=== PATIENT | male | born 1950 | race Caucasian/White ===

== ENCOUNTER 2024-03-26 15:33 | Inpatient (IN) | payer MEDICARE, SELFPAY ==
[2024-03-26 15:33] VITALS: BP 149/59; PULSE 97; RESP 16; O2SAT 100
[2024-03-26 15:34] VITALS: BP 149/59; PULSE 95; RESP 14; TEMP 36.4; O2SAT 100
[2024-03-26 15:35] VITALS: BMI 27.6
--- NOTE | 2024-03-26 15:41 | EKG12_ITS ---
Test Reason : CP Blood Pressure : / mmHG Vent. Rate : 087 BPM Atrial Rate : 087 BPM P-R Int : 156 ms QRS Dur : 082 ms QT Int : 336 ms P-R-T Axes : 048 013 042 degrees QTc Int : 404 ms Normal sinus rhythm Normal ECG Confirmed by Jose Franklin ([id number]), editor farm journal JARRED DOTSON ([id number]) on 03/28/2024 9:24:00 AM Referred By: EILEEN Confirmed By:Jose Fraknlin
--- NOTE | 2024-03-26 15:54 | EX.ED.DYSGE1 ---
HPI History of Present Illness Chief Complaint: Syncope Detail of Chief Complaint: Exertional chest pain and dyspnea with near syncope today. Informant: patient and spouse/S.O. Onset/Context/Timing Onset: Today Context: Sudden Onset Timing: Intermittent Current Severity: Gone Maximum Severity: Moderate Narrative Narrative: 73-year-old male history diabetes and hypertension. No cardiac history. No recent stress test or heart cath. The last 2 weeks or more he has had exertional dyspnea and exertional chest pain. States chest pain when he gets it is midsternal sometimes radiates to his neck or shoulders. Today he was walking and got short of breath and almost passed out. He states recently when he walks or does any exertional he is really short of breath and feels like someone standing on his chest. Is been going on for 2 to 3 weeks. He had no history of DVT or PE. No cardiac history. Prior similar symptoms: Yes Recent Illness/Hospitalization: No PFSH PFSH Home Medications ?Medication ?Instructions ?Recorded ?Last Taken ?Type lisinopril 20 mg tablet 20 mg PO DAILY BLOOD PRESSURE 10/16/17 10/16/17 08:00 History 20 mg acetaminophen 500 mg tablet 500 mg PO Q4H PRN PRN pain/fever 10/18/17 Unknown Rx dextromethorphan-guaifenesin 10 10 ml PO Q6H PRN PRN COUGH 10/18/17 Unknown Rx mg-100 mg/5 mL oral syrup ibuprofen 400 mg tablet 800 mg (2 x 400 mg) PO Q8H PRN PRN 10/18/17 Unknown Rx Mild Pain (1-3/10) levofloxacin 750 mg tablet 750 mg PO DAILY #3 tabs 10/18/17 Unknown Rx metformin 500 mg tablet 500 mg PO BIDCM #60 tabs 10/18/17 Unknown Rx Allergy/AdvReac Type Severity Reaction Status Date / Time No Known Allergies Allergy Verified 03/26/24 15:36 Social History Smoking Status: Never smoker ROS ROS ED ROS Narrative Exertional dyspnea. Exertional chest pain. Denies vomiting, diarrhea, fever or melena.No hemoptysis. No leg pain or swelling. Review of Systems ROS Unobtainable: Denies due to encephalopathy Constitutional Constitutional ED: Denies chills or fever(s) Eyes Eyes: Denies blurry vision ENT ENT ED: Denies ear pain Cardiovascular Cardiovascular: Reports chest pain; Denies palpitations or racing heartbeat Respiratory/Chest Respiratory/Chest: Reports dyspnea on exertion; Denies cough Gastrointestinal Gastrointestinal: Denies abdominal pain Genitourinary Genitourinary ED: Denies dysuria or hematuria Musculoskeletal Musculoskeletal: Denies arthralgias Integumentary Denies abscess Neurologic Neurologic: Denies headache(s) Psychiatric Psychiatric: Denies anxiety or depression Endocrine Endocrinology: Denies cold intolerance Hematologic/Lymphatic Hematologic/Lymphatic: Reports none; Denies easy bruising or lymphadenopathy Allergic/Immunologic Allergic/Immunologic ED: Denies mouth swelling, tongue swelling or urticaria EXAM Physical Exam Narrative Exam Narrative: Well-appearing 73-year-old male. Vital signs stable afebrile. H EENT exam unremarkable. Neck nontender JVD. Lungs clear to auscultation bilaterally. Heart regular rate and rhythm no murmur rate about 90. Chest wall nontender. Ribs nontender. Abdomen soft nontender. Moving all 4 extremities. 5 out of 5 hide inspector and sorter strength. Dorsi plantarflexion intact. Calves nontender without edema or cords. Equal symmetrical radial pulses. Back nontender. Neurologically is awake alert no focal motor deficits. Const Vital Signs: 03/26/24 15:33 03/26/24 15:34 03/26/24 15:46 Temperature 97.6 F L Temperature Source Temporal Pulse Rate 97 95 Respiratory Rate 16 14 Blood Pressure 149/59 H 149/59 H Blood Pressure Mean 89 89 Pulse Ox 100 100 Oxygen Delivery Method Room Air Room Air Room Air Positive well nourished and well developed; Negative for cachectic, contractures or unkempt General Appearance ED: well developed and NAD; Negative for unkempt, cachectic, contractures, cyanotic, diaphoretic or pallor Nutritional Appearance: Negative for cachectic HEENT Reports moist mucous membranes; Denies dry mucous membranes Negative for trauma or tenderness Mouth ED: No dry mucous membranes Mouth: No dry mucous membranes Eyes PERRL and EOMs intact bilaterally General Eye ED: Negative for pale conjunctiva, scleral icterus or other Neck no lymphadenopathy, supple and no JVD General: Negative for tenderness or other Lymph Lymphatic: Negative for other Chest Wall inspection of chest normal and palpation of chest normal Chest: Negative for other Resp normal respiratory effort and clear to auscultation bilaterally Effort and Inspection: Negative for retractions Auscultation: Negative for rales, rhonchi, wheezes or diminished lung sounds Cardio regular rate, regular rhythm, S1 normal heart sound, S2 normal heart sound and no murmurs Palpation: Negative for palpable S3 or palpable S4 Rate: Negative for bradycardia or tachycardic Rhythm: Negative for abnormal rhythm GI normal to inspection, nondistended, normoactive bowel sounds, non-tender, non-distended and no masses Inspection: Negative for abdominal distention Auscultation: normoactive bowel sounds Palpation: soft; Negative for tender, guarding, mass or rebound tenderness present Back/Spine no CVA tenderness General Back: Negative for CVA tenderness Cervical Spine: Negative for cervical spine tenderness Thoracic Spine / Upper Back: Negative for thoracic spinal tenderness or paraspinal muscle tenderness Lumbar Spine / Lower Back: Negative for lumbar spinal tenderness Extremity normal to inspection General Extremety ED: Negative for edema or tenderness General Extremity: Negative for edema Neuro oriented x3 and CN's II-XII intact bilaterally Sensorium / Orientation: alert; Negative for orientation impaired, lethargic or stuporous Motor Exam: strength 5/5 throughout Psych mental status grossly normal Appearance: Negative for unkempt Attitude: No agitated Mood & Affect: Negative for depressed or tearful Skin no rashes or lesions noted and no wounds General Skin Exam: Negative for jaundice or pallor Lesions: No lesion noted Rashes: No rashes noted Trauma: Negative for abrasion Wounds: Negative for wounds noted MDM MDM MDM Narrative Medical decision making narrative: 73-year-old male with near syncope today. Very concerning history of exertional chest pain exertional dyspnea for the last several weeks. This is cardiac etiology until proven otherwise. Undergo cardiac workup. I have already spoken with he and his before any tests have returned and he needs to be admitted to have further cardiac evaluation. Patient doing well at 4:50 PM. We went over his test results. He and his significant other understand he needs to be admitted worked up both for his anemia, thrombocytopenia and most importantly his exertional chest pain and exertional dyspnea. They are comfortable with the plan. I spoke to the hospitalist will be down to evaluate the patient and plans to admit him to the PCU. History & Record Review Discussion w/independent historian: Patient and Family Additional record(s) reviewed:: Prior inpatient record, Prior outpatient record, Prior ED visit and Prior labs Lab Data Attestation: I reviewed the patient's lab results. Lab results narrative: CBC shows a white count of 4. H&H 9.2 and 26 he is anemic. Platelets are also low at 14,000. Electrolytes show a normal gap 13. BUN of 24 and creatinine 1.5. Some renal insufficiency. Glucose 347 is known diabetic. Troponin is normal at 10. Labs: Laboratory Results - last 24 hr 03/26/24 15:45 WBC 4.4 RBC 2.98 L Hgb 9.2 L Hct 26.0 L MCV 87.2 MCH 30.9 MCHC 35.4 RDW Std Deviation 37.2 RDW Coeff of Consuelo 11.6 Plt Count 14 L* MPV 11.6 Immature Gran % (Auto) 0.200 Neut % (Auto) 54.0 Lymph % (Auto) 32.6 [place] % (Auto) 10.5 H Eos % (Auto) 2.5 Baso % (Auto) 0.2 Absolute Neuts (auto) 2.4 Absolute Lymphs (auto) 1.43 Nucleated RBC % 0 Diff Path Review May foll Atypical Lymphocytes 2+ Platelet Estimate MKD DEC RBC Morphology N CHROM Hypochromasia RARE Anisocytosis RARE Ovalocytes RARE Sodium 137 Potassium 3.9 Chloride 99 Carbon Dioxide 25.0 Anion Gap 13 BUN 24 H Creatinine 1.53 H Est GFR (MDRD) Af Amer 58 L Est GFR (MDRD) Non-Af 48 L BUN/Creatinine Ratio 15.7 Glucose 347 H Calcium 9.9 Troponin I High Sens 10 Radiography Chest X-Ray - ED: 1 View, Read by ED Physician, Heart, Lungs, Mediastinum, Bony Structures, No Acute Disease and Chronic Changes Diagnostic Testing: Clinical Impression(s) from Imaging Studies Chest X-Ray 03/26/24 15:55 IMPRESSION: No radiographic evidence of acute cardiopulmonary disease. Electronically Signed: Sd Varghese DO at 16:35 EDT , Chest x-ray, portable, single view, interpreted by myself shows no acute abnormality. Normal cardiac silhouette. Normal mediastinum. Normal lung alcazar. Rhythm Strip Rhythm Strip: Sinus Rhythm Rate: 87 Ectopy: None EKG Initial EKG: Attestation: I personally reviewed and interpreted this EKG as follows: Interpretation: Sinus Rhythm and No Acute Injury Pattern Comments: Normal sinus rhythm rate 87 no acute signs of PR or ischemia. No dysrhythmia. Discharge Plan Dx/Rx/DC Orders Clinical Impression: Near syncope, Exertional chest pain, Exertional dyspnea, History of diabetes mellitus, History of chronic hypertension, Anemia, Thrombocytopenia Disposition Disposition: Acute Care Hospital [facility]
--- NOTE | 2024-03-26 15:55 | RAD_ITS ---
INDICATION: chest pain EXAMINATION/TECHNIQUE: X-RAY - XR Chest 1 View COMPARISON: FINDINGS: LINES/DEVICES: None. LUNGS: No consolidation, edema or effusion. No pneumothorax. MEDIASTINUM AND CARDIOVASCULAR STRUCTURES: Cardiac silhouette not enlarged. Central airways and mediastinal contour are unremarkable. BONES AND SOFT TISSUES: Degenerative vertebral changes. RAD/Chest 1 View (Portable) IMPRESSION: No radiographic evidence of acute cardiopulmonary disease. Electronically Signed: Sd Varghese DO at 16:35 EDT ,
[2024-03-26 15:58] LABS: Absolute Lymphocyte Count 1.43 X10^3/uL (0.83-4.51); Absolute Neutrophil Count 2.4 X10^3/uL (2.0-7.7); Basophil# 0.01 X10^3/uL; Basophil% 0.2 % (0-1); Eosinophil# 0.11 X10^3/uL; Eosinophils% 2.5 % (0-5); Hemoglobin 9.2 g/dL (13.0-16.5); Lymphocyte # 1.43 X10^3/ul (0.83-4.51); Lymphocyte % 32.6 % (19-41); Mean Corp Hgb Conc 35.4 g/dL (32-36); Mean Corpuscular Hgb 30.9 pg (27.0-32.0); Mean Corpuscular Volume 87.2 fL (80-94); Mean Platelet Vol. 11.6 fl (6.2-12.0); Monocyte# 0.46 X10^3/uL; Monocyte% 10.5 % (0-10); NRBC Flagged by Analyzer 0 % (0-5); Neutrophil # 2.36 X10^3/uL (2.7-7.7); POSITIVE COUNT YES; POSITIVE MORPHOLOGY YES; RBC Distribution Width CV 11.6 % (11.6-14.6); RBC Distribution Width SD 37.2 fl (35.1-43.9); Red Blood Count 2.98 M/mm3 (4.6-6.2); White Blood Count 4.4 K/mm3 (4.4-11.0)
[2024-03-26] MEDS: Aspirin 81 MG TAB.CHEW 325 MG PO (15:58)
[2024-03-26 16:15] LABS: Anion Gap 13 (5-15); BUN 24 mg/dL (7-18); BUN/Creat Ratio 15.7 RATIO (10-20); Calcium,Total 9.9 mg/dL (8.5-10.1); Chloride 99 mmol/L (98-107); Creatinine, Serum 1.53 mg/dL (0.70-1.30); EST Glomerular Filtration Rate 48 mL/min (>60); Est Glom Filt Rate - Afr Amer 58 mL/min (>60); Glucose 347 mg/dL (74-106); Potassium 3.9 mmol/L (3.5-5.1); Sodium Level 137 mmol/L (136-145); Troponin-I HS 10 pg/mL (3.0-78.0); Troponin-I HS (w/2H Reflex) 10 pg/mL (3.0-78.0)
[2024-03-26 16:24] LABS: Differential Indicated SCAN CRITERIA MET; Platelet Count 14 K/mm3 (150-450)
[2024-03-26 16:26] LABS: Atypical Lymphocyte 2+ %
[2024-03-26 16:27] LABS: Anisocytosis RARE; Hypochromasia RARE; Ovalocyte RARE; Platelet Estimate MKD DEC (ADEQ); Red Cell Morphology N CHROM NORMAL (NORM C&C)
--- NOTE | 2024-03-26 16:45 | NURSING ---
DR SHIRLEY EGAN
--- NOTE | 2024-03-26 16:52 | NURSING ---
PCU SHIRLEY NEAR SYNCOPE, EX CP, EX DYSPNEA, ANEMIA, THROMBOCYTOPENIA
[2024-03-26 17:00] VITALS: BP 153/73; PULSE 87; RESP 15; TEMP 37; O2SAT 98
--- NOTE | 2024-03-26 17:00 | CT_ITS ---
STUDY: CT ABDOMEN AND PELVIS WITHOUT CONTRAST REASON FOR EXAM: Male, 73 years old. liver disease? RADIATION DOSAGE (If Supplied By Facility): CTDIvol = ( 8.99 ) mGy, DLP = ( 492.13 ) mGycm TECHNIQUE: Transaxial images were obtained from the dome of the diaphragm to the symphysis pubis without oral contrast, and without intravenous contrast. Sagittal and coronal images were reconstructed. Individualized dose optimization techniques were used for this CT. COMPARISON: None. FINDINGS: The visualized lung bases are unremarkable. The visualized portions of the heart are within normal limits. Normal liver. Normal gallbladder and extrahepatic biliary system. Normal spleen. 1.8 cm nodule with a calcified rim at the head of the pancreas. Normal bilateral adrenal glands. Normal right kidney. Normal left kidney. Normal visualized stomach. Normal small intestine. Normal colon. The appendix is visualized and appears normal. Calcified abdominal aorta. Normal inferior vena cava. Normal retroperitoneum. Normal urinary bladder. Fatty density in the inguinal canals, left more than right. Small fatty umbilical hernia. Degenerative vertebral changes. Status post laminectomy of L3-L5. CT/Abdomen/Pelvis without Cont IMPRESSION: Pancreatic head nodule is noted. Fatty density in the inguinal canals. Small fatty umbilical hernia. Electronically Signed: Sd Varghese DO at 19:02 EDT ,
--- NOTE | 2024-03-26 17:01 | HP.PCM.HOS_ITS ---
HPI - General General Date of Admission: 03/26/24 Date of Service: 03/26/24 Chief Complaint: Exertional chest pain and dyspnea/near syncope HPI Narrative JOSE KEYS, is a 73 M who presented to the emergency department at [facility] on 03/26/2024 with a chief complaint of exertional chest pain/dyspnea and near syncope. Patient reports about for the last 4 weeks he has been having exertional chest pain that starts in his central chest and progresses to burning chest pain that radiates up into his neck. It subsides with rest but does not completely latisha. He states he always feels like he has some tightness. He he has some associated shortness of breath that resolves with rest. He also complains of some associated diaphoresis and nausea. He has had a couple of near syncopal episodes with extensive exertion. He states that he goes up 1 flight of steps and he will feel little bit of symptoms but if he is does it a second time his symptoms get worse. He has no history of coronary disease. He has a history of diabetes and hypertension. No known family history of coronary disease. He is a lifelong non-smoker. He denies any melanotic stools or hematemesis. He states his appetite has been suppressed over the last 4 weeks because he has not been as hungry related the symptoms he been having. He also complains of significant fatigue. His indicates she has been begging him to be evaluated but has been putting it off. Vital signs on presentation showed temperature of 97.6, blood pressure of 149/59, respiratory 14 oxygen saturation is 100% room air. CBC shows normal white count but anemia with a hemoglobin of 9.2 (baseline unknown), MCV is normal. Platelet count is 14,000. He was here in 2018 and his platelet count at that time was 124,000. He did not know that he was thrombocytopenic ever. His chemistry panel showed normal electrolytes but an elevated BUN at 24 and a serum creatinine of 1.53 (baseline unknown). Serum glucose was 347. The patient did indicate that he has had trouble controlling his blood sugars as of late. His initial troponin was 10. Chest x-ray was unremarkable. EKG is normal sinus rhythm with normal intervals and no ST-T wave changes concerning for acute ischemia. [facility] Medical History (Updated 03/26/24 @ 18:[address] Yen Mcdonald DO) Diverticulosis History of chronic hypertension History of diabetes mellitus Home Medications ?Medication ?Instructions ?Recorded ?Last Taken ?Type lisinopril 20 mg tablet 20 mg PO DAILY BLOOD PRESSURE 10/16/17 10/16/17 08:00 History 20 mg metformin 500 mg tablet,extended 500 mg PO BID 03/26/24 Unknown History release 24 hr pioglitazone 30 mg tablet 30 mg PO DAILY 03/26/24 Unknown History Allergy/AdvReac Type Severity Reaction Status Date / Time No Known Allergies Allergy Verified 03/26/24 15:36 Family History (Updated 03/26/24 @ 18:[address] Yen Mcdonald DO) Other Brain malignancy Diabetes Hypertension Surgical History (Updated 03/26/24 @ 18:[address] Yen Mcdonald DO) H/O colonoscopy Social History (Updated 03/26/24 @ 18:[address] Yen Mcdonald DO) household members: spouse housing: house current occupational status: retired Smoking Status: Never smoker alcohol intake: former substance use type: does not use ROS Constitutional Constitutional: Reports anorexia, fatigue and malaise; Denies change in weight, chills, fever(s), night sweats, weakness or other Eyes Eyes: Denies blurry vision, change in eye color, change in vision, discharge from eye(s), double vision, erythema, eye pain, loss of vision or other ENT HEENT: Denies abnormal hearing, dysphagia, ear pain, epistaxis, headache(s), hearing loss, nasal congestion, nasal discharge, post nasal drip, sinus pressure, sore throat or other Cardiovascular Cardiovascular: Reports chest pain and dyspnea on exertion; Denies claudication, edema, lightheadedness, orthopnea, palpitations, paroxysmal nocturnal dyspnea, rapid heart rate, syncope or other Respiratory/Chest Respiratory/Chest: Reports dyspnea and shortness of breath with exertion; Denies cough, excessive phlegm production, hemoptysis, productive cough, shortness of breath at rest, wheezing or other Gastrointestinal Gastrointestinal: Reports nausea; Denies abdominal pain, coffee ground emesis, constipation, diarrhea, dyspepsia, hematemesis, hematochezia, loose stools, melena, vomiting or other Genitourinary Genitourinary: Denies burning urination, difficulty urinating, dysuria, hematuria, nocturia, urinary frequency, urinary hesitancy, urinary incontinence, urinary urgency or other Musculoskeletal Musculoskeletal: Denies arthralgias, back pain, joint pain, joint stiffness, joint swelling, myalgias, neck pain or other Neurologic Neurologic: Reports other Details: Presyncope ; Denies abnormal gait, abnormal speech, confusion, disequilibrium, dizziness, focal weakness, headache(s), numbness, paresthesias, seizure-like activity, seizures, syncope, tingling or tremor(s) Psychiatric Psychiatric: Denies anxiety, depression, homicidal ideation, suicidal ideation or other Endocrine Endocrinology: Denies change in body appearance, cold intolerance, excessive sweating, heat intolerance, polydipsia, polyuria or other Hematologic/Lymphatic Hematologic/Lymphatic: Denies anemia, easy bleeding, easy bruising, lymphadenopathy or other Allergic/Immunologic Allergic/Immunologic: Denies rhinitis, hives, eczemia, asthma or other Vital Signs Vital Signs Vital Signs: 03/26/24 15:33 03/26/24 15:34 03/26/24 15:46 Temperature 97.6 F L Temperature Source Temporal Pulse Rate 97 95 Respiratory Rate 16 14 Blood Pressure 149/59 H 149/59 H Blood Pressure Mean 89 89 Pulse Ox 100 100 Oxygen Delivery Method Room Air Room Air Room Air Physical Exam Const alert, oriented x3, no apparent distress, average body habitus and well nourished Constitutional Narrative: Older, white male, sitting up in bed, appears comfortable, nontoxic, at bedside General Appearance: cooperative HEENT normocephalic, head/scalp atraumatic, hearing grossly normal bilaterally and moist oral mucous membranes HEENT Narrative: Mallampati is 2, no thrush, dentition is fair for age Eyes PERRL and EOMs intact bilaterally; Negative for conjunctivae normal Eyes Narrative: Mildly pale conjunctiva bilaterally, no scleral icterus Neck no lymphadenopathy, supple, no JVD and no carotid bruits Neck Narrative: Trachea midline, no thyroid enlargement Resp normal respiratory effort, no retractions, no use of accessory muscles and clear to auscultation bilaterally Auscultation: Negative for rales, rhonchi or wheezes Cardio regular rate, regular rhythm, S1 normal heart sound, S2 normal heart sound, no murmurs, no rub, no gallops and no clicks GI normal to inspection, nondistended, normoactive bowel sounds, soft to palpation and non-tender Extremity no clubbing, cyanosis or edema Extremity Narrative: Pedal pulses are 2+, radial pulses are 2+ Skin No no rashes or lesions noted, no wounds, skin turgor normal, no jaundice, no petechiae and no mottling Skin Narrative: Few scattered areas of petechiae bilateral lower extremities most notable on the left foot Neuro oriented x3, CN's II-XII intact bilaterally, moves all extremities and no focal motor deficits Speech: speech normal Psych Psych Narrative: Affect is flat and patient seems anxious, answers questions appropriately and interacts well Results Lab / Micro Data 03/26/24 15:45 03/26/24 15:45 Labs: Laboratory Results - last 24 hr 03/26/24 15:45: WBC 4.4, RBC 2.98 L, Hgb 9.2 L, Hct 26.0 L, MCV 87.2, MCH 30.9, MCHC 35.4, RDW Std Deviation 37.2, RDW Coeff of Consuelo 11.6, Plt Count 14 L*, MPV 11.6, Immature Gran % (Auto) 0.200, Neut % (Auto) 54.0, Lymph % (Auto) 32.6, M rivka % (Auto) 10.5 H, Eos % (Auto) 2.5, Baso % (Auto) 0.2, Absolute Neuts (auto) 2.4, Absolute Lymphs (auto) 1.43, Nucleated RBC % 0, Diff Path Review May foll, Atypical Lymphocytes 2+, Platelet Estimate MKD DEC, RBC Morphology N CHROM, Hypochromasia RARE, Anisocytosis RARE, Ovalocytes RARE, Sodium 137, Potassium 3.9, Chloride 99, Carbon Dioxide 25.0, Anion Gap 13, BUN 24 H, Creatinine 1.53 H , Est GFR (MDRD) Af Amer 58 L, Est GFR (MDRD) Non-Af 48 L, BUN/Creatinine Ratio 15.7, Glucose 347 H, Calcium 9.9, Troponin I High Sens 10 Rhythm Strip Rhythm Strip: Sinus Rhythm Rate: 87 Ectopy: None Imaging Radiology Impression Chest X-Ray 03/26/24 15:55 IMPRESSION: No radiographic evidence of acute cardiopulmonary disease. Electronically Signed: Sd Varghese DO at 16:35 EDT Reading Location ID and State: [facility] / [place] Tel [phone], Service support , Assessment & Plan Assessment/Plan (1) Thrombocytopenia: (2) Anemia: (3) Exertional dyspnea: (4) Exertional chest pain: (5) Near syncope: (6) Elevated serum creatinine: (7) Hyperglycemia: PLAN: Plan Unstable angina/exertional dyspnea/near syncope -History is highly suspicious for cardiac etiology -Given high suspicion will consult cardiology however thrombocytopenia will be limiting factor at this time for cardiac catheterization -Will see how cardiology wants to proceed at this time -Hold aspirin due to thrombocytopenia that is severe -Start metoprolol 25 mg p.o. twice daily -Continue lisinopril at 10 mg daily -Will start atorvastatin 80 mg daily -Patient has previous statin intolerance with myalgias--> will retrial -Check hemoglobin A1c -Check lipids -Cycle cardiac enzymes -Check echocardiogram -Monitor on telemetry -Consult cardiology Elevated serum creatinine -baseline is unknown -Will gently hydrate with 1 L IV fluids -repeat in a.m. -Avoid nephrotoxins as able Hypomagnesemia -2 g bolus -Recheck in a.m. Hypophosphatemia -Sodium Phos bolus -Recheck in a.m. Severe thrombocytopenia -Recent baseline is unknown -Was here in 2018 and platelet count was 124,000 at that time -Check coags -Check peripheral smear -If coags are elevated will need to rule out low level DIC -CT abdomen pelvis pending to assess liver and spleen -Will transfuse platelets for level less than 10,000 or obvious signs of bleeding Normocytic anemia -Baseline is unknown -Check iron studies -Check ferritin -check trans ferritin -If bilirubin is elevated we will check haptoglobin -Check peripheral smear DM-2 with hyperglycemia -Blood glucose on presentation was 347 -Patient states he has had more difficult lately controlling his blood glucose levels -Check hemoglobin A1c -has been on metformin and Actos recently added -Hold Actos and metformin -Levemir 15 units subcu tonight -SSI -Cardiac/carb controlled diet [id number] as ordered History of essential hypertension -Continue lisinopril but decrease dose from 20-10 with addition of metoprolol -Add metoprolol 25 mg p.o. twice daily -Monitor History of hyperlipidemia -Patient has not been able to tolerate statins previously -Check lipid panel -Start atorvastatin given above concerns and monitor clinically DVT prophylaxis -Contraindicated due to severe thrombocytopenia -SCDs CODE STATUS -Full code as verified at the time of admission Charges/Coding Visit Charges Inpatient E&M: 58311 Init Hosp L3
[2024-03-26 17:27] LABS: AST(SGOT) 16 U/L (15-37); Alanine Aminotransfer ALT/SGPT 28 U/L (16-61); Albumin, Serum 3.8 g/dL (3.2-5.0); Alkaline Phosphatase 91 U/L (45-117); Bilirubin, Direct 0.12 mg/dL (0.00-0.30); Globulin 3.6 g/dL (2.2-4.2); Iron 243 ug/dL (65-175); Iron Binding Capacity,Total 261 ug/dL (250-450); Magnesium 1.5 mg/dL (1.6-2.6); PERCENT IRON SATURATION 93.1 % (15.0-55.0); Protein, Total 7.4 g/dL (6.4-8.2)
[2024-03-26 17:53] LABS: Reflex Troponin-HS? (from REC) Y
[2024-03-26 18:03] LABS: International Normalized Ratio 1.2; Prothrombin Time (Protime)PT. 15.1 SECONDS (11.7-14.9)
[2024-03-26 18:04] LABS: Partial Thromboplast Time 26.9 Seconds (24.1-36.2)
[2024-03-26 18:33] VITALS: BP 125/56; PULSE 80; RESP 16; TEMP 36.6; O2SAT 99
[2024-03-26 18:47] VITALS: BMI 28.2
[2024-03-26 18:58] LABS: Ferritin 508 ng/mL (26-388); Troponin-I HS 36 pg/mL (3.0-78.0)
--- NOTE | 2024-03-26 19:27 | EKG12_ITS ---
Test Reason : CP ADMIT Blood Pressure : / mmHG Vent. Rate : 078 BPM Atrial Rate : 078 BPM P-R Int : 166 ms QRS Dur : 080 ms QT Int : 372 ms P-R-T Axes : 050 009 041 degrees QTc Int : 424 ms Normal sinus rhythm Normal ECG When compared with ECG of 26-MAR-2024 15:42, MANUAL COMPARISON REQUIRED, DATA IS UNCONFIRMED Confirmed by Jose Franklin ([id number]), staff editor JARRED DOTSON ([id number]) on 03/29/2024 8:21:14 AM Referred By: Confirmed By:Jose Franklin
[2024-03-26 20:16] LABS: Bedside Glucose 199 mg/dL (74-106)
[2024-03-26] MEDS: Lactated Ringers 1,000 ML 75 ML IV (22:14)
[2024-03-26] MEDS: Magnesium Sulfate 2 GM in Dextrose 5%-Water (100mL Bag) 100 ML IV (22:15)
[2024-03-26 22:17] VITALS: PULSE 77
[2024-03-26] MEDS: Metoprolol Tartrate 25 MG Tablet PO (22:17)
[2024-03-26] MEDS: Insulin Glargine-YFGN 100 UNIT/ML Pen 15 UNIT SC (22:17)
[2024-03-26 22:40] LABS: Troponin-I HS 26 pg/mL (3.0-78.0)
[2024-03-27] VITALS (7 sets, daily range): BP systolic 110–133; BP diastolic 53–62; PULSE 77–84; RESP 16; TEMP 36.4–37; O2SAT 97–100; BMI 28.5
[2024-03-27] MEDS: Acetaminophen 325 MG Tablet 650 MG PO (01:43)
[2024-03-27] MEDS: Sodium Phosphate/Na Biphos 21 MMOL in 0.9% Normal Saline (250mL Bag) 250 ML 84 MMOL IV (01:48)
[2024-03-27] MEDS: 0.9% Normal Saline (1000mL) 1,000 ML 75 ML IV ×2 (01:50→14:51)
[2024-03-27 05:27] LABS: Hematocrit 23.3 % (40-54); Hemoglobin 8.1 g/dL (13.0-16.5); Mean Corp Hgb Conc 34.8 g/dL (32-36); Mean Corpuscular Hgb 30.8 pg (27.0-32.0); Mean Corpuscular Volume 88.6 fL (80-94); Mean Platelet Vol. 10.1 fl (6.2-12.0); POSITIVE COUNT YES; RBC Distribution Width CV 11.7 % (11.6-14.6); RBC Distribution Width SD 37.4 fl (35.1-43.9); Red Blood Count 2.63 M/mm3 (4.6-6.2)
[2024-03-27 05:30] LABS: Platelet Count 11 K/mm3 (150-450); Scan Indicated on CBC? Y/N YES- FLAGS NOTED
[2024-03-27 06:00] LABS: Anion Gap 7 (5-15); BUN 20 mg/dL (7-18); BUN/Creat Ratio 18.5 RATIO (10-20); Calcium,Total 8.8 mg/dL (8.5-10.1); Chloride 103 mmol/L (98-107); Cholesterol 120 mg/dL (200); Creatinine, Serum 1.08 mg/dL (0.70-1.30); EST Glomerular Filtration Rate 71 mL/min (>60); Est Glom Filt Rate - Afr Amer 86 mL/min (>60); Estimated Creatinine Clearance 65.62 ml/min; Glucose 198 mg/dL (74-106); High Density Lipoprotein 30 mg/dL; Magnesium 2.1 mg/dL (1.6-2.6); Phosphorus 4.9 mg/dL (2.5-4.9); Sodium Level 139 mmol/L (136-145); Thyroid Stim Hormone (TSH) 1.62 uIU/mL (0.358-3.74); Triglycerides 183 mg/dL; Very Low Density Lipoprotein 37 mg/dL (5-40)
[2024-03-27] MEDS: Insulin Lispro 100 UNIT/ML INSULN.PEN SC ×3 (07:00→17:30)
[2024-03-27 07:12] LABS: Bedside Glucose 159 mg/dL (74-106)
[2024-03-27 08:32] LABS: Hemoglobin A1c 11.2 % (3.8-5.6)
[2024-03-27] MEDS: Lisinopril 10 MG Tablet PO (10:02)
[2024-03-27] MEDS: Metoprolol Tartrate 25 MG Tablet PO ×2 (10:02→21:10)
--- NOTE | 2024-03-27 11:57 | NURSING ---
0900-Educated pt on IS/PEP. Pt stated ya I'm not going to do that, I cant breathe. Education reenforced about importance of IS/PEP and how it improved lung function. Pt once again declined use.
[2024-03-27 12:25] LABS: Bedside Glucose 216 mg/dL (74-106)
--- NOTE | 2024-03-27 13:22 | PCM.PN.HOSP ---
Reason for Visit Reason for Visit: Exertional chest pain and dyspnea/near syncope Subjective Subjective Patient still with some intermittent chest pressure overnight but no pain radiating to his neck. We did discuss that his platelets are 11,000 and he will be getting platelet transfusion today. Workup is in progress and we did discuss that his platelets will need to be addressed before he can have cardiac workup if catheterization is required. Still awaiting cardiology input Objective Data Objective Data Vital Signs: Vital Signs Temp Pulse Resp BP Pulse Ox O2 Del Method 98.4 F 80 16 114/53 L 97 Room Air 03/27/24 10:00 03/27/24 10:02 03/27/24 10:00 03/27/24 10:00 03/27/24 10:00 03/27/24 10:00 Oxygen Delivery Method Room Air Weight: 85 kg Body Mass Index (BMI) 28.5 Intake & Output: Intake and Output for Last 24 Hours 03/25/24 03/26/24 03/27/24 23:59 23:59 23:59 Intake Total 1928.5 / 1928.5 Balance 1928.5 / 1928.5 Lab / Micro Data 03/27/24 04:52 03/27/24 04:52 Labs: Laboratory Results - last 24 hr 03/26/24 15:45: WBC 4.4, RBC 2.98 L, Hgb 9.2 L, Hct 26.0 L, MCV 87.2, MCH 30.9, MCHC 35.4, RDW Std Deviation 37.2, RDW Coeff of Consuelo 11.6, Plt Count 14 L*, MPV 11.6, Immature Gran % (Auto) 0.200, Neut % (Auto) 54.0, Lymph % (Auto) 32.6, [place] % (Auto) 10.5 H, Eos % (Auto) 2.5, Baso % (Auto) 0.2, Absolute Neuts (auto) 2.4, Absolute Lymphs (auto) 1.43, Nucleated RBC % 0, Diff Path Review May foll, Atypical Lymphocytes 2+, Platelet Estimate MKD DEC, RBC Morphology N CHROM, Hypochromasia RARE, Anisocytosis RARE, Ovalocytes RARE, Sodium 137, Potassium 3.9, Chloride 99, Carbon Dioxide 25.0, Anion Gap 13, BUN 24 H, Creatinine 1.53 H, Est GFR (MDRD) Af Amer 58 L, Est GFR (MDRD) Non-Af 48 L, BUN/Creatinine Ratio 15.7, Glucose 347 H, Calcium 9.9, Phosphorus 2.0 L, Magnesium 1.5 L, Iron 243 H, TIBC 261 03/26/24 15:45: TIBC Cancelled, Iron Saturation 93.1 H, Total Bilirubin 0.50, Direct Bilirubin 0.12, AST 16, ALT 28, Alkaline Phosphatase 91, Troponin I High Sens 10, Total Protein 7.4, Albumin 3.8, Globulin 3.6 03/26/24 17:40: PT 15.1 H, INR 1.2, APTT 26.9 03/26/24 18:29: Ferritin 508 H, Troponin I High Sens 36 03/26/24 19:57: POC Glucose 199 H 03/26/24 21:44: Troponin I High Sens 26 03/27/24 04:52: WBC 5.0, RBC 2.63 L, Hgb 8.1 L, Hct 23.3 L, MCV 88.6, MCH 30.8, MCHC 34.8, RDW Std Deviation 37.4, RDW Coeff of Consuelo 11.7, Plt Count 11 L*, MPV 10.1, Diff Path Review February, Sodium 139, Potassium 4.0, Chloride 103, Carbon Dioxide 29.0, Anion Gap 7, BUN 20 H, Creatinine 1.08, Estim Creat Clear Calc 65.62, Est GFR (MDRD) Af Amer 86, Est GFR (MDRD) Non-Af 71, BUN/Creatinine Ratio 18.5, Glucose 198 H, Hemoglobin A1c 11.2 H, Calcium 8.8, Phosphorus 4.9, Magnesium 2.1, Triglycerides 183, Cholesterol 120, LDL Cholesterol 53, VLDL Cholesterol 37, HDL Cholesterol 30 L, TSH 1.62 03/27/24 06:18: Blood Type O POSITIVE, Antibody Screen NEGATIVE 03/27/24 06:47: POC Glucose 159 H 03/27/24 12:07: POC Glucose 216 H Radiography Diagnostic Testing: Radiology Impression Chest X-Ray 03/26/24 15:55 IMPRESSION: No radiographic evidence of acute cardiopulmonary disease. Electronically Signed: Sd Varghese DO at 16:35 EDT Reading Location ID and State: [facility] / [place] Tel [phone], Service support , Abdomen/Pelvis CT 03/26/24 17:00 IMPRESSION: Pancreatic head nodule is noted. Fatty density in the inguinal canals. Small fatty umbilical hernia. Electronically Signed: Sd DO Abimael at 19:02 EDT Reading Location ID and State: [address] [place] [address] Tel [phone], Service support , Rhythm Strip Rhythm Strip: Sinus Rhythm Rate: 87 Ectopy: None Physical Exam Const alert, oriented x3, no apparent distress, average body habitus and well nourished; Negative for healthy appearing Constitutional Narrative: Older, white male, sitting up in a chair at the bedside, appears comfortable, nontoxic, at bedside General Appearance: cooperative HEENT normocephalic, head/scalp atraumatic, hearing grossly normal bilaterally and moist oral mucous membranes HEENT Narrative: Mallampati 2-3, no thrush Eyes PERRL and EOMs intact bilaterally; Negative for conjunctivae normal Eyes Narrative: Mildly pale conjunctiva bilaterally, no scleral icterus Neck no lymphadenopathy, supple, no JVD and no carotid bruits Neck Narrative: Trachea midline, no thyroid enlargement Resp normal respiratory effort, no retractions, no use of accessory muscles and clear to auscultation bilaterally Auscultation: Negative for rales, rhonchi or wheezes Cardio regular rate, regular rhythm, S1 normal heart sound, S2 normal heart sound, no murmurs, no rub, no gallops and no clicks GI normal to inspection, nondistended, normoactive bowel sounds, soft to palpation and non-tender Extremity no clubbing, cyanosis or edema Extremity Narrative: Pedal pulses are 2+, radial pulses are 2+ Skin No no rashes or lesions noted, no wounds, skin turgor normal, no jaundice and no mottling Skin Narrative: Multiple ecchymosis on upper extremities bilaterally, few areas of small petechiae noted on bilateral feet left greater than right Neuro oriented x3, moves all extremities and no focal motor deficits Speech: speech normal Psych Psych Narrative: Affect is flat and patient seems anxious, answers questions appropriately and interacts well Assessment & Plan Assessment/Plan (1) Thrombocytopenia: (2) Anemia: (3) Exertional dyspnea: (4) Exertional chest pain: (5) Near syncope: (6) Elevated serum creatinine: (7) Hyperglycemia: PLAN: Plan Unstable angina/exertional dyspnea/near syncope -History is highly suspicious for cardiac etiology -Given high suspicion will consult cardiology however thrombocytopenia will be limiting factor at this time for cardiac catheterization -Will see how cardiology wants to proceed at this time -Hold aspirin due to thrombocytopenia that is severe -Start metoprolol 25 mg p.o. twice daily -Continue lisinopril at 10 mg daily -Will start atorvastatin 80 mg daily -Patient has previous statin intolerance with myalgias--> will retrial -A1c was 11.2 -Total cholesterol 120/LDL 53/HDL 30/triglycerides 183 -Cardiac enzymes -Echocardiogram is pending -Monitor on telemetry -Cardiology consult is pending however I do feel the patient is very likely need cardiac catheterization but will need to optimize platelet count prior SHAHIDA -With hydration renal function has improved from 1.53-1.08 consistent with acute kidney injury -Renal function normalized with 1 L of IV fluids -Continue to monitor renal function and repeat BMP in a.m. -Avoid nephrotoxins as able Hypomagnesemia - resolved Hypophosphatemia -Resolved Severe thrombocytopenia -Recent baseline is unknown -Was here in 2018 and platelet count was 124,000 at that time -Coags are unremarkable -Peripheral smear is pending -CT of the abdomen pelvis do not show hepatosplenomegaly -Platelet count down to 11,000 today 1 unit platelets ordered -Hematology consult pending -Suspect patient may need bone marrow biopsy Normocytic anemia -Baseline is unknown but hemoglobin is down to 8.1 today from 9.2 yesterday after 1 L IV fluids -Iron studies are not consistent with iron deficiency showing elevated iron and iron saturation with a low normal TIBC -Ferritin is elevated but this could be acute phase reactant -Transferrin level is pending -Bilirubin is within normal limits -Check peripheral smear DM-2 with hyperglycemia -Blood glucose on presentation was 347 -Patient states he has had more difficult lately controlling his blood glucose levels -Poor glycemic control with an A1c of 11.2 -has been on metformin and Actos recently added -Hold Actos and metformin -Continue Levemir but increase dose to 25 units at at bedtime with a fasting blood sugar of 198 today -Patient will likely need to go home with insulin -SSI -Cardiac/carb controlled diet [id number] as ordered History of essential hypertension -Continue lisinopril 10 mg daily -Continue metoprolol 25 mg p.o. twice daily -Monitor History of hyperlipidemia -Patient has not been able to tolerate statins previously -Lipid panel as noted above -Continue atorvastatin DVT prophylaxis -Contraindicated due to severe thrombocytopenia -SCDs CODE STATUS -Full code as verified at the time of admission Charges/Coding Visit Charges Inpatient E&M: 85568 Subs Hosp L3
--- NOTE | 2024-03-27 14:20 | CON.PCM.ON_ITS ---
Assessment & Plan Assessment/Plan (1) Thrombocytopenia: Status: Acute Code(s): D69.6 - Thrombocytopenia, unspecified Plan: Since this is acute, it may be a sign of bone marrow failure. Suggest bone marrow aspiration and biopsy. Hold platelet transfusion since patient is not bleeding. Check vitamin B12 and folate, Hepatitis profile. (2) Anemia: Status: Acute Code(s): D64.9 - Anemia, unspecified Qualifiers: Anemia type: unspecified type Qualified Code(s): D64.9 - Anemia, unspecified Plan: Most likely due to bone marrow failure. To check vitamin B12 and folic acid level, reticulocyte count. Suggest bone marrow aspiration and biopsy. Will follow with further suggestions based on the above testing. (3) Hyperglycemia: Status: Acute Code(s): R73.9 - Hyperglycemia, unspecified HPI Consult Data Date of Service:: 03/27/24 PCP / Referring Provider: Dr. Mihir Johnston MD Attending: Dr. Yen Mcdonald DO Chief Complaint Chief Complaint: Asked to see Pt for thrombocytopenia. History of Present Illness History of Present Illness: 73-year-old man was admitted to the hospital with chest pain/dyspnea and general weakness. He was found to have anemia and thrombocytopenia. He denies previous episode or family history. Advanced Directives Power of Home Improvement Advisor: Yes Living Will: Yes [facility] Medical History (Updated 03/27/24 @ 14:[address] Jose Lazaro MD) Diverticulosis History of chronic hypertension History of diabetes mellitus Home Medications ?Medication ?Instructions ?Recorded ?Last Taken ?Type lisinopril 20 mg tablet 20 mg PO DAILY BLOOD PRESSURE 10/16/17 03/26/24 History metformin 500 mg tablet,extended 500 mg PO BID blood sugar 03/26/24 03/26/24 History release 24 hr pioglitazone 30 mg tablet 30 mg PO DAILY blood sugar 03/26/24 03/26/24 History sildenafil (pulm.hypertension) 20 40 mg PO .1 hour before interc 03/26/24 03/05/24 History mg tablet Erectile Dysfunction Allergy/AdvReac Type Severity Reaction Status Date / Time No Known Allergies Allergy Verified 03/26/24 15:36 Family History Other Brain malignancy Diabetes Hypertension Surgical History (Updated 03/26/24 @ 18:46 by Aura Laureano) Previous back surgery H/O colonoscopy Social History household members: spouse housing: house current occupational status: retired Smoking Status: Never smoker alcohol intake: former substance use type: does not use ROS Constitutional Constitutional: Reports fatigue; Denies chills, fever(s), night sweats or poor appetite ENT HEENT: Denies dysphagia, hoarseness or neck mass Cardiovascular Cardiovascular: Denies edema Respiratory/Chest Respiratory/Chest: Denies chest tightness, cough or dyspnea Gastrointestinal Gastrointestinal: Denies abdominal pain Genitourinary Genitourinary: Denies change in urinary stream Musculoskeletal Musculoskeletal: Denies abnormal gait, extremity pain, joint pain or muscle weakness Integumentary Integumentary: Denies alopecia, jaundice, pruritus or rash Neurologic Neurologic: Denies abnormal speech or behavior changes Psychiatric Psychiatric: Denies anxiety or depression Endocrine Endocrinology: Denies cold intolerance, flushing or heat intolerance Hematologic/Lymphatic Hematologic/Lymphatic: Denies easy bleeding, easy bruising or lymphadenopathy Vital Signs Temperature 98.4 F 03/27/24 10:00 Temperature Source Oral 03/27/24 10:00 Pulse Rate 80 03/27/24 10:02 Respiratory Rate 16 03/27/24 10:00 Respiratory Effort Normal, Non-Labored 03/27/24 09:00 Respiratory Depth Normal 03/27/24 09:00 Respiratory Pattern Normal 03/27/24 09:00 Blood Pressure 114/53 L 03/27/24 10:00 Blood Pressure Mean 73 03/27/24 10:00 Blood Pressure Source Monitor 03/27/24 10:00 Blood Pressure Position Sitting 03/27/24 10:00 Blood Pressure Location Right Arm 03/27/24 10:00 Pulse Ox 97 03/27/24 10:00 Oxygen Delivery Method Room Air 03/27/24 11:55 Laboratory Results - last 24 hr 03/26/24 15:45: WBC 4.4, RBC 2.98 L, Hgb 9.2 L, Hct 26.0 L, MCV 87.2, MCH 30.9, MCHC 35.4, RDW Std Deviation 37.2, RDW Coeff of Consuelo 11.6, Plt Count 14 L*, MPV 11.6, Immature Gran % (Auto) 0.200, Neut % (Auto) 54.0, Lymph % (Auto) 32.6, [place]ila % (Auto) 10.5 H, Eos % (Auto) 2.5, Baso % (Auto) 0.2, Absolute Neuts (auto) 2.4, Absolute Lymphs (auto) 1.43, Nucleated RBC % 0, Diff Path Review February foll, Atypical Lymphocytes 2+, Platelet Estimate MKD DEC, RBC Morphology N CHROM, Hypochromasia RARE, Anisocytosis RARE, Ovalocytes RARE, Sodium 137, Potassium 3.9, Chloride 99, Carbon Dioxide 25.0, Anion Gap 13, BUN 24 H, Creatinine 1.53 H , Est GFR (MDRD) Af Amer 58 L, Est GFR (MDRD) Non-Af 48 L, BUN/Creatinine Ratio 15.7, Glucose 347 H, Calcium 9.9, Phosphorus 2.0 L, Magnesium 1.5 L, Iron 243 H, TIBC 261 03/26/24 15:45: TIBC Cancelled, Iron Saturation 93.1 H, Total Bilirubin 0.50, Direct Bilirubin 0.12, AST 16, ALT 28, Alkaline Phosphatase 91, Troponin I High Sens 10, Total Protein 7.4, Albumin 3.8, Globulin 3.6 03/26/24 17:40: PT 15.1 H, INR 1.2, APTT 26.9 03/26/24 18:29: Ferritin 508 H, Troponin I High Sens 36 03/26/24 19:57: POC Glucose 199 H 03/26/24 21:44: Troponin I High Sens 26 03/27/24 04:52: WBC 5.0, RBC 2.63 L, Hgb 8.1 L, Hct 23.3 L, MCV 88.6, MCH 30.8, MCHC 34.8, RDW Std Deviation 37.4, RDW Coeff of Consuelo 11.7, Plt Count 11 L*, MPV 10.1, Diff Path Review February foll, Sodium 139, Potassium 4.0, Chloride 103, Carbon Dioxide 29.0, Anion Gap 7, BUN 20 H, Creatinine 1.08, Estim Creat Clear Calc 65.62, Est GFR (MDRD) Af Amer 86, Est GFR (MDRD) Non-Af 71, BUN/Creatinine Ratio 18.5, Glucose 198 H, Hemoglobin A1c 11.2 H, Calcium 8.8, Phosphorus 4.9, Magnesium 2.1, Triglycerides 183, Cholesterol 120, LDL Cholesterol 53, VLDL Cholesterol 37, HDL Cholesterol 30 L, TSH 1.62 03/27/24 06:18: Blood Type O POSITIVE, Antibody Screen NEGATIVE 03/27/24 06:47: POC Glucose 159 H 03/27/24 12:07: POC Glucose 216 H Diagnostic Data Chest X-Ray 03/26/24 15:55 IMPRESSION: No radiographic evidence of acute cardiopulmonary disease. Electronically Signed: Sd Varghese DO at 16:35 EDT , Abdomen/Pelvis CT 03/26/24 17:00 IMPRESSION: Pancreatic head nodule is noted. Fatty density in the inguinal canals. Small fatty umbilical hernia. Electronically Signed: Sd Varghese DO at 19:02 EDT , Charges/Coding Visit Charges Office Visits / Consults: [id number] IP Consult L3
[2024-03-27 15:12] LABS: Platelet Count 13 K/mm3 (150-450); RET-HE 35.9 pg (30-35); Reticulocyte Count 0.19 % (0.5-1.5)
--- NOTE | 2024-03-27 16:51 | ECHOD_ITS ---
Reason For Study: DYSPNEA Procedure This was a 2D Doppler, Color Flow transthoracic echocardiogram. Myocardial strain analysis was performed in this exam to aid in the assessment of cardiac function. Exam performed portable in patient room. Left Ventricle Normal size and thickness. The left ventricular ejection fraction is 60 %. Normal diastology for age. Global longitudinal strain -14.4 which is mildly abnormal. Right Ventricle Normal right ventricle. Atria The left and right atria are normal. Mitral Valve Trivial mitral valve insufficiency. Tricuspid Valve Normal tricuspid valve. Aortic Valve Mildly calcified aortic valve. Mild aortic valve stenosis. Trivial aortic valve regurgitation. Pulmonic Valve The pulmonic valve is not well visualized. Great Vessels Normal sized aortic root. Pericardium/Pleural No pericardial effusion. MMode/2D Measurements & Calculations LVIDd: 4.4 cm IVSd: 1.1 cm LVOT diam: 2.1 cm LVIDs: 2.6 cm LVPWd: 0.94 cm LVOT area: 3.5 cm2 RVDd: 4.4 cm FS: 40.7 % Ao root diam: 3.0 cm LAV(MOD-bp): 50.1 ml LVAd ap4: 25.7 cm2 LAV(MOD-bp) Indexed: 25.2 ml/m2 LVLd ap4: 8.0 cm LAV(MOD-sp2): 57.1 ml EDV(MOD-sp4): 68.0 ml LAV(MOD-sp4): 42.3 ml EDV(sp4-el): 69.9 ml LVAs ap4: 13.9 cm2 LVLs ap4: 6.9 cm ESV(MOD-sp4): 25.3 ml ESV(sp4-el): 23.8 ml EF(MOD-sp4): 62.8 % EF(sp4-el): 66.0 % LVAd ap2: 31.3 cm2 SV(MOD-sp4): 42.7 ml SV(MOD-sp2): 53.5 ml LVLd ap2: 8.9 cm EDV(MOD-sp2): 92.6 ml EDV(sp2-el): 93.7 ml LVAs ap2: 18.4 cm2 LVLs ap2: 7.7 cm ESV(MOD-sp2): 39.1 ml ESV(sp2-el): 37.5 ml EF(MOD-sp2): 57.7 % SV(sp4-el): 46.2 ml LA dimension(2D): 4.1 cm LA A4 area: 17.5 cm2 RA A4 area: 10.2 cm2 TAPSE: 2.3 cm Time Measurements MV dec time: 0.21 sec Doppler Measurements & Calculations MV E max haja: 107.9 cm/sec Lat Peak E' Haja: 10.2 cm/sec Med Peak E' Haja: 9.4 cm/sec MV A max haja: 94.3 cm/sec E/E' lat: 10.6 E/E' med: 11.4 MV E/A: 1.1 Ao V2 max: 279.6 cm/sec PA V2 max: 127.2 cm/sec MV dec slope: 512.1 cm/sec2 Ao max P.4 mmHg PA max PG (full): 4.4 mmHg Ao V2 mean: 208.6 cm/sec Ao mean P.8 mmHg Ao V2 VTI: 60.4 cm ECHO/Echo Complete Interpretation Summary The left ventricular ejection fraction is 60 %. Global longitudinal strain -14. 4 which is mildly abnormal. Mildly calcified aortic valve. Mild aortic valve stenosis. Trivial aortic valve regurgitation. Ordering Physician: Sangita Stahl Referring Physician: Mihir Johnston MD Performed By: Marilyn Mayo RDCS
[2024-03-27 17:16] LABS: Bedside Glucose 222 mg/dL (74-106)
--- NOTE | 2024-03-27 17:40 | PCM.CONS.C ---
Assessment & Plan Assessment/Plan (1) Thrombocytopenia: (2) Anemia: QUALIFIERS: Anemia type: unspecified type Qualified Code(s): D64.9 - Anemia, unspecified (3) Exertional chest pain: PLAN: Cardiac care plan recommendation 73-year-old patient seen and evaluated at bedside in PCU Along with the nursing staff at bedside at time of evaluation. Cardiac consult requested as patient reported symptoms of intermittent chest pressure which have been mainly on exertion and this has been ongoing for nearly more than 4 weeks he noted when he worked in his yard and work at home he developed symptoms of chest pain Which relieved with rest typical of angina. On this admission noted patient to have severe thrombocytopenia With a platelet count 11,000. Review of EKG showed normal sinus rhythm Cardiac telemetry showed normal sinus with no significant arrhythmia noted Patient has history of hypertension Diabetes mellitus and has been on metformin and lisinopril. As well he had a history of pulm hypertension and had been treated with sildenafil 40 Seen and evaluated by the oncologist With the plan of bone marrow aspiration/biopsy From cardiac standpoint I reviewed all his current evaluation Which included the EKG the nurse monitoring and a series of cardiac markers. He has no prior cardiac evaluation. He has elevated serum creatinine and not a candidate for cardiac catheterization due to the risk of worsening renal function in addition had severe thrombocytopenia. From cardiac standpoint we will plan for evaluation by echocardiogram and Lexiscan sestamibi once he completed The evaluation for thrombocytopenia. I discussed in detail the cardiac care plan with the patient family and nursing staff and his scheduled for echocardiogram tomorrow. Sangita Stahl MD,[facility] HPI Consult Data Date of Consult: 03/27/24 HPI Narrative Reason for Consultation: Severe thrombocytopenia/unstable angina HPI Narrative: JOSE KEYS, is a 73 M who presents [facility] Medical History (Updated 03/27/24 @ 14:[address] Jose Lazaro MD) Diverticulosis History of chronic hypertension History of diabetes mellitus Home Medications ?Medication ?Instructions ?Recorded ?Last Taken ?Type lisinopril 20 mg tablet 20 mg PO DAILY BLOOD PRESSURE 10/16/17 03/26/24 History metformin 500 mg tablet,extended 500 mg PO BID blood sugar 03/26/24 03/26/24 History release 24 hr pioglitazone 30 mg tablet 30 mg PO DAILY blood sugar 03/26/24 03/26/24 History sildenafil (pulm.hypertension) 20 40 mg PO .1 hour before interc 03/26/24 03/05/24 History mg tablet Erectile Dysfunction Allergy/AdvReac Type Severity Reaction Status Date / Time No Known Allergies Allergy Verified 03/26/24 15:36 Family History Other Brain malignancy Diabetes Hypertension Surgical History (Updated 03/26/24 @ 18:46 by Aura Laureano) Previous back surgery H/O colonoscopy Social History household members: spouse housing: house current occupational status: retired Smoking Status: Never smoker alcohol intake: former substance use type: does not use Risk Stratification Risk Stratification Applicable: No Objective Data Vital Signs: Vital Signs Temp Pulse Resp BP Pulse Ox O2 Del Method 98.4 F 80 16 114/53 L 97 Room Air 03/27/24 10:00 03/27/24 10:02 03/27/24 10:00 03/27/24 10:00 03/27/24 10:00 03/27/24 11:55 Oxygen Delivery Method Room Air Weight: 187 lb 6.287 oz Body Mass Index (BMI) 28.5 Intake & Output: Intake and Output for Last 24 Hours 03/25/24 03/26/24 03/27/24 23:59 23:59 23:59 Intake Total 2904.75 / 2904.75 Balance 2904.75 / 2904.75 Lab / Micro Data 03/27/24 04:52 03/27/24 04:52 Labs: Laboratory Results - last 24 hr 03/26/24 15:45: TIBC Cancelled 03/26/24 17:40: PT 15.1 H, INR 1.2, APTT 26.9 03/26/24 18:29: Ferritin 508 H, Troponin I High Sens 36 03/26/24 19:57: POC Glucose 199 H 03/26/24 21:44: Troponin I High Sens 03/27/24 04:52: WBC 5.0, RBC 2.63 L, Hgb 8.1 L, Hct 23.3 L, MCV 88.6, MCH 30.8, MCHC 34.8, RDW Std Deviation 37.4, RDW Coeff of Consuelo 11.7, Plt Count 11 L*, MPV 10.1, Diff Path Review February, Immature Plt Fraction 9.0 H, Retic Count 0.19 L, Immature Retic Fraction 0.00 L, Retic Hgb Equivalent 35.9 H, Sodium 139, Potassium 4.0, Chloride 103, Carbon Dioxide 29.0, Anion Gap 7, BUN 20 H, Creatinine 1.08, Estim Creat Clear Calc 65.62, Est GFR (MDRD) Af Amer 86, Est GFR (MDRD) Non-Af 71, BUN/Creatinine Ratio 18.5, Glucose 198 H, Hemoglobin A1c 11.2 H, Calcium 8.8, Phosphorus 4.9, Magnesium 2.1, Triglycerides 183, Cholesterol 120, LDL Cholesterol 53, VLDL Cholesterol 37, HDL Cholesterol 30 L, Folate 8.70, TSH 1.62 03/27/24 06:18: Blood Type O POSITIVE, Antibody Screen NEGATIVE 03/27/24 06:47: POC Glucose 159 H 03/27/24 12:07: POC Glucose 216 H 03/27/24 16:51: POC Glucose 222 H Rhythm Strip Rhythm Strip: Sinus Rhythm Rate: 87 Ectopy: None Cardiology Labs/Tests 03/26/24 15:45: TIBC Cancelled 03/26/24 17:40: PT 15.1 H, INR 1.2, APTT 26.9 03/26/24 18:29: Ferritin 508 H 03/27/24 04:52: WBC 5.0, RBC 2.63 L, Hgb 8.1 L, Hct 23.3 L, MCV 88.6, MCH 30.8, MCHC 34.8, Plt Count 11 L*, MPV 10.1, Sodium 139, Potassium 4.0, Chloride 103, Carbon Dioxide 29.0, Anion Gap 7, BUN 20 H, Creatinine 1.08, Est GFR (MDRD) Af Amer 86, Est GFR (MDRD) Non-Af 71, BUN/Creatinine Ratio 18.5, Glucose 198 H, Hemoglobin A1c 11.2 H, Calcium 8.8, Phosphorus 4.9, Magnesium 2.1, Triglycerides 183, Cholesterol 120, LDL Cholesterol 53, VLDL Cholesterol 37, HDL Cholesterol 30 L Rhythm: EKG: ECHO: Stress Test: Cardiac Cath: PCI: CT Surgery: Holter monitor: EPS: PPM: CXR: Chest CT Scan: Radiography Diagnostic Testing: Radiology Impression Abdomen/Pelvis CT 03/26/24 17:00 IMPRESSION: Pancreatic head nodule is noted. Fatty density in the inguinal canals. Small fatty umbilical hernia. Electronically Signed: Sd Varghese DO at 19:02 EDT Reading Location ID and State: [facility] / [place] Tel [phone], Service support ,
[2024-03-27] MEDS: Insulin Glargine-YFGN 100 UNIT/ML Pen 25 UNIT SC (21:08)
[2024-03-27] MEDS: Atorvastatin Calcium 80 MG Tablet PO (21:11)
[2024-03-27 22:04] LABS: Bedside Glucose 208 mg/dL (74-106)
[2024-03-28] VITALS (20 sets, daily range): BP systolic 94–133; BP diastolic 51–79; PULSE 62–82; RESP 12–18; TEMP 36.4–36.8; O2SAT 90–100; BMI 27.3
--- NOTE | 2024-03-28 | BMB_PTH ---
PATIENT: JOSE KEYS Jr. LOC: [facility] U#:[id number] AGE/SX: 74/M ROOM: [facility] RE03/26/[address]: Dr. Sae Pat, : 1950 BED: 1 DIS: 04/03/2024 SPEC #: [id number] RECD: 03/28/24 13:45 STATUS: JEOVANNY REQ #: [id number] TRISTAN: 03/28/24 00:[address]: Yen Mcdonald DEPT: BONE MARROW RECD BY: Dexter Chang ENTERED: 03/28/24 14:21 SP TYPE: BMB OTHR DR: MD Dr. Sangita Orosco MD Dr. Joseph Prah, MD Dr. Mansour Isckarus, MD Dr. Robert Field, MD Dr. Ryan Jin, MD Dr. Roger Macklis, MD Dr. Scott Brown, MD Dr. Steve Walston, Francie Landeros, [employer]-C Tissues: A - Bone marrow, NOS B - Bone marrow, NOS C - Bone marrow, NOS Procedures: Decalcification bone/plaque Bone Marrow Aspiration Bone Marrow Core Biopsy Iron Stain Bone Marrow HEADER OPERATION: Right hip bone marrow biopsy PRE-OP DIAGNOSIS: 11 gauge x1 bone marrow biopsy TISSUE SUBMITTED: A - Core, B - Clot, C - Smears, and send outs (flow, cytogenetics) BONE MARROW DIAGNOSIS Bone marrow core, clot and aspirate smears: Non-diagnostic bone marrow core, clot and aspirate smears specimens. Peripheral smear- Normocytic anemia and marked thrombocytopenia. 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 See comment. ERNESTO/ 04/05/2024 COMMENT Flow cytometric study from [facility] shows no monoclonal B cell population. There is no loss or aberrant expression of hebert T cell antigen. 5% myeloblast with aberrant expression of CD7 and CD56 are detected. There is no immunophenotypic evidence of abnormal myeloid maturation. By immunophenotyping plasma cell comprise <1% of the total cells analyzed and show no aberrant antigen expression. 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 The complete report is viewable in the patient's EMR. Correlation with clinical findings and appropriate follow up are necessary. Cytogenetic, AML and MDS studies are pending. This case was discussed with Dr. Lazaro and Dr. Pat on 04/01/2024. Case has been reviewed in consultation with Dr. Burgos who concurs with the above diagnosis. IDC:AM BONE MARROW STUDY Slides are reviewed. CBC DATE: 03/28/2024 WBC 5.0; RBC 2.48; HGB 7.7; HCT 22.1; MCV 89.1; RDW 11.6; PLTS 10,000 SEGS 50.9%; LYMPHS 33.9%; MONOS 11.6%; EOS 3.0%; BASOS 0.4%; IG% 0.2 PERIPHERAL SMEAR: Submitted. RBC: Normocytic and normochromic anemia WBC: Unremarkable. The WBC count is compatible to as reported above. PLTS: Markedly decreased BONE MARROW ASPIRATE DIFFERENTIAL: Not performed. ASPIRATE FINDINGS: Site: Not specified Aspicular, Acellular Comment: The specimen entirely consists of peripheral blood. Hematopoietic cells are not seen. All submitted smears are examined. CORE BIOPSY FINDINGS: Site: Not specified Adequacy: nondiagnostic. Comment: This specimen entirely consists of blood clots. Hematopoietic cells are not seen. ASPIRATE CLOT FINDINGS: Site: Not specified Marrow particles: Absent Comment: This specimen almost entirely consists of blood clots; a minute fragment of cortical bone is noted. Hemopoietic cells are not seen. SPECIAL STAINS WITH MATCHED CONTROLS: Not applicable due to non-diagnostic core biopsy, clot biopsy and aspirate smears. BONE MARROW GROSS A - Received is a container labeled with the patient's name and not further designated. The specimen consists of small amount of blood clots. The specimen is totally submitted in one cassette for cellblock preparation after decalcification. B - Received labeled with the patient's name and not further designated is a specimen that consists of approximately 2.0 ml of bloody fluid that on filtration yields multiple minute fragments of blood clots measuring in aggregate 2.5 x 1.0 x 0.1 cm. The specimen is totally submitted in one cassette. C - Also received are 10 unstained and 1peripheral stained slides. The unstained slides are submitted for appropriate staining. Also received are 2 green top tubes which are sent to our reference lab for Flow, Cytogenetics, AML, MDS. ERNESTO/ 03/29/2024 / TC:5 CPT: 89068, 00951, 20336 x2, 50230 x3, 28890 ADDENDUM ADDENDUM ADDENDUM ADDENDUM ADDENDUM ADDENDUM ADDENDUM ADDENDUM ADDENDUM ADDENDUM ADDENDUM ADDENDUM ADDENDUM ADDENDUM ADDENDUM ADDENDUM ADDENDUM ADDENDUM ADDENDUM ADDENDUM ADDENDUM ADDENDUM 04/13/2024 09:09 ADDENDUM 04/13/2024 09:09 ADDENDUM 04/13/2024 09:09 ADDENDUM 04/13/2024 09:09 ADDENDUM 04/13/2024 09:09 AML FISH PANEL FISH RESULT: 45% Nuclei positive for 5Q deletion 42.5% Nuclei positive for loss of MANUELITO (17Q21) signal 11% Nuclei positive for gain of Runix (21Q22) INTERPRETATION: AML/MDS related clone detected SPECIFIC PROBE REULTS: CBFB: Normal KMT2A (MLL): Normal PML/MANUELITO: Abnormal (no fusion) [id number]: Abnormal (no fusion) 5q: Abnormal 7q: Normal Please see complete report in e-chart or EMR
[2024-03-28] MEDS: 0.9% Normal Saline (1000mL) 1,000 ML 75 ML IV ×2 (04:15→18:26)
[2024-03-28 06:06] LABS: Hematocrit 22.1 % (40-54); Hemoglobin 7.7 g/dL (13.0-16.5); Mean Corp Hgb Conc 34.8 g/dL (32-36); Mean Corpuscular Volume 89.1 fL (80-94); Mean Platelet Vol. 12.1 fl (6.2-12.0); POSITIVE COUNT YES; RBC Distribution Width CV 11.6 % (11.6-14.6); RBC Distribution Width SD 37.4 fl (35.1-43.9); Red Blood Count 2.48 M/mm3 (4.6-6.2)
[2024-03-28 06:23] LABS: Platelet Count 10 K/mm3 (150-450)
[2024-03-28] MEDS: Insulin Lispro 100 UNIT/ML INSULN.PEN SC (06:24)
[2024-03-28 06:51] LABS: Anion Gap 6 (5-15); BUN 18 mg/dL (7-18); BUN/Creat Ratio 17.8 RATIO (10-20); Calcium,Total 8.5 mg/dL (8.5-10.1); Chloride 106 mmol/L (98-107); Creatinine, Serum 1.01 mg/dL (0.70-1.30); EST Glomerular Filtration Rate 77 mL/min (>60); Est Glom Filt Rate - Afr Amer 93 mL/min (>60); Estimated Creatinine Clearance 69.14 ml/min; Glucose 169 mg/dL (74-106); Potassium 3.9 mmol/L (3.5-5.1); Sodium Level 139 mmol/L (136-145)
[2024-03-28 06:57] LABS: Bedside Glucose 162 mg/dL (74-106)
[2024-03-28 07:49] LABS: Pathologist Review May foll
[2024-03-28 08:50] LABS: Vitamin B12 214 pg/mL (211-911)
--- NOTE | 2024-03-28 08:54 | PN.CARD_ITS ---
Subjective Subjective The patient denies any chest discomfort at this point in time. His chest symptoms do sound angina and equivalents and they have been progressive over the last month. The patient presents with pancytopenia including a hemoglobin of 7.7. The patient is due to have a bone marrow and lab work done by Dr. Lazaro. He had troponins that were negative x 2 sets and has an echo pending this morning. The patient has been told that he has a heart murmur. His hemoglobin A1c is also noted to be 11.2. Objective Data Vital Signs: Vital Signs Temp Pulse Resp BP Pulse Ox O2 Del Method 98.1 F 70 16 100/58 L 94 Room Air 03/28/24 05:20 03/28/24 05:20 03/28/24 05:20 03/28/24 05:20 03/28/24 05:20 03/28/24 05:20 Oxygen Delivery Method Room Air Weight: 187 lb 6.287 oz Body Mass Index (BMI) 28.5 Intake & Output: Intake and Output for Last 24 Hours 03/26/24 03/27/24 03/28/24 23:59 23:59 23:59 Intake Total 3524.75 / 3644.75 1360 / 1360 Balance 3524.75 / 3644.75 1360 / 1360 Lab / Micro Data Attestation: I reviewed the patient's lab results. 03/28/24 04:33 03/28/24 04:33 Labs: Laboratory Results - last 24 hr 03/27/24 04:52: Diff Path Review February hao, Immature Plt Fraction 9.0 H, Retic Count 0.19 L, Immature Retic Fraction 0.00 L, Retic Hgb Equivalent 35.9 H, Vitamin B12 214, Folate 8.70 03/27/24 12:07: POC Glucose 216 H 03/27/24 16:51: POC Glucose 222 H 03/27/24 21:06: POC Glucose 208 H 03/28/24 04:33: WBC 5.0, RBC 2.48 L, Hgb 7.7 L, Hct 22.1 L, MCV 89.1, MCH 31.0, MCHC 34.8, RDW Std Deviation 37.4, RDW Coeff of Consuelo 11.6, Plt Count 10 L*, MPV 12.1 H, Diff Path Review February hao, Sodium 139, Potassium 3.9, Chloride 106, Carbon Dioxide 27.0, Anion Gap 6, BUN 18, Creatinine 1.01, Estim Creat Clear Calc 69.14, Est GFR (MDRD) Af Amer 93, Est GFR (MDRD) Non-Af 77, BUN/Creatinine Ratio 17.8, Glucose 169 H, Calcium 8.5 03/28/24 06:23: POC Glucose 162 H Rhythm Strip Rhythm Strip: Sinus Rhythm Rate: 68 Ectopy: None Cardiology Labs/Tests 03/28/24 04:33: WBC 5.0, RBC 2.48 L, Hgb 7.7 L, Hct 22.1 L, MCV 89.1, MCH 31.0, MCHC 34.8, Plt Count 10 L*, MPV 12.1 H, Sodium 139, Potassium 3.9, Chloride 106, Carbon Dioxide 27.0, Anion Gap 6, BUN 18, Creatinine 1.01, Est GFR (MDRD) Af Amer 93, Est GFR (MDRD) Non-Af 77, BUN/Creatinine Ratio 17.8, Glucose 169 H, Calcium 8.5 Rhythm: EKG: ECHO: Stress Test: Cardiac Cath: PCI: CT Surgery: Holter monitor: EPS: PPM: CXR: Chest CT Scan: Physical Exam Const alert and oriented x3 Constitutional Narrative: Sitting in the chair at the bedside. HEENT normocephalic Eyes EOMs intact bilaterally Neck no JVD Chest inspection of chest normal Resp normal respiratory effort and clear to auscultation bilaterally Cardio regular rate, regular rhythm, S1 normal heart sound, S2 normal heart sound, no rub and no gallops Heart Sounds: murmur systolic II/ soft left sternal border and apex GI soft to palpation Extremity General Extremity: edema bilateral lower extremity Details: trace (Distal to his compression devices.) Skin no rashes or lesions noted Neuro Neuro Narrative: Alert and oriented x 3 Psych mental status grossly normal Assessment & Plan Assessment/Plan (1) Thrombocytopenia: PLAN: Patient's platelet count is 10,000 this morning he is due to have a bone marrow today. We will await further evaluation results from Dr. Lazaro. (2) Anemia: QUALIFIERS: Anemia type: unspecified type Qualified Code(s): D 64.9 - Anemia, unspecified PLAN: Patient's hemoglobin is 7.7 which is probably exacerbating his exertional anginal symptoms. He is diabetic and his symptoms are progressive and seem to be very consistent with an ischemic etiology of his chest discomfort. (3) Exertional chest pain: PLAN: The patient's exertional chest pain associated with dyspnea has been progressive over the last month we will obtain an echocardiogram today to evaluate his LV function and the systolic heart murmur. His hemoglobin is 7.7 today. He does have multiple electrolyte abnormalities, which have been appropriately replaced and is diabetic with a hemoglobin A1c of 11.2. He is not hyperlipidemic. Troponins are negative x 3 sets (4) Hyperglycemia: PLAN: The patient's hemoglobin A1c is 11.2 this is being evaluated and will be treated by the primary service he is on metformin in his home environment. Insulin has been instituted since admission. PLAN: Plan 1. Obtain 2D echocardiogram to evaluate LV function. 2. Await further hematology workup and recommendations prior to proceeding with a cardiovascular ischemic of the evaluation. Charges/Coding Visit Charges Inpatient E&M: 91667 [facility] [[email or web address]] Hosp L3
--- NOTE | 2024-03-28 10:10 | CASEMGMT ---
RN CM Face to Face with patient for initial transition planning/care coordination assessment. RN CM introduced self and role at [facility]. Patient sitting in chair, alert and oriented, at bedside. Patient willing to participate in assessment and is able to answer all questions appropriately. Care providers, pharmacy, and demographics verified. PCP: [place] Specialists: none [facility]erred Pharm[facility] Pres[facility] Benefit: yes Living Will/HPOA: yes, son Curly Esparza LNOK: , son Living Arrangements: Patient lives with in a 2 story home with bed and bath on first floor, 3 steps and railing to enter the home. Patient states he is independent at home. Transportation: self, DME/HHC: Patient has cane, walker, and glucometer at home. No previous HHC or SNF Patient wishes to discharge home, denies need for home health at this time. Patient states he has no further needs or concerns at this time. CM to follow for discharge planning needs that may arise. Disposition Plan: Patient to discharge home with family support and follow-up plans in place. Rissa RUSS, RN, CM
[2024-03-28] MEDS: Metoprolol Tartrate 25 MG Tablet PO ×2 (11:02→22:01)
[2024-03-28] MEDS: Lisinopril 10 MG Tablet PO (11:03)
[2024-03-28] MEDS: Acetaminophen 325 MG Tablet 650 MG PO (11:16)
[2024-03-28 12:28] LABS: Absolute Neutrophil Count 2.6 X10^3/uL (2.0-7.7); Basophil# 0.02 X10^3/uL; Basophil% 0.4 % (0-1); Eosinophil# 0.15 X10^3/uL; Lymphocyte % 33.9 % (19-41); Monocyte# 0.58 X10^3/uL; Monocyte% 11.6 % (0-10); NRBC Flagged by Analyzer 0 % (0-5); Neutrophil # 2.55 X10^3/uL (2.7-7.7); Neutrophil % 50.9 % (47-70); POSITIVE MORPHOLOGY YES
[2024-03-28] MEDS: Midazolam 2 MG/2 ML Syringe IV ×2 (13:25→13:34)
--- NOTE | 2024-03-28 13:25 | CT_ITS ---
PROCEDURE: CT GUIDED bone marrow biopsy of the posterior right iliac bone. DATE: March 28, 2024. INDICATION: Male, 74 years old. Thrombocytopenia. PHYSICIAN: Te Bright M.D. RADIATION DOSAGE (If Supplied By Facility): CTDIvol = ( 18 ) mGy, DLP = ( 391.24 ) mGycm. Individualized dose optimization techniques were utilized. PROCEDURE: The risks, benefits, and alternatives to the procedure were explained to the patient. The specific risk of hemorrhage requiring further treatment or intervention was detailed and accepted. Follow-up instructions were discussed with the patient as well. Written informed consent was obtained. The patient was brought into the CT suite and placed in the prone position. . An appropriate entry site was identified. The overlying skin was prepped and draped in the usual sterile fashion. 1% lidocaine was administered subcutaneously for local anesthesia. Conscious sedation was performed. The patient received 2 mg of Versed and 50 mcg of fentanyl intravenously. Conscious sedation was started at 1:25 PM and terminated at 1:42 PM. The patient was independently monitored by the department nurse. Under CT guidance, a bone marrow biopsy and bone marrow aspirates of the posterior right iliac bone were performed utilizing an 11-gauge core biopsy needle system. The specimens were then placed in the appropriate fluid and transported to the laboratory for analysis. Hemostasis was obtained. The patient tolerated the procedure well without immediate complications. CT/Biopsy/Inj or Needle Placement IMPRESSION: Successful CT guided bone marrow biopsy and aspiration of the posterior right iliac bone, as described above. The conscious sedation protocol was followed. Electronically Signed: Te Bright MD at 14:14 EDT ,
[2024-03-28] MEDS: fentaNYL 100 MCG/2 ML Ampul IV (13:26)
[2024-03-28] MEDS: Lidocaine 2% (20 ml mdv) 20 ML Vial INFILT (13:36)
[2024-03-28 13:44] LABS: Pathologist Review Reviewed
[2024-03-28 13:52] LABS: Pathologist Review Reviewed
--- NOTE | 2024-03-28 14:40 | PCM.PN.HOSP ---
Reason for Visit Reason for Visit: Chest pain Subjective Subjective No chest pain at this time. He is a little confused on the plan so we rediscussed what needs to happen including bone marrow biopsy and an echocardiogram. I did discuss with Dr. Franklin the plan with regards for cardiac evaluation and he wants to hold off on a stress test for now and pursue this later on. Bone marrow biopsy to happen today and hopefully will have some more information soon and then can figure out what to do ongoing from here for his cardiac workup. Objective Data Objective Data Vital Signs: Vital Signs Temp Pulse Resp BP Pulse Ox O2 Del Method 98.2 F 67 12 96/59 L 98 Room Air 03/28/24 12:55 03/28/24 14:00 03/28/24 14:00 03/28/24 14:00 03/28/24 14:00 03/28/24 14:00 Oxygen Delivery Method Room Air Weight: 81.647 kg Body Mass Index (BMI) 27.3 Intake & Output: Intake and Output for Last 24 Hours 03/26/24 03/27/24 03/28/24 23:59 23:59 23:59 Intake Total 3524.75 / 3644.75 1360 / 1360 Balance 3524.75 / 3644.75 1360 / 1360 Lab / Micro Data 03/28/24 04:33 03/28/24 04:33 Labs: Laboratory Results - last 24 hr 03/26/24 15:45: Diff Path Review Reviewed 03/27/24 04:52: Diff Path Review Reviewed, Immature Plt Fraction 9.0 H, Retic Count 0.19 L, Immature Retic Fraction 0.00 L, Retic Hgb Equivalent 35.9 H, Vitamin B12 214, Folate 8.70 03/27/24 16:51: POC Glucose 222 H 03/27/24 21:06: POC Glucose 208 H 03/28/24 04:33: WBC 5.0, RBC 2.48 L, Hgb 7.7 L, Hct 22.1 L, MCV 89.1, MCH 31.0, MCHC 34.8, RDW Std Deviation 37.4, RDW Coeff of Consuelo 11.6, Plt Count 10 L*, MPV 12.1 H, Immature Gran % (Auto) 0.200, Neut % (Auto) 50.9, Lymph % (Auto) 33.9, [place] % (Auto) 11.6 H, Eos % (Auto) 3.0, Baso % (Auto) 0.4, Absolute Neuts (auto) 2.6, Absolute Lymphs (auto) 1.70, Nucleated RBC % 0, Diff Path Review May foll, Sodium 139, Potassium 3.9, Chloride 106, Carbon Dioxide 27.0, Anion Gap 6, BUN 18, Creatinine 1.01, Estim Creat Clear Calc 69.14, Est GFR (MDRD) Af Amer 93, Est GFR (MDRD) Non-Af 77, BUN/Creatinine Ratio 17.8, Glucose 169 H, Calcium 8.5 03/28/24 06:23: POC Glucose 162 H Radiography Diagnostic Testing: Radiology Impression Echocardiogram 03/27/24 16:51 Interpretation Summary The left ventricular ejection fraction is 60 %. Global longitudinal strain -14.4 which is mildly abnormal. Mildly calcified aortic valve. Mild aortic valve stenosis. Trivial aortic valve regurgitation. Ordering Physician: Sangita Stahl Referring Physician: Mihir Johnston MD Performed By: Marilyn Mayo, [facility] Biopsy CT 03/28/24 13:25 IMPRESSION: Successful CT guided bone marrow biopsy and aspiration of the posterior right iliac bone, as described above. The conscious sedation protocol was followed. Electronically Signed: Te Bright MD at 14:14 EDT , Rhythm Strip Rhythm Strip: Sinus Rhythm Rate: 68 Ectopy: None Physical Exam Const alert, oriented x3, no apparent distress, average body habitus and well nourished; Negative for healthy appearing Constitutional Narrative: Older, white male, sitting up in a chair at the bedside, appears comfortable, nontoxic, at bedside General Appearance: cooperative HEENT normocephalic, head/scalp atraumatic, hearing grossly normal bilaterally and moist oral mucous membranes Resp normal respiratory effort, no retractions, no use of accessory muscles and clear to auscultation bilaterally Auscultation: Negative for rales, rhonchi or wheezes Cardio regular rate, regular rhythm, S1 normal heart sound, S2 normal heart sound, no rub, no gallops and no clicks Cardio Narrative: 3/6 systolic murmur loudest at right upper sternal border GI normal to inspection, nondistended, normoactive bowel sounds, soft to palpation and non-tender Extremity no clubbing, cyanosis or edema Extremity Narrative: Pedal pulses are 2+, radial pulses are 2+ Skin No no rashes or lesions noted, no wounds, skin turgor normal, no jaundice, no petechiae and no mottling Skin Narrative: Multiple ecchymosis on upper extremities bilaterally, few areas of small petechiae noted on bilateral feet left greater than right Neuro oriented x3, moves all extremities and no focal motor deficits Speech: speech normal Psych Psych Narrative: Affect remains flat and patient appears anxious still, interacts appropriately Mood & Affect: anxious Assessment & Plan Assessment/Plan (1) Thrombocytopenia: (2) Anemia: QUALIFIERS: Anemia type: unspecified type Qualified Code(s): D64.9 - Anemia, unspecified (3) Exertional dyspnea: (4) Exertional chest pain: (5) Near syncope: (6) Elevated serum creatinine: (7) Hyperglycemia: PLAN: Plan Unstable angina/exertional dyspnea/near syncope -History is highly suspicious for cardiac etiology -Cardiology is following and echocardiogram shows normal EF with no wall motion abnormality -Holding on noninvasive and invasive testing for cardiac workup at this time due to severe thrombocytopenia and anemia -Check CTA of the chest -Hold aspirin due to thrombocytopenia that is severe -Continue metoprolol 25 mg p.o. twice daily -Continue lisinopril at 10 mg daily -Will start atorvastatin 80 mg daily -Patient has previous statin intolerance with myalgias--> will retrial and thus far patient is tolerating -A1c was 11.2--> will need improved glycemic control -Total cholesterol 120/LDL 53/HDL 30/triglycerides 183 -Cardiac enzymes -Echocardiogram is pending -Monitor on telemetry -Cardiology is following SHAHIDA -Resolved Severe thrombocytopenia -Recent baseline is unknown -Was here in 2018 and platelet count was 124,000 at that time -Coags are unremarkable -Peripheral smear remains pending -No noted hepatosplenomegaly on imaging -Platelet count stable at 10,000 today with no signs of bleeding -Hold on transfusion -Bone marrow biopsy performed with pending results at this time -Hematology following--> await further advice based on testing Normocytic anemia -Baseline is unknown but hemoglobin is down to 7.7 today from 9.2 at the time of admission -Iron studies are not consistent with iron deficiency showing elevated iron and iron saturation with a low normal TIBC -Ferritin is elevated but this could be acute phase reactant -Transferrin level remains pending -Hepatitis B and C antibodies/antigen pending -Folic acid within normal limits -B12 is low normal -Will order methylmalonic acid and homocystine levels -IM B12 shot x 1 -Bilirubin is within normal limits -Peripheral smear is pending -Bone marrow biopsy today -Hematology is following -Await further advice Cardiac murmur -Aortic stenosis that is mild noted on echocardiogram -continued outpatient follow-up -I do not feel this is etiology for his chest pain DM-2 with hyperglycemia -Blood glucose on presentation was 347 -Patient states he has had more difficult lately controlling his blood glucose levels -Poor glycemic control with an A1c of 11.2 -has been on metformin and Actos recently added -Hold Actos and metformin -Fasting blood sugar today 169 -Continue glargine 25 units at at bedtime and continue to monitor -SSI -Cardiac/carb controlled diet [id number] as ordered History of essential hypertension -Continue lisinopril 10 mg daily -Continue metoprolol 25 mg p.o. twice daily -Blood pressure is currently well-controlled -Monitor History of hyperlipidemia -Patient has not been able to tolerate statins previously -Lipid panel as noted above -Continue atorvastatin DVT prophylaxis -Contraindicated due to severe thrombocytopenia -SCDs CODE STATUS -Full code Charges/Coding Visit Charges Inpatient E&M: 16477 Subs Hosp L2
[2024-03-28 15:09] LABS: Bedside Glucose 156 mg/dL (74-106)
--- NOTE | 2024-03-28 17:06 | CT_ITS ---
STUDY: CTA CHEST REASON FOR EXAM: Male, 74 years old. chest pain RADIATION DOSAGE (If Supplied By Facility): CTDIvol = ( 12.92 ) mGy, DLP = ( 448.38 ) mGycm TECHNIQUE: The examination was performed with the intravenous administration of IV 100mL Isovue-370. Post-processing of the angiographic images was performed, with multiplanar reformation and 3D reconstruction. Individualized dose optimization techniques were used for this CT. The protocol utilizes one or more of the following dose reduction techniques: automated exposure control, adjustment of mA and/or kV according to patient size,and/or use of iterative reconstruction technique. COMPARISON: Chest x-ray March 26, 2024. CT chest October 16, 2017 FINDINGS: Normal enhancement of the main pulmonary artery and right and left pulmonary arteries. Normal enhancement of the bilateral peripheral pulmonary arteries. There is no demonstrated pulmonary embolism. Normal thoracic aorta and visualized great vessels. There is no demonstrated aortic dissection. Calcific coronary artery disease and aortic valve disease. Normal mediastinum. Normal hilar regions. Normal visualized trachea and bronchi. Subsegmental atelectasis right lung base. Normal pulmonary parenchyma. Normal pleura. Normal chest wall structures. Moderate kyphosis and ossification of the anterior longitudinal ligament and interspinous ligament. Calcific lesion again noted within the pancreas incompletely imaged at the edge of the [id number]. CT/CTA Chest W/WO Contrast IMPRESSION: Coronary artery disease and aortic valve disease. Calcific lesion within the pancreas. See CT abdomen and pelvis. Electronically Signed: Chava Duque MD at 18:23 EDT ,
[2024-03-28 17:36] LABS: Hepatitis B Surface Antibody Non-Reactive; Hepatitis C Antibody Non-Reactive (Nonreactive)
[2024-03-28 17:44] LABS: Bedside Glucose 103 mg/dL (74-106)
[2024-03-28] MEDS: Cyanocobalamin (B12) 1,000 MCG/ML Vial 1000 MCG IM (18:25)
[2024-03-28] MEDS: Insulin Glargine-YFGN 100 UNIT/ML Pen 25 UNIT SC (22:00)
[2024-03-28] MEDS: Atorvastatin Calcium 80 MG Tablet PO (22:01)
[2024-03-28] MEDS: Pantoprazole Sodium 40 MG in 0.9% Normal Saline (100mL MB+) 100 ML 330 MG IV (22:13)
[2024-03-28 22:49] LABS: Bedside Glucose 188 mg/dL (74-106)
[2024-03-29] MEDS: 0.9% Normal Saline (1000mL) 1,000 ML 75 ML IV ×2 (06:45→18:40)
[2024-03-29 07:29] LABS: Bedside Glucose 104 mg/dL (74-106)
[2024-03-29 07:51] LABS: Anion Gap 6 (5-15); BUN 16 mg/dL (7-18); BUN/Creat Ratio 16.1 RATIO (10-20); Calcium,Total 8.4 mg/dL (8.5-10.1); Chloride 109 mmol/L (98-107); EST Glomerular Filtration Rate 78 mL/min (>60); Est Glom Filt Rate - Afr Amer 95 mL/min (>60); Estimated Creatinine Clearance 63.65 ml/min; Glucose 118 mg/dL (74-106); Potassium 3.8 mmol/L (3.5-5.1); Sodium Level 140 mmol/L (136-145)
[2024-03-29 08:11] LABS: Transferrin 209 mg/dL (177-329)
[2024-03-29] MEDS: Acetaminophen 325 MG Tablet 650 MG PO (08:29)
[2024-03-29 09:50] LABS: Hematocrit 21.7 % (40-54); Hemoglobin 7.4 g/dL (13.0-16.5); Mean Corp Hgb Conc 34.1 g/dL (32-36); Mean Corpuscular Volume 90.8 fL (80-94); Mean Platelet Vol. 12.2 fl (6.2-12.0); POSITIVE COUNT YES; RBC Distribution Width CV 11.5 % (11.6-14.6); RBC Distribution Width SD 38.2 fl (35.1-43.9); Red Blood Count 2.39 M/mm3 (4.6-6.2); White Blood Count 4.6 K/mm3 (4.4-11.0)
--- NOTE | 2024-03-29 09:52 | PN.CARD_ITS ---
Subjective Subjective Patient sitting in the chair without complaints this morning. Denies any nuisance bleeding. Denies any recurrence of chest symptoms or shortness of breath but he is essentially been at rest. Bone marrow results are pending. Objective Data Vital Signs: Vital Signs Temp Pulse Resp BP Pulse Ox O2 Del Method 97.7 F L 82 14 108/67 100 Room Air 03/28/24 19:57 03/28/24 22:01 03/28/24 19:57 03/28/24 19:57 03/28/24 19:57 03/29/24 08:25 Oxygen Delivery Method Room Air Weight: 180 lb Body Mass Index (BMI) 27.3 Intake & Output: Intake and Output for Last 24 Hours 03/27/24 03/28/24 03/29/24 23:59 23:59 23:59 Intake Total 3524.75 / 3644.75 3120 / 3220 1023.75 / 1023.75 Balance 3524.75 / 3644.75 3120 / 3220 1023.75 / 1023.75 Lab / Micro Data Attestation: I reviewed the patient's lab results. 03/28/24 04:33 03/29/24 05:47 Labs: Laboratory Results - last 24 hr 03/26/24 15:45: Diff Path Review Reviewed 03/26/24 21:44: Transferrin 209 03/27/24 04:52: Diff Path Review Reviewed 03/27/24 06:18: Crossmatch See Detail 03/28/24 04:33: WBC 5.0, RBC 2.48 L, Hgb 7.7 L, Hct 22.1 L, MCV 89.1, MCH 31.0, MCHC 34.8, RDW Std Deviation 37.4, RDW Coeff of Consuelo 11.6, Plt Count 10 L*, MPV 12.1 H, Immature Gran % (Auto) 0.200, Neut % (Auto) 50.9, Lymph % (Auto) 33.9, M rivka % (Auto) 11.6 H, Eos % (Auto) 3.0, Baso % (Auto) 0.4, Absolute Neuts (auto) 2.6, Absolute Lymphs (auto) 1.70, Nucleated RBC % 0, Diff Path Review February03/28/24 12:34: POC Glucose 156 H 03/28/24 15:47: Hep Bs Antibody Non-Reactive, Hepatitis C Antibody Non-Reactive 03/28/24 17:26: POC Glucose 103 03/28/24 21:57: POC Glucose 188 H 03/29/24 05:47: Sodium 140, Potassium 3.8, Chloride 109 H, Carbon Dioxide 25.0, Anion Gap 6, BUN 16, Creatinine 1.00, Estim Creat Clear Calc 63.65, Est GFR (MDRD) Af Amer 95, Est GFR (MDRD) Non-Af 78, BUN/Creatinine Ratio 16.1, Glucose 118 H, Calcium 8.4 L 03/29/24 06:43: POC Glucose 104 Micro: Microbiology 03/28/24 19:10 Stool Stool Occult Blood (ROHIT) - Final Occult Blood Positive Rhythm Strip Rhythm Strip: Sinus Rhythm Rate: 70 Ectopy: None Cardiology Labs/Tests 03/26/24 21:44: Transferrin 209 03/28/24 04:33: WBC 5.0, RBC 2.48 L, Hgb 7.7 L, Hct 22.1 L, MCV 89.1, MCH 31.0, MCHC 34.8, Plt Count 10 L*, MPV 12.1 H, Immature Gran % (Auto) 0.200, Neut % (Auto) 50.9, Lymph % (Auto) 33.9, Prentiss % (Auto) 11.6 H, Eos % (Auto) 3.0, Baso % (Auto) 0.4, Absolute Neuts (auto) 2.6, Nucleated RBC % 0 03/29/24 05:47: Sodium 140, Potassium 3.8, Chloride 109 H, Carbon Dioxide 25.0, Anion Gap 6, BUN 16, Creatinine 1.00, Est GFR (MDRD) Af Amer 95, Est GFR (MDRD) Non-Af 78, BUN/Creatinine Ratio 16.1, Glucose 118 H, Calcium 8.4 L Rhythm: EKG: ECHO: Stress Test: Cardiac Cath: PCI: CT Surgery: Holter monitor: EPS: PPM: CXR: Chest CT Scan: Radiography Diagnostic Testing: Radiology Impression Echocardiogram 03/27/24 16:51 Interpretation Summary The left ventricular ejection fraction is 60 %. Global longitudinal strain -14.4 which is mildly abnormal. Mildly calcified aortic valve. Mild aortic valve stenosis. Trivial aortic valve regurgitation. Ordering Physician: Sangita Stahl Referring Physician: Mihir Johnston MD Performed By: Marilyn Mayo RDCS Biopsy CT 03/28/24 13:25 IMPRESSION: Successful CT guided bone marrow biopsy and aspiration of the posterior right iliac bone, as described above. The conscious sedation protocol was followed. Electronically Signed: Te Bright MD at 14:14 EDT , Chest CTA 03/28/24 17:06 IMPRESSION: Coronary artery disease and aortic valve disease. Calcific lesion within the pancreas. See CT abdomen and pelvis. Electronically Signed: Chava Duque MD at 18:23 EDT , Physical Exam Const alert and oriented x3 HEENT normocephalic Neck no JVD Chest inspection of chest normal Resp normal respiratory effort Cardio regular rate and regular rhythm Extremity no pedal edema Neuro Neuro Narrative: Alert and oriented x 3 Psych mental status grossly normal Assessment & Plan Assessment/Plan (1) Thrombocytopenia: PLAN: The patient's bone marrow results for the thrombocytopenia and anemia are pending. The patient does have heme positive stool from a stool occult blood test 03/28/24. (2) Exertional chest pain: PLAN: Patient's had no recurrence of his chest symptoms but he has not been exerting himself. He does have evidence of coronary artery calcifications consistent with coronary artery disease on CT he also has some mild aortic valve stenosis by echocardiogram and in the face of his anemia it is highly likely the chest symptoms and dyspnea on exertion are cardiac in etiology. Once we have elucidated the issues with the thrombocytopenia and anemia further evaluation with an invasive left heart catheterization would be indicated at some point in time in the future. This will need to be coordinated with a psychiatry physician. PLAN: Plan 1. Await final results of the bone marrow. 2. Will need to coordinate further invasive cardiovascular evaluation and treatment options with hematology. 3. Will follow along peripherally. Charges/Coding Visit Charges Inpatient E&M: 56497 Subs Hosp L2
[2024-03-29 10:26] LABS: Platelet Count 10 K/mm3 (150-450)
[2024-03-29 10:40] VITALS: O2SAT 95
[2024-03-29 11:40] VITALS: BP 107/60; PULSE 71; RESP 16; TEMP 36.6; O2SAT 100
[2024-03-29 11:42] VITALS: BP 107/60; PULSE 71
[2024-03-29] MEDS: Lisinopril 10 MG Tablet PO (11:42)
[2024-03-29] MEDS: Metoprolol Tartrate 25 MG Tablet PO ×2 (11:42→21:16)
[2024-03-29] MEDS: Pantoprazole Sodium 40 MG in 0.9% Normal Saline (100mL MB+) 100 ML 330 MG IV ×2 (11:43→21:16)
[2024-03-29] MEDS: Insulin Lispro 100 UNIT/ML INSULN.PEN SC ×2 (11:44→17:25)
[2024-03-29 12:17] LABS: Scan Indicated on CBC? Y/N YES- FLAGS NOTED
--- NOTE | 2024-03-29 15:09 | CASEMGMT ---
SW met with pt to discuss advance directives.? Pt reports he has been meaning to do that. Pt advised of opportunity to complete directives while admitted; pt declined. BENNETT Plummer
[2024-03-29 15:20] LABS: Bedside Glucose 235 mg/dL (74-106)
[2024-03-29 16:19] LABS: Bedside Glucose 197 mg/dL (74-106)
--- NOTE | 2024-03-29 16:29 | PN.HOSP_ITS ---
Reason for Visit Reason for Visit: Chest pain Subjective Subjective Patient states he is tired. Not having any chest pain but states has not been moving which is what would precipitate his chest pain. Waiting on further hematological input. Biopsy done yesterday and patient states that he had no pain and no residual pain from this. Objective Data Objective Data Vital Signs: Vital Signs Temp Pulse Resp BP Pulse Ox O2 Del Method 97.9 F 71 16 107/60 100 Room Air 03/29/24 11:40 03/29/24 11:42 03/29/24 11:40 03/29/24 11:42 03/29/24 11:40 03/29/24 11:40 Oxygen Delivery Method Room Air Weight: 81.647 kg Body Mass Index (BMI) 27.3 Intake & Output: Intake and Output for Last 24 Hours 03/27/24 03/28/24 03/29/24 23:59 23:59 23:59 Intake Total 3524.75 / 3644.75 3120 / 3220 1133.75 / 1133.75 Balance 3524.75 / 3644.75 3120 / 3220 1133.75 / 1133.75 Lab / Micro Data 03/29/24 05:47 03/29/24 05:47 Labs: Laboratory Results - last 24 hr 03/26/24 21:44: Transferrin 209 03/27/24 06:18: Crossmatch See Detail 03/28/24 15:47: Hep Bs Antibody Non-Reactive, Hepatitis C Antibody Non-Reactive 03/28/24 17:26: POC Glucose 103 03/28/24 21:57: POC Glucose 188 H 03/29/24 05:47: WBC 4.6, RBC 2.39 L, Hgb 7.4 L, Hct 21.7 L, MCV 90.8, MCH 31.0, MCHC 34.1, RDW Std Deviation 38.2, RDW Coeff of Consuelo 11.5 L, Plt Count 10 L*, MPV 12.2 H, Diff Path Review February, Sodium 140, Potassium 3.8, Chloride 109 H, Carbon Dioxide 25.0, Anion Gap 6, BUN 16, Creatinine 1.00, Estim Creat Clear Calc 63.65, Est GFR (MDRD) Af Amer 95, Est GFR (MDRD) Non-Af 78, BUN/Creatinine Ratio 16.1, Glucose 118 H, Calcium 8.4 L 03/29/24 06:43: POC Glucose 104 03/29/24 11:33: POC Glucose 235 H 03/29/24 15:56: POC Glucose 197 H Micro: Microbiology 03/28/24 19:10 Stool Stool Occult Blood (ROHIT) - Final Occult Blood Positive Radiography Diagnostic Testing: Radiology Impression Chest CTA 03/28/24 17:06 IMPRESSION: Coronary artery disease and aortic valve disease. Calcific lesion within the pancreas. See CT abdomen and pelvis. Electronically Signed: Chava Duque MD at 18:23 EDT Reading Location ID and State: [address] [place] [address] Tel , Service support , Rhythm Strip Rhythm Strip: Sinus Rhythm Rate: 70 Ectopy: None Physical Exam Const alert, oriented x3, no apparent distress, average body habitus and well nourished; Negative for healthy appearing Constitutional Narrative: Older, white male, sitting up in a chair at the bedside, appears comfortable, nontoxic, at bedside General Appearance: cooperative HEENT normocephalic, head/scalp atraumatic, hearing grossly normal bilaterally and moist oral mucous membranes Eyes Negative for conjunctivae normal Resp normal respiratory effort, no retractions, no use of accessory muscles and clear to auscultation bilaterally Auscultation: Negative for rales, rhonchi or wheezes Cardio regular rate, regular rhythm, S1 normal heart sound, S2 normal heart sound, no rub, no gallops and no clicks; Negative for no murmurs Cardio Narrative: 3/6 systolic murmur loudest at right upper sternal border GI normal to inspection, nondistended, normoactive bowel sounds, soft to palpation and non-tender Extremity no clubbing, cyanosis or edema Extremity Narrative: Pedal pulses are 2+, radial pulses are 2+ Skin No no rashes or lesions noted Neuro oriented x3, moves all extremities and no focal motor deficits Speech: speech normal Psych Psych Narrative: Affect remains flat and patient appears anxious still, interacts appropriately Mood & Affect: anxious Assessment & Plan Assessment/Plan (1) Thrombocytopenia: (2) Anemia: QUALIFIERS: Anemia type: unspecified type Qualified Code(s): D 64.9 - Anemia, unspecified (3) Exertional dyspnea: (4) Exertional chest pain: (5) Near syncope: (6) Elevated serum creatinine: (7) Hyperglycemia: PLAN: Plan Unstable angina/exertional dyspnea/near syncope -History is highly suspicious for cardiac etiology -Cardiology is following and echocardiogram shows normal EF with no wall motion abnormality -Holding on noninvasive and invasive testing for cardiac workup at this time due to severe thrombocytopenia and anemia -CT of the chest was unremarkable -Hold aspirin due to thrombocytopenia that is severe -Continue metoprolol 25 mg p.o. twice daily -Continue lisinopril at 10 mg daily -Continue atorvastatin 80 mg daily -Patient has previous statin intolerance with myalgias--> will retrial and thus far patient is tolerating -A1c was 11.2--> will need improved glycemic control -Total cholesterol 120/LDL 53/HDL 30/triglycerides 183 -Cardiac enzymes -Echocardiogram showed a normal EF and no wall motion abnormality but mild aortic stenosis -Monitor on telemetry -Cardiology is following--> discussed with Dr. Franklin and he is awaiting hematology input to proceed Severe thrombocytopenia -Recent baseline is unknown -Was here in 2018 and platelet count was 124,000 at that time -Coags are unremarkable -Peripheral smear remains pending -No noted hepatosplenomegaly on imaging -Platelet count stable at 10,000 today with no signs of bleeding -Hold on transfusion -Bone marrow biopsy performed with pending results at this time -Hematology following--> await further advice based on testing--> I have tried to touch base with hematology but no response as of yet Normocytic anemia -Baseline is unknown but hemoglobin is down to 7.4 today from 9.2 at the time of admission -Iron studies are not consistent with iron deficiency showing elevated iron and iron saturation with a low normal TIBC -Ferritin is elevated but this could be acute phase reactant -Transferrin level is within normal limits -Hepatitis B and C antibodies/antigen are unremarkable -Folic acid within normal limits -Bilirubin is within normal limits -Peripheral smear is pending -Bone marrow biopsy completed on 03/28/2024 with results pending -Hematology is following -Await further input Suspected B12 deficiency -B12 was low normal -IM B12 shot given x 1 dose -Methylmalonic acid and homocystine levels are pending Mild aortic stenosis -continued outpatient follow-up -I do not feel this is etiology for his chest pain DM-2 with hyperglycemia -Blood glucose on presentation was 347 -Patient states he has had more difficult lately controlling his blood glucose levels -Poor glycemic control with an A1c of 11.2 -has been on metformin and Actos recently added -Hold Actos and metformin -Fasting blood sugar today 118 -Continue glargine 25 units at at bedtime and continue to monitor--> will need training and insulin injection prior to discharge if discharged with insulin -SSI -Cardiac/carb controlled diet [id number] as ordered History of essential hypertension -Continue lisinopril 10 mg daily -Continue metoprolol 25 mg p.o. twice daily -Blood pressure is currently well-controlled -Monitor History of hyperlipidemia -Patient has not been able to tolerate statins previously -Lipid panel as noted above -Continue atorvastatin DVT prophylaxis -Contraindicated due to severe thrombocytopenia -SCDs CODE STATUS -Full code Charges/Coding Visit Charges Inpatient E&M: 85495 Subs Hosp L2
[2024-03-29 18:00] VITALS: BP 123/55; PULSE 78; RESP 18; TEMP 36.8; O2SAT 100
--- NOTE | 2024-03-29 18:19 | PCM.HOSP.N ---
Hospitalist Note Patient does have a calcified area in the head of his pancreas. He has a known history of pancreatitis remotely. We are unclear if this is acute or chronic. Requested records from the hospital in [place] where he had abdominal imaging previously. I did discuss this with Dr. Rodriguez and she stated if there is no other imaging to compare it to or we are unable to obtain this she would recommend an MRI of the abdomen with pancreatic protocol. Given the calcification the suspicion for malignancy is low however she would like to compare it. Not a candidate for biopsy at this time however because of thrombocytopenia.
[2024-03-29 21:12] VITALS: BP 130/57; PULSE 77; RESP 18; TEMP 36.9; O2SAT 99
[2024-03-29 21:16] VITALS: PULSE 77
[2024-03-29] MEDS: Atorvastatin Calcium 80 MG Tablet PO (21:16)
[2024-03-29] MEDS: Insulin Glargine-YFGN 100 UNIT/ML Pen 25 UNIT SC (21:22)
[2024-03-29 22:23] LABS: Bedside Glucose 187 mg/dL (74-106)
[2024-03-30] VITALS (9 sets, daily range): BP systolic 117–139; BP diastolic 51–58; PULSE 70–74; RESP 14–18; TEMP 36.2–36.8; O2SAT 95–99; BMI 28.5
[2024-03-30 06:42] LABS: Absolute Lymphocyte Count 1.42 X10^3/uL (0.83-4.51); Absolute Neutrophil Count 2.8 X10^3/uL (2.0-7.7); Basophil# 0.01 X10^3/uL; Basophil% 0.2 % (0-1); Eosinophil# 0.17 X10^3/uL; Eosinophils% 3.5 % (0-5); Hemoglobin 7.5 g/dL (13.0-16.5); Lymphocyte # 1.42 X10^3/ul (0.83-4.51); Mean Corp Hgb Conc 34.1 g/dL (32-36); Mean Corpuscular Hgb 30.6 pg (27.0-32.0); Mean Corpuscular Volume 89.8 fL (80-94); Monocyte# 0.49 X10^3/uL; NRBC Flagged by Analyzer 0 % (0-5); Neutrophil # 2.79 X10^3/uL (2.7-7.7); Neutrophil % 56.9 % (47-70); POSITIVE COUNT YES; POSITIVE MORPHOLOGY YES; RBC Distribution Width CV 11.6 % (11.6-14.6); RBC Distribution Width SD 37.9 fl (35.1-43.9); Red Blood Count 2.45 M/mm3 (4.6-6.2); White Blood Count 4.9 K/mm3 (4.4-11.0)
[2024-03-30 06:48] LABS: Platelet Count 11 K/mm3 (150-450)
[2024-03-30 06:49] LABS: Bedside Glucose 95 mg/dL (74-106)
[2024-03-30 07:00] LABS: Anion Gap 4 (5-15); BUN 16 mg/dL (7-18); BUN/Creat Ratio 16.2 RATIO (10-20); Calcium,Total 8.5 mg/dL (8.5-10.1); Chloride 111 mmol/L (98-107); Creatinine, Serum 0.99 mg/dL (0.70-1.30); EST Glomerular Filtration Rate 79 mL/min (>60); Est Glom Filt Rate - Afr Amer 95 mL/min (>60); Estimated Creatinine Clearance 70.65 ml/min; Glucose 97 mg/dL (74-106); Potassium 3.8 mmol/L (3.5-5.1); Sodium Level 141 mmol/L (136-145)
[2024-03-30 08:04] LABS: Atypical Lymphocyte 2+ %
--- NOTE | 2024-03-30 08:45 | PN.HOSP_ITS ---
Reason for Visit Reason for Visit: Diagnoses Anemia, unspecified (03/26/24) Thrombocytopenia, unspecified (03/26/24) Other forms of dyspnea (03/26/24) Chest pain, unspecified (03/26/24) Syncope and collapse (03/26/24) Hyperglycemia, unspecified (03/26/24) Other specified abnormal findings of blood chemistry (03/26/24) Subjective Subjective Feels well. States that he only gets chest pain when he does more exertion beyond casual walking. Objective Data Objective Data Vital Signs: Vital Signs Temp Pulse Resp BP Pulse Ox O2 Del Method 36.8 C 71 18 117/54 L 95 Room Air 03/30/24 03:10 03/30/24 03:10 03/30/24 03:10 03/30/24 03:10 03/30/24 03:10 03/30/24 03:10 Oxygen Delivery Method Room Air Weight: 85.3 kg Body Mass Index (BMI) 28.5 Intake & Output: Intake and Output for Last 24 Hours 03/28/24 03/29/24 03/30/24 23:59 23:59 23:59 Intake Total 3120 / 3220 2787.50 / 2787.50 Balance 3120 / 3220 2787.50 / 2787.50 Lab / Micro Data 03/30/24 06:12 03/30/24 06:12 Labs: Laboratory Results - last 24 hr 03/29/24 05:47: WBC 4.6, RBC 2.39 L, Hgb 7.4 L, Hct 21.7 L, MCV 90.8, MCH 31.0, MCHC 34.1, RDW Std Deviation 38.2, RDW Coeff of Consuelo 11.5 L, Plt Count 10 L*, MPV 12.2 H, Diff Path Review February03/29/24 11:33: POC Glucose 235 H 03/29/24 15:56: POC Glucose 197 H 03/29/24 21:21: POC Glucose 187 H 03/30/24 06:12: WBC 4.9, RBC 2.45 L, Hgb 7.5 L, Hct 22.0 L, MCV 89.8, MCH 30.6, MCHC 34.1, RDW Std Deviation 37.9, RDW Coeff of Consuelo 11.6, Plt Count 11 L*, MPV 11.0, Immature Gran % (Auto) 0.400, Neut % (Auto) 56.9, Lymph % (Auto) 29.0, Walker % (Auto) 10.0, Eos % (Auto) 3.5, Baso % (Auto) 0.2, Absolute Neuts (auto) 2.8, Absolute Lymphs (auto) 1.42, Nucleated RBC % 0, Diff Path Review May foll, Atypical Lymphocytes 2+, Sodium 141, Potassium 3.8, Chloride 111 H, Carbon Dioxide 26.0, Anion Gap 4 L, BUN 16, Creatinine 0.99, Estim Creat Clear Calc 70.65, Est GFR (MDRD) Af Amer 95, Est GFR (MDRD) Non-Af 79, BUN/Creatinine Ratio 16.2, Glucose 97, Calcium 8.5 03/30/24 06:30: POC Glucose 95 Micro: Microbiology 03/28/24 19:10 Stool Stool Occult Blood (ROHIT) - Final Occult Blood Positive Rhythm Strip Rhythm Strip: Sinus Rhythm Rate: 70 Ectopy: None Physical Exam Const alert and no apparent distress Constitutional Narrative: Up in chair. Afebrile. Resp normal respiratory effort, no retractions, no use of accessory muscles and clear to auscultation bilaterally Cardio regular rate and regular rhythm GI normal to inspection, nondistended, normoactive bowel sounds Neuro Sensorium / Orientation: awake and alert Assessment & Plan Assessment/Plan (1) Thrombocytopenia: (2) Anemia: QUALIFIERS: Anemia type: unspecified type Qualified Code(s): D 64.9 - Anemia, unspecified (3) Exertional dyspnea: (4) Exertional chest pain: (5) Near syncope: (6) Elevated serum creatinine: (7) Hyperglycemia: PLAN: Plan Unstable angina * Seen by cardiology. Noted that patient had evidence of coronary artery calcification consistent with coronary artery disease on CAT scan. No imminent cardiac intervention at this time given the ongoing issues with the thrombocytopenia. * Patient to continue with the metoprolol 25 mg twice daily, lisinopril 10 mg daily, atorvastatin 80 mg daily. * Echocardiogram shows an EF of 60%. Mildly calcified aortic valve. Mild aortic valve stenosis. Trivial aortic valve regurgitation. Severe thrombocytopenia * No recent baseline available. Last available platelets were from 2018 and was 124,000 at that time. Patient seen by oncology and concern for bone marrow failure. No obvious bleeding at this time. * Patient had a bone marrow biopsy performed on the , results are still pending. * Last seen by Dr. Lazaro on the . Normocytic anemia * -aseline is unknown but hemoglobin is down to 7.4 today from 9.2 at the time of admission * Iron studies are not consistent with iron deficiency showing elevated iron and iron saturation with a low normal TIBC * Ferritin is elevated but this could be acute phase reactant * Hepatitis B and C antibodies/antigen are unremarkable * Folic acid within normal limits * Peripheral smear is pending, Bone marrow biopsy completed on 03/28/2024 with results pending Suspected B12 deficiency * B12 was low normal * IM B12 shot given x 1 dose * Methylmalonic acid and homocystine levels are pending DM-2 with hyperglycemia * Uncontrolled * A1c of 11.2 * has been on metformin and Actos recently added-Hold Actos and metformin * continue glargine 25 units at at bedtime and continue to monitor * SSI Chronic conditions: * History of essential hypertension-Continue lisinopril 10 mg daily-Continue metoprolol 25 mg p.o. twice daily-Blood pressure is currently well-controlled * History of hyperlipidemia-Patient has not been able to tolerate statins previously-Lipid panel as noted above-Continue atorvastatin DVT prophylaxis: Chemical prophylaxis Contraindicated due to severe thrombocytopenia-SCDs CODE STATUS -Full code Greater than 35 minutes of which greater than 50% of time discussed with the patient and family at bedside, manage expectations regards to when the biopsy results may be available.. Charges/Coding Visit Charges Inpatient E&M: 49161 Subs Hosp L2
[2024-03-30] MEDS: Acetaminophen 325 MG Tablet 650 MG PO (08:46)
[2024-03-30] MEDS: Lisinopril 10 MG Tablet PO (08:46)
[2024-03-30] MEDS: Metoprolol Tartrate 25 MG Tablet PO ×2 (08:46→21:20)
[2024-03-30] MEDS: Pantoprazole Sodium 40 MG in 0.9% Normal Saline (100mL MB+) 100 ML 330 MG IV ×2 (08:47→22:07)
[2024-03-30] MEDS: 0.9% Normal Saline (1000mL) 1,000 ML 75 ML IV (10:40)
[2024-03-30] MEDS: Insulin Lispro 100 UNIT/ML INSULN.PEN SC ×2 (12:27→16:59)
[2024-03-30 12:46] LABS: Bedside Glucose 257 mg/dL (74-106)
[2024-03-30 16:47] LABS: Bedside Glucose 212 mg/dL (74-106)
[2024-03-30] MEDS: Atorvastatin Calcium 80 MG Tablet PO (21:21)
[2024-03-30] MEDS: Insulin Glargine-YFGN 100 UNIT/ML Pen 25 UNIT SC (21:21)
[2024-03-30 21:52] LABS: Bedside Glucose 150 mg/dL (74-106)
[2024-03-30] MEDS: 0.9% Saline Lock 10 ML Syringe IV (22:07)
[2024-03-31] VITALS (13 sets, daily range): BP systolic 107–141; BP diastolic 54–62; PULSE 62–78; RESP 16; TEMP 36–36.8; O2SAT 96–100
[2024-03-31 04:44] LABS: Absolute Lymphocyte Count 1.34 X10^3/uL (0.83-4.51); Absolute Neutrophil Count 2.5 X10^3/uL (2.0-7.7); Basophil# 0.02 X10^3/uL; Basophil% 0.4 % (0-1); Eosinophil# 0.16 X10^3/uL; Eosinophils% 3.5 % (0-5); Hematocrit 20.2 % (40-54); Hemoglobin 7.1 g/dL (13.0-16.5); Lymphocyte # 1.34 X10^3/ul (0.83-4.51); Lymphocyte % 29.5 % (19-41); Mean Corp Hgb Conc 35.1 g/dL (32-36); Mean Corpuscular Hgb 30.9 pg (27.0-32.0); Mean Corpuscular Volume 87.8 fL (80-94); Mean Platelet Vol. 11.7 fl (6.2-12.0); Monocyte# 0.49 X10^3/uL; Monocyte% 10.8 % (0-10); NRBC Flagged by Analyzer 0 % (0-5); Neutrophil # 2.52 X10^3/uL (2.7-7.7); Neutrophil % 55.4 % (47-70); POSITIVE COUNT YES; POSITIVE MORPHOLOGY YES; RBC Distribution Width CV 11.7 % (11.6-14.6); White Blood Count 4.6 K/mm3 (4.4-11.0)
[2024-03-31 04:49] LABS: Differential Indicated SCAN CRITERIA MET; Platelet Count 10 K/mm3 (150-450)
[2024-03-31 05:03] LABS: Anion Gap 5 (5-15); BUN 13 mg/dL (7-18); BUN/Creat Ratio 13.1 RATIO (10-20); Calcium,Total 8.4 mg/dL (8.5-10.1); Chloride 110 mmol/L (98-107); Creatinine, Serum 0.99 mg/dL (0.70-1.30); EST Glomerular Filtration Rate 79 mL/min (>60); Est Glom Filt Rate - Afr Amer 95 mL/min (>60); Estimated Creatinine Clearance 70.65 ml/min; Glucose 159 mg/dL (74-106); Sodium Level 141 mmol/L (136-145)
[2024-03-31 06:24] LABS: Atypical Lymphocyte RARE %; Platelet Estimate MKD DEC (ADEQ)
[2024-03-31 06:46] LABS: Bedside Glucose 124 mg/dL (74-106)
--- NOTE | 2024-03-31 07:46 | PN.HOSP_ITS ---
Reason for Visit Reason for Visit: Diagnoses Anemia, unspecified (03/26/24) Thrombocytopenia, unspecified (03/26/24) Other forms of dyspnea (03/26/24) Chest pain, unspecified (03/26/24) Syncope and collapse (03/26/24) Hyperglycemia, unspecified (03/26/24) Other specified abnormal findings of blood chemistry (03/26/24) Subjective Subjective Went out for a walk today and had some chest pain midsternally. Objective Data Objective Data Vital Signs: Vital Signs Temp Pulse Resp BP Pulse Ox O2 Del Method 36.1 C L 67 16 112/60 97 Room Air 03/31/24 04:37 03/31/24 04:37 03/31/24 04:37 03/31/24 04:37 03/31/24 04:37 03/31/24 04:37 Oxygen Delivery Method Room Air Weight: 85.3 kg Body Mass Index (BMI) 28.5 Intake & Output: Intake and Output for Last 24 Hours 03/29/24 03/30/24 03/31/24 23:59 23:59 23:59 Intake Total 2787.50 / 2787.50 1953.75 / 2153.75 200 / 200 Output Total 0 / 0 Balance 2787.50 / 2787.50 1953.75 / 2153.75 200 / 200 Lab / Micro Data 03/31/24 04:23 03/31/24 04:23 Labs: Laboratory Results - last 24 hr 03/27/24 06:18: Crossmatch See Detail 03/30/24 06:12: Plt Count 11 L*, Diff Path Review February, Atypical Lymphocytes 2+ 03/30/24 12:23: POC Glucose 257 H 03/30/24 16:19: POC Glucose 212 H 03/30/24 21:24: POC Glucose 150 H 03/31/24 04:23: WBC 4.6, RBC 2.30 L, Hgb 7.1 L, Hct 20.2 L, MCV 87.8, MCH 30.9, MCHC 35.1, RDW Std Deviation 38.0, RDW Coeff of Consuelo 11.7, Plt Count 10 L*, MPV 11.7, Immature Gran % (Auto) 0.400, Neut % (Auto) 55.4, Lymph % (Auto) 29.5, M rivka % (Auto) 10.8 H, Eos % (Auto) 3.5, Baso % (Auto) 0.4, Absolute Neuts (auto) 2.5, Absolute Lymphs (auto) 1.34, Nucleated RBC % 0, Diff Path Review May foll, Atypical Lymphocytes RARE, Platelet Estimate MKD DEC, Sodium 141, Potassium 4.0, Chloride 110 H, Carbon Dioxide 26.0, Anion Gap 5, BUN 13, Creatinine 0.99, Estim Creat Clear Calc 70.65, Est GFR (MDRD) Af Amer 95, Est GFR (MDRD) Non-Af 79, BUN/Creatinine Ratio 13.1, Glucose 159 H, Calcium 8.4 L 03/31/24 06:27: POC Glucose 124 H Micro: Microbiology 03/28/24 19:10 Stool Stool Occult Blood (ROHIT) - Final Occult Blood Positive Rhythm Strip Rhythm Strip: Sinus Rhythm Rate: 70 Ectopy: None Physical Exam Const alert and no apparent distress HEENT head/scalp atraumatic and moist oral mucous membranes Resp normal respiratory effort, no retractions, no use of accessory muscles and clear to auscultation bilaterally Cardio regular rate, regular rhythm, S1 normal heart sound and S2 normal heart sound GI normal to inspection, nondistended, normoactive bowel sounds, soft to palpation, non-tender and non-distended Extremity Extremity Narrative: Lower extremity edema Assessment & Plan Assessment/Plan (1) Thrombocytopenia: (2) Anemia: QUALIFIERS: Anemia type: unspecified type Qualified Code(s): D 64.9 - Anemia, unspecified (3) Exertional dyspnea: (4) Exertional chest pain: (5) Near syncope: (6) Elevated serum creatinine: (7) Hyperglycemia: PLAN: Plan Stable angina * Seen by cardiology. Noted that patient had evidence of coronary artery calcification consistent with coronary artery disease on CAT scan. No imminent cardiac intervention at this time given the ongoing issues with the thrombocytopenia. * Patient to continue with the metoprolol 25 mg twice daily, lisinopril 10 mg daily, atorvastatin 80 mg daily. * Echocardiogram shows an EF of 60%. Mildly calcified aortic valve. Mild aortic valve stenosis. Trivial aortic valve regurgitation. Severe thrombocytopenia * No recent baseline available. Last available platelets were from 2018 and was 124,000 at that time. Patient seen by oncology and concern for bone marrow failure. No obvious bleeding at this time. * Patient had a bone marrow biopsy performed on the , results are still pending. * Last seen by Dr. Lazaro on the . Normocytic anemia * baseline is unknown but hemoglobin is down to 7.1 today from 9.2 at the time of admission * Iron studies are not consistent with iron deficiency showing elevated iron and iron saturation with a low normal TIBC. Ferritin is elevated but this could be acute phase reactant. Hepatitis B and C antibodies/antigen are unremarkable. Folic acid within normal limits. * Peripheral smear is pending, Bone marrow biopsy completed on 03/28/2024 with results pending * Given the angina, will transfuse 1 unit of PRBcs. Suspected B12 deficiency * B12 was low normal * IM B12 shot given x 1 dose * Methylmalonic acid and homocystine levels are pending DM-2 with hyperglycemia * Uncontrolled * A1c of 11.2 * has been on metformin and Actos recently added-Hold Actos and metformin * continue glargine 25 units at at bedtime and continue to monitor * SSI Chronic conditions: * History of essential hypertension-Continue lisinopril 10 mg daily-Continue metoprolol 25 mg p.o. twice daily-Blood pressure is currently well-controlled * History of hyperlipidemia-Patient has not been able to tolerate statins previously-Lipid panel as noted above-Continue atorvastatin DVT prophylaxis: Chemical prophylaxis Contraindicated due to severe thrombocytopenia-SCDs CODE STATUS -Full code Discussed with family at bedside. I did reach out to pathology to see with the status of the bone marrow biopsy is but no one was available. Charges/Coding Visit Charges Inpatient E&M: 77136 Subs Hosp L2
[2024-03-31] MEDS: Pantoprazole Sodium 40 MG in 0.9% Normal Saline (100mL MB+) 100 ML 330 MG IV ×2 (09:16→21:05)
[2024-03-31] MEDS: Lisinopril 10 MG Tablet PO (09:16)
[2024-03-31] MEDS: Metoprolol Tartrate 25 MG Tablet PO ×2 (09:16→21:05)
[2024-03-31 10:24] LABS: Pathologist Review Reviewed
[2024-03-31 10:27] LABS: Pathologist Review Reviewed
[2024-03-31] MEDS: Insulin Lispro 100 UNIT/ML INSULN.PEN SC ×2 (12:29→16:43)
[2024-03-31 12:50] LABS: Bedside Glucose 209 mg/dL (74-106)
[2024-03-31 14:19] LABS: Pathologist Review Reviewed
[2024-03-31 17:07] LABS: Bedside Glucose 267 mg/dL (74-106)
[2024-03-31] MEDS: Atorvastatin Calcium 80 MG Tablet PO (21:05)
[2024-03-31] MEDS: Insulin Glargine-YFGN 100 UNIT/ML Pen 25 UNIT SC (21:31)
[2024-03-31 21:52] LABS: Bedside Glucose 253 mg/dL (74-106)
[2024-04-01] VITALS (10 sets, daily range): BP systolic 116–140; BP diastolic 54–76; PULSE 70–80; RESP 16–18; TEMP 36.4–36.7; O2SAT 97–100
[2024-04-01 05:29] LABS: Absolute Lymphocyte Count 1.28 X10^3/uL (0.83-4.51); Absolute Neutrophil Count 2.5 X10^3/uL (2.0-7.7); Basophil# 0.01 X10^3/uL; Basophil% 0.2 % (0-1); Eosinophil# 0.14 X10^3/uL; Eosinophils% 3.1 % (0-5); Hematocrit 22.9 % (40-54); Lymphocyte # 1.28 X10^3/ul (0.83-4.51); Lymphocyte % 28.6 % (19-41); Mean Corp Hgb Conc 34.9 g/dL (32-36); Mean Corpuscular Hgb 30.4 pg (27.0-32.0); Mean Corpuscular Volume 87.1 fL (80-94); Mean Platelet Vol. 10.8 fl (6.2-12.0); Monocyte# 0.52 X10^3/uL; Monocyte% 11.6 % (0-10); NRBC Flagged by Analyzer 0 % (0-5); Neutrophil % 55.8 % (47-70); POSITIVE COUNT YES; POSITIVE MORPHOLOGY YES; RBC Distribution Width CV 11.9 % (11.6-14.6); Red Blood Count 2.63 M/mm3 (4.6-6.2); White Blood Count 4.5 K/mm3 (4.4-11.0)
[2024-04-01 05:41] LABS: Differential Indicated SCAN CRITERIA MET; Platelet Count 10 K/mm3 (150-450)
[2024-04-01 06:06] LABS: Anion Gap 7 (5-15); BUN 13 mg/dL (7-18); BUN/Creat Ratio 12.9 RATIO (10-20); Calcium,Total 8.7 mg/dL (8.5-10.1); Chloride 108 mmol/L (98-107); Creatinine, Serum 1.01 mg/dL (0.70-1.30); EST Glomerular Filtration Rate 77 mL/min (>60); Est Glom Filt Rate - Afr Amer 93 mL/min (>60); Estimated Creatinine Clearance 69.25 ml/min; Glucose 122 mg/dL (74-106); Sodium Level 141 mmol/L (136-145)
[2024-04-01 06:52] LABS: Bedside Glucose 102 mg/dL (74-106)
--- NOTE | 2024-04-01 07:54 | PN.HOSP_ITS ---
Reason for Visit Reason for Visit: Diagnoses Anemia, unspecified (03/26/24) Thrombocytopenia, unspecified (03/26/24) Other forms of dyspnea (03/26/24) Chest pain, unspecified (03/26/24) Syncope and collapse (03/26/24) Hyperglycemia, unspecified (03/26/24) Other specified abnormal findings of blood chemistry (03/26/24) Subjective Subjective No new issues. Objective Data Objective Data Vital Signs: Vital Signs Temp Pulse Resp BP Pulse Ox O2 Del Method 36.4 C L 76 16 121/57 H 100 Room Air 04/01/24 04:00 04/01/24 04:00 04/01/24 04:00 04/01/24 04:00 04/01/24 04:00 04/01/24 04:00 Oxygen Delivery Method Room Air Weight: 85.3 kg Body Mass Index (BMI) 28.5 Intake & Output: Intake and Output for Last 24 Hours 03/30/24 03/31/24 04/01/24 23:59 23:59 23:59 Intake Total 1953.75 / 2153.75 780 / 780 Output Total 0 / 0 Balance 1953.75 / 2153.75 780 / 780 Lab / Micro Data 04/01/24 04:30 04/01/24 04:30 Labs: Laboratory Results - last 24 hr 03/29/24 05:47: Diff Path Review Reviewed 03/30/24 06:12: Diff Path Review Reviewed 03/31/24 04:23: Diff Path Review Reviewed 03/31/24 08:25: Blood Type O POSITIVE, Antibody Screen NEGATIVE, Crossmatch See Detail 03/31/24 12:27: POC Glucose 209 H 03/31/24 16:39: POC Glucose 267 H 03/31/24 21:29: POC Glucose 253 H 04/01/24 04:30: WBC 4.5, RBC 2.63 L, Hgb 8.0 L, Hct 22.9 L, MCV 87.1, MCH 30.4, MCHC 34.9, RDW Std Deviation 38.0, RDW Coeff of Consuelo 11.9, Plt Count 10 L*, MPV 10.8, Immature Gran % (Auto) 0.700, Neut % (Auto) 55.8, Lymph % (Auto) 28.6, M [place] % (Auto) 11.6 H, Eos % (Auto) 3.1, Baso % (Auto) 0.2, Absolute Neuts (auto) 2.5, Absolute Lymphs (auto) 1.28, Nucleated RBC % 0, Sodium 141, Potassium 4.0, Chloride 108 H, Carbon Dioxide 26.0, Anion Gap 7, BUN 13, Creatinine 1.01, Estim Creat Clear Calc 69.25, Est GFR (MDRD) Af Amer 93, Est GFR (MDRD) Non-Af 77, BUN/Creatinine Ratio 12.9, Glucose 122 H, Calcium 8.7 04/01/24 06:32: POC Glucose 102 Micro: Microbiology 03/28/24 19:10 Stool Stool Occult Blood (ROHIT) - Final Occult Blood Positive Rhythm Strip Rhythm Strip: Sinus Rhythm Rate: 70 Ectopy: None Physical Exam Const alert and no apparent distress HEENT head/scalp atraumatic and moist oral mucous membranes Resp normal respiratory effort, no retractions, no use of accessory muscles and clear to auscultation bilaterally Cardio regular rate, regular rhythm, S1 normal heart sound and S2 normal heart sound GI normal to inspection, nondistended, normoactive bowel sounds and soft to palpation Extremity General Extremity: edema Assessment & Plan Assessment/Plan (1) Thrombocytopenia: (2) Anemia: QUALIFIERS: Anemia type: unspecified type Qualified Code(s): D 64.9 - Anemia, unspecified (3) Exertional dyspnea: (4) Exertional chest pain: (5) Near syncope: (6) Elevated serum creatinine: (7) Hyperglycemia: PLAN: Plan Stable angina * Seen by cardiology. Noted that patient had evidence of coronary artery calcification consistent with coronary artery disease on CAT scan. No imminent cardiac intervention at this time given the ongoing issues with the thrombocytopenia. * Patient to continue with the metoprolol 25 mg twice daily, lisinopril 10 mg daily, atorvastatin 80 mg daily. * Echocardiogram shows an EF of 60%. Mildly calcified aortic valve. Mild aortic valve stenosis. Trivial aortic valve regurgitation. Severe thrombocytopenia * No recent baseline available. Last available platelets were from 2018 and was 124,000 at that time. Patient seen by oncology and concern for bone marrow failure. No obvious bleeding at this time. * Patient had a bone marrow biopsy performed on the , results are still pending. * DW pathology unfortunately the bone marrow biopsy specimens were inadequate. Sent off for flow cytometry which will not be back until next week. Discussed with Dr. Lazaro who recommended trial of steroids to see if there is any response in case this were ITP. He recommended 1 mg of methylprednisolone on 2 days. Normocytic anemia * baseline is unknown but hemoglobin is down to 7.1 today from 9.2 at the time of admission * Iron studies are not consistent with iron deficiency showing elevated iron and iron saturation with a low normal TIBC. Ferritin is elevated but this could be acute phase reactant. Hepatitis B and C antibodies/antigen are unremarkable. Folic acid within normal limits. * Peripheral smear is pending, Bone marrow biopsy completed on 03/28/2024 with results pending * Pt transfused 1 unit PRBCs on 03/31 as Hg was 7.1. Improved to 8. Suspected B12 deficiency * B12 was low normal * IM B12 shot given x 1 dose * Methylmalonic acid and homocystine levels are pending DM-2 with hyperglycemia * Uncontrolled * A1c of 11.2 * has been on metformin and Actos recently added-Hold Actos and metformin * continue glargine 25 units at at bedtime and continue to monitor * SSI Chronic conditions: * History of essential hypertension-Continue lisinopril 10 mg daily-Continue metoprolol 25 mg p.o. twice daily-Blood pressure is currently well-controlled * History of hyperlipidemia-Patient has not been able to tolerate statins previously-Lipid panel as noted above-Continue atorvastatin DVT prophylaxis: Chemical prophylaxis Contraindicated due to severe thrombocytopenia-SCDs CODE STATUS -Full code Discussed with family at bedside. Greater than 50 minutes of which greater than 50% of time was discussing with pathology, Dr. Lazaro and updating the patient and his family about the plan for steroids and the possibility of ITP and explaining how ITP works. I did also tell them if this is improved, then he could likely be discharged with outpatient follow-up but if not then he may need another bone marrow biopsy. Charges/Coding Visit Charges Inpatient E&M: 81860 Subs Hosp L3
[2024-04-01 08:26] LABS: Differential Comment SCANNED
[2024-04-01 08:27] LABS: Platelet Estimate MKD DEC (ADEQ)
[2024-04-01 08:28] LABS: Red Cell Morphology NORM C+C NORMAL (NORM C&C)
[2024-04-01] MEDS: Lisinopril 10 MG Tablet PO (08:51)
[2024-04-01] MEDS: Metoprolol Tartrate 25 MG Tablet PO ×2 (08:51→21:25)
[2024-04-01] MEDS: Pantoprazole Sodium 40 MG in 0.9% Normal Saline (100mL MB+) 100 ML 330 MG IV ×2 (10:14→21:30)
[2024-04-01] MEDS: 0.9% Saline Lock 10 ML Syringe IV ×3 (10:14→21:37)
[2024-04-01 11:24] LABS: Pathologist Review Reviewed
[2024-04-01 11:54] LABS: Bedside Glucose 172 mg/dL (74-106)
[2024-04-01] MEDS: Insulin Lispro 100 UNIT/ML INSULN.PEN SC ×2 (12:39→16:30)
[2024-04-01] MEDS: MethylPREDNISolone 1,000 MG in 0.9% Normal Saline (100mL Bag) 100 ML 100 MG IV (13:20)
[2024-04-01 17:02] LABS: Bedside Glucose 259 mg/dL (74-106)
[2024-04-01 17:07] LABS: HOMOCYSTEINE 10.9 umol/L (0.0-19.2); Methylmalonic Acid Bld 231 nmol/L (0-378)
[2024-04-01] MEDS: Atorvastatin Calcium 80 MG Tablet PO (21:25)
[2024-04-01] MEDS: Insulin Glargine-YFGN 100 UNIT/ML Pen 25 UNIT SC (21:29)
[2024-04-01 21:58] LABS: Bedside Glucose 375 mg/dL (74-106)
[2024-04-02 03:36] VITALS: BMI 29.4
[2024-04-02 04:00] VITALS: BP 117/56; PULSE 73; PULSE 76; RESP 16; TEMP 36.6; O2SAT 99
[2024-04-02] MEDS: Insulin Lispro 100 UNIT/ML INSULN.PEN SC ×3 (06:06→16:36)
[2024-04-02 06:29] LABS: Absolute Lymphocyte Count 0.78 X10^3/uL (0.83-4.51); Absolute Neutrophil Count 6.4 X10^3/uL (2.0-7.7); Basophil# 0.01 X10^3/uL; Basophil% 0.1 % (0-1); Hematocrit 26.2 % (40-54); Hemoglobin 9.2 g/dL (13.0-16.5); Lymphocyte # 0.78 X10^3/ul (0.83-4.51); Lymphocyte % 10.1 % (19-41); Mean Corp Hgb Conc 35.1 g/dL (32-36); Mean Corpuscular Hgb 30.6 pg (27.0-32.0); Mean Platelet Vol. 11.1 fl (6.2-12.0); Monocyte# 0.46 X10^3/uL; NRBC Flagged by Analyzer 0 % (0-5); POSITIVE COUNT YES; POSITIVE MORPHOLOGY YES; RBC Distribution Width CV 11.8 % (11.6-14.6); RBC Distribution Width SD 37.7 fl (35.1-43.9); Red Blood Count 3.01 M/mm3 (4.6-6.2); White Blood Count 7.7 K/mm3 (4.4-11.0)
[2024-04-02 06:34] LABS: Differential Indicated SCAN CRITERIA MET; Platelet Count 14 K/mm3 (150-450)
[2024-04-02 06:44] LABS: Bedside Glucose 275 mg/dL (74-106)
[2024-04-02 07:01] LABS: Anion Gap 8 (5-15); BUN 23 mg/dL (7-18); Calcium,Total 9.1 mg/dL (8.5-10.1); Chloride 102 mmol/L (98-107); Creatinine, Serum 1.44 mg/dL (0.70-1.30); EST Glomerular Filtration Rate 51 mL/min (>60); Est Glom Filt Rate - Afr Amer 62 mL/min (>60); Estimated Creatinine Clearance 49.19 ml/min; Glucose 297 mg/dL (74-106); Potassium 4.2 mmol/L (3.5-5.1); Sodium Level 134 mmol/L (136-145)
[2024-04-02 07:09] LABS: Atypical Lymphocyte 2+ %; Platelet Estimate MKD DEC (ADEQ)
[2024-04-02 07:31] VITALS: BP 134/70; PULSE 77
[2024-04-02] MEDS: Metoprolol Tartrate 25 MG Tablet PO ×2 (07:31→22:20)
[2024-04-02] MEDS: Lisinopril 10 MG Tablet PO (07:32)
[2024-04-02] MEDS: Pantoprazole Sodium 40 MG in 0.9% Normal Saline (100mL MB+) 100 ML 330 MG IV ×2 (07:38→22:27)
--- NOTE | 2024-04-02 07:53 | PN.HOSP_ITS ---
Reason for Visit Reason for Visit: Diagnoses Anemia, unspecified (03/26/24) Thrombocytopenia, unspecified (03/26/24) Other forms of dyspnea (03/26/24) Chest pain, unspecified (03/26/24) Syncope and collapse (03/26/24) Hyperglycemia, unspecified (03/26/24) Other specified abnormal findings of blood chemistry (03/26/24) Subjective Subjective Feels well. No new complaints. Feels his coloring is better. Objective Data Objective Data Vital Signs: Vital Signs Temp Pulse Resp BP Pulse Ox O2 Del Method 36.6 C 77 16 134/70 H 99 Room Air 04/02/24 04:00 04/02/24 07:31 04/02/24 04:00 04/02/24 07:31 04/02/24 04:00 04/02/24 04:00 Oxygen Delivery Method Room Air Weight: 87.7 kg Body Mass Index (BMI) 29.4 Intake & Output: Intake and Output for Last 24 Hours 03/31/24 04/01/24 04/02/24 23:59 23:59 23:59 Intake Total 780 / 780 1436 / 1436 Output Total 0 / 0 Balance 780 / 780 1436 / 1436 Lab / Micro Data 04/02/24 05:50 04/02/24 05:50 Labs: Laboratory Results - last 24 hr 03/28/24 15:47: Methylmalonic Acid 231, Homocysteine 10.9 04/01/24 04:30: Differential Comment SCANNED, Diff Path Review Reviewed, Platelet Estimate MKD DEC, RBC Morphology NORM C+C 04/01/24 11:27: POC Glucose 172 H 04/01/24 16:29: POC Glucose 259 H 04/01/24 21:28: POC Glucose 375 H 04/02/24 05:50: WBC 7.7, RBC 3.01 L, Hgb 9.2 L, Hct 26.2 L, MCV 87.0, MCH 30.6, MCHC 35.1, RDW Std Deviation 37.7, RDW Coeff of Consuelo 11.8, Plt Count 14 L*, MPV 11.1, Immature Gran % (Auto) 0.800, Neut % (Auto) 83.0 H, Lymph % (Auto) 10.1 L, [place] % (Auto) 6.0, Eos % (Auto) 0.0, Baso % (Auto) 0.1, Absolute Neuts (auto) 6.4, Absolute Lymphs (auto) 0.78 L, Nucleated RBC % 0, Diff Path Review May foll, Atypical Lymphocytes 2+, Platelet Estimate MKD DEC, Sodium 134 L, Potassium 4.2, Chloride 102, Carbon Dioxide 24.0, Anion Gap 8, BUN 23 H, C reatinine 1.44 H, Estim Creat Clear Calc 49.19, Est GFR (MDRD) Af Amer 62, Est GFR (MDRD) Non-Af 51 L, BUN/Creatinine Ratio 16.0, Glucose 297 H, Calcium 9.1 04/02/24 06:05: POC Glucose 275 H Micro: Microbiology 03/28/24 19:10 Stool Stool Occult Blood (ROHIT) - Final Occult Blood Positive Rhythm Strip Rhythm Strip: Sinus Rhythm Rate: 70 Ectopy: None Physical Exam Const alert and no apparent distress HEENT head/scalp atraumatic and moist oral mucous membranes Resp normal respiratory effort, no retractions, no use of accessory muscles and clear to auscultation bilaterally Cardio regular rate, regular rhythm and S1 normal heart sound Assessment & Plan Assessment/Plan (1) Thrombocytopenia: (2) Anemia: QUALIFIERS: Anemia type: unspecified type Qualified Code(s): D 64.9 - Anemia, unspecified (3) Exertional dyspnea: (4) Exertional chest pain: (5) Near syncope: (6) Elevated serum creatinine: (7) Hyperglycemia: PLAN: Plan Stable angina * Seen by cardiology. Noted that patient had evidence of coronary artery calcification consistent with coronary artery disease on CAT scan. No imminent cardiac intervention at this time given the ongoing issues with the thrombocytopenia. * Patient to continue with the metoprolol 25 mg twice daily, lisinopril 10 mg daily, atorvastatin 80 mg daily. * Echocardiogram shows an EF of 60%. Mildly calcified aortic valve. Mild aortic valve stenosis. Trivial aortic valve regurgitation. Severe thrombocytopenia * No recent baseline available. Last available platelets were from 2018 and was 124,000 at that time. Patient seen by oncology and concern for bone marrow failure. No obvious bleeding at this time. * Patient had a bone marrow biopsy performed on the , results are still pending. * DW pathology unfortunately the bone marrow biopsy specimens were inadequate. Sent off for flow cytometry which will not be back until next week. Discussed with Dr. Lazaro who recommended trial of steroids to see if there is any response in case this were ITP. He recommended 1 mg of methylprednisolone on 2 days. * Up slightly today to 14k. Unclear if this is a trend upwards of lab variability. Monitor for now. Normocytic anemia * baseline is unknown but hemoglobin is down to 7.1 today from 9.2 at the time of admission * Iron studies are not consistent with iron deficiency showing elevated iron and iron saturation with a low normal TIBC. Ferritin is elevated but this could be acute phase reactant. Hepatitis B and C antibodies/antigen are unremarkable. Folic acid within normal limits. * Peripheral smear is pending, Bone marrow biopsy completed on 03/28/2024 with results pending * Pt transfused 1 unit PRBCs on 03/31 as Hg was 7.1. Improved to 8. Today (04/02) 9.2. * B12 was low normal. IM B12 shot given x 1 dose. Methylmalonic acid and homocystine levels WNL, therefore not felt to be B12 deficiency. * Doubt TTP, check LDH and haptoglobin. DM-2 with hyperglycemia * Uncontrolled * A1c of 11.2 * has been on metformin and Actos recently added-Hold Actos and metformin * continue glargine 25 units at at bedtime and continue to monitor * SSI Chronic conditions: * History of essential hypertension-Continue lisinopril 10 mg daily-Continue metoprolol 25 mg p.o. twice daily-Blood pressure is currently well-controlled * History of hyperlipidemia-Patient has not been able to tolerate statins previously-Lipid panel as noted above-Continue atorvastatin DVT prophylaxis: Chemical prophylaxis Contraindicated due to severe thrombocytopenia-SCDs CODE STATUS Full code DW family at bedside. Charges/Coding Visit Charges Inpatient E&M: 26693 Subs Hosp L2
[2024-04-02 09:00] VITALS: BP 134/72; PULSE 76; RESP 18; TEMP 36.7; O2SAT 99
[2024-04-02] MEDS: MethylPREDNISolone 1,000 MG in 0.9% Normal Saline (100mL Bag) 100 ML 100 MG IV (09:55)
[2024-04-02 11:55] LABS: Bedside Glucose 291 mg/dL (74-106)
[2024-04-02 13:14] LABS: LDH 342 U/L (87-241)
[2024-04-02 14:40] VITALS: BP 118/56; PULSE 69; RESP 16; TEMP 36.8; O2SAT 98
[2024-04-02 17:03] LABS: Bedside Glucose 292 mg/dL (74-106)
[2024-04-02 22:00] VITALS: BP 133/69; PULSE 80; RESP 18; TEMP 36.1; O2SAT 100
[2024-04-02 22:20] VITALS: BP 133/69; PULSE 80
[2024-04-02] MEDS: Atorvastatin Calcium 80 MG Tablet PO (22:20)
[2024-04-02] MEDS: Insulin Glargine-YFGN 100 UNIT/ML Pen 25 UNIT SC (22:21)
[2024-04-02] MEDS: 0.9% Saline Lock 10 ML Syringe IV (22:27)
[2024-04-02 22:52] LABS: Bedside Glucose 324 mg/dL (74-106)
[2024-04-03 04:00] VITALS: BP 114/66; PULSE 68; RESP 18; TEMP 36.4; O2SAT 100
[2024-04-03 04:15] VITALS: BP 114/66; PULSE 68; RESP 18; TEMP 36.4; O2SAT 100
[2024-04-03 04:18] VITALS: BMI 29.5
[2024-04-03 04:20] LABS: Absolute Lymphocyte Count 0.63 X10^3/uL (0.83-4.51); Absolute Neutrophil Count 7.4 X10^3/uL (2.0-7.7); Basophil# 0.01 X10^3/uL; Basophil% 0.1 % (0-1); Hematocrit 22.8 % (40-54); Hemoglobin 8.1 g/dL (13.0-16.5); Lymphocyte # 0.63 X10^3/ul (0.83-4.51); Lymphocyte % 7.2 % (19-41); Mean Corp Hgb Conc 35.5 g/dL (32-36); Mean Corpuscular Hgb 30.8 pg (27.0-32.0); Mean Corpuscular Volume 86.7 fL (80-94); Mean Platelet Vol. 12.3 fl (6.2-12.0); Monocyte# 0.56 X10^3/uL; Monocyte% 6.4 % (0-10); NRBC Flagged by Analyzer 0 % (0-5); Neutrophil % 84.9 % (47-70); POSITIVE COUNT YES; POSITIVE MORPHOLOGY YES; RBC Distribution Width CV 11.6 % (11.6-14.6); RBC Distribution Width SD 36.9 fl (35.1-43.9); Red Blood Count 2.63 M/mm3 (4.6-6.2); White Blood Count 8.7 K/mm3 (4.4-11.0)
[2024-04-03 04:37] LABS: Anion Gap 9 (5-15); BUN 32 mg/dL (7-18); BUN/Creat Ratio 23.9 RATIO (10-20); Calcium,Total 8.6 mg/dL (8.5-10.1); Chloride 103 mmol/L (98-107); Creatinine, Serum 1.34 mg/dL (0.70-1.30); EST Glomerular Filtration Rate 56 mL/min (>60); Est Glom Filt Rate - Afr Amer 67 mL/min (>60); Estimated Creatinine Clearance 53.03 ml/min; Glucose 314 mg/dL (74-106); Potassium 4.5 mmol/L (3.5-5.1); Sodium Level 135 mmol/L (136-145)
[2024-04-03 04:47] LABS: Differential Indicated SCAN CRITERIA MET; Platelet Count 12 K/mm3 (150-450)
[2024-04-03] MEDS: Insulin Lispro 100 UNIT/ML INSULN.PEN SC (06:37)
[2024-04-03 07:06] LABS: Haptoglobin 104 mg/dL (34-355)
[2024-04-03 07:48] LABS: Bedside Glucose 289 mg/dL (74-106)
[2024-04-03 08:35] VITALS: PULSE 77
[2024-04-03] MEDS: Metoprolol Tartrate 25 MG Tablet PO (08:35)
[2024-04-03] MEDS: Pantoprazole Sodium 40 MG in 0.9% Normal Saline (100mL MB+) 100 ML 330 MG IV (08:35)
[2024-04-03] MEDS: Lisinopril 10 MG Tablet PO (08:35)
--- NOTE | 2024-04-03 09:32 | PN.HOSP_ITS ---
Reason for Visit Reason for Visit: Diagnoses Anemia, unspecified (03/26/24) Thrombocytopenia, unspecified (03/26/24) Other forms of dyspnea (03/26/24) Chest pain, unspecified (03/26/24) Syncope and collapse (03/26/24) Hyperglycemia, unspecified (03/26/24) Other specified abnormal findings of blood chemistry (03/26/24) Subjective Subjective Had some chest discomfort when ambulating. None at rest. Objective Data Objective Data Vital Signs: Vital Signs Temp Pulse Resp BP Pulse Ox O2 Del Method 36.4 C L 77 18 114/66 100 Room Air 04/03/24 04:15 04/03/24 08:35 04/03/24 04:15 04/03/24 04:15 04/03/24 04:15 04/03/24 04:15 Oxygen Delivery Method Room Air Weight: 88.3 kg Body Mass Index (BMI) 29.5 Intake & Output: Intake and Output for Last 24 Hours 04/01/24 04/02/24 04/03/24 23:59 23:59 23:59 Intake Total 1436 / 1436 336 / 836 810 / 810 Balance 1436 / 1436 336 / 836 810 / 810 Lab / Micro Data 04/03/24 03:50 04/03/24 03:50 Labs: Laboratory Results - last 24 hr 03/31/24 08:25: Crossmatch See Detail 04/02/24 05:50: Haptoglobin 104, Lactate Dehydrogenase 342 H 04/02/24 11:31: POC Glucose 291 H 04/02/24 16:35: POC Glucose 292 H 04/02/24 22:23: POC Glucose 324 H 04/03/24 03:50: WBC 8.7, RBC 2.63 L, Hgb 8.1 L, Hct 22.8 L, MCV 86.7, MCH 30.8, MCHC 35.5, RDW Std Deviation 36.9, RDW Coeff of Consuelo 11.6, Plt Count 12 L*, MPV 12.3 H, Immature Gran % (Auto) 1.400 H, Neut % (Auto) 84.9 H, Lymph % (Auto) 7.2 L, [place] % (Auto) 6.4, Eos % (Auto) 0.0, Baso % (Auto) 0.1, Absolute Neuts (auto) 7.4, Absolute Lymphs (auto) 0.63 L, Nucleated RBC % 0, Diff Path Review May foll, Sodium 135 L, Potassium 4.5, Chloride 103, Carbon Dioxide 23.0, Anion Gap 9, BUN 32 H, Creatinine 1.34 H, Estim Creat Clear Calc 53.03, Est GFR (MDRD) Af Amer 67, Est GFR (MDRD) Non-Af 56 L, BUN/Creatinine Ratio 23.9 H, Glucose 314 H, Calcium 8.6 04/03/24 06:36: POC Glucose 289 H Micro: Microbiology 03/28/24 19:10 Stool Stool Occult Blood (ROHIT) - Final Occult Blood Positive Rhythm Strip Rhythm Strip: Sinus Rhythm Rate: 70 Ectopy: None Physical Exam Const alert and no apparent distress Constitutional Narrative: up in chair. afebrile. non-toxic. Psych affect normal Assessment & Plan Assessment/Plan (1) Thrombocytopenia: (2) Anemia: QUALIFIERS: Anemia type: unspecified type Qualified Code(s): D 64.9 - Anemia, unspecified (3) Exertional dyspnea: (4) Exertional chest pain: (5) Near syncope: (6) Elevated serum creatinine: (7) Hyperglycemia: PLAN: Plan Stable angina * Seen by cardiology. Noted that patient had evidence of coronary artery calcification consistent with coronary artery disease on CAT scan. No imminent cardiac intervention at this time given the ongoing issues with the thrombocytopenia. * Patient to continue with the metoprolol 25 mg twice daily, lisinopril 10 mg daily, atorvastatin 80 mg daily. * Echocardiogram shows an EF of 60%. Mildly calcified aortic valve. Mild aortic valve stenosis. Trivial aortic valve regurgitation. * DW Dr. Franklin, With his ongoing symptoms, he would recommend Imdur 30 mg daily. He and I went and discussed with the patient together. He notified the patient that if he is having chest pain, to rest and if the chest pain does not resolve in 5 minutes to return to the emergency room. Patient will follow-up with either Dr. Franklin or Dr Pierre in 2 to 3 weeks. Severe thrombocytopenia * No recent baseline available. Last available platelets were from 2018 and was 124,000 at that time. Patient seen by oncology and concern for bone marrow failure. No obvious bleeding at this time. * Patient had a bone marrow biopsy performed on the , results are still pending. * DW pathology unfortunately the bone marrow biopsy specimens were inadequate. Sent off for flow cytometry which will not be back until next week. Discussed with Dr. Lazaro who recommended trial of steroids to see if there is any response in case this were ITP. He recommended 1 mg of methylprednisolone on 2 days. * No significant change in the platelets. One of the 14,000 yesterday than is down to 12,000 today. I do not feel that this is any significant change. Did discuss case with Dr. Lazaro, who is not convinced that it is not ITP and recommended patient take 1 mg/kg prednisone and he will follow-up with the patient as outpatient. Since patient is not bleeding, he does not advise transfusion. He will determine based on the flow cytometry results and patient subsequent platelets if not he would need IVIG as outpatient or another bone marrow biopsy. Normocytic anemia * baseline is unknown but hemoglobin is down to 7.1 today from 9.2 at the time of admission * Iron studies are not consistent with iron deficiency showing elevated iron and iron saturation with a low normal TIBC. Ferritin is elevated but this could be acute phase reactant. Hepatitis B and C antibodies/antigen are unremarkable. Folic acid within normal limits. * Peripheral smear is pending, Bone marrow biopsy completed on 03/28/2024 with results pending * Pt transfused 1 unit PRBCs on 03/31 as Hg was 7.1. Improved to 8. Today (04/02) 9.2. * B12 was low normal. IM B12 shot given x 1 dose. Methylmalonic acid and homocystine levels WNL, therefore not felt to be B12 deficiency. * Doubt TTP, LDH elevated but haptoglobin within normal limits. DM-2 with hyperglycemia * Uncontrolled * A1c of 11.2, this was despite being on metformin. Actos had been recently added but these medications will both be held. * Glucose has been poorly controlled with glargine 25 units. Will increase that to 40 units. This may need to be decreased as his steroids will change in the future. Chronic conditions: * History of essential hypertension-Continue lisinopril 10 mg daily-Continue metoprolol 25 mg p.o. twice daily-Blood pressure is currently well-controlled * History of hyperlipidemia-Patient has not been able to tolerate statins previously-Lipid panel as noted above-Continue atorvastatin DVT prophylaxis: Chemical prophylaxis Contraindicated due to severe thrombocytopenia-SCDs CODE STATUS Full code DW family at bedside. Case discussed with the patient's family at bedside. Discharge home.
--- NOTE | 2024-04-03 10:33 | DS.PCM_ITS ---
Providers Date of Admission: 03/26/24 Primary Care Physician: Dr. Mihir Johnston MD Consultations 03/26/24 18:31 Consult: Cardiology Routine Consulting Provider: Sangita Stahl Reason for Consult: Unstable angina EMERGENT Consult: No Notified: Yes Date Notified: 03/26/24 Time Notified: 18:37 Method of Notification: Text 03/27/24 09:04 Consult: Oncology/Hematology Routine Consulting Provider: *[facility] Reason for Consult: Severe thrombocytopenia-->?ITP EMERGENT Consult: No MD Notified: Yes Date Notified: 03/27/24 Time Notified: 11:06 Method of Notification: Text 03/28/24 11:00 Consult: Interventional Radiology Routine Consulting Provider: Te Bright Reason for Consult: Bone marrow biopsy and aspiration EMERGENT Consult: No Notified: No Date Notified: 03/28/24 Time Notified: 11:00 Reason For Visit: CHEST PAIN/CESAR Diagnosis Discharge Diagnosis (1) Thrombocytopenia: Status: Acute Code(s): D69.6 - Thrombocytopenia, unspecified (2) Anemia: Status: Acute Code(s): D64.9 - Anemia, unspecified Qualifiers: Anemia type: unspecified type Qualified Code(s): D64.9 - Anemia, unspecified (3) Exertional dyspnea: Status: Acute Code(s): R06.09 - Other forms of dyspnea (4) Exertional chest pain: Status: Acute Code(s): R07.9 - Chest pain, unspecified (5) Near syncope: Status: Acute Code(s): R55 - Syncope and collapse (6) Elevated serum creatinine: Status: Acute Code(s): R79.89 - Other specified abnormal findings of blood chemistry (7) Hyperglycemia: Status: Acute Code(s): R73.9 - Hyperglycemia, unspecified Plan Stable angina * Seen by cardiology. Noted that patient had evidence of coronary artery calcification consistent with coronary artery disease on CAT scan. No imminent cardiac intervention at this time given the ongoing issues with the thrombocytopenia. * Patient to continue with the metoprolol 25 mg twice daily, lisinopril 10 mg daily, atorvastatin 80 mg daily. * Echocardiogram shows an EF of 60%. Mildly calcified aortic valve. Mild aortic valve stenosis. Trivial aortic valve regurgitation. * DW Dr. Franklin, With his ongoing symptoms, he would recommend Imdur 30 mg daily. He and I went and discussed with the patient together. He notified the patient that if he is having chest pain, to rest and if the chest pain does not resolve in 5 minutes to return to the emergency room. Patient will follow-up with either Dr. Franklin or Dr Pierre in 2 to 3 weeks. Severe thrombocytopenia * No recent baseline available. Last available platelets were from 2018 and was 124,000 at that time. Patient seen by oncology and concern for bone marrow failure. No obvious bleeding at this time. * Patient had a bone marrow biopsy performed on the , results are still pending. * DW pathology unfortunately the bone marrow biopsy specimens were inadequate. Sent off for flow cytometry which will not be back until next week. Discussed with Dr. Lazaro who recommended trial of steroids to see if there is any response in case this were ITP. He recommended 1 mg of methylprednisolone on 2 days. * No significant change in the platelets. One of the 14,000 yesterday than is down to 12,000 today. I do not feel that this is any significant change. Did discuss case with Dr. Lazaro, who is not convinced that it is not ITP and recommended patient take 1 mg/kg prednisone and he will follow-up with the patient as outpatient. Since patient is not bleeding, he does not advise transfusion. He will determine based on the flow cytometry results and patient subsequent platelets if not he would need IVIG as outpatient or another bone marrow biopsy. Normocytic anemia * baseline is unknown but hemoglobin is down to 7.1 today from 9.2 at the time of admission * Iron studies are not consistent with iron deficiency showing elevated iron and iron saturation with a low normal TIBC. Ferritin is elevated but this could be acute phase reactant. Hepatitis B and C antibodies/antigen are unremarkable. Folic acid within normal limits. * Peripheral smear is pending, Bone marrow biopsy completed on 03/28/2024 with results pending * Pt transfused 1 unit PRBCs on 03/31 as Hg was 7.1. Improved to 8. Today (04/02) 9.2. * B12 was low normal. IM B12 shot given x 1 dose. Methylmalonic acid and homocystine levels WNL, therefore not felt to be B12 deficiency. * Doubt TTP, LDH elevated but haptoglobin within normal limits. DM-2 with hyperglycemia * Uncontrolled * A1c of 11.2, this was despite being on metformin. Actos had been recently added but these medications will both be held. * Glucose has been poorly controlled with glargine 25 units. Will increase that to 40 units. This may need to be decreased as his steroids will change in the future. Chronic conditions: * History of essential hypertension-Continue lisinopril 10 mg daily-Continue metoprolol 25 mg p.o. twice daily-Blood pressure is currently well-controlled * History of hyperlipidemia-Patient has not been able to tolerate statins previously-Lipid panel as noted above-Continue atorvastatin DVT prophylaxis: Chemical prophylaxis Contraindicated due to severe thrombocytopenia-SCDs CODE STATUS Full code DW family at bedside. Case discussed with the patient's family at bedside. Discharge home. Medications at Discharge Home Medications atorvastatin 80 mg tablet 80 mg PO QHS #30 tabs 04/03/24 insulin glargine-yfgn 100 unit/mL (3 mL) subcutaneous pen 40 unit (0.4 mL) subcut QHS #15 mL 04/03/24 isosorbide mononitrate 30 mg tablet,extended release 24 hr 30 mg PO DAILY #30 tabs 04/03/24 lisinopril 10 mg tablet 10 mg PO DAILY #30 tabs 04/03/24 metoprolol tartrate 25 mg tablet 25 mg PO BID #60 tabs 04/03/24 nitroglycerin 0.4 mg sublingual tablet 0.4 mg sublingual Q5M PRN Cardiac/Chest Pain #10 tabs 04/03/24 pen needle, diabetic 29 gauge #100 ea 04/03/24 prednisone 20 mg tablet 90 mg (4.5 x 20 mg) PO DAILY #120 tabs 04/03/24 Hospital Course Operations None Procedures 2-D Echocardiogram Summary of Care Provided Minutes Spent on Discharge: 60 Hospital Course: Patient presents with exertional chest pain. When he presented, he was noted to be anemic with a hemoglobin of 8.1 and platelets of 14,000. Patient was seen by cardiology I will as well as oncology. Patient had a 2D echocardiogram showed an EF of 60%. Patient would have chest pain when he would exert himself but will get better with rest. Given his thrombocytopenia, he was not a candidate for intervention or any antiplatelets. So I discussed the case with Dr. Franklin, who recommends Imdur 30 mg daily and to follow-up with hat body sorter next 2 to 3 weeks. And then they will determine what further steps would be performed in a cardiology perspective based on his platelets. From the hematologic perspective, patient underwent a bone marrow biopsy. The bone marrow biopsy came back inconclusive but that was sent out for flow cytometry which is still pending. Did discuss the case with oncology who recommended high-dose steroids. Patient received 1 g of methylprednisolone in the and . There is been no significant improvement of his platelets. Oncology is still not sure that this is ITP and would recommend taking 1 mg/kg of prednisone and follow-up in the office. It will be determined at that point if the patient requires another bone marrow biopsy or requiring IVIG. Patient is also has uncontrolled diabetes. Had hemoglobin A1c of 11.2 despite being on metformin. Recent been started on pioglitazone. Discussed with the patient and the plan is to have him on insulin glargine 40 units daily trigger why he is on the steroids. The dose may need to be decreased once steroids have been discontinued. The timing of the discontinuation of the steroids will be per oncology. Weight / BMI Weight Weight: 88.3 kg Body Mass Index (BMI) 29.5 ABG / Lab / Microbiology Data 04/03/24 03:50 04/03/24 03:50 Laboratory: Laboratory Results - last 24 hr 03/31/24 08:25: Crossmatch See Detail 04/02/24 05:50: Haptoglobin 104, Lactate Dehydrogenase 342 H 04/02/24 11:31: POC Glucose 291 H 04/02/24 16:35: POC Glucose 292 H 04/02/24 22:23: POC Glucose 324 H 04/03/24 03:50: WBC 8.7, RBC 2.63 L, Hgb 8.1 L, Hct 22.8 L, MCV 86.7, MCH 30.8, MCHC 35.5, RDW Std Deviation 36.9, RDW Coeff of Consuelo 11.6, Plt Count 12 L*, MPV 12.3 H, Immature Gran % (Auto) 1.400 H, Neut % (Auto) 84.9 H, Lymph % (Auto) 7.2 L, [place] % (Auto) 6.4, Eos % (Auto) 0.0, Baso % (Auto) 0.1, Absolute Neuts (auto) 7.4, Absolute Lymphs (auto) 0.63 L, Nucleated RBC % 0, Diff Path Review May foll, Sodium 135 L, Potassium 4.5, Chloride 103, Carbon Dioxide 23.0, Anion Gap 9, BUN 32 H, Creatinine 1.34 H, Estim Creat Clear Calc 53.03, Est GFR (MDRD) Af Amer 67, Est GFR (MDRD) Non-Af 56 L, BUN/Creatinine Ratio 23.9 H, Glucose 314 H, Calcium 8.6 04/03/24 06:36: POC Glucose 289 H Microbiology: Microbiology 03/28/24 19:10 Stool Stool Occult Blood (ROHIT) - Final Occult Blood Positive D/C Instructions Discharge Diet: Low fat / Low cholesterol and 2000 Calorie Control Diet Meaningful Use Info Meaningful Use Meaningful Use Diagnoses (Choose all that apply): None applicable Ischemic Stroke Statin Dosing Therapy Reference: STATIN DOSE THERAPY REFERENCE: * Patients > 75 years receive moderate or high dose statin therapy. * Patients 75 years or YOUNGER should receive HIGH intensity statin dose unless contraindicated. You will be required to document reason for non-treatment if statin daily dose does not meet guidelines. HIGH DOSE STATIN THERAPY DAILY Atorvastatin > than or = to 40 mg Rosuvastatin > than or = to 20 mg Amlodipine + Atorvastatin > than or = to 2.5/40 mg Ezetimibe + Simvastatin 10/80 mg Simvastatin 80mg Discharge Plan Admission Admit Date/Time: 03/26/24 16:50 Primary Reason for Your Visit: Thrombocytopenia Attending Provider: Sae Pat Primary Care Provider: Mihir Johnston Consulting Providers: Sangita Stahl; Xavier Miranda; Jose Lazaro; Rafael Fitzgerald; Rico Fernandes; Farhad Aggarwal; Mo Celeste; Alvin Ellis; Francie Landeros NP; Yen Mcdonald Instructions Patient Instructions: [facility] Bone Marrow Aspiration and Biopsy, Diabetes Food Shop Meals Prep, Diabetes Low Blood Sugar Ch, Diabetes Food Tips , [facility] Procedural Sedation Additional Instructions / Restrictions: You will continue with steroids until you follow-up with Dr. Lazaro. He did not recommend any transfusion of platelets but with your platelets being low you are at risk for bleeding. If you have bleeding that cannot be controlled with compression, notify your physician or return to the emergency room. For your chest pain, you may have underlying coronary artery disease but we are unable to do any intervention to further evaluate that until your platelets are improved. If you do have chest pain that occurs with rest, please sit down and rest but if you have pain that persists roughly 5 minutes after rest, notify your physician or return to the emergency room. Discharge Orders/Prescriptions Prescriptions: New atorvastatin 80 mg Tablet 80 mg PO QHS Qty: 30 0RF insulin glargine-yfgn 100 unit/mL (3 mL) Insulin Pen 40 unit subcut QHS Qty: 15 1RF lisinopril 10 mg Tablet 10 mg PO DAILY Qty: 30 0RF nitroglycerin 0.4 mg Tablet, Sublingual 0.4 mg sublingual Q5M PRN (Reason: Cardiac/Chest Pain) Qty: 10 0RF metoprolol tartrate 25 mg Tablet 25 mg PO BID Qty: 60 0RF prednisone 20 mg tablet 90 mg PO DAILY Qty: 120 0RF isosorbide mononitrate 30 mg tablet extended release 24 hr 30 mg PO DAILY Qty: 30 0RF (DME) pen needle, diabetic 29 gauge needle See Rx Instructions .Route Qty: 100 0RF Rx Instructions: As directed. Different sizes may be substituted. Discontinued lisinopril 20 MG tablet 20 mg PO DAILY pioglitazone 30 mg tablet 30 mg PO DAILY metformin 500 mg tablet extended release 24 hr 500 mg PO BID sildenafil (pulm.hypertension) 20 mg tablet 40 mg PO .1 hour before interc Referrals / Follow Up: Jose Lazaro MD [Med Staff - Active Staff] - Within 1 Week Jose Franklin MD [Med Staff - Active Staff] - Within 2 Weeks Rico Hrenandez MD [Non-Staff] - Mihir Johnston MD [Primary Care Provider] - Within 2 Weeks Disposition Disposition (needs filled in before D/C Order can be placed): Home, Self Care Charges/Coding Visit Charges Inpatient E&M: 04905 Disch Hosp >30min
--- NOTE | 2024-04-03 10:34 | PCM.PN.CARD ---
Subjective Subjective Patient has been placed on IV Solu-Medrol with minimal change in his platelets over the last 48 hours. He denies any bleeding issues. He was able to walk around the nursing unit but developed some tightness in his chest that resolved with rest near the end of his walk. The hematology team feels that the patient can be discharged to home and follow-up with them in a week in the office. Objective Data Vital Signs: Vital Signs Temp Pulse Resp BP Pulse Ox O2 Del Method 97.5 F L 77 18 114/66 100 Room Air 04/03/24 04:15 04/03/24 08:35 04/03/24 04:15 04/03/24 04:15 04/03/24 04:15 04/03/24 04:15 Oxygen Delivery Method Room Air Weight: 194 lb 10.691 oz Body Mass Index (BMI) 29.5 Intake & Output: Intake and Output for Last 24 Hours 04/01/24 04/02/24 04/03/24 23:59 23:59 23:59 Intake Total 1436 / 1436 336 / 836 810 / 810 Balance 1436 / 1436 336 / 836 810 / 810 Lab / Micro Data Attestation: I reviewed the patient's lab results. 04/03/24 03:50 04/03/24 03:50 Labs: Laboratory Results - last 24 hr 03/31/24 08:25: Crossmatch See Detail 04/02/24 05:50: Haptoglobin 104, Lactate Dehydrogenase 342 H 04/02/24 11:31: POC Glucose 291 H 04/02/24 16:35: POC Glucose 292 H 04/02/24 22:23: POC Glucose 324 H 04/03/24 03:50: WBC 8.7, RBC 2.63 L, Hgb 8.1 L, Hct 22.8 L, MCV 86.7, MCH 30.8, MCHC 35.5, RDW Std Deviation 36.9, RDW Coeff of Consuelo 11.6, Plt Count 12 L*, MPV 12.3 H, Immature Gran % (Auto) 1.400 H, Neut % (Auto) 84.9 H, Lymph % (Auto) 7.2 L, [place] % (Auto) 6.4, Eos % (Auto) 0.0, Baso % (Auto) 0.1, Absolute Neuts (auto) 7.4, Absolute Lymphs (auto) 0.63 L, Nucleated RBC % 0, Diff Path Review May foll, Sodium 135 L, Potassium 4.5, Chloride 103, Carbon Dioxide 23.0, Anion Gap 9, BUN 32 H, Creatinine 1.34 H, Estim Creat Clear Calc 53.03, Est GFR (MDRD) Af Amer 67, Est GFR (MDRD) Non-Af 56 L, BUN/Creatinine Ratio 23.9 H, Glucose 314 H, Calcium 8.6 04/03/24 06:36: POC Glucose 289 H Cardiology Labs/Tests 04/03/24 03:50: WBC 8.7, RBC 2.63 L, Hgb 8.1 L, Hct 22.8 L, MCV 86.7, MCH 30.8, MCHC 35.5, Plt Count 12 L*, MPV 12.3 H, Immature Gran % (Auto) 1.400 H, Neut % (Auto) 84.9 H, Lymph % (Auto) 7.2 L, [place] % (Auto) 6.4, Eos % (Auto) 0.0, Baso % (Auto) 0.1, Absolute Neuts (auto) 7.4, Nucleated RBC % 0, Sodium 135 L, Potassium 4.5, Chloride 103, Carbon Dioxide 23.0, Anion Gap 9, BUN 32 H, Creatinine 1.34 H, Est GFR (MDRD) Af Amer 67, Est GFR (MDRD) Non-Af 56 L, BUN/Creatinine Ratio 23.9 H, Glucose 314 H, Calcium 8.6 Rhythm: EKG: ECHO: Stress Test: Cardiac Cath: PCI: CT Surgery: Holter monitor: EPS: PPM: CXR: Chest CT Scan: Physical Exam Const alert and oriented x3 HEENT normocephalic Eyes EOMs intact bilaterally Skin General Skin Exam: ecchymosis Psych mental status grossly normal Assessment & Plan Assessment/Plan (1) Exertional chest pain: PLAN: The patient does have exertional chest symptoms. He has been anemic and thrombocytopenic. He was recently instituted on Solu-Medrol for presumed ITP. We are still awaiting the final bone marrow results. The patient is asymptomatic unless he is exerting himself. It is highly unlikely that this is exertional angina. I would recommend that we place him on Imdur 30 mg daily. If he is intolerant due to headaches then he should discontinue the Imdur. He was instructed not to use any nonsteroidals and only use Tylenol for the headache. The patient was also instructed to remain in his home and not try to do any significant physical activity. He was also given instructions around calling 911 should he have the chest tightness that does not resolve spontaneously with rest within just 5 to 10 minutes. The patient is scheduled to follow-up with Dr. Lazaro in his office in 1 week. He will follow-up with us in 2 to 3 weeks in the office of the [facility]. (2) Thrombocytopenia: PLAN: Patient's platelet count today was 12,000. He is will be followed up with Dr. Lazaro in 1 week there may be a necessity for redoing the bone marrow. The bone marrow that was obtained earlier this week has been sent out for special stains and study. The patient has not had much of response from the IV Solu-Medrol in the last 48 hours. PLAN: Plan 1. The patient will be discharged to home. 2. I went over these instructions in detail with the patient and his and they voiced understanding and agreed to proceed. 3. Patient will follow-up with either me or Dr. Pierre in the [facility] in 2 to 3 weeks. 4. The patient will need a left heart catheterization at some point in time once his hematologic issues are controlled. 5. The patient was instructed to call our office for an appointment to make an appointment for 2 to 3 weeks. Charges/Coding Visit Charges Inpatient E&M: 90436 Subs Hosp L2
[2024-04-04 15:26] LABS: Pathologist Review Reviewed
[2024-04-04 15:28] LABS: Pathologist Review Reviewed
[2024-04-06 06:07] LABS: Bone Marrow Aspiraton SEE PATHOLOGY REPORT
[2024-04-09 15:02] LABS: Miscellaneous Lab Procedure 2 PATHOLOGY REPORT; Miscellaneous Lab Procedure 3 PATHOLOGY REPORT
[2024-04-09 15:03] LABS: Miscellaneous Lab Procedure 4 PATHOLOGY REPORT
== END 2024-04-03 11:37 | disposition home or self-care (01) | DRG 303 ==
LOC: ED 16:54 → PCU 17:16
PROVIDERS: Internal Medicine Medical Oncology; Admitting Provider Internal Medicine; Emergency Provider Emergency Medicine; PCP Family Medicine
DX: I25.110 Atherosclerotic heart disease of native coronary artery with unstable angina pectoris (principal); N17.9 Acute kidney failure, unspecified; D69.3 Immune thrombocytopenic purpura; E83.39 Other disorders of phosphorus metabolism; E11.65 Type 2 diabetes mellitus with hyperglycemia; D64.9 Anemia, unspecified; I10 Essential (primary) hypertension; I35.0 Nonrheumatic aortic (valve) stenosis; E83.42 Hypomagnesemia; E53.8 Deficiency of other specified B group vitamins; R55 Syncope and collapse; Z79.84 Long term (current) use of oral hypoglycemic drugs; Z79.899 Other long term (current) drug therapy
CPT/HCPCS: 36415; 71045; 71275; 74176; 77012; 80048; 80061; 80076; 82274; 82607; 82728; 82746; 82962; 83010; 83036; 83090; 83540; 83550; 83615; 83735; 83921; 84100; 84443; 84466; 84484; 85025; 85027; 85045; 85610; 85730; 86706; 86803; 86850; 86900; 86901; 86920; 86922; 88305; 88311; 88313; 93005; 93306; 94668; 97802; 97803; 99285; J7030; J7040; J7050; J7120; P9016; Q9967; A4216; J2919; J3420

== ENCOUNTER 2024-04-04 04:51 | Emergency (ER) | payer MEDICARE, SELFPAY ==
[2024-04-04] VITALS (14 sets, daily range): BP systolic 114–137; BP diastolic 52–71; PULSE 71–96; RESP 16–28; TEMP 36.1–36.7; O2SAT 92–100; BMI 31.4
--- NOTE | 2024-04-04 05:10 | EKG12_ITS ---
Test Reason : CP Blood Pressure : / mmHG Vent. Rate : 078 BPM Atrial Rate : 078 BPM P-R Int : 162 ms QRS Dur : 080 ms QT Int : 372 ms P-R-T Axes : 060 015 021 degrees QTc Int : 424 ms Normal sinus rhythm Nonspecific T wave abnormality Abnormal ECG Confirmed by Jose Franklin ([id number]), digital editor TAMARA MULTANI ([id number]) on 04/05/2024 8:32:54 AM Referred By: CHRIS Confirmed By:Jose Franklin
--- NOTE | 2024-04-04 05:10 | CT_ITS ---
EXAM: CT ANGIOGRAPHY CHEST, ABDOMEN AND PELVIS WITH INTRAVENOUS CONTRAST CLINICAL INDICATION: back pain with dyspnea TECHNIQUE: Helically acquired angiography images were obtained of the chest, abdomen and pelvis with intravenous contrast. This CT exam was performed using one or more of the following dose reduction techniques: automated exposure control, adjustment of the mA and/or kV according to patient size, and/or use of iterative reconstruction technique. MIP reconstructed images were created and reviewed. CONTRAST: 100 cc of Isovue-370 IV. RADIATION DOSE: CTDIvol = 12.08 mGy, DLP = 1139.93 mGy-cm COMPARISON: CT scan of the abdomen and pelvis 11/11/2022 and CTA of the chest 03/28/2024. FINDINGS: VASCULATURE: AORTA: No acute findings. Normal in caliber. No dissection. PULMONARY ARTERIES: Unremarkable. Normal in caliber. No obvious central pulmonary embolism although this study was not performed with the pulmonary embolism protocol. GREAT VESSELS OF AORTIC ARCH: Unremarkable. Normal in caliber. No dissection. CELIAC TRUNK AND MESENTERIC ARTERIES: No acute findings. No occlusion or significant stenosis. No dissection. RENAL ARTERIES: No acute findings. No occlusion or significant stenosis. No dissection. ILIAC ARTERIES: No acute findings. No occlusion or significant stenosis. No dissection. CHEST: LUNGS AND PLEURAL SPACES: Trace right pleural effusion and subsegmental atelectasis right lung base. No mass. No pneumothorax. HEART: Coronary artery calcifications. Calcification of the aortic valve leaflets. Heart size is normal. No pericardial effusion. MEDIASTINUM: Unremarkable. No mediastinal or hilar adenopathy. Esophagus is unremarkable. No hiatal hernia. THYROID: Unremarkable. No thyroid lesions. ABDOMEN: LIVER: Unremarkable. Homogeneous. No focal mass. GALLBLADDER AND BILE DUCTS: Unremarkable. No calcified gallstones. No gallbladder distention or wall edema. No intra- or extrahepatic biliary ductal dilation. PANCREAS: Unremarkable. No change in the small well-circumscribed, smooth, peripherally calcified mass measuring up to 1.5 cm in the head of the pancreas with atrophy of the body and tail of the pancreas. SPLEEN: Unremarkable. Normal size without focal cystic or solid mass. ADRENALS: Unremarkable. No nodules. KIDNEYS AND URETERS: Unremarkable. Normal renal size and position. No hydronephrosis. STOMACH AND BOWEL: Unremarkable. No stomach or bowel distention. No focal inflammatory change. PELVIS: APPENDIX: No evidence of acute appendicitis. BLADDER: Unremarkable. REPRODUCTIVE: Unremarkable as visualized. No mass. CHEST, ABDOMEN and PELVIS: INTRAPERITONEAL SPACE: Unremarkable. No ascites or other fluid collection. No free air. BONES/JOINTS: Unremarkable. No suspicious lytic or blastic abnormality. SOFT TISSUES: Unremarkable. No discrete abdominal or pelvic wall hernia. LYMPH NODES: Unremarkable. No enlarged lymph nodes. CT/CTA Chst, Abd, Pel W and/or WO IMPRESSION: 1. No pulmonary embolism or aortic dissection. 2. No change in the small well-circumscribed, smooth, peripherally calcified mass measuring up to 1.5 cm in the head of the pancreas with atrophy of the body and tail of the pancreas. 3. Trace right pleural effusion and subsegmental atelectasis right lung base. 4. Coronary artery disease. 5. Calcification of the aortic valve leaflets. Electronically Signed: Jose Luis MD at 5:44 EDT ,
--- NOTE | 2024-04-04 05:14 | EX.ED.DYSGE1 ---
HPI History of Present Illness Chief Complaint: Shortness of Breath Informant: patient and spouse/S.O. Narrative Narrative: Patient is a 74-year-old male who was recently admitted to the hospital secondary to exertional dyspnea and thrombocytopenia. 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 The patient states that around 10 PM last night he noted some pain in his right low back. He states there is been no trauma or excessive activity but more so the opposite with him lying around in a hospital bed throughout the week. He states as the night progressed he felt like the pain worsened and began radiating up his right back and he also developed shortness of breath with this. Therefore with his worsening symptoms there was concern that this could be cardiac or lung in nature and he presents ER for repeat evaluation [facility] Medical History Diverticulosis History of chronic hypertension History of diabetes mellitus Home Medications ?Medication ?Instructions ?Recorded ?Last Taken ?Type atorvastatin 80 mg tablet 80 mg PO QHS #30 tabs 04/03/24 Unknown Rx insulin glargine-yfgn 100 unit/mL 40 unit (0.4 mL) subcut QHS #15 mL 04/03/24 Unknown Rx (3 mL) subcutaneous pen isosorbide mononitrate 30 mg 30 mg PO DAILY #30 tabs 04/03/24 Unknown Rx tablet,extended release 24 hr lisinopril 10 mg tablet 10 mg PO DAILY #30 tabs 04/03/24 Unknown Rx metoprolol tartrate 25 mg tablet 25 mg PO BID #60 tabs 04/03/24 Unknown Rx nitroglycerin 0.4 mg sublingual 0.4 mg sublingual Q5M PRN 04/03/24 Unknown Rx tablet Cardiac/Chest Pain #10 tabs pen needle, diabetic 29 gauge #100 ea 04/03/24 Unknown Rx prednisone 20 mg tablet 90 mg (4.5 x 20 mg) PO DAILY #120 04/03/24 Unknown Rx tabs oxycodone 5 mg capsule 5 mg PO Q6H PRN pain 3 days #12 04/04/24 Unknown Rx caps Allergy/AdvReac Type Severity Reaction Status Date / Time No Known Allergies Allergy Verified 04/04/24 04:58 Family History Other Brain malignancy Diabetes Hypertension Surgical History Previous back surgery H/O colonoscopy Social History household members: spouse housing: house current occupational status: retired Smoking Status: Never smoker alcohol intake: former substance use type: does not use ROS ROS ED Constitutional Constitutional ED: Denies chills or fever(s) ENT ENT ED: Denies sore throat Cardiovascular Cardiovascular: Denies chest pain, orthopnea, palpitations or racing heartbeat Respiratory/Chest Respiratory/Chest: Reports dyspnea and dyspnea on exertion; Denies cough or orthopnea Gastrointestinal Gastrointestinal: Denies abdominal pain, diarrhea, nausea or vomiting Genitourinary Genitourinary ED: Denies dysuria or hematuria Musculoskeletal Musculoskeletal: Reports back pain Integumentary Denies rash Neurologic Neurologic: Denies headache(s) Hematologic/Lymphatic Hematologic/Lymphatic: Reports easy bleeding and easy bruising EXAM Physical Exam Const Vital Signs: 04/04/24 04:52 04/04/24 04:57 04/04/24 04:58 Temperature 97.0 F L 97.0 F L Temperature Source Temporal Temporal Pulse Rate 78 80 Respiratory Rate 22 H 28 H Respiratory Effort Short of Breath Labored Respiratory Pattern Tachypnea Blood Pressure 137/68 H 137/68 H Blood Pressure Mean 91 91 Pulse Ox 99 100 Oxygen Delivery Method Room Air Room Air Room Air 04/04/24 05:30 04/04/24 05:32 04/04/24 05:45 Temperature Temperature Source Pulse Rate 83 80 Respiratory Rate 24 H 20 H Respiratory Effort Respiratory Pattern Blood Pressure 114/56 L 120/52 L Blood Pressure Mean 73 71 Pulse Ox 100 96 Oxygen Delivery Method 04/04/24 05:52 04/04/24 05:57 04/04/24 06:00 Temperature 98.0 F 98 F Temperature Source Oral Oral Pulse Rate 81 86 80 Respiratory Rate 19 H 16 16 Respiratory Effort Respiratory Pattern Blood Pressure 121/61 H 120/59 L 121/61 H Blood Pressure Mean 81 79 81 Pulse Ox 100 94 97 Oxygen Delivery Method Room Air Room Air Room Air 04/04/24 06:00 04/04/24 06:15 04/04/24 06:25 Temperature Temperature Source Pulse Rate 77 96 79 Respiratory Rate 20 H 22 H 23 H Respiratory Effort Respiratory Pattern Blood Pressure 120/59 L 121/61 H Blood Pressure Mean 76 76 Pulse Ox 92 Oxygen Delivery Method 04/04/24 06:30 04/04/24 07:00 04/04/24 07:00 Temperature 98 F Temperature Source Temporal Pulse Rate 78 71 73 Respiratory Rate 26 H 20 H 20 H Respiratory Effort Respiratory Pattern Blood Pressure 120/59 L 119/53 L 119/53 L Blood Pressure Mean 76 75 75 Pulse Ox 92 93 93 Oxygen Delivery Method Nasal Cannula Positive well nourished and well developed General Appearance ED: well developed; Negative for pallor HEENT HEENT Narrative: Normocephalic atraumatic Eyes PERRL and EOMs intact bilaterally General Eye ED: Negative for pale conjunctiva or scleral icterus Neck supple and no JVD Neck Narrative: No nuchal rigidity or meningeal signs noted No crepitance palpated and trachea is midline Chest Wall palpation of chest normal Chest Narrative: No bony deformity or crepitance Resp clear to auscultation bilaterally Resp Narrative: Patient is tachypneic and breath sounds are diminished throughout but overall clear to auscultation without nasal flaring or retractions or accessory muscle use Cardio regular rate and regular rhythm Rate: other Other Details: Radial and carotid pulses are equal and symmetric GI normal to inspection, nondistended, normoactive bowel sounds, non-tender, non-distended and no masses GI Narrative: No voluntary guarding or rigidity or pulsatile mass No organomegaly noted No fluid wave present Auscultation: normoactive bowel sounds Palpation: soft Back/Spine Back/Spine Narrative: No bony deformity or step-off of the cervical thoracic or lumbar spine no midline tenderness to palpation Patient does have pain in the right paralumbar muscle belly region that really does not change with motion or palpation Extremity Extremity Narrative: Trace pitting edema to the bilateral lower extremities that is equal and symmetric Negative Homans' sign bilaterally Neuro oriented x3, CN's II-XII intact bilaterally and no sensory deficits noted Sensorium / Orientation: alert Motor Exam: strength 5/5 throughout Psych Psych Narrative: Patient has a flat affect Skin no rashes or lesions noted Skin Narrative: Patient has areas of ecchymosis consistent with his thrombocytopenia and recent hospitalization with IV placement. However capillary refills less than 3 seconds there is no obvious wound present and he does not have any signs of bruising or erythema along the right side of the low back to suggest spontaneous bleed versus trauma versus infection. General Skin Exam: Negative for jaundice or pallor MDM MDM MDM Narrative Medical decision making narrative: Patient arrived to the ER tachypneic but overall with stable vitals and in no respiratory distress. He was just discharged from the hospital yesterday after a prolonged stay for thrombocytopenia. 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 Cardiology would like to perform a heart cath because of his exertional dyspnea but do not feel that this is acute CT in nature and we cannot perform a procedure until his platelets have improved. He did have a echocardiogram which showed mild aortic stenosis but normal LV function. Therefore with the patient's report of back pain across lower back moving more towards the right low back and now up into the chest there was concern that he could have a spontaneous bleed such as aortic dissection or hemothorax. There is also concern this could be potential pyelonephritis versus acute kidney bleed or kidney stone. Patient blood work and urine sample were ordered as well as CT of the chest abdomen and pelvis. The patient's blood work showed chronic anemia with hemoglobin of 8.1 which is at baseline and his platelet count is at baseline as well as it is 11 today and yesterday was 12 which is not a clinically significant drop. Kidney function is normal as well going against acute kidney injury and urine shows no sign of infection or blood going against kidney stone or pyelonephritis. As CTA does not reveal any acute lung pathology or vascular issue and his symptoms have improved with provided pain medication this is most likely musculoskeletal and therefore he is otherwise safe for discharge and can continue to follow-up on an outpatient basis History & Record Review Discussion w/independent historian: Patient and Significant other Lab Data Attestation: I reviewed the patient's lab results. Labs: Laboratory Results - last 24 hr 04/04/24 04/04/24 04:52 06:15 WBC 6.7 RBC 2.59 L Hgb 8.1 L Hct 22.5 L MCV 86.9 MCH 31.3 MCHC 36.0 RDW Std Deviation 37.2 RDW Coeff of Consuelo 11.7 Plt Count 11 L* MPV 12.0 Immature Gran % (Auto) 0.700 Neut % (Auto) 68.2 Lymph % (Auto) 21.4 [place] % (Auto) 9.6 Eos % (Auto) 0.1 Baso % (Auto) 0.0 Absolute Neuts (auto) 4.6 Absolute Lymphs (auto) 1.44 Nucleated RBC % 0 Differential Comment SCANNED Diff Path Review May foll PT 14.9 INR 1.2 APTT 27.1 Sodium 138 Potassium 3.5 Chloride 104 Carbon Dioxide 25.0 Anion Gap 9 BUN 28 H Creatinine 1.19 Estim Creat Clear Calc 61.37 Est GFR (MDRD) Af Amer 77 Est GFR (MDRD) Non-Af 64 BUN/Creatinine Ratio 23.5 H Glucose 199 H Calcium 8.6 Magnesium 2.3 Urine Color Yellow Urine Clarity Clear Urine pH 7.0 Ur Specific [place] 1.005 Urine Protein 15 H Urine Glucose (UA) Normal Urine Ketones Negative Urine Occult Blood Negative Urine Nitrite Negative Urine Bilirubin Negative Urine Urobilinogen 1 H Ur Leukocyte Esterase Negative Urine RBC 0 SEEN Urine WBC 0 SEEN Ur Squamous Epith Cells 0-5 SEEN Urine Bacteria 0 SEEN Urine Mucus 0 SEEN Discharge Plan Triage Chief Complaint: Shortness of Breath ED Provider: Zeus Ruiz Dx/Rx/DC Orders Clinical Impression: Thrombocytopenia, Anemia, Back pain, Hypertension, Insulin dependent diabetes mellitus Instructions: ED Back Pain (Acute or Chronic) Prescriptions: New oxycodone 5 mg capsule 5 mg PO Q6H PRN (Reason: pain) 3 Days Qty: 12 0RF No Action atorvastatin 80 mg Tablet 80 mg PO QHS Qty: 30 0RF insulin glargine-yfgn 100 unit/mL (3 mL) Insulin Pen 40 unit subcut QHS Qty: 15 1RF lisinopril 10 mg Tablet 10 mg PO DAILY Qty: 30 0RF nitroglycerin 0.4 mg Tablet, Sublingual 0.4 mg sublingual Q5M PRN (Reason: Cardiac/Chest Pain) Qty: 10 0RF metoprolol tartrate 25 mg Tablet 25 mg PO BID Qty: 60 0RF prednisone 20 mg tablet 90 mg PO DAILY Qty: 120 0RF isosorbide mononitrate 30 mg tablet extended release 24 hr 30 mg PO DAILY Qty: 30 0RF (DME) pen needle, diabetic 29 gauge needle See Rx Instructions .Route Qty: 100 0RF Rx Instructions: As directed. Different sizes may be substituted. Primary Care Provider: Mihir Johnston Referrals: Mihir Johnston MD [Primary Care Provider] - Activity Restrictions/Additional Instructions: Your workup today did not show any sign of lung pathology such as pneumonia or bleeding or lung or vascular damage as a cause of your pain indicating is most likely musculoskeletal. Continue all of your home medications as directed. Please do not take anti-inflammatory medications such as Motrin Advil or Aleve as this will worsen your platelet count you may continue to take Tylenol and you can add the prescribed oxycodone if pain is severe. Return to the ER should you have any further concerns Print Language: Mongolian Disposition Disposition: Home, Self Care
[2024-04-04] MEDS: Morphine 4 MG/ML Syringe IV (05:16)
[2024-04-04] MEDS: Ondansetron 4 MG/2 ML Vial IV (05:16)
[2024-04-04 05:26] LABS: Absolute Lymphocyte Count 1.44 X10^3/uL (0.83-4.51); Absolute Neutrophil Count 4.6 X10^3/uL (2.0-7.7); Eosinophil# 0.01 X10^3/uL; Eosinophils% 0.1 % (0-5); Hematocrit 22.5 % (40-54); Hemoglobin 8.1 g/dL (13.0-16.5); Lymphocyte # 1.44 X10^3/ul (0.83-4.51); Lymphocyte % 21.4 % (19-41); Mean Corpuscular Hgb 31.3 pg (27.0-32.0); Mean Corpuscular Volume 86.9 fL (80-94); Monocyte# 0.65 X10^3/uL; Monocyte% 9.6 % (0-10); NRBC Flagged by Analyzer 0 % (0-5); Neutrophil # 4.59 X10^3/uL (2.7-7.7); Neutrophil % 68.2 % (47-70); POSITIVE COUNT YES; POSITIVE MORPHOLOGY YES; RBC Distribution Width CV 11.7 % (11.6-14.6); RBC Distribution Width SD 37.2 fl (35.1-43.9); Red Blood Count 2.59 M/mm3 (4.6-6.2); White Blood Count 6.7 K/mm3 (4.4-11.0)
[2024-04-04 05:31] LABS: Differential Indicated SCAN CRITERIA MET; International Normalized Ratio 1.2; Platelet Count 11 K/mm3 (150-450); Prothrombin Time (Protime)PT. 14.9 SECONDS (11.7-14.9)
[2024-04-04] MEDS: 0.9% Normal Saline (500mL Bag) 500 ML 999 ML IV (05:31)
[2024-04-04 05:33] LABS: Partial Thromboplast Time 27.1 Seconds (24.1-36.2)
[2024-04-04 05:49] LABS: Anion Gap 9 (5-15); BUN 28 mg/dL (7-18); BUN/Creat Ratio 23.5 RATIO (10-20); Calcium,Total 8.6 mg/dL (8.5-10.1); Chloride 104 mmol/L (98-107); Creatinine, Serum 1.19 mg/dL (0.70-1.30); EST Glomerular Filtration Rate 64 mL/min (>60); Est Glom Filt Rate - Afr Amer 77 mL/min (>60); Estimated Creatinine Clearance 61.37 ml/min; Glucose 199 mg/dL (74-106); Magnesium 2.3 mg/dL (1.6-2.6); Potassium 3.5 mmol/L (3.5-5.1); Sodium Level 138 mmol/L (136-145)
[2024-04-04 05:54] LABS: Differential Comment SCANNED
[2024-04-04 06:22] LABS: Bacteria 0 SEEN /hpf (None Seen); Mucous, Urine 0 SEEN /hpf (<or=2+); Red Blood Cells-Urine 0 SEEN /hpf (0-5); White Blood Cells 0 SEEN /hpf (0-5)
[2024-04-04 06:26] LABS: Color, Urine Yellow (Yellow); Glucose, Dipstick Normal (Normal); Ketone-Dipstick Negative (Negative); Leukocyte Esterase-Dipstick Negative /ul (Negative); Nitrite-Dipstick Negative (Negative); Occult Blood-Urine Negative /ul (Negative); Protein-Dipstick 15 mg/dl (Negative); Specific Gravity, Urine 1.005 (1.002-1.030); Urine Bilirubin Dipstick Negative (Negative); Urine Clarity Clear (Clear); Urine Urobilinogen 1 mg/dl (Normal)
[2024-04-04] MEDS: HYDROmorphone 0.5 MG/0.5 ML SYRINGE IV (06:33)
[2024-04-04 06:46] LABS: Squamous Epithelial Cells - UA 0-5 SEEN /hpf (0-5)
[2024-04-04 15:29] LABS: Pathologist Review Reviewed
== END 2024-04-04 08:47 | disposition home or self-care (01) ==
PROVIDERS: Emergency Provider Emergency Medicine; PCP Family Medicine; Visit Provider Emergency Medicine
DX: D69.6 Thrombocytopenia, unspecified (principal); E11.9 Type 2 diabetes mellitus without complications; Z79.4 Long term (current) use of insulin; I35.0 Nonrheumatic aortic (valve) stenosis; R06.02 Shortness of breath; I10 Essential (primary) hypertension; D64.9 Anemia, unspecified; M54.9 Dorsalgia, unspecified
CPT/HCPCS: 71275; 74174; 80048; 81001; 83735; 85025; 85610; 85730; 93005; 96374; 96375; 99283; J7040; Q9967; A4216; J2405

== ENCOUNTER 2024-04-12 09:28 | Inpatient (IN) | payer MEDICARE, SELFPAY ==
[2024-04-12] VITALS (11 sets, daily range): BP systolic 106–146; BP diastolic 51–81; PULSE 66–86; RESP 13–20; TEMP 35.7–37; O2SAT 96–100; BMI 29.1; BMI 27.6
--- NOTE | 2024-04-12 10:06 | EKG12_ITS ---
Test Reason : CHEST PAIN Blood Pressure : / mmHG Vent. Rate : 074 BPM Atrial Rate : 074 BPM P-R Int : 156 ms QRS Dur : 080 ms QT Int : 386 ms P-R-T Axes : 044 -04 025 degrees QTc Int : 428 ms Normal sinus rhythm Normal ECG Confirmed by Jose Franklin ([id number]), primer expeditor and drier TAMARA MULTANI ([id number]) on 04/13/2024 9:54:50 AM Referred By: Confirmed By:Jose Franklin
--- NOTE | 2024-04-12 10:16 | EX.ED.DYSGE1 ---
HPI History of Present Illness Chief Complaint: Syncope [facility] Medical History Diverticulosis History of chronic hypertension History of diabetes mellitus Home Medications ?Medication ?Instructions ?Recorded ?Last Taken ?Type atorvastatin 80 mg tablet 80 mg PO QHS #30 tabs 04/03/24 Unknown Rx insulin glargine-yfgn 100 unit/mL 40 unit (0.4 mL) subcut QHS #15 mL 04/03/24 Unknown Rx (3 mL) subcutaneous pen isosorbide mononitrate 30 mg 30 mg PO DAILY #30 tabs 04/03/24 Unknown Rx tablet,extended release 24 hr lisinopril 10 mg tablet 10 mg PO DAILY #30 tabs 04/03/24 Unknown Rx metoprolol tartrate 25 mg tablet 25 mg PO BID #60 tabs 04/03/24 Unknown Rx nitroglycerin 0.4 mg sublingual 0.4 mg sublingual Q5M PRN 04/03/24 Unknown Rx tablet Cardiac/Chest Pain #10 tabs pen needle, diabetic 29 gauge #100 ea 04/03/24 Unknown Rx prednisone 20 mg tablet 90 mg (4.5 x 20 mg) PO DAILY #120 04/03/24 Unknown Rx tabs oxycodone 5 mg capsule 5 mg PO Q6H PRN pain 3 days #12 04/04/24 Unknown Rx caps Allergy/AdvReac Type Severity Reaction Status Date / Time No Known Allergies Allergy Verified 04/12/24 09:30 Family History Other Brain malignancy Diabetes Hypertension Surgical History Previous back surgery H/O colonoscopy Social History household members: spouse housing: house current occupational status: retired Smoking Status: Never smoker alcohol intake: former substance use type: does not use EXAM Physical Exam Const Vital Signs: 04/12/24 09:29 04/12/24 09:46 04/12/24 10:18 Temperature 96.3 F L Temperature Source Temporal Pulse Rate 71 Respiratory Rate 14 Respiratory Effort Normal Non-Labored Respiratory Pattern Normal Blood Pressure 106/51 L Blood Pressure Mean 69 Pulse Ox 98 Oxygen Delivery Method Room Air Room Air 04/12/24 10:29 04/12/24 11:00 04/12/24 12:00 Temperature Temperature Source Pulse Rate 68 69 68 Respiratory Rate 15 16 14 Respiratory Effort Respiratory Pattern Blood Pressure 128/61 H 146/62 H 126/57 H Blood Pressure Mean 83 90 80 Pulse Ox 96 98 97 Oxygen Delivery Method Room Air Room Air 04/12/24 13:00 Temperature Temperature Source Pulse Rate 86 Respiratory Rate 20 H Respiratory Effort Respiratory Pattern Blood Pressure 125/81 H Blood Pressure Mean 95 Pulse Ox 98 Oxygen Delivery Method Room Air [facility] Narrative Medical decision making narrative: HISTORY OF PRESENT ILLNESS: 74-year-old male presents with near syncope while at his oncologist office. Notes patient is a history of low platelets. Notes chest pain and shortness of breath with exertion for the last month. He further states he had no prodromal symptoms noted he has been more stressed out about his delayed biopsy/bone marrow results. Denies any headache, chest pain. Denies any pallor. Denies any bleeding diathesis. Denies any focal numbness weakness or loss sensation. Denies any vomiting or diarrhea recently. REVIEW OF SYSTEMS: Pertinent positives: Syncope Pertinent negatives: As per HPI PHYSICAL EXAM: Nursing triage notes reviewed, Vital signs reviewed Constitutional: please see mdm HENT: MMM Eyes: Pupils equal round and reactive to light, Extraocular muscles intact Neck: No stridor, no JVD, full neck ROM Lungs: Clear to auscultation, No wheezing or rales. No increased work of breathing, no conversational dyspnea, no accessory muscle use, no nasal flaring. No respiratory distress noted Heart: Regular rate and rhythm, No murmurs, No rubs and No gallops, 2+ distal pulses (radial, femoral, posterior tibial) in all extremities Abdomen: Soft, there is no tenderness, rigidity, rebound or guarding, no obvious peritoneal signs, no palpable pulsatile abdominal masses, no auscultated abdominal bruit : No CVAT Extremities: No edema Neuro: No focal neurological deficits, cranial nerves II through XII intact, 5/5 strength in all extremities. Intact sensation to light touch in all extremities, 2+ reflexes bilateral patella tendons. No ataxia. Skin: No rash or lesions noted MEDICAL DECISION MAKING: Chief Complaint: Near syncope External records reviewed: Prior outpatient records reviewed: Reviewed the patient's oncology note from Dr. Lazaro. Reviewed recent discharge summary from hospitalization from 03/26/2024 for unstable angina, severe thrombocytopenia as well as anemia. Patient had a blood transfusion on 03/31 for hemoglobin 7.1. Hemoglobin on 04/02 was 9.2 Factors affecting care: Thrombocytopenia, hyperlipidemia, hypertension, type 2 diabetes mellitus Social determinants of health: none History obtained from others: Family Consults: Oncology (Dr. Lazaro), Internal Medicine (Dr. Barrett) MDM Narrative: Patient was initially hemodynamically stable, afebrile and nontoxic-appearing. Exam without cardiopulmonary abnormalities, without focal neurologic deficits. I considered the following differential diagnosis: Anemia, thrombocytopenia, arrhythmia, electrolyte disturbance, acute renal failure, ACS ALL IMAGES (IF OBTAINED) HAVE BEEN PERSONALLY REVIEWED AND INTERPRETED BY MYSELF. EKG with normal sinus rhythm, left axis deviation, normal intervals, no STEMI CBC with severe thrombocytopenia with a platelet count of 9, stable anemia, no leukocytosis BMP without electrolyte abnormalities, no acute kidney injury, noted poorly controlled diabetes with glucose 259 High-sensitivity troponin is negative, no evidence of myocardial ischemia I have personally reviewed the patient's chest x-ray. Chest x-ray is unremarkable for pulmonary edema, pneumothorax, pneumonia or focal cardiopulmonary abnormality. CT scan of the head was negative for acute intracranial normality, specifically ICH Discussed case with Dr. Lazaro if there are no signs of bleeding oncologist recommended against acute platelet transfusion. Recommended hospitalization if the hospitalist admit him to undergo an urgent biopsy. Discussed case with Dr. Barrett recommended admission to PCU. The patient and/or family, caregivers express understanding. The patient and/or family, caregivers agrees with the plan. Shared decision making: I will have a discussion with the patient and or visitors regarding risk/benefits of further testing or admission. They will be made aware of of the risk/benefits inherent in this decision they will be given the opportunity to voice understanding. Total critical care time today provided was at least 0 minutes. This excludes separately billable procedures. Critical care time (if documented) is secondary to the patient having high probability of clinically significant/life threatening deterioration in the patient's condition which required my urgent intervention. Impression: 1. Syncope 2. Severe thrombocytopenia 3. Anemia Dispo: Admit to inpatient PCU This note was generated with [employer] software. It may contain incorrect words, spelling, and punctuation that were not noted in review of the chart prior to signing. Lab Data Labs: Laboratory Results - last 24 hr 04/12/24 04/12/24 04/12/24 09:43 10:54 12:20 WBC 7.4 RBC 2.60 L Hgb 7.8 L Hct 22.5 L MCV 86.5 MCH 30.0 MCHC 34.7 RDW Std Deviation 37.2 RDW Coeff of Consuelo 11.7 Plt Count 9 L* MPV 13.4 H Immature Gran % (Auto) [employer] Neut % (Auto) [employer] Lymph % (Auto) [employer] [place] % (Auto) [employer] Eos % (Auto) [employer] Baso % (Auto) [employer] Absolute Neuts (auto) [employer] Absolute Lymphs (auto) [employer] Total Counted 100 Neutrophils % (Manual) 70 Lymphocytes % (Manual) 21 Monocytes % (Manual) 5 Eosinophils % (Manual) 1 Myelocytes % 1 H Blast Cells % 2 H* Nucleated RBC % 0.7 Sodium 135 L Potassium 3.7 Chloride 100 Carbon Dioxide 28.0 Anion Gap 7 BUN 27 H Creatinine 1.35 H Estim Creat Clear Calc 52.26 Est GFR (MDRD) Af Amer 67 Est GFR (MDRD) Non-Af 55 L BUN/Creatinine Ratio 20.0 Glucose 259 H Calcium 8.8 Troponin I High Sens 6 6 Blood Type O POSITIVE Antibody Screen NEGATIVE Radiography Diagnostic Testing: Clinical Impression(s) from Imaging Studies Chest X-Ray 04/12/24 10:30 IMPRESSION: No active disease. Electronically Signed: Jb Vargas MD at 10:52 EDT Reading Location ID and State: [id number] / [employer] Tel , Service support , Brain CT 04/12/24 10:43 IMPRESSION: Chronic involutional changes of the brain. Electronically Signed: Jb Vargas MD at 11:22 EDT , Discharge Plan Triage Chief Complaint: Syncope ED Provider: Edy Graf Dx/Rx/DC Orders Prescriptions: No Action atorvastatin 80 mg Tablet 80 mg PO QHS Qty: 30 0RF insulin glargine-yfgn 100 unit/mL (3 mL) Insulin Pen 40 unit subcut QHS Qty: 15 1RF lisinopril 10 mg Tablet 10 mg PO DAILY Qty: 30 0RF nitroglycerin 0.4 mg Tablet, Sublingual 0.4 mg sublingual Q5M PRN (Reason: Cardiac/Chest Pain) Qty: 10 0RF metoprolol tartrate 25 mg Tablet 25 mg PO BID Qty: 60 0RF prednisone 20 mg tablet 90 mg PO DAILY Qty: 120 0RF isosorbide mononitrate 30 mg tablet extended release 24 hr 30 mg PO DAILY Qty: 30 0RF (DME) pen needle, diabetic 29 gauge needle See Rx Instructions .Route Qty: 100 0RF Rx Instructions: As directed. Different sizes may be substituted. oxycodone 5 mg capsule 5 mg PO Q6H PRN (Reason: pain) 3 Days Qty: 12 0RF Primary Care Provider: Mihir Johnston Referrals: Mihir Johnston MD [Primary Care Provider] - Print Language: Amharic
[2024-04-12 10:21] LABS: Hematocrit 22.5 % (40-54); Hemoglobin 7.8 g/dL (13.0-16.5); Mean Corp Hgb Conc 34.7 g/dL (32-36); Mean Corpuscular Volume 86.5 fL (80-94); Mean Platelet Vol. 13.4 fl (6.2-12.0); NRBC Flagged by Analyzer 0.7 % (0-5); POSITIVE COUNT YES; POSITIVE MORPHOLOGY YES; RBC Distribution Width CV 11.7 % (11.6-14.6); RBC Distribution Width SD 37.2 fl (35.1-43.9); White Blood Count 7.4 K/mm3 (4.4-11.0)
--- NOTE | 2024-04-12 10:30 | RAD_ITS ---
STUDY: X-RAY CHEST REASON FOR EXAM: Male, 74 years old. chest pain TECHNIQUE: Single AP portable view of the chest. COMPARISON: 03/26/2024 FINDINGS: The lungs are clear and expanded. Elevated right hemidiaphragm which is unchanged. Normal size heart. Normal mediastinum and manjit. Normal visualized pulmonary arteries. Normal visualized aortic arch and descending thoracic aorta. Normal visualized thoracic spine. Normal visualized ribs, clavicles, and shoulders. There is no demonstrated abnormality of the visualized soft tissue structures of the upper abdomen. RAD/Chest 1 View (Portable) IMPRESSION: No active disease. Electronically Signed: Jb Vargas MD at 10:52 EDT ,
[2024-04-12 10:34] LABS: Anion Gap 7 (5-15); BUN 27 mg/dL (7-18); Calcium,Total 8.8 mg/dL (8.5-10.1); Chloride 100 mmol/L (98-107); Creatinine, Serum 1.35 mg/dL (0.70-1.30); EST Glomerular Filtration Rate 55 mL/min (>60); Est Glom Filt Rate - Afr Amer 67 mL/min (>60); Estimated Creatinine Clearance 52.26 ml/min; Glucose 259 mg/dL (74-106); Potassium 3.7 mmol/L (3.5-5.1); Sodium Level 135 mmol/L (136-145); Troponin-I HS (w/2H Reflex) 6 pg/mL (3.0-78.0)
[2024-04-12 10:38] LABS: Differential Indicated SCAN CRITERIA MET; Platelet Count 9 K/mm3 (150-450)
--- NOTE | 2024-04-12 10:43 | CT_ITS ---
STUDY: CT BRAIN WITHOUT CONTRAST REASON FOR EXAM: Male, 74 years old. syncope RADIATION DOSAGE (If Supplied By Facility): CTDIvol = ( 44.99 ) mGy, DLP = ( 846.73 ) mGycm TECHNIQUE: Transaxial CT imaging of the brain was performed without administration of intravenous contrast material. Individualized dose optimization techniques were used for this CT. COMPARISON: No relevant priors. FINDINGS: Normal soft tissue structures. Normal calvarium. There is mild cerebral atrophy with widening of the extra-axial spaces and ventricular dilatation. Normal white matter tracts of the cerebral hemispheres. Normal basal ganglia and thalami. Normal brainstem. Normal cerebellum. There is no intracranial hemorrhage. There are no findings of an acute ischemic infarction. Normal visualized paranasal sinuses. CT/Brain/Head without Contrast IMPRESSION: Chronic involutional changes of the brain. Electronically Signed: Jb Vargas MD at 11:22 EDT ,
[2024-04-12 11:48] LABS: Scan Smear per Review Criteria MANUAL DIFF
[2024-04-12 12:11] LABS: Reflex Troponin-HS? (from REC) Y
[2024-04-12 12:43] LABS: Troponin-I HS 6 pg/mL (3.0-78.0)
[2024-04-12 13:41] LABS: Blast 2 % (0-0); Eosinophil 1 % (0-5); Lymphocyte 21 % (19-41); Monocyte 5 % (0-10); Myelocyte 1 % (0-0); Neutrophil-Segmented 70 % (47-70); Total Cells Counted 100 (MANUAL DIFF)
[2024-04-12 13:51] LABS: Platelet Estimate MKD DEC (ADEQ); Red Cell Morphology NORM C+C NORMAL (NORM C&C)
[2024-04-12 13:52] LABS: Absolute Neutrophil Count 5.2 X10^3/uL (2.0-7.7)
[2024-04-12 13:53] LABS: Absolute Lymphocyte Count 1.55 X10^3/uL (0.83-4.51)
[2024-04-12 15:16] LABS: Bedside Glucose 211 mg/dL (74-106)
[2024-04-12 15:30] LABS: Magnesium 1.9 mg/dL (1.6-2.6)
--- NOTE | 2024-04-12 15:33 | PCM.HP.STD ---
[facility] - General General Date of Admission: 04/12/24 Date of Service: 04/12/24 Chief Complaint: Syncope at [employer] office. Severe thrombocytopenia HPI Narrative JOSE KEYS, is a 74 M with history of acute on chronic severe thrombocytopenia went to [facility] Dr. Lazaro's office for follow-up for bone marrow biopsy where he passed out. Earlier patient was admitted between March 26 to MarchApril 03, 2024 for evaluation for thrombocytopenia. He had bone marrow biopsy which were inconclusive Dr. Lazaro's office and had syncope. Patient himself did not feel any acute symptoms prior to passing out. He feels weak but denies dizziness or lightheadedness before passing out. For about 1 month he gets chest tightness and shortness of breath which goes away on its own. Patient gets really short of breath even on walking within the home. During previous hospitalization assessment unstable angina and was evaluated by clinical nurse leader. On medical management. Today's platelet count was 9000. Twelve-lead EKG shows normal sinus rhythm 74 bpm. QTc 428 ms. Vitals in the ED reviewed. No hypoxia or tachypnea. [facility] Medical History Diverticulosis History of chronic hypertension History of diabetes mellitus Home Medications ?Medication ?Instructions ?Recorded ?Last Taken ?Type atorvastatin 80 mg tablet 80 mg PO QHS CHOLESTEROL #30 tabs 04/03/24 04/11/24 Rx insulin glargine-yfgn 100 unit/mL 40 unit (0.4 mL) subcut QHS 04/03/24 04/11/24 Rx (3 mL) subcutaneous pen DIABETES #15 mL isosorbide mononitrate 30 mg 30 mg PO DAILY CHEST PAIN #30 tabs 04/03/24 04/11/24 Rx tablet,extended release 24 hr lisinopril 10 mg tablet 10 mg PO DAILY BLOOD PRESSURE #30 04/03/24 04/11/24 Rx tabs metoprolol tartrate 25 mg tablet 25 mg PO BID BLOOD PRESSURE #60 04/03/24 04/11/24 Rx tabs nitroglycerin 0.4 mg sublingual 0.4 mg sublingual Q5M PRN 04/03/24 Unknown Rx tablet Cardiac/Chest Pain #10 tabs pen needle, diabetic 29 gauge #100 ea 04/03/24 Unknown Rx prednisone 20 mg tablet 90 mg (4.5 x 20 mg) PO DAILY 04/03/24 04/11/24 Rx STEROID #120 tabs oxycodone 5 mg capsule 5 mg PO Q6H PRN BACK PAIN 3 days 04/04/24 04/04/24 Rx #12 caps Allergy/AdvReac Type Severity Reaction Status Date / Time No Known Allergies Allergy Verified 04/12/24 09:30 Family History Other Brain malignancy Diabetes Hypertension Surgical History Previous back surgery H/O colonoscopy Social History household members: spouse housing: house current occupational status: retired Smoking Status: Never smoker alcohol intake: former substance use type: does not use ROS ROS Narrative Constitutional: Reports fatigue and weakness. No fever. HEENT: Reports systems reviewed and no addt'l complaints, except as documented Respiratory/Chest: Denies history of COPD or emphysema. Never smoker. CVS: Stable angina. Chest tightness and shortness of breath as described in HPI. Syncope. Denies prior CAD or CHF Gastrointestinal: Denies coffee ground emesis, hematemesis or vomiting. No melena Genitourinary: No hematuria. Denies burning urination or new urinary tract symptoms Musculoskeletal: Denies acute joint pain or limited range of motion. No acute injury Neurologic: Denies seizure-like symptoms. skin: No ulcer. No rash Endocrinology: Reports systems reviewed and no addt'l complaints, except as documented Hematologic/Lymphatic: Severe thrombocytopenia. Reports systems reviewed and no addt'l complaints, except as documented Rest 14 ROS are negative except as mentioned in HPI Vital Signs Vital Signs Vital Signs: 04/12/24 09:29 04/12/24 09:46 04/12/24 10:18 Temperature 96.3 F L Temperature Source Temporal Pulse Rate 71 Respiratory Rate 14 Respiratory Effort Normal Non-Labored Respiratory Pattern Normal Blood Pressure 106/51 L Blood Pressure Mean 69 Pulse Ox 98 Oxygen Delivery Method Room Air Room Air 04/12/24 10:29 04/12/24 11:00 04/12/24 12:00 Temperature Temperature Source Pulse Rate 68 69 68 Respiratory Rate 15 16 14 Respiratory Effort Respiratory Pattern Blood Pressure 128/61 H 146/62 H 126/57 H Blood Pressure Mean 83 90 80 Pulse Ox 96 98 97 Oxygen Delivery Method Room Air Room Air 04/12/24 13:00 04/12/24 14:00 Temperature 98 F Temperature Source Pulse Rate 86 66 Respiratory Rate 20 H 13 Respiratory Effort Respiratory Pattern Blood Pressure 125/81 H 126/63 H Blood Pressure Mean 95 84 Pulse Ox 98 97 Oxygen Delivery Method Room Air Weight Weight: 181 lb 14.102 oz Body Mass Index (BMI) 27.6 Physical Exam Narrative General: Alert, Oriented x3, Cooperative. Fatigue HEENT: Atraumatic, PERRLA, EOMI, Normocephalic Oral: Oral mucosa dry. No dried blood or mucosal surfaces noticed. No Gingival or Mucosal Lesions/ Ulcerations Neck: Supple, No JVD, Negative Carotid Bruits Chest wall/Lungs: Air entry diminished in bilateral lung bases. No crepitation/rhonchi Cardiovascular: Regular rate, Regular Rhythm, Normal S1, Normal S2, systolic murmur over right second ICS Abdomen: Bowel Sounds Present, Soft, Non Tender, Non-Distended : No dysuria. No renal angle tenderness. No suprapubic tenderness. Extremities: No edema, Capillary Refill Less than 3 Seconds Skin: No rashes, No breakdown Musculoskeletal: No Tenderness to Palpation of Joints or Extremities. ROM full. Neurological: Cranial nerves II-XII grossly intact, DTR 2+/4. No acute focal neurological deficit. Psych/Mental Status: Flat affect. Results Lab / Micro Data 04/12/24 09:43 04/12/24 09:43 Labs: Laboratory Results - last 24 hr 04/12/24 09:02: POC Glucose 211 H 04/12/24 09:43: WBC 7.4, RBC 2.60 L, Hgb 7.8 L, Hct 22.5 L, MCV 86.5, MCH 30.0, MCHC 34.7, RDW Std Deviation 37.2, RDW Coeff of Consuelo 11.7, Plt Count 9 L*, MPV 13.4 H, Immature Gran % (Auto) COURT COMMISSIONER, Neut % (Auto) COURT COMMISSIONER, Lymph % (Auto) COURT COMMISSIONER, [place] % (Auto) COURT COMMISSIONER, Eos % (Auto) COURT COMMISSIONER, Baso % (Auto) COURT COMMISSIONER, Absolute Neuts (auto) 5.2, Absolute Lymphs (auto) 1.55, Total Counted 100, Neutrophils % (Manual) 70, Lymphocytes % (Manual) 21, Monocytes % (Manual) 5, Eosinophils % (Manual) 1, Myelocytes % 1 H, Blast Cells % 2 H*, Nucleated RBC % 0.7, Diff Path Review May foll, Platelet Estimate MKD DEC, RBC Morphology NORM C+C, Sodium 135 L, Potassium 3.7, Chloride 100, Carbon Dioxide 28.0, Anion Gap 7, BUN 27 H, Creatinine 1.35 H, Estim Creat Clear Calc 52.26, Est GFR (MDRD) Af Amer 67, Est GFR (MDRD) Non-Af 55 L, BUN/Creatinine Ratio 20.0, Glucose 259 H, Calcium 8.8, Troponin I High Sens 6 04/12/24 10:54: Blood Type O POSITIVE, Antibody Screen NEGATIVE 04/12/24 12:20: Magnesium 1.9, Troponin I High Sens 6 Imaging Radiology Impression Chest X-Ray 04/12/24 10:30 IMPRESSION: No active disease. Electronically Signed: Jb Vargas MD at 10:52 EDT Reading Location ID and State: 994 / 4Home Tel , Service support , Brain CT 04/12/24 10:43 IMPRESSION: Chronic involutional changes of the brain. Electronically Signed: Jb Vargas MD at 11:22 EDT Reading Location ID and State: 994 / 4Home Tel , Service support , Assessment & Plan Assessment/Plan (1) Syncope: QUALIFIERS: Syncope type: unspecified Qualified Code(s): R55 - Syncope and collapse (2) Thrombocytopenia: PLAN: Plan This is 74-year-old gentleman being sent from hematology/oncologist Dr. Lazaro's office after he had syncope. 1. Syncope and recent diagnosis of CAD: Exact etiology unclear possible vasovagal/cardiac: Patient is being admitted in PCU. Recently had full workup for stable angina and was found evidence of coronary artery calcification consistent with CAD on CT scan. No immediate cardiac intervention was recommended due to severe thrombocytopenia continue metoprolol 25 mg twice daily, lisinopril 10 mg daily, Imdur 30 mg daily and atorvastatin 80 mg daily.Echocardiogram shows an EF of 60%. Mildly calcified aortic valve. Mild aortic valve stenosis. Trivial aortic valve regurgitation. He was evaluated by clinical nurse leader during previous admission. 2. Severe thrombocytopenia: This time platelet count decreased to 9000. WBC count is normal. Last platelet count in 2018 124,000. During previous hospitalization his platelet count was 10-12,000. Oncologist is consulted and I talked to him. Patient was on prednisone but he did not respond therefore advised to discontinue it. Inpatient bone marrow biopsy ordered. Platelet a pheresis 1 unit after bone marrow biopsy so that does not alter bone marrow biopsy. 3. Severe chronic normocytic normochromic anemia: H&H 7.8/22.5%. Myelocytes 1%, blast cells 2%. During previous hospitalization, anemia workup was done which showed elevated iron, iron saturation with low normal TIBC. Ferritin was elevated may be acute felt reactive. Folic acid within normal limit. B12 214 low normal. Methylmalonic acid normal. Homocystine normal. TSH normal. B12 continued. 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 Diabetes mellitus type 2 with hyperglycemia: Recently A1c 11.2%. Hold oral hypoglycemic agents. Lantus insulin was increased to 40 units daily, but may be titrated down as prednisone is discontinued. Glucose is 259. 5. Essential hypertension: On medications already mentioned above. Blood pressure is currently in normal range range. Orthostatic blood pressure tomorrow AM. 6. Dyslipidemia: On high intensity statin. Living will/advanced directive/end of life care: Patient does have living will or advanced directive. Patient's son is next of kin. After discussion of benefits/risks procedures involved with full code, DNR CC arrest and DNR CC, the patient opted for full code but does not want to be kept on ventilator for prolonged time. Patient does want artificial life support including intubation, tube feed, ventilator and/chest compression, central venous catheter, vasopressor and DC shock if needed Total time spent in [id number] encounter in discussion of advanced directive 17 minutes. Laboratory Results 04/12/24 09:02: POC Glucose 211 H 04/12/24 09:43: WBC 7.4, RBC 2.60 L, Hgb 7.8 L, Hct 22.5 L, MCV 86.5, MCH 30.0, MCHC 34.7, RDW Std Deviation 37.2, RDW Coeff of Consuelo 11.7, Plt Count 9 L*, MPV 13.4 H, Immature Gran % (Auto) COURT COMMISSIONER, Neut % (Auto) COURT COMMISSIONER, Lymph % (Auto) COURT COMMISSIONER, [place] % (Auto) COURT COMMISSIONER, Eos % (Auto) COURT COMMISSIONER, Baso % (Auto) COURT COMMISSIONER, Absolute Neuts (auto) 5.2, Absolute Lymphs (auto) 1.55, Total Counted 100, Neutrophils % (Manual) 70, Lymphocytes % (Manual) 21, Monocytes % (Manual) 5, Eosinophils % (Manual) 1, Myelocytes % 1 H, Blast Cells % 2 H*, Nucleated RBC % 0.7, Diff Path Review February, Platelet Estimate MKD DEC, RBC Morphology NORM C+C, Sodium 135 L, Potassium 3.7, Chloride 100, Carbon Dioxide 28.0, Anion Gap 7, BUN 27 H, Creatinine 1.35 H, Estim Creat Clear Calc 52.26, Est GFR (MDRD) Af Amer 67, Est GFR (MDRD) Non-Af 55 L, BUN/Creatinine Ratio 20.0, Glucose 259 H, Calcium 8.8, Troponin I High Sens 6 04/12/24 10:54: Blood Type O POSITIVE, Antibody Screen NEGATIVE 04/12/24 12:20: Magnesium 1.9, Troponin I High Sens 6
[2024-04-12] MEDS: 0.9% Saline Lock 10 ML Syringe IV (16:31)
[2024-04-12] MEDS: 0.9% Normal Saline (1000mL) 1,000 ML 75 ML IV (16:31)
[2024-04-12] MEDS: Insulin Lispro 100 UNIT/ML INSULN.PEN SC ×2 (16:39→21:21)
[2024-04-12 17:02] LABS: Bedside Glucose 172 mg/dL (74-106)
[2024-04-12] MEDS: Insulin Glargine-YFGN 100 UNIT/ML Pen 35 UNIT SC (21:20)
[2024-04-12] MEDS: Atorvastatin Calcium 80 MG Tablet PO (21:22)
[2024-04-12] MEDS: Metoprolol Tartrate 25 MG Tablet PO (21:22)
[2024-04-13] VITALS (18 sets, daily range): BP systolic 99–139; BP diastolic 45–89; PULSE 66–82; RESP 13–18; TEMP 36.4–37.2; O2SAT 94–100; BMI 27.8
--- NOTE | 2024-04-13 | BMB_PTH ---
PATIENT: JOSE KEYS Jr. LOC: [facility] U#:[id number] AGE/SX: 74/M ROOM: [facility] RE04/12/[address]: Dr. Marquez Rosario DO : 1950 BED: 1 DIS: 04/13/2024 SPEC #: [id number] RECD: 04/13/24 09:21 STATUS: JEOVANNY REQ #: [id number] TRISTAN: 04/13/24 00:[address]: Marquez Rosario DEPT: BONE MARROW RECD BY: Dexter Chang ENTERED: 04/13/24 09:22 SP TYPE: BMB OTHR DR: MD Dr. Te Orosco MD Dr. Joseph Prah, MD Dr. Mansour Isckarus, MD Dr. Prakash Chand, MD Dr. Robert Field, MD Dr. Ryan Jin, MD Dr. Roger Macklis, MD Dr. Scott Brown, MD Dr. Steve Walston, DO Francie Landeros, DRY MIXER-C Tissues: A - Bone marrow, NOS B - Bone marrow, NOS C - Bone marrow, NOS Procedures: Decalcification bone/plaque Bone Marrow Aspiration Bone Marrow Core Biopsy Iron Stain Bone Marrow HEADER OPERATION: Bone marrow biopsy PRE-OP DIAGNOSIS: Thrombocytopenia TISSUE SUBMITTED: A - Core, B - Clot, C - Smears, and send outs (flow, cytogenetics) BONE MARROW DIAGNOSIS Bone marrow, biopsy, clot sections aspirate and peripheral blood smear: Variably hypercellular (30-80% cellularity) bone marrow with maturing trilineage hematopoiesis, dyserythropoiesis, dysmegakaryopoieses and increased blasts (7% blasts) compatible with myeloid neoplasm. See comment. Peripheral blood with pancytopenia and circulating blasts (8% blasts). Increased stainable iron with rare ring sideroblasts. /mr 05/09/2024 COMMENT This specimen was sent to [facility] and reviewed by Dr. Guerrero and above diagnosis is rendered. Complete report is viewable in patient's EMR. Flow cytometric study from [facility] show5% blasts with phenotypic abnormality. 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 CBFB: Normal KMT2A(MLL): normal PML/MANUELITO: Abnormal, DRAD5O6/RUNx1: abnormal (no fusion) 5q: Abnormal, 7q: Normal. 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 5q: Abnormal with reported AML panel, 7q: Normal reported with AML panel, 8q: Normal, 20q: Normal. 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 Cytochemical/immunohistochemistry/in-sity hybridization performed at [facility] shows CD34 focally increased blasts with abnormal localization of immature precursours (ALIP). A, B. Immunohistochemistry ([id number]) supports the above diagnosis. Case has been reviewed in consultation with Dr. Burgos who concurs with the above diagnosis. IDC:AM BONE MARROW STUDY Slides are reviewed. CBC DATE: 04/13/2024 WBC 7.1; RBC 2.35; HGB 7.0; HCT 20.3; MCV; 86.4; RDW 11.9; PLTS 24,0000, Manual differential: blasts 8%,bands 0%, neutrophils 79%,LYMPHS 8%; MONOS 4%; EOS 0%; BASOS 0% BLOOD SMEAR FINDINGS: Review of peripheral blood smear demonstrates a mild leukopenia with occasional circulating blasts. Blasts are medium sized with scant cytoplasm, fine chromatin, and variably prominent nucleoli. Austen rods are not identified. There is a moderate normocytic anemia with anisocytosis ovalocytes and echinocytes. There is a severe thrombocytopenia with generally unremarkable platelet morphology. Aspirate smear and/or touch preparation quality: The aspirates are aspicular. The staining is adequate. Bone marrow aspirate smear and/or touch preparation differential (500 cell): Blasts: 7% Promyelocytes : 0% Myelocytes: 3% Metamyelocytes: 1% Bands/neutrophils: 72% Lymphocytes: 8% Monocytes: 1% Eosinophils: 0% Basophils: 0% Erythroid precursors: 8% Plasma cells: 0% M:E ratio can not be reliably assessed in hemodilute aspicular specimen. Erythropoiesis: Decreased. Moderate dyserythropoiesis is present as a subset of the erythroid precursors shows irregular nuclear contours/blebbing and/or megablastoid change. Granulopoiesis: There is a predominance of mature forms in hemodilute aspicular specimens. Blasts are increased and are medium sized with scant cytoplasm, fine chromatin, and variably prominent nucleoli. Amber rods are not identified. Overy dysplasia is not identified. Megakaryocytes: Megakaryocytes are not identified in hemodulte aspicular specimens. Lymphcytes/ plasma cells: The lymphocytes and plasma cells are not increased and show unremarkable morphology. Iron stain: Iron staining cannot be evaluated due to the lack of bone spicules on the iron aspirate stain. Rare ring sideroblasts are seen, however qualification cannot be performed due paucity of erythroid precursors. The iron control shows appropriate reactivity. Biopsy and clot finding: The biopsy is adequate for evaluation and shows a cellularity which varies from 30-80%. There is a background of maturing trilineage hemotopoesis. Megakaryocytes are present with a subset demonstrating dyspoietic features (e.g. small size, nuclear hypolobation, and/or separate nuclear lobes). Clot sections demonstrate abundant blood with variably cellular marrow hematopoietic elements morphologically similar to the core biopsies. Special stains with matched controls: Iron: increased iron (4+) with rare ring sideroblasts. Reticulin: Mild increased of reticulin fiber is noted. PAS: highlights myeloid and erythroid cells. BONE MARROW GROSS A - Received is a container labeled with the patient's name and designated Bone marrow core. The specimen consists of an elongated piece of arguello bone measuring 1.5 cm in length and 0.2 cm in diameter. The specimen is totally submitted in one cassette after decalcification. B - Received labeled with the patient's name and designated Bone marrow clot is a specimen that consists of approximately 4.0 ml of bloody fluid that on filtration yields multiple minute fragments of blood clots measuring in aggregate 2.5 x 2.0 x 0.1 cm. The specimen is totally submitted in one cassette. C - Also received are 10 unstained and 1 peripheral stained slides. The unstained slides are submitted for appropriate staining. Also received are 2 green top tubes which are sent to our reference lab for AML, MDS, flow and cytogenetics. ERNESTO/ 04/13/2024 TC:0 CPT: 53718, 02427, 73015 x2, 70456 x3, 91123
--- NOTE | 2024-04-13 | IMM_PTH ---
PATIENT: JOSE KEYS Jr. LOC: [facility] U#:[id number] AGE/SX: 74/M ROOM: [facility] RE04/12/[address]: Dr. Marquez Rosario DO : 1950 BED: 1 DIS: 04/13/2024 SPEC #: [id number] RECD: 04/14/24 12:31 STATUS: SOUT REQ #: [id number] TRISTAN: 04/13/24 00:[address]: Marquez Rosario DEPT: IMMUNOHISTOCHEMISTRY RECD BY: Nabil Llamas ENTERED: 04/14/24 12:31 SP TYPE: IMMUNO OTHR DR: MD Dr. Te Orosco MD Dr. Joseph Prah, MD Dr. Mansour Isckarus, MD Dr. Prakash Chand, MD Dr. Robert Field, MD Dr. Ryan Jin, MD Dr. Roger Macklis, MD Dr. Scott Brown, MD Dr. Steve Walston, Francie Landeros, DATA EXAMINATION CLERK-C Tissues: A - Bone marrow of iliac crest B - Bone marrow of iliac crest Procedures: CD34 (initial) PHYSICIAN & [place] [id number] SPECIMEN INFORMATION: Tissue Source: A- Bone marrow core, B- Bone marrow clot Clinical Info: Thrombocytopenia Specimen Number: [id number] CPT code: [id number] METHODOLOGY: Deparaffinized sections of prefer/formalin-fixed tissue or PAP/DQ stained slides are incubated with monoclonal/polyclonal antibodies/oligonucleotide probes. Localization is made via biotin free immunoperoxidase method. Appropriate controls are performed and reacted as expected. Results on target cell population are indicated in the following table: RESULTS: ANTIBODY / CLONE RESULT Block A CD34 (QBEnd-10) positive AE1-3 (AE1/AE3/PCK26) negative CK8 (23xfwuP44) negative CD3 (PS1) positive CD5 (SP10) positive CD20 (L26) positive, a few cells CD45 (RP2/18) positive CD79a (11E3) positive CD138 (B-A38) positive, a few cells [place] (polyclonal) positive, a few cells Lambda (polyclonal) positive, a few cells Block B CD34 (QBEnd-10) positive AE1-3 (AE1/AE3/PCK26) negative CK8 (21zxhfK79) negative CD3 (PS1) positive CD5 (SP10) positive CD20 (L26) positive, a few cells CD45 (RP2/18) positive CD79a (11E3) positive CD138 (B-A38) positive, a few cells [place] (polyclonal) positive, a few cells Lambda (polyclonal) positive, a few cells These tests were developed and their performance characteristics determined by [facility]. They may not have been cleared or approved by the U.S. Food and Drug Administration. The FDA has determined that such clearance or approval is not necessary. The above immunohistochemical/dualISH markers are ordered and reviewed by the Pathologist. INTERPRETATION: A. Bone marrow core, biopsy: Mild increased number of blasts noted. Negative for metastatic carcinoma. A few lymphocytes and plasma cells are noted, polytypic in nature. B. Bone marrow clot, biopsy: Mild increased number of blasts noted. Negative for metastatic carcinoma. A few lymphocytes and plasma cells are noted, polytypic in nature. This case has been reviewed in consultation with Dr. Burgos who concurs with the above diagnosis. SJ/mr 05/09/2024
--- NOTE | 2024-04-13 | IMM_PTH ---
PATIENT: JOSE KEYS Jr. LOC: [facility] U#:[id number] AGE/SX: 74/M ROOM: [facility] RE04/12/[address]: Dr. Marquez Rosario DO : 1950 BED: 1 DIS: 04/13/2024 SPEC #: [id number] RECD: 04/14/24 12:31 STATUS: SOUT REQ #: [id number] TRISTAN: 04/13/24 00:[address]: Marquez Rosario DEPT: IMMUNOHISTOCHEMISTRY RECD BY: Nabil Llamas ENTERED: 04/14/24 12:31 SP TYPE: IMMUNO OTHR DR: MD Dr. Te Orosco MD Dr. Joseph Prah, MD Dr. Mansour Isckarus, MD Dr. Prakash Chand, MD Dr. Robert Field, MD Dr. Ryan Jin, MD Dr. Roger Macklis, MD Dr. Scott Brown, MD Dr. Steve Walston, Francie Landeros, ENGINE DESIGNER-C Tissues: A - Bone marrow of iliac crest B - Bone marrow of iliac crest Procedures: CD34 (initial) PHYSICIAN & [place] [id number] SPECIMEN INFORMATION: Tissue Source: A- Bone marrow core, B- Bone marrow clot Clinical Info: Thrombocytopenia Specimen Number: [id number] CPT code: [id number] METHODOLOGY: Deparaffinized sections of prefer/formalin-fixed tissue or PAP/DQ stained slides are incubated with monoclonal/polyclonal antibodies/oligonucleotide probes. Localization is made via biotin free immunoperoxidase method. Appropriate controls are performed and reacted as expected. Results on target cell population are indicated in the following table: RESULTS: ANTIBODY / CLONE RESULT Block A CD34 (QBEnd-10) positive AE1-3 (AE1/AE3/PCK26) negative CK8 (41qdhzJ39) negative CD3 (PS1) positive CD5 (SP10) positive CD20 (L26) positive, a few cells CD45 (RP2/18) positive CD79a (11E3) positive CD138 (B-A38) positive, a few cells [place] (polyclonal) positive, a few cells Lambda (polyclonal) positive, a few cells Ki-67 (30-9) positive, high Block B CD34 (QBEnd-10) positive AE1-3 (AE1/AE3/PCK26) negative CK8 (01jhdnD27) negative CD3 (PS1) positive CD5 (SP10) positive CD20 (L26) positive, a few cells CD45 (RP2/18) positive CD79a (11E3) positive CD138 (B-A38) positive, a few cells [place] (polyclonal) positive, a few cells Lambda (polyclonal) positive, a few cells Ki-67 (30-9) positive high These tests were developed and their performance characteristics determined by [facility]. They may not have been cleared or approved by the U.S. Food and Drug Administration. The FDA has determined that such clearance or approval is not necessary. The above immunohistochemical/dualISH markers are ordered and reviewed by the Pathologist. INTERPRETATION: A. Bone marrow core, biopsy: Mild increased number of blasts noted. Negative for metastatic carcinoma. A few lymphocytes and plasma cells are noted, polytypic in nature. B. Bone marrow clot, biopsy: Mild increased number of blasts noted. Negative for metastatic carcinoma. A few lymphocytes and plasma cells are noted, polytypic in nature. This case has been reviewed in consultation with Dr. Burgos who concurs with the above diagnosis. ERNESTO/mr 05/09/2024
[2024-04-13 00:19] LABS: Bedside Glucose 247 mg/dL (74-106)
[2024-04-13 06:04] LABS: Hematocrit 22.4 % (40-54); Hemoglobin 7.6 g/dL (13.0-16.5); Mean Corp Hgb Conc 33.9 g/dL (32-36); Mean Corpuscular Hgb 29.9 pg (27.0-32.0); Mean Corpuscular Volume 88.2 fL (80-94); Mean Platelet Vol. 13.6 fl (6.2-12.0); POSITIVE COUNT YES; POSITIVE MORPHOLOGY YES; RBC Distribution Width CV 11.9 % (11.6-14.6); RBC Distribution Width SD 38.3 fl (35.1-43.9); Red Blood Count 2.54 M/mm3 (4.6-6.2); White Blood Count 6.3 K/mm3 (4.4-11.0)
[2024-04-13 06:15] LABS: Bedside Glucose 129 mg/dL (74-106)
[2024-04-13 06:23] LABS: Platelet Count 10 K/mm3 (150-450)
[2024-04-13 06:37] LABS: Anion Gap 5 (5-15); BUN 23 mg/dL (7-18); BUN/Creat Ratio 20.7 RATIO (10-20); Calcium,Total 8.8 mg/dL (8.5-10.1); Chloride 104 mmol/L (98-107); Creatinine, Serum 1.11 mg/dL (0.70-1.30); EST Glomerular Filtration Rate 69 mL/min (>60); Est Glom Filt Rate - Afr Amer 84 mL/min (>60); Glucose 135 mg/dL (74-106); Potassium 3.8 mmol/L (3.5-5.1); Sodium Level 136 mmol/L (136-145); Thyroid Stim Hormone (TSH) 2.19 uIU/mL (0.358-3.74)
[2024-04-13] MEDS: 0.9% Normal Saline (250mL Bag) 250 ML 15 ML IV (08:12)
[2024-04-13] MEDS: Midazolam 2 MG/2 ML Syringe IV ×2 (08:14→08:21)
[2024-04-13] MEDS: fentaNYL 100 MCG/2 ML Ampul IV ×2 (08:15→08:34)
[2024-04-13] MEDS: Lidocaine 2% (20 ml mdv) 20 ML Vial INFILT (08:24)
--- NOTE | 2024-04-13 08:42 | PCM.OP.PRO ---
Procedure Report Date of Procedure: 04/13/24 Assessment & Plan Assessment/Plan (1) Thrombocytopenia: PLAN: PROCEDURE: CT guided bone marrow biopsy and aspiration of the right iliac bone ORDERING PROVIDER: Dr. Barrett INDICATION: Male, 74 years old. Thrombocytopenia. PROVIDER: La Nena Chavarria TRANSACTIONAL ATTORNEY-CORE ANALYSIS OPERATOR RADIATION DOSAGE (If Supplied By Facility): CTDIvol = 16.98 mGy, DLP = 205.84 mGycm. Individualized dose optimization techniques were utilized. CONSENT: The risks, benefits, and alternatives to the procedure were explained to the patient. The specific risk of hemorrhage requiring further treatment or intervention was detailed and accepted. Follow-up instructions were discussed with the patient as well. Written informed consent was obtained. PRE-PROCEDURE SEDATION ASSESSMENT: Current history and physical dictated by referring physician and reviewed. No clinical changes since date of exam. Patient has a Mallampati Score of Class 2 and ASA Class of 3. PROCEDURAL SEDATION PROTOCOL: The Drugs used were: 2 mg Versed, IV, and 75 mcg Fentanyl, IV. The sedation time was: 23 minutes, starting at 8:14 AM and terminated at 8:37 AM. The procedural sedation protocol was independently monitored by the department nurse. TECHNIQUE The patient was brought into the CT suite and placed in the prone position. An appropriate entry site was identified. The overlying skin was prepped and draped in the usual sterile fashion. 2% lidocaine was administered subcutaneously for local anesthesia. Under CT guidance, a bone marrow biopsy and bone marrow aspirate were performed of the right posterior iliac bone using an 11-gauge bone marrow biopsy kit. Hematology staff was present to prepare the specimen slides and transport the specimen to the laboratory for analysis. Hemostasis was obtained, and a sterile occlusive dressing was applied. The patient tolerated the procedure well without immediate complications. IMPRESSION: Successful CT guided bone marrow biopsy and aspiration of the right posterior iliac bone as described. Procedural Sedation protocol utilized with independent monitoring by the department nurse. Procedures Radiology Radiology CT Procedures: [id number] CT guidance parenchymal tissue Multi Select Codes Radiology Radiology US Procedures: Other Procedure See Report (Bone Marrow Biopsy [id number]- core and aspirate obtained)
[2024-04-13 09:01] LABS: Blast 7 % (0-0); Lymphocyte 28 % (19-41); Monocyte 3 % (0-10); Neutrophil-Segmented 62 % (47-70); Total Cells Counted 100 (MANUAL DIFF)
[2024-04-13 09:03] LABS: Platelet Estimate MKD DEC (ADEQ)
[2024-04-13 09:04] LABS: Red Cell Morphology NORM C+C NORMAL (NORM C&C)
[2024-04-13 09:06] LABS: Differential Indicated MANUAL DIFF
[2024-04-13 09:08] LABS: Absolute Neutrophil Count 3.9 X10^3/uL (2.0-7.7)
[2024-04-13 09:09] LABS: Absolute Lymphocyte Count 1.78 X10^3/uL (0.83-4.51)
[2024-04-13] MEDS: Lisinopril 10 MG Tablet PO (10:06)
[2024-04-13] MEDS: Isosorbide Mononitrate 30 MG Tablet PO (10:06)
[2024-04-13] MEDS: Metoprolol Tartrate 25 MG Tablet PO (10:06)
--- NOTE | 2024-04-13 10:40 | CASEMGMT ---
RN CM chart review: Patient was admitted 03/26-04/03/24 for chest pain, dyspnea on exertion, thrombocytopenia. See RN CM assessment from 03/28/24. Patient had bone marrow biopsy as inpatient and discharged with follow-up with oncology. Patient discharged to home with support from . Patient returned to [facility] ED after having a syncopal episode at oncology appointment. Previous bone marrow biopsy was inconclusive, therefore patient had repeat bone marrow biopsy this morning. RN CM in to discuss needs at discharge and readmission, at bedside. Patient states she was taking medications as prescribed and attended follow-up appt with oncology. Has cardiology tomorrow and PCP appt next week. Patient and deny needs at discharge. Patient and had no further questions or concerns.
[2024-04-13 11:32] LABS: Bedside Glucose 144 mg/dL (74-106)
[2024-04-13 12:20] LABS: Hematocrit 20.3 % (40-54); Mean Corp Hgb Conc 34.5 g/dL (32-36); Mean Corpuscular Hgb 29.8 pg (27.0-32.0); Mean Corpuscular Volume 86.4 fL (80-94); Mean Platelet Vol. 9.8 fl (6.2-12.0); POSITIVE COUNT YES; POSITIVE MORPHOLOGY YES; RBC Distribution Width CV 11.9 % (11.6-14.6); Red Blood Count 2.35 M/mm3 (4.6-6.2); White Blood Count 7.1 K/mm3 (4.4-11.0)
[2024-04-13 12:40] LABS: Platelet Count 24 K/mm3 (150-450)
--- NOTE | 2024-04-13 13:04 | PCM.DC.SUM ---
Providers Date of Admission: 04/12/24 Date of Discharge: 04/13/24 Primary Care Physician: Dr. Mihir Johnston MD Consultations 04/12/24 14:35 Consult: Interventional Radiology Routine Consulting Provider: Te Bright Reason for Consult: Bone marrow biopsy EMERGENT Consult: No Notified: Yes Date Notified: 04/12/24 Time Notified: 14:35 Method of Notification: Verbal 04/12/24 15:27 Consult: Oncology/Hematology Routine Consulting Provider: *[facility] ([facility]) Reason for Consult: Severe thrombocytopenia EMERGENT Consult: No Notified: Yes Date Notified: 04/12/24 Time Notified: 14:37 Method of Notification: Verbal Reason For Visit: SYNCOPE, SEVERE THROMBOCYTOPENIA Diagnosis Discharge Diagnosis (1) Thrombocytopenia: Status: Chronic Code(s): D69.6 - Thrombocytopenia, unspecified Medications at Discharge Home Medications atorvastatin 80 mg tablet 80 mg PO QHS CHOLESTEROL #30 tabs 04/03/24 insulin glargine-yfgn 100 unit/mL (3 mL) subcutaneous pen 40 unit (0.4 mL) subcut QHS DIABETES #15 mL 04/03/24 isosorbide mononitrate 30 mg tablet,extended release 24 hr 30 mg PO DAILY CHEST PAIN #30 tabs 04/03/24 lisinopril 10 mg tablet 10 mg PO DAILY BLOOD PRESSURE #30 tabs 04/03/24 metoprolol tartrate 25 mg tablet 25 mg PO BID BLOOD PRESSURE #60 tabs 04/03/24 nitroglycerin 0.4 mg sublingual tablet 0.4 mg sublingual Q5M PRN Cardiac/Chest Pain #10 tabs 04/03/24 pen needle, diabetic 29 gauge #100 ea 04/03/24 prednisone 20 mg tablet 90 mg (4.5 x 20 mg) PO DAILY STEROID #120 tabs 04/03/24 oxycodone 5 mg capsule 5 mg PO Q6H PRN BACK PAIN 3 days #12 caps 04/04/24 Hospital Course Operations None Procedures EKG and - (CT-guided bone marrow biopsy, chest x-ray, CT brain) Summary of Care Provided Minutes Spent on Discharge: 35 Hospital Course: Patient is a 74-year-old male who presented to [facility] ED on 04/12/2024 after a presyncopal episode in the oncology office and also for worsening thrombocytopenia. Short hospital course as noted below. Patient discharged home in stable condition on 04/13 with plan for close outpatient oncology follow-up. 1. Presyncopal episode ? Unclear etiology, possibly vasovagal in nature. No further episodes during hospitalization. No abnormalities on cardiac monitoring. Had recent cardiac workup as noted below, no need for repeat cardiac workup during this hospitalization. 2. 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 Follows with Dr. Lazaro with oncology. Recently discovered during hospitalization in late March. Had bone marrow biopsy done during that hospitalization that unfortunately had inconclusive results. ? Oncology followed. Had repeat bone marrow biopsy done on 04/13 and preliminary results are concerning for myelodysplastic syndrome with possible acute myeloid leukemia. No need for urgent transfer to tertiary facility but plan is for very close outpatient follow-up and possibly establishing with [facility] oncology for further management. ? Notably did have 1 unit of platelets transfused post bone marrow biopsy with improvement in platelet count from 10-24 K. Hemoglobin remained stable around 7-8 during hospitalization. 3. Hypertension/hyperlipidemia/concern for CAD ? Had recent hospitalization in late March when he presented with worsening exertional dyspnea. Was unable to have left heart catheterization done given severe thrombocytopenia and anemia as noted above. Recommendation per cardiology then was for left heart cath at some point in the future once hematologic issues are controlled. Continue home Lopressor, lisinopril, isosorbide mononitrate, and atorvastatin. 4. Type 2 diabetes mellitus ? Blood sugar stable during hospitalization. Continue home insulin glargine 40 units at night on discharge. Total clinical time spent by myself addressing the patient's medical issues, reviewing all the data, and collaborating with patient's care team: 35 minutes. Physical Exam Const alert, oriented x3, no apparent distress and average body habitus General Appearance: cooperative and comfortable HEENT normocephalic, head/scalp atraumatic, hearing grossly normal bilaterally, nasal mucous membranes and turbinates normal and moist oral mucous membranes Eyes PERRL, EOMs intact bilaterally and conjunctivae normal Neck full ROM Chest inspection of chest normal Resp normal respiratory effort, normal air movement, no use of accessory muscles and clear to auscultation bilaterally Cardio regular rate, regular rhythm, no murmurs and peripheral pulses 2+ throughout GI normal to inspection, nondistended, normoactive bowel sounds, soft to palpation, non-tender and non-distended Back/Spine normal ROM Extremity normal to inspection, full ROM and no pedal edema Skin no rashes or lesions noted Neuro moves all extremities and no focal motor deficits Speech: speech normal Psych mental status grossly normal Weight / BMI Weight Weight: 82.9 kg Body Mass Index (BMI) 27.8 ABG / Lab / Microbiology Data 04/13/24 12:11 04/13/24 05:33 Laboratory: Laboratory Results - last 24 hr 04/12/24 09:02: POC Glucose 211 H 04/12/24 09:43: Absolute Neuts (auto) 5.2, Absolute Lymphs (auto) 1.55, Total Counted 100, Neutrophils % (Manual) 70, Lymphocytes % (Manual) 21, Monocytes % (Manual) 5, Eosinophils % (Manual) 1, Myelocytes % 1 H, Blast Cells % 2 H*, Diff Path Review May hao, Platelet Estimate MKD DEC, RBC Morphology NORM C+C 04/12/24 12:20: Magnesium 1.9 04/12/24 16:30: POC Glucose 172 H 04/12/24 21:16: POC Glucose 247 H 04/13/24 05:33: WBC 6.3, RBC 2.54 L, Hgb 7.6 L, Hct 22.4 L, MCV 88.2, MCH 29.9, MCHC 33.9, RDW Std Deviation 38.3, RDW Coeff of Consuelo 11.9, Plt Count 10 L*, MPV 13.6 H, Immature Gran % (Auto) AIRLINE SECURITY REPRESENTATIVE, Neut % (Auto) AIRLINE SECURITY REPRESENTATIVE, Lymph % (Auto) AIRLINE SECURITY REPRESENTATIVE, [place] % (Auto) AIRLINE SECURITY REPRESENTATIVE, Eos % (Auto) AIRLINE SECURITY REPRESENTATIVE, Baso % (Auto) AIRLINE SECURITY REPRESENTATIVE, Absolute Neuts (auto) 3.9, Absolute Lymphs (auto) 1.78, Total Counted 100, Neutrophils % (Manual) 62, Lymphocytes % (Manual) 28, Monocytes % (Manual) 3, Blast Cells % 7 H*, Nucleated RBC % AIRLINE SECURITY REPRESENTATIVE, Diff Path Review May hao Platelet Estimate MKD DEC, RBC Morphology NORM C+C, Sodium 136, Potassium 3.8, Chloride 104, Carbon Dioxide 27.0, Anion Gap 5, BUN 23 H, Creatinine 1.11, Estim Creat Clear Calc 62.20, Est GFR (MDRD) Af Amer 84, Est GFR (MDRD) Non-Af 69, BUN/Creatinine Ratio 20.7 H, Glucose 135 H, Calcium 8.8, TSH 2.19 04/13/24 05:55: POC Glucose 129 H 04/13/24 11:10: POC Glucose 144 H 04/13/24 12:11: WBC 7.1, RBC 2.35 L, Hgb 7.0 L, Hct 20.3 L, MCV 86.4, MCH 29.8, MCHC 34.5, RDW Std Deviation 38.0, RDW Coeff of Consuelo 11.9, Plt Count 24 L*, MPV 9.8, Immature Gran % (Auto) 2.300 H, Neut % (Auto) 64.6, Lymph % (Auto) 18.2 L, [place] % (Auto) 13.7 H, Eos % (Auto) 1.1, Baso % (Auto) 0.1, Absolute Neuts (auto) 4.6, Absolute Lymphs (auto) 1.29, Nucleated RBC % 0.7 Meaningful Use Info Meaningful Use Meaningful Use Diagnoses (Choose all that apply): None applicable Ischemic Stroke Statin Dosing Therapy Reference: STATIN DOSE THERAPY REFERENCE: * Patients > 75 years receive moderate or high dose statin therapy. * Patients 75 years or YOUNGER should receive HIGH intensity statin dose unless contraindicated. You will be required to document reason for non-treatment if statin daily dose does not meet guidelines. HIGH DOSE STATIN THERAPY DAILY Atorvastatin > than or = to 40 mg Rosuvastatin > than or = to 20 mg Amlodipine + Atorvastatin > than or = to 2.5/40 mg Ezetimibe + Simvastatin 10/80 mg Simvastatin 80mg Discharge Plan Admission Admit Date/Time: 04/12/24 14:09 Primary Reason for Your Visit: Presyncopal episode, low blood cell counts Attending Provider: Marquez Rosario Primary Care Provider: Mihir Johnston Consulting Providers: Te Bright; Xavier Miranda; Jose Lazaro; Rafael Fitzgerald; Rico Fernandes; Farhad Aggarwal; Mo Celeste; Alvin Ellis; Francie Landeros NP; Andrews Barrett Instructions Patient Instructions: TANG RN Bone Marrow Aspiration and Biopsy, TANG RN Procedural Sedation Additional Instructions / Restrictions: Dr. Lazaro will arrange close follow-up for you in the office shortly after this discharge. Discharge Orders/Prescriptions Prescriptions: Continued atorvastatin 80 mg Tablet 80 mg PO QHS Qty: 30 0RF insulin glargine-yfgn 100 unit/mL (3 mL) Insulin Pen 40 unit subcut QHS Qty: 15 1RF lisinopril 10 mg Tablet 10 mg PO DAILY Qty: 30 0RF nitroglycerin 0.4 mg Tablet, Sublingual 0.4 mg sublingual Q5M PRN (Reason: Cardiac/Chest Pain) Qty: 10 0RF metoprolol tartrate 25 mg Tablet 25 mg PO BID Qty: 60 0RF prednisone 20 mg tablet 90 mg PO DAILY Qty: 120 0RF isosorbide mononitrate 30 mg tablet extended release 24 hr 30 mg PO DAILY Qty: 30 0RF (DME) pen needle, diabetic 29 gauge needle See Rx Instructions .Route Qty: 100 0RF Rx Instructions: As directed. Different sizes may be substituted. oxycodone 5 mg capsule 5 mg PO Q6H PRN (Reason: BACK PAIN ) 3 Days Qty: 12 0RF Referrals / Follow Up: Mihir Johnston MD [Primary Care Provider] - Disposition Disposition (needs filled in before D/C Order can be placed): Home, Self Care Charges/Coding Visit Charges Inpatient E&M: 84956 Disch Hosp >30min
--- NOTE | 2024-04-13 13:19 | PHA.DC.MR.R ---
Pharmacy [place] Med Reconciliation Pharmacy Service has performed discharge medication reconciliation for this patient. The patient's discharge medication list was reviewed for discrepancies and discrepancies were resolved. Medications at Discharge Home Medications atorvastatin 80 mg tablet 80 mg PO QHS CHOLESTEROL #30 tabs 04/03/24 insulin glargine-yfgn 100 unit/mL (3 mL) subcutaneous pen 40 unit (0.4 mL) subcut QHS DIABETES #15 mL 04/03/24 isosorbide mononitrate 30 mg tablet,extended release 24 hr 30 mg PO DAILY CHEST PAIN #30 tabs 04/03/24 lisinopril 10 mg tablet 10 mg PO DAILY BLOOD PRESSURE #30 tabs 04/03/24 metoprolol tartrate 25 mg tablet 25 mg PO BID BLOOD PRESSURE #60 tabs 04/03/24 nitroglycerin 0.4 mg sublingual tablet 0.4 mg sublingual Q5M PRN Cardiac/Chest Pain #10 tabs 04/03/24 pen needle, diabetic 29 gauge #100 ea 04/03/24 prednisone 20 mg tablet 90 mg (4.5 x 20 mg) PO DAILY STEROID #120 tabs 04/03/24 oxycodone 5 mg capsule 5 mg PO Q6H PRN BACK PAIN 3 days #12 caps 04/04/24
[2024-04-13 13:25] LABS: Blast 9 % (0-0); Eosinophil 1 % (0-5); Lymphocyte 23 % (19-41); Monocyte 2 % (0-10); Neutrophil-Segmented 65 % (47-70); Total Cells Counted 100 (MANUAL DIFF)
[2024-04-13 13:27] LABS: Platelet Estimate MKD DEC (ADEQ); Red Cell Morphology NORM C+C NORMAL (NORM C&C)
[2024-04-13 13:30] LABS: Differential Indicated MANUAL DIFF
[2024-04-13 13:32] LABS: Absolute Lymphocyte Count 1.63 X10^3/uL (0.83-4.51); Absolute Neutrophil Count 4.6 X10^3/uL (2.0-7.7)
[2024-04-13 13:33] LABS: Pathologist Review May foll
[2024-04-13 14:19] LABS: Scan Smear per Review Criteria MANUAL DIFF
[2024-04-13 14:52] LABS: Pathologist Review Reviewed
--- NOTE | 2024-04-13 15:50 | ONC.CONSULT ---
Assessment & Plan Assessment/Plan (1) MDS (myelodysplastic syndrome) with 5q deletion: Status: Acute Code(s): D46.C - Myelodysplastic syndrome with isolated del(5q) chromosomal abnormality Plan: 03/28/24 BMBX was aspicular and nondiagnostic, however flow cytometry from that specimen does show 5% myeloblasts, FISH deletion 5Q, PML/MANUELITO: Abnormal indicating high risk. Cytogenetics are pending, thus unable to provide a IPSS-R category. Disease state, implications, and risks including transformation to an acute leukemia were discussed with the patient and family. Await results of repeat BMBX obtained earlier today. In the interim, patient to be evaluated by Dr. Vani Kulkarni at [facility] (N care coordinators involved in case and I spoke with Dr. Kulkarni directly), monitor CBC twice weekly with transfusional support at [facility] as needed, and follow up with Dr. Lazaro in 2 weeks. HPI Consult Data Date of Service:: 04/13/24 PCP / Referring Provider: Dr. Mihir Johnston MD Attending: Dr. Marquez Rosario DO Chief Complaint Chief Complaint: Anemia, thrombocytopenia History of Present Illness History of Present Illness: 74-year-old man was seen in the hospital 03/26/24-04/03/24 with anemia (hgb 7-7.8), thrombocytopenia associated with chest pain. Bone marrow aspiration and evaluation on 03/28/2024 showed Nondiagnostic bone marrow core clot and aspiration smears, flow cytometry showed 5% myeloblasts with phenotype suggestive of possible myelodysplastic process. He came to the clinic for further evaluation with Graciela Lazaro on 04/12/24 (FISH and cytogenetics were not available for review at that time) and at the conclusion of the consultation, he developed a brief episode of loss of consciousness, which resulted in second admission 04/12/24.? He underwent a repeat BMBX at [facility] earlier this morning, results are pending.? Results from FISH and cytogenetics on initial BMBX 03/28/24 became available now showing 5Q deletion, PML/MANUELITO:abnormal- AML/MDS clone detected. Interval History Interval History: The patient is sitting in bedside chair surrounded by spouse, 2 sons, [id number] and grandson. He continues to deny any overt episodes of bleeding, including mucosal bleeding. + fatigue. Advanced Directives Power of Mower Operator: No Living Will: No PFSH Medical History (Updated 04/13/24 @ 14:35 by Francie Landeros NP, HOUSE DETECTIVE-C) MDS (myelodysplastic syndrome) with 5q deletion Anxiety Diabetes Pancreatitis Non-smoker Diverticulosis History of chronic hypertension History of diabetes mellitus Home Medications ?Medication ?Instructions ?Recorded ?Last Taken ?Type atorvastatin 80 mg tablet 80 mg PO QHS CHOLESTEROL #30 tabs 04/03/24 04/11/24 Rx insulin glargine-yfgn 100 unit/mL 40 unit (0.4 mL) subcut QHS 04/03/24 04/11/24 Rx (3 mL) subcutaneous pen DIABETES #15 mL isosorbide mononitrate 30 mg 30 mg PO DAILY CHEST PAIN #30 tabs 04/03/24 04/11/24 Rx tablet,extended release 24 hr lisinopril 10 mg tablet 10 mg PO DAILY BLOOD PRESSURE #30 04/03/24 04/11/24 Rx tabs metoprolol tartrate 25 mg tablet 25 mg PO BID BLOOD PRESSURE #60 04/03/24 04/11/24 Rx tabs nitroglycerin 0.4 mg sublingual 0.4 mg sublingual Q5M PRN 04/03/24 Unknown Rx tablet Cardiac/Chest Pain #10 tabs pen needle, diabetic 29 gauge #100 ea 04/03/24 Unknown Rx prednisone 20 mg tablet 90 mg (4.5 x 20 mg) PO DAILY 04/03/24 04/11/24 Rx STEROID #120 tabs oxycodone 5 mg capsule 5 mg PO Q6H PRN BACK PAIN 3 days 04/04/24 04/04/24 Rx #12 caps Allergy/AdvReac Type Severity Reaction Status Date / Time No Known Allergies Allergy Verified 04/12/24 09:30 Family History Other Brain malignancy Diabetes Hypertension Surgical History Previous back surgery H/O colonoscopy Social History household members: spouse housing: house current occupational status: retired Smoking Status: Never smoker alcohol intake: former substance use type: does not use ROS ROS Narrative Negative except as documented in the interval HPI Physical Exam Const alert and oriented x3 HEENT normocephalic Lymph Lymphatic: no lymphadenopathy noted Resp normal respiratory effort and clear to auscultation bilaterally Cardio regular rate, regular rhythm, S1 normal heart sound and S2 normal heart sound GI normal to inspection, nondistended, normoactive bowel sounds Skin Skin Narrative: mild ecchymosis bilat upper extremities Neuro oriented x3, CN's II-XII intact bilaterally and moves all extremities Psych mental status grossly normal Attitude: calm Mood & Affect: tearful Attention / Concentration: attention grossly intact and concentration grossly intact Vital Signs Temperature 97.5 F L 04/13/24 11:22 Temperature Source Oral 04/13/24 11:22 Pulse Rate 75 04/13/24 11:22 Pulse Strength Normal (2+) 04/13/24 09:12 Respiratory Rate 18 04/13/24 11:22 Respiratory Effort Normal, Non-Labored 04/13/24 03:25 Respiratory Depth Normal 04/13/24 03:25 Respiratory Pattern Normal 04/13/24 08:57 Blood Pressure 109/51 L 04/13/24 11:22 Blood Pressure Mean 70 04/13/24 11:22 Blood Pressure Source Monitor 04/13/24 11:22 Blood Pressure Position Semi-Fowlers 04/13/24 11:22 Blood Pressure Location Right Arm 04/13/24 11:22 Pulse Ox 96 04/13/24 11:22 Oxygen Delivery Method Nasal Cannula 04/13/24 11:43 Oxygen Flow Rate (L/min) 2 04/13/24 11:43 Laboratory Results - last 24 hr 04/12/24 09:43: Diff Path Review Reviewed 04/12/24 16:30: POC Glucose 172 H 04/12/24 21:16: POC Glucose 247 H 04/13/24 05:33: WBC 6.3, RBC 2.54 L, Hgb 7.6 L, Hct 22.4 L, MCV 88.2, MCH 29.9, MCHC 33.9, RDW Std Deviation 38.3, RDW Coeff of Consuelo 11.9, Plt Count 10 L*, MPV 13.6 H, Immature Gran % (Auto) HOUSE DETECTIVE, Neut % (Auto) HOUSE DETECTIVE, Lymph % (Auto) HOUSE DETECTIVE, [place] % (Auto) HOUSE DETECTIVE, Eos % (Auto) HOUSE DETECTIVE, Baso % (Auto) HOUSE DETECTIVE, Absolute Neuts (auto) 3.9, Absolute Lymphs (auto) 1.78, Total Counted 100, Neutrophils % (Manual) 62, Lymphocytes % (Manual) 28, Monocytes % (Manual) 3, Blast Cells % 7 H*, Nucleated RBC % HOUSE DETECTIVE, Diff Path Review May foll, Platelet Estimate MKD DEC, RBC Morphology NORM C+C, Sodium 136, Potassium 3.8, Chloride 104, Carbon Dioxide 27.0, Anion Gap 5, BUN 23 H, Creatinine 1.11, Estim Creat Clear Calc 62.20, Est GFR (MDRD) Af Amer 84, Est GFR (MDRD) Non-Af 69, BUN/Creatinine Ratio 20.7 H, Glucose 135 H, Calcium 8.8, TSH 2.19 04/13/24 05:55: POC Glucose 129 H 04/13/24 11:10: POC Glucose 144 H 04/13/24 12:11: WBC 7.1, RBC 2.35 L, Hgb 7.0 L, Hct 20.3 L, MCV 86.4, MCH 29.8, MCHC 34.5, RDW Std Deviation 38.0, RDW Coeff of Consuelo 11.9, Plt Count 24 L*, MPV 9.8, Immature Gran % (Auto) HOUSE DETECTIVE, Neut % (Auto) HOUSE DETECTIVE, Lymph % (Auto) HOUSE DETECTIVE, [place] % (Auto) HOUSE DETECTIVE, Eos % (Auto) HOUSE DETECTIVE, Baso % (Auto) HOUSE DETECTIVE, Absolute Neuts (auto) 4.6, Absolute Lymphs (auto) 1.63, Total Counted 100, Neutrophils % (Manual) 65, Lymphocytes % (Manual) 23, Monocytes % (Manual) 2, Eosinophils % (Manual) 1, Blast Cells % 9 H*, Nucleated RBC % HOUSE DETECTIVE, Diff Path Review February foll, Platelet Estimate MKD DEC, RBC Morphology NORM C+C Diagnostic Data Chest X-Ray 04/12/24 10:30 IMPRESSION: No active disease. Electronically Signed: Jb Vargas MD at 10:52 EDT , Brain CT 04/12/24 10:43 IMPRESSION: Chronic involutional changes of the brain. Electronically Signed: Jb Vargas MD at 11:22 EDT ,
[2024-04-13 16:20] LABS: Scan Smear per Review Criteria MANUAL DIFF
[2024-04-14 14:48] LABS: Pathologist Review Reviewed
== END 2024-04-13 15:42 | disposition home or self-care (01) | DRG 836 ==
LOC: ED 11:26 → PCU 14:37
PROVIDERS: Admitting Provider Internal Medicine; Emergency Provider Emergency Medicine; PCP Family Medicine; Visit Provider Hospitalist
DX: C92.00 Acute myeloblastic leukemia, not having achieved remission (principal); E11.65 Type 2 diabetes mellitus with hyperglycemia; D46.C Myelodysplastic syndrome with isolated del(5q) chromosomal abnormality; Z79.4 Long term (current) use of insulin; I10 Essential (primary) hypertension; I35.0 Nonrheumatic aortic (valve) stenosis; I25.10 Atherosclerotic heart disease of native coronary artery without angina pectoris; E78.5 Hyperlipidemia, unspecified; R55 Syncope and collapse; Z79.891 Long term (current) use of opiate analgesic; Z79.899 Other long term (current) drug therapy
CPT/HCPCS: 36415; 70450; 71045; 77012; 80048; 82962; 83735; 84443; 84484; 85025; 86850; 86900; 86901; 86965; 88305; 88311; 88313; 88342; 93005; 94668; 99156; 99285; J7030; J7050; P9035; A4216

== ENCOUNTER 2024-04-16 07:14 | Inpatient (IN) | payer MEDICARE, SELFPAY ==
[2024-04-16] VITALS (8 sets, daily range): BP systolic 104–144; BP diastolic 49–67; PULSE 71–88; RESP 16–34; TEMP 35.6–36.9; O2SAT 95–100; BMI 27.3
--- NOTE | 2024-04-16 07:37 | CT_ITS ---
HISTORY: pain. TECHNIQUE: Helically acquired images were obtained of the lumbar spine without contrast. 2D reformats were reviewed. A radiation dose optimization technique was used for this scan. 339 images. COMPARISON: CTA 04/04/2024, CT 03/26/2024. FINDINGS: VERTEBRAE: Vertebral body heights are maintained. No acute fracture identified. Decompressive laminectomies again seen at L4, L5, and S1. ALIGNMENT: Chronic mild retrolisthesis of L2-3. Mild levoscoliosis. INTERVERTEBRAL DISCS: Degenerative changes with intervertebral disc space narrowing and posterior disc osteophyte complexes at multiple levels. Facet arthropathy. Vacuum disc phenomenon extending into the left lateral recess with possible nerve root impingement, minimum narrowing of the thecal sac, and mild bilateral foraminal narrowing at L2-3. Residual degenerative changes at the postoperative levels with moderate bilateral foraminal narrowing. SOFT TISSUES: Mild posterior subcutaneous edema CT/Spine Lumbar without Contrast IMPRESSION: No evidence for acute fracture or dislocation in the lumbar spine. Postoperative and degenerative changes as above. Electronically Signed: Jalyn Kate MD at 10:19 EDT ,
--- NOTE | 2024-04-16 07:38 | CT_ITS ---
HISTORY: Flank pain. TECHNIQUE: Helically acquired images were obtained of the abdomen and pelvis without oral or IV contrast. A radiation dose optimization technique was used for this scan. 469 images. COMPARISON: CTA 04/04/2024, CT 03/26/2024. FINDINGS: LOWER CHEST: Coronary artery calcification present. Very mild bibasilar atelectasis or scarring with resolution of trace right pleural effusion. BOWEL: Bowel including appendix are nondilated. Moderate stool in the colon. Colonic diverticulosis without focal pericolonic inflammatory change. PERITONEUM: No significant free fluid. LIVER/SPLEEN: Nonenlarged. GALLBLADDER/BILIARY TREE: Gallbladder present. PANCREAS: 2.5 cm peripherally calcified oval lesion in the pancreatic neck with distal atrophy again seen. KIDNEYS AND URETERS: No nephrolithiasis or obstructing ureteral calculus. ADRENAL GLANDS: No nodules. VESSELS: No abdominal aortic aneurysm. Atherosclerosis of the abdominal aorta and its major branches. PELVIC ORGANS: Prostate and seminal vesicle calcifications noted. ABDOMINAL WALL: Small left inguinal hernia now containing a short segment of sigmoid colon without colonic wall thickening or stranding in the hernia sac. BONES: Degenerative change. L4-S1 decompressive laminectomy. CT/Abdomen/Pelvis without Cont IMPRESSION: Negative examination for renal stone. Stable partially calcified pancreatic lesion. Small left inguinal hernia now containing a short segment of sigmoid colon without CT evidence for colonic obstruction or strangulation. Moderate stool in the colon. Colonic diverticulosis without acute diverticulitis. Electronically Signed: Jalyn Kate MD at 10:33 EDT ,
--- NOTE | 2024-04-16 07:40 | EX.ED.DYSGE1 ---
HPI History of Present Illness Chief Complaint: Weakness Narrative Narrative: 74-year-old male past medical history of recent diagnosis of mild dysplastic syndrome, previous back pain had recent platelet transfusion, presents with exacerbation of his back pain, generalized weakness, and feeling wobbly according to his over the last few weeks or longer. This is his fourth visit to the ED this month/within the last few weeks. He was recently seen and transfuse platelets because it was down to 9. They state that they were seen by oncology, Dr. Lazaro, the nurse practitioner told them on Thursday that he had a diagnosis of myelodysplastic syndrome. He is supposed to follow-up with an oncologist at [facility] in the [facility]. He presents because over the last few days he has been feeling more weak and lightheaded. He is also complaining of diffuse back pain throughout his back. He denies any fevers or chills, no nausea or vomiting, GI bleeding. He may have had dark stool a few days ago, but that has essentially resolved. He does not take blood thinners.. PFSH [facility] Medical History MDS (myelodysplastic syndrome) with 5q deletion Anxiety Diabetes Pancreatitis Non-smoker Diverticulosis History of chronic hypertension History of diabetes mellitus Home Medications ?Medication ?Instructions ?Recorded ?Last Taken ?Type atorvastatin 80 mg tablet 80 mg PO QHS CHOLESTEROL #30 tabs 04/03/24 04/11/24 Rx insulin glargine-yfgn 100 unit/mL 40 unit (0.4 mL) subcut QHS 04/03/24 04/11/24 Rx (3 mL) subcutaneous pen DIABETES #15 mL isosorbide mononitrate 30 mg 30 mg PO DAILY CHEST PAIN #30 tabs 04/03/24 04/11/24 Rx tablet,extended release 24 hr lisinopril 10 mg tablet 10 mg PO DAILY BLOOD PRESSURE #30 04/03/24 04/11/24 Rx tabs metoprolol tartrate 25 mg tablet 25 mg PO BID BLOOD PRESSURE #60 04/03/24 04/11/24 Rx tabs nitroglycerin 0.4 mg sublingual 0.4 mg sublingual Q5M PRN 04/03/24 Unknown Rx tablet Cardiac/Chest Pain #10 tabs pen needle, diabetic 29 gauge #100 ea 04/03/24 Unknown Rx oxycodone 5 mg capsule 5 mg PO Q6H PRN BACK PAIN 3 days 04/04/24 04/04/24 Rx #12 caps prednisone 20 mg tablet 60 mg PO DAILY STEROID 04/16/24 04/15/24 History Allergy/AdvReac Type Severity Reaction Status Date / Time Jfhpzvk-VEX-LaF Reductase AdvReac Intermediate Pain in Verified 04/16/24 07:15 Inhibitor (Edtcqhd-Npp-Nxw joints Reductase Inhibitor) Family History Other Brain malignancy Diabetes Hypertension Surgical History Previous back surgery H/O colonoscopy Social History household members: spouse housing: house current occupational status: retired Smoking Status: Never smoker alcohol intake: former substance use type: does not use ROS ROS ED ROS Narrative Constitutional: No fever, no chills. Generalized weakness. HEENT: No sore throat. No neck pain. No loss of vision. No rhinorrhea. Cardiovascular: No chest pain. No palpitations. No pedal edema. Respiratory: No cough, no shortness of breath. Abdominal: No abdominal pain. No nausea. No vomiting. Genitourinary: No dysuria. No hematuria. Musculoskeletal: No myalgias. No arthralgias. Positive diffuse low back pain. Neurologic: No headaches. No dizziness. Positive lightheadedness. Wobbly Skin: No rash. No change in color. Psychiatric: No depression. No anxiety. EXAM Physical Exam Narrative Exam Narrative: Afebrile. Vital signs noted. HEENT: Normocephalic. Atraumatic. PERRL, EOMI. Neck soft and supple. No point tenderness or step off. Cardiovascular: Regular rate and rhythm. No murmurs, rubs, or gallops appreciated. Respiratory: No tachypnea. Lungs clear to auscultation bilaterally. Gastrointestinal: Abdomen soft, nontender, with normoactive bowel sounds. No rebound or guarding. Neurological: Awake. Alert. Nonfocal, nonlateralizing. Skin: No rash. Normal color. No pallor. Musculoskeletal: No pedal edema. Full range of motion extremities. No vertebral point tenderness or bony step-off of the lumbar spine. Const Vital Signs: 04/16/24 07:15 04/16/24 07:15 04/16/24 07:35 Temperature 96.0 F L Temperature Source Temporal Pulse Rate 74 74 Respiratory Rate 16 16 Respiratory Effort Normal Non-Labored Respiratory Pattern Tachypnea Blood Pressure 111/49 L 111/49 L Blood Pressure Mean 69 69 Pulse Ox 100 100 Oxygen Delivery Method Room Air Room Air 04/16/24 09:14 04/16/24 11:27 04/16/24 11:43 Temperature 96.8 F L 96.8 F L Temperature Source Temporal Pulse Rate 71 88 77 Respiratory Rate 18 34 H 28 H Respiratory Effort Respiratory Pattern Blood Pressure 120/52 L 104/67 124/61 H Blood Pressure Mean 74 79 82 Pulse Ox 98 98 95 Oxygen Delivery Method Room Air Room Air MDM MDM MDM Narrative Medical decision making narrative: I reviewed the patient's prior records. He did have severe thrombocytopenia pi?a recently. He was seen for near syncope in the oncologist office. Concern is for any infectious process causing his weakness versus anemia requiring transfusion. He may be thrombocytopenic as well. Urinalysis will be obtained to rule out infection. 7 bilateral flank pain so CT of the abdomen pelvis without contrast will be obtained as well. I will get dedicated imaging of his lumbar spine. I reviewed his laboratory work, he has normal white count of 8.1, hemoglobin is low at 7.1, but chronic anemia when compared to previous laboratories. I do not feel he needs emergent transfusion of packed red blood cells. Platelet count is low at 12, but it was 90 few days ago. This is a chronic thrombocytopenia as well. Electrolyte panel is grossly unremarkable except for sodium of 133 which I think is nonspecific, BUN of 28 creatinine 1.31. While glucose is elevated at 327, his anion gap is normal at 11 so I doubt diabetic ketoacidosis. LFTs are grossly unremarkable. Urinalysis is negative for infection. I do not feel antibiotics are indicated. Patient has received multiple doses of narcotic pain medication for his back pain. Initially he had been given fentanyl 25 mcg, then repeat of 50 mcg. He is able to get up and move from the cot and sit in the chair. He continues to complain of low back pain. He will be given Dilaudid 0.5 mg. I reviewed the CT of the abdomen and pelvis which shows a very small left inguinal hernia which now contains part of the colon but no evidence of obstruction. I do not feel he needs emergent surgical intervention. He is having no pain in that area. Additionally, I reviewed the radiology report of the CT of the lumbar spine which shows chronic changes. There are postsurgical changes as well, no acute fracture. Patient and family requested that I speak with their oncologist as they had spoken to the nurse practitioner previously. I do not feel he necessarily requires emergent transfusion of blood products. I will also speak with the hospitalist for at least observation for his intractable back pain as the patient feels as if he cannot go home in his current condition. I discussed the patient with Dr. Rosario who is agreeable for observation/admission but requested that I speak with the oncologist on-call. I spoke with Dr. Fitzgerald, and it was not felt that he needed transfer for inpatient therapy at [facility]. Rather, he can be admitted here, and follow-up as an outpatient with [facility]. He does not need transfusion of platelets unless his numbers less than 10, and he currently does not require emergent transfusion of packed red blood cells because his hemoglobin is not less than 7. I rediscussed patient with Dr. Rosario for admission. Patient is in stable condition. History & Record Review Discussion w/independent historian: Patient and Family Additional record(s) reviewed:: Prior labs Lab Data Attestation: I reviewed the patient's lab results. Labs: Laboratory Results - last 24 hr 04/16/24 04/16/24 07:54 08:45 WBC 8.1 RBC 2.38 L Hgb 7.1 L Hct 20.9 L MCV 87.8 MCH 29.8 MCHC 34.0 RDW Std Deviation 38.0 RDW Coeff of Consuelo 11.9 Plt Count 12 L* MPV 12.3 H Immature Gran % (Auto) 2.600 H Neut % (Auto) 68.4 Lymph % (Auto) 15.3 L [place] % (Auto) 13.4 H Eos % (Auto) 0.2 Baso % (Auto) 0.1 Absolute Neuts (auto) 5.5 Absolute Lymphs (auto) 1.24 Nucleated RBC % 0.9 Differential Comment SCANNED Diff Path Review May foll Reactive Lymphocytes 1+ Platelet Estimate MKD DEC Sodium 133 L Potassium 3.8 Chloride 100 Carbon Dioxide 22.0 Anion Gap 11 BUN 28 H Creatinine 1.31 H Est GFR (MDRD) Af Amer 69 Est GFR (MDRD) Non-Af 57 L BUN/Creatinine Ratio 21.4 H Glucose 327 H Calcium 9.4 Total Bilirubin 0.80 AST 19 ALT 51 Alkaline Phosphatase 102 Total Protein 7.1 Albumin 3.7 Globulin 3.4 Albumin/Globulin Ratio 1.1 Urine Color Yellow Urine Clarity Clear Urine pH 5.0 Ur Specific [place] 1.025 Urine Protein 30 H Urine Glucose (UA) 1000 H Urine Ketones 15 H Urine Occult Blood Negative Urine Nitrite Negative Urine Bilirubin Negative Urine Urobilinogen 1 H Ur Leukocyte Esterase 25 H Urine RBC 0 SEEN Urine WBC 0-5 SEEN Ur Squamous Epith Cells 0 SEEN Calcium Oxalate Crystal RARE Urine Bacteria 0 SEEN Urine Mucus 0 SEEN Radiography Diagnostic Testing: Clinical Impression(s) from Imaging Studies Lumbar Spine CT 04/16/24 07:37 IMPRESSION: No evidence for acute fracture or dislocation in the lumbar spine. Postoperative and degenerative changes as above. Electronically Signed: Jalyn Kate MD at 10:19 EDT , Abdomen/Pelvis CT 04/16/24 07:38 IMPRESSION: Negative examination for renal stone. Stable partially calcified pancreatic lesion. Small left inguinal hernia now containing a short segment of sigmoid colon without CT evidence for colonic obstruction or strangulation. Moderate stool in the colon. Colonic diverticulosis without acute diverticulitis. Electronically Signed: Jalyn Kate MD at 10:33 EDT , Management Discussion w/another healthcare provider: Hospitalist and Business Affairs Manager Discharge Plan Dx/Rx/DC Orders Clinical Impression: Anemia, Thrombocytopenia, MDS (myelodysplastic syndrome) with 5q deletion, Intractable low back pain Disposition Disposition: Acute Care [facility]
[2024-04-16] MEDS: fentaNYL 100 MCG/2 ML Ampul 25 MCG IV (07:53)
[2024-04-16 08:27] LABS: Absolute Lymphocyte Count 1.24 X10^3/uL (0.83-4.51); Absolute Neutrophil Count 5.5 X10^3/uL (2.0-7.7); Basophil# 0.01 X10^3/uL; Basophil% 0.1 % (0-1); Eosinophil# 0.02 X10^3/uL; Eosinophils% 0.2 % (0-5); Hematocrit 20.9 % (40-54); Hemoglobin 7.1 g/dL (13.0-16.5); Lymphocyte # 1.24 X10^3/ul (0.83-4.51); Lymphocyte % 15.3 % (19-41); Mean Corpuscular Hgb 29.8 pg (27.0-32.0); Mean Corpuscular Volume 87.8 fL (80-94); Mean Platelet Vol. 12.3 fl (6.2-12.0); Monocyte# 1.09 X10^3/uL; Monocyte% 13.4 % (0-10); NRBC Flagged by Analyzer 0.9 % (0-5); Neutrophil # 5.54 X10^3/uL (2.7-7.7); Neutrophil % 68.4 % (47-70); POSITIVE COUNT YES; POSITIVE MORPHOLOGY YES; RBC Distribution Width CV 11.9 % (11.6-14.6); Red Blood Count 2.38 M/mm3 (4.6-6.2); White Blood Count 8.1 K/mm3 (4.4-11.0)
[2024-04-16 08:28] LABS: ALB/GLOB Ratio 1.1 RATIO (0.9-2.4); AST(SGOT) 19 U/L (15-37); Alanine Aminotransfer ALT/SGPT 51 U/L (16-61); Albumin, Serum 3.7 g/dL (3.2-5.0); Alkaline Phosphatase 102 U/L (45-117); Anion Gap 11 (5-15); BUN 28 mg/dL (7-18); BUN/Creat Ratio 21.4 RATIO (10-20); Calcium,Total 9.4 mg/dL (8.5-10.1); Chloride 100 mmol/L (98-107); Creatinine, Serum 1.31 mg/dL (0.70-1.30); EST Glomerular Filtration Rate 57 mL/min (>60); Est Glom Filt Rate - Afr Amer 69 mL/min (>60); Globulin 3.4 g/dL (2.2-4.2); Glucose 327 mg/dL (74-106); Potassium 3.8 mmol/L (3.5-5.1); Protein, Total 7.1 g/dL (6.4-8.2); Sodium Level 133 mmol/L (136-145)
[2024-04-16 08:31] LABS: Differential Indicated SCAN CRITERIA MET; Platelet Count 12 K/mm3 (150-450)
[2024-04-16 09:03] LABS: Bacteria 0 SEEN /hpf (None Seen); Mucous, Urine 0 SEEN /hpf (<or=2+); Red Blood Cells-Urine 0 SEEN /hpf (0-5); Squamous Epithelial Cells - UA 0 SEEN /hpf (0-5)
[2024-04-16 09:16] LABS: Color, Urine Yellow (Yellow); Glucose, Dipstick 1000 mg/dl (Normal); Ketone-Dipstick 15 mg/dl (Negative); Leukocyte Esterase-Dipstick 25 /ul (Negative); Nitrite-Dipstick Negative (Negative); Occult Blood-Urine Negative /ul (Negative); Protein-Dipstick 30 mg/dl (Negative); Specific Gravity, Urine 1.025 (1.002-1.030); Urine Bilirubin Dipstick Negative (Negative); Urine Clarity Clear (Clear); Urine Urobilinogen 1 mg/dl (Normal)
[2024-04-16 09:19] LABS: Differential Comment SCANNED; Platelet Estimate MKD DEC (ADEQ); Reactive Lymphocyte 1+
[2024-04-16 09:24] LABS: Calcium Oxalate Crystals Ur RARE /hpf (<or=2+); White Blood Cells 0-5 SEEN /hpf (0-5)
[2024-04-16] MEDS: fentaNYL 100 MCG/2 ML Ampul 50 MCG IV (10:07)
--- NOTE | 2024-04-16 10:20 | EKG12_ITS ---
Test Reason : CP Blood Pressure : / mmHG Vent. Rate : 075 BPM Atrial Rate : 075 BPM P-R Int : 138 ms QRS Dur : 078 ms QT Int : 384 ms P-R-T Axes : 039 -02 050 degrees QTc Int : 428 ms Normal sinus rhythm Normal ECG Confirmed by QUINTON ZAMARIRPA, LEEANN ([id number]), film and video editor TAMARA MULTANI ([id number]) on 04/20/2024 10:54:49 A M Referred By: TERE/HAKEEM Confirmed By:DELIA ALCANTARA MD
[2024-04-16] MEDS: HYDROmorphone 0.5 MG/0.5 ML SYRINGE IV ×4 (11:37→20:54)
--- NOTE | 2024-04-16 12:23 | HP.PCM.HOS_ITS ---
HPI - General General Date of Admission: 04/16/24 Date of Service: 04/16/24 Chief Complaint: Worsening low back pain and difficulty with ambulation HPI Narrative JOSE KEYS, is a 74 M who presented to [facility] ED on 04/16/2024 with worsening low back pain and difficulty with ambulation. Saw patient at bedside in the ED, present. Patient was just hospitalized here from 04/12-04/13; I followed the patient during that short hospitalization. Patient initially presented to the hospital in March with worsening dyspnea on exertion. Was found at that time to have severe thrombocytopenia and anemia, and bone marrow biopsy showed findings consistent with myelodysplastic syndrome. He does have a history of hypertension and hyperlipidemia and there was concern for coronary artery disease, but left heart catheterization could not be done due to his anemia and thrombocytopenia. He then followed up with oncology in the office on 04/12 and had a presyncopal event at the office. He was admitted for the presyncope and also for repeat bone marrow biopsy, as the first bone marrow biopsy results were not fully conclusive. Patient tolerated repeat biopsy well and had no further presyncopal symptoms. Patient did note some ongoing mild lower back pain during that hospitalization but otherwise was functionally doing well and was stable for discharge home without any therapy needs. Patient and state that since discharge, he has had worsening mid to low back pain, increased difficulty with ambulation and generalized weakness. In the ED, patient had CT lumbar spine without contrast done that showed chronic changes but no evidence of acute fracture or dislocation. He also had CT abdomen pelvis done that showed moderate stool in the colon and colonic diverticulosis, but otherwise no concerning findings. Labs in the ED were similar to labs on recent discharge. Vitals were unremarkable. Patient was given 2 doses of low-dose IV fentanyl as well as a dose of low-dose IV Dilaudid states that these helped for about an hour each but then the pain came back to the same level each time. When I saw him in the room, he was standing at the edge of the bed but was in noticeable moderate pain. He was holding his mid to low back and bending forward slightly, and he was consistently grimacing with any movement. Patient otherwise denied any fevers or chills. Denied any chest pain or shortness of breath. No other acute concerns at this time. [facility] Medical History MDS (myelodysplastic syndrome) with 5q deletion Anxiety Diabetes Pancreatitis Non-smoker Diverticulosis History of chronic hypertension History of diabetes mellitus Home Medications ?Medication ?Instructions ?Recorded ?Last Taken ?Type atorvastatin 80 mg tablet 80 mg PO QHS CHOLESTEROL #30 tabs 04/03/24 04/11/24 Rx insulin glargine-yfgn 100 unit/mL 40 unit (0.4 mL) subcut QHS 04/03/24 04/11/24 Rx (3 mL) subcutaneous pen DIABETES #15 mL isosorbide mononitrate 30 mg 30 mg PO DAILY CHEST PAIN #30 tabs 04/03/24 04/11/24 Rx tablet,extended release 24 hr lisinopril 10 mg tablet 10 mg PO DAILY BLOOD PRESSURE #30 04/03/24 04/11/24 Rx tabs metoprolol tartrate 25 mg tablet 25 mg PO BID BLOOD PRESSURE #60 04/03/24 04/11/24 Rx tabs nitroglycerin 0.4 mg sublingual 0.4 mg sublingual Q5M PRN 04/03/24 Unknown Rx tablet Cardiac/Chest Pain #10 tabs pen needle, diabetic 29 gauge #100 ea 04/03/24 Unknown Rx oxycodone 5 mg capsule 5 mg PO Q6H PRN BACK PAIN 3 days 04/04/24 04/04/24 Rx #12 caps prednisone 20 mg tablet 60 mg PO DAILY STEROID 04/16/24 04/15/24 History Allergy/AdvReac Type Severity Reaction Status Date / Time Ahoxprt-GMA-WxF Reductase AdvReac Intermediate Pain in Verified 04/16/24 07:15 Inhibitor (Slmklja-Pxv-Uzs joints Reductase Inhibitor) Family History Other Brain malignancy Diabetes Hypertension Surgical History Previous back surgery H/O colonoscopy Social History household members: spouse housing: house current occupational status: retired Smoking Status: Never smoker alcohol intake: former substance use type: does not use ROS Constitutional Constitutional: Reports fatigue and weakness; Denies chills or fever(s) Eyes Eyes: Denies change in vision Cardiovascular Cardiovascular: Denies chest pain Respiratory/Chest Respiratory/Chest: Denies shortness of breath at rest Gastrointestinal Gastrointestinal: Reports constipation; Denies abdominal pain, diarrhea, nausea or vomiting Genitourinary Genitourinary: Denies dysuria Musculoskeletal Musculoskeletal: Reports back pain; Denies arthralgias, joint pain or myalgias Neurologic Neurologic: Reports abnormal gait; Denies dizziness, focal weakness, headache(s), numbness, paresthesias, tingling or tremor(s) Vital Signs Vital Signs Vital Signs: 04/16/24 07:15 04/16/24 07:15 04/16/24 07:35 Temperature 96.0 F L Temperature Source Temporal Pulse Rate 74 74 Respiratory Rate 16 16 Respiratory Effort Normal Non-Labored Respiratory Pattern Tachypnea Blood Pressure 111/49 L 111/49 L Blood Pressure Mean 69 69 Pulse Ox 100 100 Oxygen Delivery Method Room Air Room Air 04/16/24 09:14 04/16/24 11:27 04/16/24 11:43 Temperature 96.8 F L 96.8 F L Temperature Source Temporal Pulse Rate 71 88 77 Respiratory Rate 18 34 H 28 H Respiratory Effort Respiratory Pattern Blood Pressure 120/52 L 104/67 124/61 H Blood Pressure Mean 74 79 82 Pulse Ox 98 98 95 Oxygen Delivery Method Room Air Room Air Weight Weight: 81.647 kg Body Mass Index (BMI) 27.3 Physical Exam Const alert, oriented x3, no apparent distress and average body habitus Constitutional Narrative: Elderly male, standing at edge of bed, appears to be in pain and actively grimacing with any movement and holding his low to mid back, moderately fatigued appearing, otherwise conversing normally and in no acute distress. General Appearance: cooperative and comfortable HEENT normocephalic, head/scalp atraumatic, hearing grossly normal bilaterally and nasal mucous membranes and turbinates normal Eyes PERRL, EOMs intact bilaterally and conjunctivae normal Neck full ROM Chest inspection of chest normal Resp normal respiratory effort, normal air movement, no use of accessory muscles and clear to auscultation bilaterally Cardio regular rate, regular rhythm, no murmurs and peripheral pulses 2+ throughout GI normal to inspection, nondistended, normoactive bowel sounds, soft to palpation, non-tender and non-distended Back/Spine Back/Spine Narrative: Mild mid to low back pain with palpation. Did not attempt any passive movement but patient had noticeable pain with any active movement. Extremity normal to inspection, full ROM and no pedal edema Skin no rashes or lesions noted Neuro moves all extremities and no focal motor deficits Speech: speech normal Psych mental status grossly normal Results Lab / Micro Data 04/16/24 07:54 04/16/24 07:54 Labs: Laboratory Results - last 24 hr 04/16/24 07:54: WBC 8.1, RBC 2.38 L, Hgb 7.1 L, Hct 20.9 L, MCV 87.8, MCH 29.8, MCHC 34.0, RDW Std Deviation 38.0, RDW Coeff of Consuelo 11.9, Plt Count 12 L*, MPV 12.3 H, Immature Gran % (Auto) 2.600 H, Neut % (Auto) 68.4, Lymph % (Auto) 15.3 L, [place] % (Auto) 13.4 H, Eos % (Auto) 0.2, Baso % (Auto) 0.1, Absolute Neuts (auto) 5.5, Absolute Lymphs (auto) 1.24, Nucleated RBC % 0.9, Differential Comment SCANNED, Diff Path Review May foll, Reactive Lymphocytes 1+, Platelet Estimate MKD DEC, Sodium 133 L, Potassium 3.8, Chloride 100, Carbon Dioxide 22.0, Anion Gap 11, BUN 28 H, Creatinine 1.31 H, Est GFR (MDRD) Af Amer 69, Est GFR (MDRD) Non-Af 57 L, BUN/Creatinine Ratio 21.4 H, Glucose 327 H, Calcium 9.4, Total Bilirubin 0.80, AST 19, ALT 51, Alkaline Phosphatase 102, Total Protein 7.1, Albumin 3.7, Globulin 3.4, Albumin/Globulin Ratio 1.1 04/16/24 08:45: Urine Color Yellow, Urine Clarity Clear, Urine pH 5.0, Ur Specific [place] 1.025, Urine Protein 30 H, Urine Glucose (UA) 1000 H, Urine Ketones 15 H, Urine Occult Blood Negative, Urine Nitrite Negative, Urine Bilirubin Negative, Urine Urobilinogen 1 H, Ur Leukocyte Esterase 25 H, Urine RBC 0 SEEN, Urine WBC 0-5 SEEN, Ur Squamous Epith Cells 0 SEEN, Calcium Oxalate Crystal RARE, Urine Bacteria 0 SEEN, Urine Mucus 0 SEEN Imaging Radiology Impression Lumbar Spine CT 04/16/24 07:37 IMPRESSION: No evidence for acute fracture or dislocation in the lumbar spine. Postoperative and degenerative changes as above. Electronically Signed: Jalyn Kate MD at 10:19 EDT , Abdomen/Pelvis CT 04/16/24 07:38 IMPRESSION: Negative examination for renal stone. Stable partially calcified pancreatic lesion. Small left inguinal hernia now containing a short segment of sigmoid colon without CT evidence for colonic obstruction or strangulation. Moderate stool in the colon. Colonic diverticulosis without acute diverticulitis. Electronically Signed: Jalyn Kate MD at 10:33 EDT , Assessment & Plan Assessment/Plan (1) Intractable low back pain: (2) MDS (myelodysplastic syndrome) with 5q deletion: (3) Hyperglycemia: (4) Thrombocytopenia: (5) Anemia: QUALIFIERS: Anemia type: unspecified type Qualified Code(s): D 64.9 - Anemia, unspecified PLAN: Plan Patient is a 74-year-old male who presented [facility] ED on 04/16/2024 with worsening low back pain and difficulty with ambulation. 1. Worsening low back pain and difficulty with ambulation, acute debility ? Admit under inpatient status to [facility]. PT/OT/case management consulted. Unclear etiology of acute worsening of his back pain. CT lumbar spine with chronic degenerative changes but no acute findings. Patient did have moderate stool burden noted on his CT abdomen pelvis so constipation may be contributing to this back pain. Will treat with scheduled Tylenol, lidocaine patch, p.o. oxycodone as needed and IV Dilaudid as needed for now. Bowel regimen with MiraLAX and senna scheduled. If patient does not have much improvement in back pain, will consider pain management consult. Monitor closely. 2. Mild creatinine elevation, mild hyponatremia ? Creatinine 1.31, sodium 133 on admit. Baseline creatinine around 1.1 and normal sodium at baseline. Suspect these mild abnormalities are secondary to recent poor p.o. intake and dehydration. Given IV fluid resuscitation in the ED, will follow-up BMP tomorrow. 3. Constipation ? Patient denies significant symptoms of constipation but CT abdomen pelvis with moderate stool burden as noted above. Will start scheduled bowel regimen as noted above and monitor stool output. 4. 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 Follows with Dr. Lazaro with oncology. Recent bone marrow biopsy in March showed myelodysplastic syndrome but findings were not fully conclusive. Repeat bone marrow biopsy done on 04/13, results pending but apparently preliminary results showed some blasts concerning for possible acute leukemia. Patient has an appointment planned with [facility] oncology in the next 1 to 2 weeks for further evaluation. Labs on admit with hemoglobin 7.1, platelet count 12. Discussed with oncology on admission, can transfuse for hemoglobin less than 6.5 and platelet count less than 10. Will monitor CBC daily. SCDs for DVT prophylaxis. Continue prednisone taper as prescribed by oncology. 5. Hypertension/hyperlipidemia/concern for CAD ? Had recent hospitalization in late March when he presented with worsening exertional dyspnea. Was unable to have left heart catheterization done given severe thrombocytopenia and anemia as noted above. Recommendation per cardiology then was for left heart cath at some point in the future once hematologic issues are controlled. Normotensive on admit. Will continue home Lopressor and nitrate, hold lisinopril for now given mild dehydration on admit as noted above. Continue home statin. 6. Type 2 diabetes mellitus with hyperglycemia ? Home regimen of Lantus 40 units at night. Blood glucose 327 on admit, likely elevated due to recent steroids. Will start Lantus at reduced dose of 25 units at night with sliding scale insulin with meals, adjust as needed. DVT prophylaxis: SCDs CODE STATUS: Full code, verified Expected disposition: TBD Total clinical time spent by myself addressing the patient's medical issues, reviewing all the data, and collaborating with patient's care team: 55 minutes. Charges/Coding Visit Charges Inpatient E&M: 84719 Init Hosp L2
[2024-04-16] MEDS: Senna Tablet 2 TABLET PO ×2 (13:58→20:42)
[2024-04-16] MEDS: Lidocaine 5% Patch 1 PATCH TOPICAL (13:58)
[2024-04-16] MEDS: oxyCODONE 5 MG Tablet PO ×3 (13:59→23:38)
[2024-04-16] MEDS: Lactated Ringers 1,000 ML 250 ML IV (14:02)
[2024-04-16] MEDS: Acetaminophen 500 MG Tablet 1000 MG PO ×2 (14:03→20:42)
[2024-04-16] MEDS: Ondansetron 4 MG/2 ML Vial IV ×2 (14:53→23:38)
[2024-04-16] MEDS: 0.9% Saline Lock 10 ML Syringe IV ×4 (14:54→23:37)
[2024-04-16] MEDS: predniSONE 20 MG Tablet 60 MG PO (17:00)
[2024-04-16] MEDS: Insulin Lispro 100 UNIT/ML INSULN.PEN SC ×2 (17:58→23:41)
[2024-04-16 18:09] LABS: Bedside Glucose 289 mg/dL (74-106)
[2024-04-16] MEDS: Gabapentin 100 MG Capsule PO (20:40)
[2024-04-16] MEDS: Fleet Enema 133 ML RC (20:40)
[2024-04-16] MEDS: Metoprolol Tartrate 25 MG Tablet PO (20:41)
--- NOTE | 2024-04-16 22:18 | PCM.HOSP.N ---
Hospitalist Note Patient with ongoing pain lumbar back and constipation per RN/family. Trial enema with 1 firm BP. Ongoing pain. Will dose with lactulose and fentanyl IV x 1. Trial also of low dose gabapentin given already on several agents.
[2024-04-16 22:52] LABS: Bedside Glucose 309 mg/dL (74-106)
[2024-04-16] MEDS: MELATONIN 3 MG TABLET PO (23:38)
[2024-04-16] MEDS: Insulin Glargine-YFGN 100 UNIT/ML Pen 25 UNIT SC (23:40)
--- NOTE | 2024-04-16 23:50 | NURSING ---
Called pharmacy for patients fentanyl order.
[2024-04-17] VITALS (10 sets, daily range): BP systolic 126–150; BP diastolic 45–75; PULSE 76–95; RESP 16–18; TEMP 36.6–37.1; O2SAT 92–99
[2024-04-17] MEDS: Lactulose 20 GM/30 ML UDC PO ×3 (00:25→18:07)
[2024-04-17] MEDS: fentaNYL 100 MCG/2 ML Ampul 25 MCG IV (00:26)
[2024-04-17] MEDS: 0.9% Saline Lock 10 ML Syringe IV ×2 (02:59→06:57)
[2024-04-17] MEDS: HYDROmorphone 0.5 MG/0.5 ML SYRINGE IV ×4 (02:59→18:18)
[2024-04-17] MEDS: Acetaminophen 500 MG Tablet 1000 MG PO ×3 (05:08→21:23)
[2024-04-17] MEDS: oxyCODONE 5 MG Tablet PO ×4 (05:08→21:16)
[2024-04-17 06:45] LABS: Bedside Glucose 257 mg/dL (74-106)
[2024-04-17] MEDS: Insulin Lispro 100 UNIT/ML INSULN.PEN SC ×2 (06:53→12:29)
[2024-04-17 07:54] LABS: Hematocrit 19.7 % (40-54); Hemoglobin 6.8 g/dL (13.0-16.5); Mean Corp Hgb Conc 34.5 g/dL (32-36); Mean Corpuscular Hgb 30.1 pg (27.0-32.0); Mean Corpuscular Volume 87.2 fL (80-94); Mean Platelet Vol. 12.3 fl (6.2-12.0); POSITIVE COUNT YES; Platelet Count 8 K/mm3 (150-450); RBC Distribution Width CV 12.1 % (11.6-14.6); RBC Distribution Width SD 39.1 fl (35.1-43.9); Red Blood Count 2.26 M/mm3 (4.6-6.2); White Blood Count 6.8 K/mm3 (4.4-11.0)
[2024-04-17 08:12] LABS: Scan Indicated on CBC? Y/N YES- FLAGS NOTED
[2024-04-17 08:15] LABS: Anion Gap 12 (5-15); BUN 37 mg/dL (7-18); BUN/Creat Ratio 26.4 RATIO (10-20); Calcium,Total 9.3 mg/dL (8.5-10.1); Chloride 99 mmol/L (98-107); EST Glomerular Filtration Rate 53 mL/min (>60); Est Glom Filt Rate - Afr Amer 64 mL/min (>60); Estimated Creatinine Clearance 45.46 ml/min; Glucose 232 mg/dL (74-106); Potassium 4.4 mmol/L (3.5-5.1); Sodium Level 132 mmol/L (136-145)
[2024-04-17] MEDS: Gabapentin 100 MG Capsule PO ×3 (09:08→18:07)
[2024-04-17] MEDS: predniSONE 20 MG Tablet 60 MG PO (09:09)
[2024-04-17] MEDS: Senna Tablet 2 TABLET PO ×2 (09:10→21:24)
[2024-04-17] MEDS: Isosorbide Mononitrate 30 MG Tablet PO (09:11)
[2024-04-17] MEDS: Polyethylene Glycol 3350 17 GM PACKET PO (09:12)
[2024-04-17] MEDS: Metoprolol Tartrate 25 MG Tablet PO ×2 (09:15→22:08)
[2024-04-17] MEDS: Lidocaine 5% Patch 1 PATCH TOPICAL (09:19)
[2024-04-17 10:03] LABS: Differential Comment SCANNED
--- NOTE | 2024-04-17 12:14 | PN.HOSP_ITS ---
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 Patient was sitting in bedside chair but continued to look mildly uncomfortable due to ongoing pain. He reports pain in the mid back, but his son notes that when patient gets up and points the pain it appears that the pain wraps around his back and into his upper abdominal area bilaterally. Patient was given a dose of lactulose and an enema overnight but had only 1 small hard bowel movement. Patient's son asking if bowel regimen can be escalated to try to produce further bowel movements to see if this helps his pain, as it seems like the pain medication has only been somewhat helpful for him. No other new concerns today. Objective Data Objective Data Vital Signs: Vital Signs Temp Pulse Resp BP Pulse Ox O2 Del Method 97.8 F 91 18 128/45 H 98 Room Air 04/17/24 05:24 04/17/24 09:15 04/17/24 05:24 04/17/24 09:15 04/17/24 05:24 04/17/24 09:00 Oxygen Delivery Method Room Air Weight: 81.647 kg Body Mass Index (BMI) 27.3 Intake & Output: Intake and Output for Last 24 Hours 04/15/24 04/16/24 04/17/24 23:59 23:59 23:59 Intake Total 1000 / 1000 Balance 1000 / 1000 Lab / Micro Data 04/17/24 07:36 04/17/24 07:36 Labs: Laboratory Results - last 24 hr 04/16/24 17:51: POC Glucose 289 H 04/16/24 22:32: POC Glucose 309 H 04/17/24 06:26: POC Glucose 257 H 04/17/24 07:36: WBC 6.8, RBC 2.26 L, Hgb 6.8 L, Hct 19.7 L, MCV 87.2, MCH 30.1, MCHC 34.5, RDW Std Deviation 39.1, RDW Coeff of Consuelo 12.1, Plt Count 8 L*, MPV 12.3 H, Differential Comment SCANNED, Diff Path Review February foll, Sodium 132 L, Potassium 4.4, Chloride 99, Carbon Dioxide 21.0, Anion Gap 12, BUN 37 H, C reatinine 1.40 H, Estim Creat Clear Calc 45.46, Est GFR (MDRD) Af Amer 64, Est GFR (MDRD) Non-Af 53 L, BUN/Creatinine Ratio 26.4 H, Glucose 232 H, Calcium 9.3, Blood Type O POSITIVE, Antibody Screen NEGATIVE, Crossmatch See Detail Physical Exam Const alert, oriented x3, no apparent distress and average body habitus Constitutional Narrative: Elderly male, sitting in bedside chair, appears mildly uncomfortable due to ongoing pain, mildly fatigued appearing, otherwise conversing normally and in no acute distress. General Appearance: cooperative and comfortable HEENT normocephalic, head/scalp atraumatic, hearing grossly normal bilaterally and nasal mucous membranes and turbinates normal Eyes PERRL, EOMs intact bilaterally and conjunctivae normal Neck full ROM Chest inspection of chest normal Resp normal respiratory effort, normal air movement, no use of accessory muscles and clear to auscultation bilaterally Cardio regular rate, regular rhythm, no murmurs and peripheral pulses 2+ throughout GI normal to inspection, nondistended, normoactive bowel sounds, soft to palpation, non-tender and non-distended Back/Spine Back/Spine Narrative: Mild mid to low back pain with palpation, stable. Extremity normal to inspection, full ROM and no pedal edema Skin no rashes or lesions noted Neuro moves all extremities and no focal motor deficits Speech: speech normal Psych mental status grossly normal Assessment & Plan Assessment/Plan (1) Intractable low back pain: (2) MDS (myelodysplastic syndrome) with 5q deletion: (3) Hyperglycemia: (4) Thrombocytopenia: (5) Anemia: QUALIFIERS: Anemia type: unspecified type Qualified Code(s): D 64.9 - Anemia, unspecified PLAN: Plan Patient is a 74-year-old male who presented [facility] ED on 04/16/2024 with worsening low back pain and difficulty with ambulation. 1. Worsening low back pain and difficulty with ambulation, acute debility ? Admit under inpatient status to [facility]. PT/OT/case management consulted. Unclear etiology of acute worsening of his back pain. CT lumbar spine with chronic degenerative changes but no acute findings. Patient did have moderate stool burden noted on his CT abdomen pelvis so constipation may be contributing to this back pain. Unfortunately his only had some improvement in pain with medications to this point. Has only had 1 small hard bowel movement, have concern that constipation could be a large contributor to his pain. Treating constipation as noted below. Will continue pain management with scheduled Tylenol, lidocaine patch, p.o. oxycodone and IV Dilaudid as needed. If patient's pain continues to be fairly uncontrolled tomorrow, can consider pain management consult. 2. Mild creatinine elevation, mild hyponatremia ? Creatinine 1.31, sodium 133 on admit. Baseline creatinine around 1.1 and normal sodium at baseline. Suspect these mild abnormalities are secondary to recent poor p.o. intake and dehydration. Given IV fluid resuscitation on admit but repeat creatinine stable at 1.40. Will give further IV fluid resuscitation on 04/17. Monitor daily BMP and urine output. 3. Constipation ? Patient denied significant symptoms of constipation but CT abdomen pelvis with moderate stool burden as noted above. Started bowel regimen of scheduled senna and MiraLAX on admission. Given doses of lactulose and one-time enema on evening of 04/16 with only 1 small bowel movement, escalated to lactulose 20 mg twice daily for now. Monitor and adjust regimen further as needed. 4. 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 Follows with Dr. Lazaro with oncology. Recent bone marrow biopsy in March showed myelodysplastic syndrome but findings were not fully conclusive. Repeat bone marrow biopsy done on 04/13, results pending but apparently preliminary results showed some blasts concerning for possible acute leukemia. Patient has an appointment planned with [facility] oncology in the next 1 to 2 weeks for further evaluation. Labs on admit with hemoglobin 7.1, platelet count 12. Repeat hemoglobin 6.8, platelet count 8 on 04/17; will transfuse 1 unit of packed red blood cells and 1 unit of platelets. Discussed with oncology on admission, can transfuse for hemoglobin less than 7.0 and platelet count less than 10 going forward. Continue to monitor CBC daily. SCDs for DVT prophylaxis. Continue prednisone taper as prescribed by oncology; was on prednisone 60 mg daily, will start 40 mg daily on 04/18. 5. Hypertension/hyperlipidemia/concern for CAD ? Had recent hospitalization in late March when he presented with worsening exertional dyspnea. Was unable to have left heart catheterization done given severe thrombocytopenia and anemia as noted above. Recommendation per cardiology then was for left heart cath at some point in the future once hematologic issues are controlled. Normotensive on admit. Will continue home Lopressor and nitrate, hold lisinopril for now given mild dehydration on admit as noted above. Continue home statin. 6. Type 2 diabetes mellitus with hyperglycemia ? Home regimen of Lantus 40 units at night. Blood glucose 327 on admit, likely elevated due to recent steroids. Will start Lantus at reduced dose of 25 units at night with sliding scale insulin with meals, adjust as needed. DVT prophylaxis: SCDs CODE STATUS: Full code, verified Expected disposition: TBD Total clinical time spent by myself addressing the patient's medical issues, reviewing all the data, and collaborating with patient's care team: 35 minutes. Charges/Coding Visit Charges Inpatient E&M: 82092 Subs Hosp L2
[2024-04-17] MEDS: Lactated Ringers 1,000 ML 250 ML IV (12:19)
[2024-04-17 12:51] LABS: Bedside Glucose 213 mg/dL (74-106)
[2024-04-17] MEDS: Ondansetron 4 MG/2 ML Vial IV (18:04)
[2024-04-17 18:17] LABS: Bedside Glucose 224 mg/dL (74-106)
--- NOTE | 2024-04-17 19:02 | CT_ITS ---
EXAM: CT HEAD WITHOUT INTRAVENOUS CONTRAST CLINICAL INDICATION: altered mental state , severe thrombocytopneia TECHNIQUE: Multiple axial images were obtained of the head without intravenous contrast. This CT exam was performed using one or more of the following dose reduction techniques: automated exposure control, adjustment of the mA and/or kV according to patient size, and/or use of iterative reconstruction technique. RADIATION DOSE: CTDIvol = 44.99 mGy, DLP = 863.60 mGy-cm COMPARISON: 04/12/2024 FINDINGS: BRAIN AND EXTRA-AXIAL SPACES: Unremarkable. No intra- or extra-axial hemorrhage. No evidence of acute infarct. No intracranial mass or mass effect. There is preservation of the alberto/white matter interface. Posterior fossa structures are unremarkable. Ventricles are appropriate for age. No hydrocephalus. Basal cisterns are patent. BONES/JOINTS: Unremarkable. No discrete lytic or blastic abnormalities. SINUSES: Unremarkable as visualized. Clear. MASTOID AIR CELLS: Unremarkable. Clear. ORBITS: Visualized globes, extraocular muscles, optic nerves and retrobulbar fat appear unremarkable. CT/Brain/Head without Contrast IMPRESSION: Negative head/brain CT without intravenous contrast. Electronically Signed: Alex Rojas MD at 21:08 EDT ,
--- NOTE | 2024-04-17 19:18 | PCM.PN.BLA ---
Progress Note Was notified by patient's nurse regarding patient not doing well. Per nursing staff patient has been anxious. Patient has apparently been constipated and is currently on an aggressive bowel regimen and is having only liquid stools. Did examine patient he did appear to be in some discomfort. On questioning he did complain of his back hurting. Did review labs has significant thrombocytopenia ordered CT of the head stat. Will follow-up on result.
--- NOTE | 2024-04-17 20:31 | PCM.HOSP.N ---
Hospitalist Note Preliminary review of CT with no obvious marked bleed evident but awaiting final read. Patient per nursing with still pain. Family requesting sleeping agent and more pain control. Will increase gabapentin to 200 mg TID, will dose also with low dose trazodone.
[2024-04-17] MEDS: Gabapentin 100 MG Capsule 200 MG PO (21:14)
[2024-04-17] MEDS: Dicyclomine 10 MG Capsule 20 MG PO (21:15)
[2024-04-17] MEDS: MELATONIN 3 MG TABLET PO (21:15)
[2024-04-17] MEDS: traZODone 50 MG Tablet PO (21:19)
[2024-04-17] MEDS: Insulin Glargine-YFGN 100 UNIT/ML Pen 25 UNIT SC (21:42)
[2024-04-17 22:01] LABS: Bedside Glucose 278 mg/dL (74-106)
[2024-04-18] VITALS (14 sets, daily range): BP systolic 128–144; BP diastolic 65–83; PULSE 78–93; RESP 16–18; TEMP 36.4–37.3; O2SAT 93–97
[2024-04-18] MEDS: HYDROmorphone 0.5 MG/0.5 ML SYRINGE IV ×5 (03:04→23:34)
[2024-04-18] MEDS: oxyCODONE 5 MG Tablet PO ×2 (05:49→10:16)
[2024-04-18] MEDS: Acetaminophen 500 MG Tablet 1000 MG PO ×2 (05:49→22:27)
[2024-04-18] MEDS: 0.9% Saline Lock 10 ML Syringe IV ×4 (06:48→23:34)
[2024-04-18 07:03] LABS: Bedside Glucose 275 mg/dL (74-106)
[2024-04-18 07:46] LABS: Hematocrit 19.4 % (40-54); Hemoglobin 6.6 g/dL (13.0-16.5); Mean Corpuscular Hgb 29.5 pg (27.0-32.0); Mean Corpuscular Volume 86.6 fL (80-94); Mean Platelet Vol. 10.2 fl (6.2-12.0); POSITIVE COUNT YES; RBC Distribution Width SD 40.9 fl (35.1-43.9); Red Blood Count 2.24 M/mm3 (4.6-6.2); White Blood Count 4.3 K/mm3 (4.4-11.0)
[2024-04-18 07:54] LABS: Platelet Count 26 K/mm3 (150-450)
[2024-04-18 08:16] LABS: Anion Gap 7 (5-15); BUN 34 mg/dL (7-18); BUN/Creat Ratio 31.2 RATIO (10-20); Calcium,Total 8.5 mg/dL (8.5-10.1); Chloride 98 mmol/L (98-107); Creatinine, Serum 1.09 mg/dL (0.70-1.30); EST Glomerular Filtration Rate 71 mL/min (>60); Est Glom Filt Rate - Afr Amer 85 mL/min (>60); Estimated Creatinine Clearance 58.39 ml/min; Glucose 275 mg/dL (74-106); Potassium 4.3 mmol/L (3.5-5.1); Sodium Level 131 mmol/L (136-145)
[2024-04-18] MEDS: Insulin Lispro 100 UNIT/ML INSULN.PEN SC ×3 (08:34→22:19)
[2024-04-18] MEDS: Dicyclomine 10 MG Capsule 20 MG PO ×3 (08:34→22:21)
[2024-04-18] MEDS: Gabapentin 100 MG Capsule 200 MG PO ×2 (08:35→17:01)
[2024-04-18] MEDS: predniSONE 20 MG Tablet 40 MG PO (08:36)
--- NOTE | 2024-04-18 09:34 | MRI_ITS ---
STUDY: MRI LUMBAR SPINE WITH AND WITHOUT CONTRAST REASON FOR EXAM: Male, 74 years old. intractable mid back pain impinge vs infxn vs mass -- TECHNIQUE: Standardized fat and water weighted pulse sequences were obtained in the sagittal and axial planes. 16ML IV CLARISCAN was administered for the contrast portion of the examination. COMPARISON: None FINDINGS: T12-L1: Normal endplates. Normal disc height, hydration and morphology. Normal bilateral facet joints. Normal central canal and bilateral lateral recesses. Normal bilateral intervertebral neural foramina. Normal lumbar lordosis. Mild levoscoliosis centered at L4. Normal conus medullaris that terminates at the T12/L1. L1-2: Disc desiccation but no disc protrusion, spinal stenosis, neural foraminal stenosis. L2-3: Mild bilateral postoperative fluid with fluid in facet joints consistent with instability and moderately inflamed hypertrophy. 2 mm retrolisthesis of L2 on L3 with a mild bilobed disc protrusion produces moderate spinal stenosis with moderate bilateral lateral recess stenosis with abutment of the L3 nerve roots bilaterally and mild bilateral neural foraminal stenosis. L3-4: Status post posterior decompression. Moderate bilobed disc protrusion produces mild spinal stenosis relieved by the posterior decompression and moderate bilateral neural foraminal stenosis. L4-5: Status post posterior decompression. Moderate broad disc protrusion asymmetric to the right produces mild spinal stenosis relieved by the posterior decompression, severe right neural foraminal stenosis with effacement of the right L4 nerve root laterally and mild left neural foraminal stenosis. L5-S1: Status post posterior decompression. Mild broad disc protrusion produces mild spinal stenosis related by posterior decompression and mild bilateral neural foraminal stenosis. Normal visualized sacral ala. Normal visualized paraspinous soft tissue structures. Enhancing scar tissue posterior to the thecal sac at site of posterior decompression but no mass effect or nerve root encasement. MRI/Spine Lumbar W/WO Contrast IMPRESSION: Postsurgical changes, levoscoliosis, and degenerative disc disease as described above. Electronically Signed: Jb Vargas MD at 17:51 EDT ,
--- NOTE | 2024-04-18 09:34 | MRI_ITS ---
EXAM: MR THORACIC SPINE WITHOUT INTRAVENOUS CONTRAST CLINICAL INDICATION: intractable mid back pain impinge vs infection vs mass -- w/ contrast impingement vs infection vs malignancy TECHNIQUE: Multiplanar and multisequence MR images of the thoracic spine without intravenous contrast. COMPARISON: No relevant prior studies available. FINDINGS: VERTEBRAE: Nodular areas of contrast enhancement noted within the T4, T7 and T11 vertebral bodies as well has more heterogeneous enhancement of the T1, T2 and T3 vertebral bodies raising possibility of metastatic bone disease. Alignment of the thoracic vertebral bodies is normal. Normal vertebral body height. There is preservation of the normal thoracic kyphosis. No scoliosis. DISCS/SPINAL CANAL/NEURAL FORAMINA: Multilevel disc space narrowing involving T7-T12. No disc herniation. No spinal or neural foraminal stenosis. SPINAL CORD: Normal. Normal in signal and morphology. Normal conus medullaris. SOFT TISSUES: Normal. MRI/Spine Thoracic W/WO Contrast IMPRESSION: 1. Multilevel abnormal vertebral body enhancement raising possibility of metastatic disease or multiple myeloma. 2. No evidence of soft tissue mass. 3. No spinal or neural foraminal stenosis. Electronically Signed: Sanket Mayorga MD at 17:10 EDT ,
--- NOTE | 2024-04-18 10:02 | CASEMGMT ---
RN CM Readmission Note Previous Admission:04/12/24-04/13/24 Diagnosis: syncope, severe thrombocytopenia DC Disposition: Home Current Admission: 04/16/24 Current Diagnosis: intractable low back pain, pancytopenia Pt dc'd from [facility] on 04/13. Pt returns to [facility] ER with weakness and lightheadedness and low back pain. This is pt 4th visit recently. Pt had a repeat bone marrow bx on 04/13/24 as first result was inconclusive. RN CM into pt room, pt lying in bed with oxygen on with eyes closed and at bedside. Pt states they do not have results of most recent bx and pt has not slept well. Pt has declined therapy yesterday and this date per . She reports pt was I at home with ADL's prior to this hospitalization. Pt nurse also came into room as well as pt son Curly during assessment. Pt nurse reports pt very weak. Pt has received 1 unit PRBC's and platelets. Pt reports he was taking his meds as ordered and has followed up with Dr. Lazaro. Pt and unwilling to discuss a dc plan at this time d/t feeling it is too early. They state that the pt plan is to follow up with and the [facility] as an outpt. EDWARD COLON to follow for therapy and any other homegoing needs as hospitalization progresses. DC Plan: TBD pending course of hospitalization and therapy progress, kalpesh.
[2024-04-18] MEDS: Lidocaine 5% Patch 1 PATCH TOPICAL (10:18)
[2024-04-18] MEDS: Isosorbide Mononitrate 30 MG Tablet PO (10:19)
[2024-04-18] MEDS: Metoprolol Tartrate 25 MG Tablet PO ×2 (10:19→22:21)
[2024-04-18] MEDS: Lactulose 20 GM/30 ML UDC PO ×2 (10:19→22:21)
[2024-04-18] MEDS: Senna Tablet 2 TABLET PO ×2 (10:20→22:22)
[2024-04-18] MEDS: Polyethylene Glycol 3350 17 GM PACKET PO ×2 (10:20→22:22)
--- NOTE | 2024-04-18 10:42 | NURSING ---
04/18/24@1040- left message with pt advocate due to family concerns.
--- NOTE | 2024-04-18 11:11 | NURSING ---
assuming care for this pt at this time-awaiting MRI just finished breakfast and declines glucose at this time a&o x3, family at bedside and supportive
--- NOTE | 2024-04-18 14:37 | NURSING ---
MRI called and asked for pt to be medicated, pt medicated for procedure/pain w/ 0.5 dilaudid, pt to MRI via bed and 2l n/c o2
[2024-04-18 14:59] LABS: Pathologist Review Reviewed
[2024-04-18 15:00] LABS: Pathologist Review Reviewed
--- NOTE | 2024-04-18 15:02 | NURSING ---
pt off unit for MRI
[2024-04-18 15:18] LABS: Pathologist Review Reviewed
--- NOTE | 2024-04-18 15:59 | NURSING ---
pt remains off unit for testing
--- NOTE | 2024-04-18 17:13 | NURSING ---
PT RETURNED FROM MRI
--- NOTE | 2024-04-18 18:07 | PN.HOSP_ITS ---
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 (04/16/24) Anemia, unspecified (04/16/24) Thrombocytopenia, unspecified (04/16/24) Other low back pain (04/16/24) Hyperglycemia, unspecified (04/16/24) Subjective Subjective Patient tired today, does still have a full feeling in his abdomen and some back pain going to his abdomen Objective Data Objective Data Vital Signs: Vital Signs Temp Pulse Resp BP Pulse Ox O2 Del Method O2 Flow Rate 99.1 F 86 18 143/83 H 93 Nasal Cannula 2 04/18/24 17:15 04/18/24 17:15 04/18/24 17:15 04/18/24 17:15 04/18/24 17:15 04/18/24 17:15 04/18/24 17:15 Oxygen Flow Rate (L/min) 2 Oxygen Delivery Method Nasal Cannula Weight: 81.647 kg Body Mass Index (BMI) 27.3 Intake & Output: Intake and Output for Last 24 Hours 04/16/24 04/17/24 04/18/24 23:59 23:59 23:59 Intake Total 1000 / 1000 1201.00 / 1201.00 1170 / 1170 Output Total 500 / 500 Balance 1000 / 1000 1201.00 / 1201.00 670 / 670 Lab / Micro Data 04/18/24 07:23 04/18/24 07:23 Labs: Laboratory Results - last 24 hr 04/16/24 07:54: Diff Path Review Reviewed 04/17/24 07:36: Diff Path Review Reviewed, Crossmatch See Detail 04/17/24 17:51: POC Glucose 224 H 04/17/24 21:36: POC Glucose 278 H 04/18/24 06:44: POC Glucose 275 H 04/18/24 07:23: WBC 4.3 L, RBC 2.24 L, Hgb 6.6 L, Hct 19.4 L, MCV 86.6, MCH 29.5, MCHC 34.0, RDW Std Deviation 40.9, RDW Coeff of Consuelo 13.0, Plt Count 26 L*, MPV 10.2, Diff Path Review Reviewed, Sodium 131 L, Potassium 4.3, Chloride 98, Carbon Dioxide 26.0, Anion Gap 7, BUN 34 H, Creatinine 1.09, Estim Creat Clear Calc 58.39, Est GFR (MDRD) Af Amer 85, Est GFR (MDRD) Non-Af 71, BUN/Creatinine Ratio 31.2 H, Glucose 275 H, Calcium 8.5 Radiography Diagnostic Testing: Radiology Impression Brain CT 04/17/24 19:02 IMPRESSION: Negative head/brain CT without intravenous contrast. Electronically Signed: Alex Rojas MD at 21:08 EDT , Lumbar Spine MRI 04/18/24 09:34 IMPRESSION: Postsurgical changes, levoscoliosis, and degenerative disc disease as described above. Electronically Signed: Jb Vargas MD at 17:51 EDT , Thoracic Spine MRI 04/18/24 09:34 IMPRESSION: 1. Multilevel abnormal vertebral body enhancement raising possibility of metastatic disease or multiple myeloma. 2. No evidence of soft tissue mass. 3. No spinal or neural foraminal stenosis. Electronically Signed: Sanket Mayorga MD at 17:10 EDT , Physical Exam Narrative General: Tired, does wake up and answers questions but quickly falls back asleep HEENT: Atraumatic, normocephalic Eyes: Anicteric Neck: Supple Respiratory: Clear to auscultation bilaterally, normal respiratory effort Cardiovascular: Regular rate and rhythm GI: Slightly firm and no rebound, guarding, rigidity the patient has some full feeling on palpation Extremities: No edema Musculoskeletal: Moving all extremities, 4+ out of 5 bilateral lower extremity strength Neuro: No overt focal neurological deficits Skin: No rashes appreciated Psych: Cooperative Assessment & Plan Assessment/Plan (1) Intractable low back pain: (2) MDS (myelodysplastic syndrome) with 5q deletion: (3) Hyperglycemia: (4) Thrombocytopenia: (5) Anemia: QUALIFIERS: Anemia type: unspecified type Qualified Code(s): D 64.9 - Anemia, unspecified PLAN: Plan #Worsening low to mid back pain -Admitted to [facility] [place] -CT lumbar spine with chronic degenerative changes but otherwise unremarkable, did have moderate stool burden so was felt that this was contributing to the pain -Has had bowel regimen escalated -Due to continued poor functional status MRI thoracic and lumbar spines obtained, lesions noted on thoracic spine, discussed with patient's hematology oncology doctor and it felt that this is consistent with reactivation of the bone marrow with his MDS over the other possible etiologies -Supportive care, pain control # Pancytopenia?MDS -Biopsy noted MDS, awaiting the biopsy results -Discussed with oncology, transfuse patient for hemoglobin less than 7 and platelets less than 10 -Inpatient versus outpatient [place] oncology -Repeat CBC in a.m. -Blood today, had packed red blood cells yesterday as well and platelets yesterday #Type 2 diabetes mellitus -Glucose checks and sliding scale insulin -Patient is on a steroid, continue long-acting insulin # Concern for coronary artery disease -Had hospitalization in mid March with worsening exertional dyspnea -Cath deferred given his severe anemia and thrombocytopenia and is advised at some point in the future to consider further evaluation -Continue Imdur and beta-francheska # Hypertension -Imdur and metoprolol -Lisinopril currently held #Constipation -Escalation of bowel regimen #DVT ppx: SCDs Laura Wheeler MD Time spent in the patient's overall evaluation,decision-making process, review of diagnostic data, adjustment of management, discussion with other providers, nursing nursing and ancillary staff involved in patient's care documentation, 60 Minutes Charges/Coding Visit Charges Inpatient E&M: 62517 [facility] Hosp L3
[2024-04-18] MEDS: Glucerna Shake 120 ML LIQUID PO ×2 (19:00→22:20)
[2024-04-18 20:42] LABS: Bedside Glucose 292 mg/dL (74-106)
[2024-04-18] MEDS: traZODone 50 MG Tablet PO (22:18)
[2024-04-18] MEDS: MELATONIN 3 MG TABLET 10 MG PO (22:18)
[2024-04-18] MEDS: Insulin Glargine-YFGN 100 UNIT/ML Pen 25 UNIT SC (22:20)
[2024-04-18] MEDS: Tamsulosin HCl 0.4 MG Capsule PO (22:21)
[2024-04-19] VITALS (10 sets, daily range): BP systolic 117–152; BP diastolic 64–78; PULSE 78–86; RESP 18–19; TEMP 36.4–36.6; O2SAT 86–97
[2024-04-19 03:31] LABS: Bedside Glucose 297 mg/dL (74-106)
[2024-04-19] MEDS: HYDROmorphone 0.5 MG/0.5 ML SYRINGE IV (03:57)
[2024-04-19] MEDS: 0.9% Saline Lock 10 ML Syringe IV (03:57)
[2024-04-19] MEDS: Lactulose 20 GM/30 ML UDC PO ×3 (06:18→21:58)
[2024-04-19] MEDS: Acetaminophen 500 MG Tablet 1000 MG PO ×3 (06:20→21:58)
[2024-04-19 06:57] LABS: Bedside Glucose 249 mg/dL (74-106)
[2024-04-19 07:58] LABS: Hematocrit 23.7 % (40-54); Mean Corp Hgb Conc 33.8 g/dL (32-36); Mean Corpuscular Hgb 28.6 pg (27.0-32.0); Mean Corpuscular Volume 84.6 fL (80-94); Mean Platelet Vol. 10.7 fl (6.2-12.0); POSITIVE COUNT YES; POSITIVE DIFFERENTIAL YES; POSITIVE MORPHOLOGY YES; RBC Distribution Width CV 14.5 % (11.6-14.6); RBC Distribution Width SD 44.8 fl (35.1-43.9)
[2024-04-19 08:21] LABS: Differential Indicated MANUAL DIFF; Platelet Count 12 K/mm3 (150-450)
[2024-04-19] MEDS: Dicyclomine 10 MG Capsule 20 MG PO ×2 (08:29→11:58)
[2024-04-19] MEDS: Glucerna Shake 120 ML LIQUID PO ×3 (08:33→21:57)
[2024-04-19] MEDS: predniSONE 20 MG Tablet 40 MG PO (08:33)
[2024-04-19] MEDS: Isosorbide Mononitrate 30 MG Tablet PO (08:34)
[2024-04-19] MEDS: Lidocaine 5% Patch 1 PATCH TOPICAL (08:35)
[2024-04-19] MEDS: Senna Tablet 2 TABLET PO (08:36)
[2024-04-19] MEDS: Polyethylene Glycol 3350 17 GM PACKET PO ×2 (08:36→21:59)
[2024-04-19] MEDS: Metoprolol Tartrate 25 MG Tablet PO ×2 (08:36→21:59)
[2024-04-19] MEDS: Gabapentin 100 MG Capsule PO ×3 (08:46→18:15)
[2024-04-19] MEDS: oxyCODONE 5 MG Tablet PO ×2 (08:49→20:13)
[2024-04-19] MEDS: Insulin Lispro 100 UNIT/ML INSULN.PEN SC ×4 (08:50→22:02)
[2024-04-19] MEDS: Insulin Glargine-YFGN 100 UNIT/ML Pen 10 UNIT SC (08:52)
--- NOTE | 2024-04-19 09:33 | CASEMGMT ---
Discharge Planning A list of?SNF providers including quality and resource use data and consistent with the patient's preferred geographic region, medical needs, and insurance network was created in [employer] Guide.? This list was provided to the Loulou Colbert Discharge Planning Asst.
[2024-04-19 09:51] LABS: Blast 42 % (0-0); Lymphocyte 19 % (19-41); Neutrophil-Band 1 % (0-5); Neutrophil-Segmented 38 % (47-70); Total Cells Counted 100 (MANUAL DIFF)
[2024-04-19 09:56] LABS: Absolute Neutrophil Count 1.6 X10^3/uL (2.0-7.7)
[2024-04-19 09:58] LABS: Anion Gap 8 (5-15); BUN 36 mg/dL (7-18); BUN/Creat Ratio 33.6 RATIO (10-20); Calcium,Total 8.6 mg/dL (8.5-10.1); Chloride 97 mmol/L (98-107); Creatinine, Serum 1.07 mg/dL (0.70-1.30); EST Glomerular Filtration Rate 72 mL/min (>60); Est Glom Filt Rate - Afr Amer 87 mL/min (>60); Estimated Creatinine Clearance 59.49 ml/min; Glucose 275 mg/dL (74-106); Potassium 4.5 mmol/L (3.5-5.1); Sodium Level 132 mmol/L (136-145)
[2024-04-19 12:31] LABS: Bedside Glucose 292 mg/dL (74-106)
--- NOTE | 2024-04-19 13:32 | CASEMGMT ---
Insurance review for hospitals In-network with [facility] insurance if transfer is recommended is as follows: [facility], [place], [facility], [facility], [facility], [facility], [facility]), and . Loulou Colbert, Discharge Planning Asst
--- NOTE | 2024-04-19 14:57 | CASEMGMT ---
TC to [facility] to obtain federal tax ID #[id number]. TC to pt insurance, spoke with Amelia and Good. [facility] is out of network for pt insurance plan as he has a HMO. Pt does not have any coverage for out of network facilities. Updated .
--- NOTE | 2024-04-19 14:58 | CHAPLAIN ---
Type of Pastoral Visit _x__ Initial Visit ___ Follow-up Visit ___ On-call Visit ___ General Patient Visit ___ Spiritual Assessment ___ Family Conference ___ Bereavement ___ Rapid Response ___ Code Blue ___ Other (describe below) Pastoral Care Referral From _x__ Patient ___ Family ___ Nurse ___ Physician ___ Fire Hydrant Mechanic ___ Consumer Safety Officer ___ Other (describe below) Sacrament/Intervention ___ Active listening ___ Anointing ___ Taoist ___ Bereavement ___ Communion ___ Kailyn exploration ___ ___ Life review ___ Prayer ___ Reconciliation ___ Sacrament of Sick _x__ Supportive presence ___ Wedding ___ Other (describe below) Pastoral Comments patient has had family members in the room yesterday and today when visits were attempted; yesterday family members asked for pt be allowed to sleep and thus no visit conducted; today the family members asked the pt if he wanted a visit from this pourer bull ladle and his response was yes; pt however speaks quietly and sometimes responds and sometimes not; pt often looks to his family first before answering questions; pt is non committal about specific requests on how to support him and if he wanted prayer; offer of ongoing support as pt desires and giving of calm assurance of concern for his health and wellbeing
--- NOTE | 2024-04-19 17:14 | PCM.PN.HOSP ---
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 (04/16/24) Anemia, unspecified (04/16/24) Thrombocytopenia, unspecified (04/16/24) Other low back pain (04/16/24) Hyperglycemia, unspecified (04/16/24) Subjective Subjective Patient still with some abdominal fullness, got up to chair today, does seem to feel little bit better, discussed plan of care with family Objective Data Objective Data Vital Signs: Vital Signs Temp Pulse Resp BP Pulse Ox O2 Del Method O2 Flow Rate 97.8 F 81 19 H 126/69 H 96 Nasal Cannula 4 04/19/24 15:43 04/19/24 15:43 04/19/24 15:43 04/19/24 15:43 04/19/24 15:43 04/19/24 15:43 04/19/24 15:43 Oxygen Flow Rate (L/min) 4 Oxygen Delivery Method Nasal Cannula Weight: 81.647 kg Body Mass Index (BMI) 27.3 Intake & Output: Intake and Output for Last 24 Hours 04/17/24 04/18/24 04/19/24 23:59 23:59 23:59 Intake Total 1201.00 / 1201.00 1170 / 1170 240 / 240 Output Total 500 / 500 550 / 550 Balance 1201.00 / 1201.00 670 / 670 -310 / -310 Lab / Micro Data 04/19/24 07:05 04/19/24 07:05 Labs: Laboratory Results - last 24 hr 04/18/24 16:59: POC Glucose 292 H 04/18/24 22:08: POC Glucose 297 H 04/19/24 06:34: POC Glucose 249 H 04/19/24 07:05: WBC 4.0 L, RBC 2.80 L, Hgb 8.0 L, Hct 23.7 L, MCV 84.6, MCH 28.6, MCHC 33.8, RDW Std Deviation 44.8 H, RDW Coeff of Consuelo 14.5, Plt Count 12 L*, MPV 10.7, Neut % (Auto) Not Reportable, Absolute Neuts (auto) 1.6 L, Absolute Lymphs (auto) 0.80 L, Total Counted 100, Neutrophils % (Manual) 38 L, Band Neutrophils % 1, Lymphocytes % (Manual) 19, Blast Cells % 42 H*, Diff Path Review May foll, Sodium 132 L, Potassium 4.5, Chloride 97 L, Carbon Dioxide 27.0, Anion Gap 8, BUN 36 H, Creatinine 1.07, Estim Creat Clear Calc 59.49, Est GFR (MDRD) Af Amer 87, Est GFR (MDRD) Non-Af 72, BUN/Creatinine Ratio 33.6 H, Glucose 275 H, Calcium 8.6 04/19/24 12:02: POC Glucose 292 H Radiography Diagnostic Testing: Radiology Impression Lumbar Spine MRI 04/18/24 09:34 IMPRESSION: Postsurgical changes, levoscoliosis, and degenerative disc disease as described above. Electronically Signed: Jb Vargas MD at 17:51 EDT , Physical Exam Narrative General: More awake today HEENT: Atraumatic, normocephalic Eyes: extraocular movements grossly intact Neck: Supple Respiratory: normal respiratory effort Cardiovascular: no edema appreciated GI: Slightly distended Extremities: Moving all extremities Neuro: No overt focal neurological deficits Psych: Cooperative Assessment & Plan Assessment/Plan (1) Intractable low back pain: (2) MDS (myelodysplastic syndrome) with 5q deletion: (3) Hyperglycemia: (4) Thrombocytopenia: (5) Anemia: QUALIFIERS: Anemia type: unspecified type Qualified Code(s): D64.9 - Anemia, unspecified PLAN: Plan #Worsening low to mid back pain -Admitted to [facility] -CT lumbar spine with chronic degenerative changes but otherwise unremarkable, did have moderate stool burden so was felt that this was contributing to the pain -Has had bowel regimen escalated -Due to continued poor functional status MRI thoracic and lumbar spines obtained, lesions noted on thoracic spine, discussed with patient's hematology oncology doctor and it felt that this is consistent with reactivation of the bone marrow with his MDS over the other possible etiologies -Supportive care, pain control -04/19: There are multilevel normal vertebral body enhancements on thoracic spine, reviewed this with hematology oncology and it is suspected that this is reactivation of bone marrow which could contribute to back discomfort, PT/OT, attempting to spread out pain medication to help with constipation as well as alertness and mental status #Constipation -Escalation of bowel regimen -04/19: Avoiding enema due to significant thrombocytopenia, have continued to escalate bowel regimen, discontinuing dicyclomine, decreasing frequency patient is taking pain medication and increasing mobilization will likely help with this as well, no vomiting, patient did eat somewhat better today # Pancytopenia?MDS -Biopsy noted MDS, awaiting the biopsy results -Discussed with oncology, transfuse patient for hemoglobin less than 7 and platelets less than 10 -Inpatient versus outpatient [place] oncology -Repeat CBC in a.m. -Blood today, had packed red blood cells yesterday as well and platelets yesterday -04/19: Did not require transfusion today, plan has been to try to send patient to [facility] for hematology/oncology, insurance may not cover this, discussed with oncology and it will be evaluated if Revlimid can be started in our institution #Type 2 diabetes mellitus -Glucose checks and sliding scale insulin -Patient is on a steroid, continue long-acting insulin -04/19: Further increasing long-acting insulin, continue sliding scale insulin # Concern for coronary artery disease -Had hospitalization in mid March with worsening exertional dyspnea -Cath deferred given his severe anemia and thrombocytopenia and is advised at some point in the future to consider further evaluation -Continue Imdur and beta-francheska -04/19: Patient generally weak, not complaining of any chest pain however # Hypertension -Imdur and metoprolol -Lisinopril currently held -04/19: Blood pressure 126/69 at this time #DVT ppx: SCDs Laura Wheeler MD Time spent in the patient's overall evaluation,decision-making process, review of diagnostic data, adjustment of management, discussion with other providers, nursing nursing and ancillary staff involved in patient's care documentation, 52 Minutes Charges/Coding Visit Charges Inpatient E&M: 79112 [facility] Hosp L3
[2024-04-19 19:13] LABS: Bedside Glucose 366 mg/dL (74-106)
[2024-04-19] MEDS: Senna/Docusate Sodium 1 Tablet 2 TABLET PO (21:57)
[2024-04-19] MEDS: traZODone 50 MG Tablet PO (21:58)
[2024-04-19] MEDS: MELATONIN 3 MG TABLET 10 MG PO (21:58)
[2024-04-19] MEDS: Insulin Glargine-YFGN 100 UNIT/ML Pen 25 UNIT SC (22:28)
[2024-04-19 22:40] LABS: Bedside Glucose 312 mg/dL (74-106)
[2024-04-20] VITALS (14 sets, daily range): BP systolic 110–140; BP diastolic 59–79; PULSE 73–100; RESP 18–20; TEMP 36.5–37.3; O2SAT 93–100
[2024-04-20] MEDS: oxyCODONE 5 MG Tablet PO ×3 (03:43→20:08)
[2024-04-20] MEDS: HYDROmorphone 0.5 MG/0.5 ML SYRINGE IV (05:49)
[2024-04-20] MEDS: Acetaminophen 500 MG Tablet 1000 MG PO ×3 (05:50→22:07)
[2024-04-20 07:02] LABS: Absolute Lymphocyte Count 0.48 X10^3/uL (0.83-4.51); Absolute Neutrophil Count 1.2 X10^3/uL (2.0-7.7); Basophil# 0.01 X10^3/uL; Eosinophil# 0.01 X10^3/uL; Hematocrit 24.3 % (40-54); Hemoglobin 8.2 g/dL (13.0-16.5); Lymphocyte # 0.48 X10^3/ul (0.83-4.51); Mean Corp Hgb Conc 33.7 g/dL (32-36); Mean Corpuscular Hgb 28.7 pg (27.0-32.0); Mean Platelet Vol. 11.1 fl (6.2-12.0); POSITIVE COUNT YES; POSITIVE DIFFERENTIAL YES; POSITIVE MORPHOLOGY YES; RBC Distribution Width CV 14.1 % (11.6-14.6); RBC Distribution Width SD 43.8 fl (35.1-43.9); Red Blood Count 2.86 M/mm3 (4.6-6.2)
[2024-04-20 07:11] LABS: Bedside Glucose 174 mg/dL (74-106)
[2024-04-20 07:42] LABS: Anion Gap 3 (5-15); BUN 31 mg/dL (7-18); BUN/Creat Ratio 29.2 RATIO (10-20); Calcium,Total 8.8 mg/dL (8.5-10.1); Chloride 96 mmol/L (98-107); Creatinine, Serum 1.06 mg/dL (0.70-1.30); EST Glomerular Filtration Rate 73 mL/min (>60); Est Glom Filt Rate - Afr Amer 88 mL/min (>60); Estimated Creatinine Clearance 60.05 ml/min; Glucose 188 mg/dL (74-106); Potassium 4.6 mmol/L (3.5-5.1); Sodium Level 130 mmol/L (136-145)
[2024-04-20 07:50] LABS: Differential Indicated SCAN CRITERIA MET; Platelet Count 6 K/mm3 (150-450)
[2024-04-20 08:13] LABS: Blast 38 % (0-0); Lymphocyte 9 % (19-41); Monocyte 2 % (0-10); Myelocyte 1 % (0-0); Neutrophil-Band 6 % (0-5); Neutrophil-Segmented 42 % (47-70); Promyelocyte 2 % (0-0); Total Cells Counted 100 (MANUAL DIFF)
[2024-04-20 08:14] LABS: Platelet Estimate MKD DEC (ADEQ); Scan Smear per Review Criteria MANUAL DIFF
[2024-04-20] MEDS: Lidocaine 5% Patch 1 PATCH TOPICAL (09:55)
[2024-04-20] MEDS: Insulin Lispro 100 UNIT/ML INSULN.PEN SC ×4 (09:56→22:03)
[2024-04-20] MEDS: Isosorbide Mononitrate 30 MG Tablet PO (09:57)
[2024-04-20] MEDS: predniSONE 20 MG Tablet 40 MG PO (09:57)
[2024-04-20] MEDS: Polyethylene Glycol 3350 17 GM PACKET PO ×2 (09:58→21:59)
[2024-04-20] MEDS: Metoprolol Tartrate 25 MG Tablet PO ×2 (09:58→22:00)
[2024-04-20] MEDS: Insulin Glargine-YFGN 100 UNIT/ML Pen 20 UNIT SC (09:58)
[2024-04-20] MEDS: Senna/Docusate Sodium 1 Tablet 2 TABLET PO ×2 (09:59→22:00)
[2024-04-20] MEDS: Gabapentin 100 MG Capsule PO ×2 (11:51→21:59)
[2024-04-20 11:52] LABS: Pathologist Review Reviewed
[2024-04-20 12:09] LABS: Bedside Glucose 275 mg/dL (74-106)
--- NOTE | 2024-04-20 14:00 | ONC.CONSULT ---
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 He cannot be transferred to [facility]. Suggest starting therapy with Revlimid 10mg PO daily, Aspirin for DVT prophylaxis. Continue supportive PRBC and Platelet transfusions as needed. I have initiated Pre-authorization for Revlimid for outpatient use. (2) Thrombocytopenia: Status: Chronic Code(s): D69.6 - Thrombocytopenia, unspecified Plan: Suggest Platelet transfusion for PLT< 5K. (3) Anemia: Status: Chronic Code(s): D64.9 - Anemia, unspecified Qualifiers: Anemia type: unspecified type Qualified Code(s): D64.9 - Anemia, unspecified Plan: Suggest PRBC transfusion as needed to Keep HGB above 7-8. HPI Consult Data Date of Service:: 04/20/24 PCP / Referring Provider: Dr. Mihir Johnston MD Attending: Dr. Laura Wheeler MD Chief Complaint Chief Complaint: Asked to Pt with MDS. History of Present Illness History of Present Illness: 74-year-old man was seen in the hospital 03/26/24-04/03/24 with anemia (hgb 7-7.8), thrombocytopenia associated with chest pain. Bone marrow aspiration and evaluation on 03/28/2024 showed Nondiagnostic bone marrow core clot and aspiration smears, flow cytometry showed 5% myeloblasts with phenotype suggestive of possible myelodysplastic process. Results from FISH and cytogenetics on initial BMBX 03/28/24 showed 5Q deletion, PML/MANUELITO:abnormal- AML/MDS clone detected. Repeat BMBX was done on 04/12/2024. Results are pending. He is now in hospital back pain, thrombocytopenia and anemia. Advanced Directives Power of Maintenance Groundskeeper: Yes Living Will: Yes [facility] Medical History MDS (myelodysplastic syndrome) with 5q deletion Anxiety Diabetes Pancreatitis Non-smoker Diverticulosis History of chronic hypertension History of diabetes mellitus Home Medications ?Medication ?Instructions ?Recorded ?Last Taken ?Type atorvastatin 80 mg tablet 80 mg PO QHS CHOLESTEROL #30 tabs 04/03/24 04/11/24 Rx insulin glargine-yfgn 100 unit/mL 40 unit (0.4 mL) subcut QHS 04/03/24 04/11/24 Rx (3 mL) subcutaneous pen DIABETES #15 mL isosorbide mononitrate 30 mg 30 mg PO DAILY CHEST PAIN #30 tabs 04/03/24 04/11/24 Rx tablet,extended release 24 hr lisinopril 10 mg tablet 10 mg PO DAILY BLOOD PRESSURE #30 04/03/24 04/11/24 Rx tabs metoprolol tartrate 25 mg tablet 25 mg PO BID BLOOD PRESSURE #60 04/03/24 04/11/24 Rx tabs nitroglycerin 0.4 mg sublingual 0.4 mg sublingual Q5M PRN 04/03/24 Unknown Rx tablet Cardiac/Chest Pain #10 tabs pen needle, diabetic 29 gauge #100 ea 04/03/24 Unknown Rx oxycodone 5 mg capsule 5 mg PO Q6H PRN BACK PAIN 3 days 04/04/24 04/04/24 Rx #12 caps prednisone 20 mg tablet 60 mg PO DAILY STEROID 04/16/24 04/15/24 History Allergy/AdvReac Type Severity Reaction Status Date / Time Ekoldnz-JJA-AnV Reductase AdvReac Intermediate Pain in Verified 04/16/24 07:15 Inhibitor (Pklgsrz-Qto-Bfo joints Reductase Inhibitor) Family History Other Brain malignancy Diabetes Hypertension Surgical History Previous back surgery H/O colonoscopy Social History household members: spouse housing: house current occupational status: retired Smoking Status: Never smoker alcohol intake: former substance use type: does not use Physical Exam Const alert, oriented x3 and no apparent distress HEENT normocephalic Eyes no scleral icterus Neck no lymphadenopathy Lymph Lymphatic: no lymphadenopathy noted Resp normal respiratory effort and clear to auscultation bilaterally Cardio regular rate, regular rhythm, S1 normal heart sound and S2 normal heart sound GI non-tender and no masses Extremity Extremity Narrative: Puffy feet Skin Skin Narrative: + bruises on the forearm/IV sites Neuro CN's II-XII intact bilaterally, moves all extremities and no focal motor deficits Vital Signs Temperature 99.1 F 04/20/24 08:27 Temperature Source Temporal 04/20/24 08:27 Pulse Rate 85 04/20/24 09:58 Pulse Strength Normal (2+) 04/20/24 08:37 Respiratory Rate 18 04/20/24 08:28 Respiratory Effort Non-Labored 04/20/24 03:47 Respiratory Depth Normal 04/19/24 20:26 Respiratory Pattern Normal 04/19/24 20:26 Blood Pressure 133/64 H 04/20/24 08:27 Blood Pressure Mean 87 04/20/24 08:27 Blood Pressure Source Monitor 04/20/24 08:27 Blood Pressure Position Semi-Fowlers 04/20/24 08:27 Blood Pressure Location Right Arm 04/20/24 08:27 Pulse Ox 97 04/20/24 11:18 Oxygen Delivery Method Nasal Cannula 04/20/24 08:49 Oxygen Flow Rate (L/min) 2.5 04/20/24 11:18 Laboratory Results - last 24 hr 04/19/24 07:05: Diff Path Review Reviewed 04/19/24 18:16: POC Glucose 366 H 04/19/24 22:01: POC Glucose 312 H 04/20/24 06:50: WBC 3.0 L, RBC 2.86 L, Hgb 8.2 L, Hct 24.3 L, MCV 85.0, MCH 28.7, MCHC 33.7, RDW Std Deviation 43.8, RDW Coeff of Consuelo 14.1, Plt Count 6 L*, MPV 11.1, Immature Gran % (Auto) ROLL PANNER, Neut % (Auto) ROLL PANNER, Lymph % (Auto) ROLL PANNER, [place] % (Auto) ROLL PANNER, Eos % (Auto) ROLL PANNER, Baso % (Auto) ROLL PANNER, Absolute Neuts (auto) 1.2 L, Absolute Lymphs (auto) 0.48 L, Total Counted 100, Neutrophils % (Manual) 42 L, Band Neutrophils % 6 H, Lymphocytes % (Manual) 9 L, Monocytes % (Manual) 2, Myelocytes % 1 H, Promyelocytes % 2 H, Blast Cells % 38 H*, Nucleated RBC % 1.0, Diff Path Review May foll, Platelet Estimate MKD DEC, Sodium 130 L, Potassium 4.6, Chloride 96 L, Carbon Dioxide 31.0, Anion Gap 3 L, BUN 31 H, Creatinine 1.06, Estim Creat Clear Calc 60.05, Est GFR (MDRD) Af Amer 88, Est GFR (MDRD) Non-Af 73, BUN/Creatinine Ratio 29.2 H, Glucose 188 H, Calcium 8.8 04/20/24 06:53: POC Glucose 174 H 04/20/24 08:50: Blood Type O POSITIVE 04/20/24 11:47: POC Glucose 275 H Diagnostic Data Lumbar Spine CT 04/16/24 07:37 IMPRESSION: No evidence for acute fracture or dislocation in the lumbar spine. Postoperative and degenerative changes as above. Electronically Signed: Jalyn Kate MD at 10:19 EDT , Abdomen/Pelvis CT 04/16/24 07:38 IMPRESSION: Negative examination for renal stone. Stable partially calcified pancreatic lesion. Small left inguinal hernia now containing a short segment of sigmoid colon without CT evidence for colonic obstruction or strangulation. Moderate stool in the colon. Colonic diverticulosis without acute diverticulitis. Electronically Signed: Jalyn Kate MD at 10:33 EDT , Brain CT 04/17/24 19:02 IMPRESSION: Negative head/brain CT without intravenous contrast. Electronically Signed: Alex Rojas MD at 21:08 EDT , Lumbar Spine MRI 04/18/24 09:34 IMPRESSION: Postsurgical changes, levoscoliosis, and degenerative disc disease as described above. Electronically Signed: Jb Vargas MD at 17:51 EDT , ADDENDUM: 04/20/24 0828 IMPRESSION: undefined Thoracic Spine MRI 04/18/24 09:34 IMPRESSION: 1. Multilevel abnormal vertebral body enhancement raising possibility of metastatic disease or multiple myeloma. 2. No evidence of soft tissue mass. 3. No spinal or neural foraminal stenosis. Electronically Signed: Sanket Mayorga MD at 17:10 EDT Reading Location ID and State: [facility] / [place] Tel , Service support , ADDENDUM: 04/20/24 08 IMPRESSION: undefined 03/28/2024 Bone marrow aspiration and biopsy reviewed. BONE MARROW DIAGNOSIS Bone marrow core, clot and aspirate smears: Non-diagnostic bone marrow core, clot and aspirate smears specimens. Peripheral smear- Normocytic anemia and marked thrombocytopenia. Flow cytometric study from [facility] show 5% myeloblasts with phenotypic evidence suggestive of possible myelodysplastic process. See comment. SJ/mr 04/05/2024 COMMENT Flow cytometric study from [facility] shows no monoclonal B cell population. There is no loss or aberrant expression of hebert T cell antigen. 5% myeloblast with aberrant expression of CD7 and CD56 are detected. There is no immunophenotypic evidence of abnormal myeloid maturation. By immunophenotyping plasma cell comprise <1% of the total cells analyzed and show no aberrant antigen expression. 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 The complete report is viewable in the patient?s EMR ADDENDUM AML FISH PANEL FISH RESULT: 45% Nuclei positive for 5Q deletion 42.5% Nuclei positive for loss of MANUELITO (17Q21) signal 11% Nuclei positive for gain of Runix (21Q22) INTERPRETATION: AML/MDS related clone detected SPECIFIC PROBE REULTS: CBFB: Normal KMT2A (MLL): Normal PML/MANUELITO: Abnormal (no fusion) [id number]: Abnormal (no fusion) 5q: Abnormal 7q: Normal Charges/Coding Visit Charges Office Visits / Consults: 33470 IP Consult L4
[2024-04-20] MEDS: Lactulose 20 GM/30 ML UDC PO ×2 (14:23→21:58)
--- NOTE | 2024-04-20 15:53 | PCM.PN.HOSP ---
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 (04/16/24) Anemia, unspecified (04/16/24) Thrombocytopenia, unspecified (04/16/24) Other low back pain (04/16/24) Hyperglycemia, unspecified (04/16/24) Subjective Subjective Patient sitting up in chair, had bowel movement and does feel possibly slightly less full, still has back pain, has been trying to decrease pain medication use which seems to be improving mental status denies any significant shortness of breath Objective Data Objective Data Vital Signs: Vital Signs Temp Pulse Resp BP Pulse Ox O2 Del Method O2 Flow Rate 97.7 F L 76 18 111/67 93 Room Air 2 04/20/24 15:50 04/20/24 15:50 04/20/24 15:50 04/20/24 15:50 04/20/24 15:50 04/20/24 15:50 04/20/24 14:26 Oxygen Flow Rate (L/min) 2 Oxygen Delivery Method Room Air Weight: 81.647 kg Body Mass Index (BMI) 27.3 Intake & Output: Intake and Output for Last 24 Hours 04/18/24 04/19/24 04/20/24 23:59 23:59 23:59 Intake Total 1170 / 1170 480 / 480 250 / 250 Output Total 500 / 500 950 / 1150 400 / 400 Balance 670 / 670 -470 / -670 -150 / -150 Lab / Micro Data 04/20/24 06:50 04/20/24 06:50 Labs: Laboratory Results - last 24 hr 04/19/24 07:05: Diff Path Review Reviewed 04/19/24 18:16: POC Glucose 366 H 04/19/24 22:01: POC Glucose 312 H 04/20/24 06:50: WBC 3.0 L, RBC 2.86 L, Hgb 8.2 L, Hct 24.3 L, MCV 85.0, MCH 28.7, MCHC 33.7, RDW Std Deviation 43.8, RDW Coeff of Consuelo 14.1, Plt Count 6 L*, MPV 11.1, Immature Gran % (Auto) BUTTON ATTACHING MACHINE OPERATOR, Neut % (Auto) BUTTON ATTACHING MACHINE OPERATOR, Lymph % (Auto) BUTTON ATTACHING MACHINE OPERATOR, [place] % (Auto) BUTTON ATTACHING MACHINE OPERATOR, Eos % (Auto) BUTTON ATTACHING MACHINE OPERATOR, Baso % (Auto) BUTTON ATTACHING MACHINE OPERATOR, Absolute Neuts (auto) 1.2 L, Absolute Lymphs (auto) 0.48 L, Total Counted 100, Neutrophils % (Manual) 42 L, Band Neutrophils % 6 H, Lymphocytes % (Manual) 9 L, Monocytes % (Manual) 2, Myelocytes % 1 H, Promyelocytes % 2 H, Blast Cells % 38 H*, Nucleated RBC % 1.0, Diff Path Review May foll, Platelet Estimate MKD DEC, Sodium 130 L, Potassium 4.6, Chloride 96 L, Carbon Dioxide 31.0, Anion Gap 3 L, BUN 31 H, Creatinine 1.06, Estim Creat Clear Calc 60.05, Est GFR (MDRD) Af Amer 88, Est GFR (MDRD) Non-Af 73, BUN/Creatinine Ratio 29.2 H, Glucose 188 H, Calcium 8.8 04/20/24 06:53: POC Glucose 174 H 04/20/24 08:50: Blood Type O POSITIVE 04/20/24 11:47: POC Glucose 275 H Radiography Diagnostic Testing: Radiology Impression Lumbar Spine MRI 04/18/24 09:34 IMPRESSION: Postsurgical changes, levoscoliosis, and degenerative disc disease as described above. Electronically Signed: Jb Vargas MD at 17:51 EDT , ADDENDUM: 04/20/24 0828 IMPRESSION: undefined Thoracic Spine MRI 04/18/24 09:34 IMPRESSION: 1. Multilevel abnormal vertebral body enhancement raising possibility of metastatic disease or multiple myeloma. 2. No evidence of soft tissue mass. 3. No spinal or neural foraminal stenosis. Electronically Signed: Sanket Mayorga MD at 17:10 EDT , ADDENDUM: 04/20/24 0823 IMPRESSION: undefined Physical Exam Narrative General: More alert today and better able to answer questions, no apparent distress HEENT: Atraumatic, normocephalic Eyes: Anicteric, normal conjunctiva, extraocular movements grossly intact Neck: Supple Respiratory: Clear to auscultation bilaterally, normal respiratory effort Cardiovascular: Regular rate GI: Slightly distended without rebound, guarding, rigidity Extremities: No edema Musculoskeletal: Moving all extremities Neuro: No overt focal neurological deficits Skin: No rashes appreciated Psych: Cooperative Assessment & Plan Assessment/Plan (1) Intractable low back pain: (2) MDS (myelodysplastic syndrome) with 5q deletion: (3) Hyperglycemia: (4) Thrombocytopenia: (5) Anemia: QUALIFIERS: Anemia type: unspecified type Qualified Code(s): D64.9 - Anemia, unspecified PLAN: Plan #Worsening low to mid back pain -Admitted to [facility] -CT lumbar spine with chronic degenerative changes but otherwise unremarkable, did have moderate stool burden so was felt that this was contributing to the pain -Has had bowel regimen escalated -Due to continued poor functional status MRI thoracic and lumbar spines obtained, lesions noted on thoracic spine, discussed with patient's hematology oncology doctor and it felt that this is consistent with reactivation of the bone marrow with his MDS over the other possible etiologies -Supportive care, pain control -04/19: There are multilevel normal vertebral body enhancements on thoracic spine, reviewed this with hematology oncology and it is suspected that this is reactivation of bone marrow which could contribute to back discomfort, PT/OT, attempting to spread out pain medication to help with constipation as well as alertness and mental status -04/20: Patient working with therapy, would likely be good SNF candidate, is more awake and alert, continue to space out pain medication as able, discussed with patient and family member at bedside #Constipation -Escalation of bowel regimen -04/19: Avoiding enema due to significant thrombocytopenia, have continued to escalate bowel regimen, discontinuing dicyclomine, decreasing frequency patient is taking pain medication and increasing mobilization will likely help with this as well, no vomiting, patient did eat somewhat better today -04/20: Patient did have bowel movement, is still somewhat distended so we will continue regimen at this time and likely de-escalate in next 1 to 2 days if patient continues to have bowel movements # Pancytopenia?MDS -Biopsy noted MDS, awaiting the biopsy results -Discussed with oncology, transfuse patient for hemoglobin less than 7 and platelets less than 10 -Inpatient versus outpatient [facility] oncology -Repeat CBC in a.m. -Blood today, had packed red blood cells yesterday as well and platelets yesterday -04/19: Did not require transfusion today, plan has been to try to send patient to [facility] for hematology/oncology, insurance may not cover this, discussed with oncology and it will be evaluated if Revlimid can be started in our institution -04/20: Required platelet transfusion today, oncology consulted, evaluating if patient can begin Revlimid, repeat CBC in a.m., repeat bone marrow still pending #Type 2 diabetes mellitus -Glucose checks and sliding scale insulin -Patient is on a steroid, continue long-acting insulin -04/19: Further increasing long-acting insulin, continue sliding scale insulin -04/20: Patient had been on prednisone taper when he came in, reviewed taper and patient needs to be on prednisone through 04/22 and then will discontinue, suspect glucoses will improve after discontinuation's will likely need to further adjust # Concern for coronary artery disease -Had hospitalization in mid March with worsening exertional dyspnea -Cath deferred given his severe anemia and thrombocytopenia and is advised at some point in the future to consider further evaluation -Continue Imdur and beta-francheska -04/19: Patient generally weak, not complaining of any chest pain however -04/20: Continue present medication management, no chest pain or related complaints # Hypertension -Imdur and metoprolol -Lisinopril currently held -04/19: Blood pressure 126/69 at this time -04/20: Well-controlled #DVT ppx: SCDs Laura Wheeler MD Time spent in the patient's overall evaluation,decision-making process, review of diagnostic data, adjustment of management, discussion with other providers, nursing nursing and ancillary staff involved in patient's care documentation, 40 Minutes Charges/Coding Visit Charges Inpatient E&M: 08610 Subs Hosp L2
[2024-04-20 17:04] LABS: Bedside Glucose 308 mg/dL (74-106)
[2024-04-20] MEDS: MELATONIN 3 MG TABLET 10 MG PO (22:01)
[2024-04-20] MEDS: Insulin Glargine-YFGN 100 UNIT/ML Pen 25 UNIT SC (22:02)
[2024-04-20 22:22] LABS: Bedside Glucose 348 mg/dL (74-106)
[2024-04-21] VITALS (11 sets, daily range): BP systolic 102–128; BP diastolic 52–83; PULSE 76–97; RESP 16–18; TEMP 36.8–37.1; O2SAT 90–99
[2024-04-21] MEDS: 0.9% Saline Lock 10 ML Syringe IV (04:30)
[2024-04-21] MEDS: HYDROmorphone 0.5 MG/0.5 ML SYRINGE IV (04:30)
[2024-04-21] MEDS: Acetaminophen 500 MG Tablet 1000 MG PO ×3 (06:39→21:52)
[2024-04-21] MEDS: Gabapentin 100 MG Capsule PO ×3 (06:40→21:51)
[2024-04-21 07:09] LABS: Bedside Glucose 119 mg/dL (74-106)
[2024-04-21 08:13] LABS: Hemoglobin 7.3 g/dL (13.0-16.5); Mean Corp Hgb Conc 34.8 g/dL (32-36); Mean Corpuscular Volume 83.3 fL (80-94); Mean Platelet Vol. 11.3 fl (6.2-12.0); POSITIVE COUNT YES; POSITIVE DIFFERENTIAL YES; POSITIVE MORPHOLOGY YES; RBC Distribution Width SD 42.9 fl (35.1-43.9); Red Blood Count 2.52 M/mm3 (4.6-6.2); White Blood Count 2.8 K/mm3 (4.4-11.0)
[2024-04-21] MEDS: predniSONE 20 MG Tablet 40 MG PO (08:16)
[2024-04-21 08:18] LABS: Differential Indicated MANUAL DIFF; Platelet Count 9 K/mm3 (150-450)
[2024-04-21 08:36] LABS: Anion Gap 6 (5-15); BUN 31 mg/dL (7-18); BUN/Creat Ratio 33.9 RATIO (10-20); Calcium,Total 8.3 mg/dL (8.5-10.1); Chloride 98 mmol/L (98-107); Creatinine, Serum 0.91 mg/dL (0.70-1.30); EST Glomerular Filtration Rate 86 mL/min (>60); Est Glom Filt Rate - Afr Amer 105 mL/min (>60); Estimated Creatinine Clearance 69.95 ml/min; Glucose 135 mg/dL (74-106); Potassium 4.2 mmol/L (3.5-5.1); Sodium Level 132 mmol/L (136-145)
[2024-04-21 08:50] LABS: Platelet Estimate MKD DEC (ADEQ)
[2024-04-21] MEDS: oxyCODONE 5 MG Tablet PO ×2 (08:55→21:52)
[2024-04-21 09:04] LABS: Neutrophil-Band 4 % (0-5); Neutrophil-Segmented 44 % (47-70); Total Cells Counted 100 (MANUAL DIFF)
[2024-04-21 09:05] LABS: Blast 28 % (0-0); Lymphocyte 21 % (19-41); Promyelocyte 3 % (0-0)
[2024-04-21 09:07] LABS: Absolute Neutrophil Count 1.4 X10^3/uL (2.0-7.7)
--- NOTE | 2024-04-21 12:08 | CASEMGMT ---
Social Work- SW met with pt and to discuss preference at d/c. Pt reports that she has not seen physician today and deferred talking about d/c plans until they see dr and until sons visit this afternoon. SW will follow up at that time. BENNETT Plummer
[2024-04-21] MEDS: Isosorbide Mononitrate 30 MG Tablet PO (12:15)
[2024-04-21] MEDS: Metoprolol Tartrate 25 MG Tablet PO ×2 (12:15→21:50)
[2024-04-21] MEDS: Senna/Docusate Sodium 1 Tablet 2 TABLET PO (12:15)
[2024-04-21] MEDS: Lidocaine 5% Patch 1 PATCH TOPICAL (12:16)
[2024-04-21] MEDS: Polyethylene Glycol 3350 17 GM PACKET PO (12:16)
[2024-04-21] MEDS: Insulin Lispro 100 UNIT/ML INSULN.PEN SC ×3 (12:28→21:50)
[2024-04-21 12:53] LABS: Bedside Glucose 219 mg/dL (74-106)
[2024-04-21] MEDS: Insulin Glargine-YFGN 100 UNIT/ML Pen 20 UNIT SC (12:57)
[2024-04-21 13:14] LABS: Pathologist Review Reviewed
--- NOTE | 2024-04-21 13:41 | PCM.PN.HOSP ---
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 intake as well, abdominal pain improving, feels his hips are slightly stiff Objective Data Objective Data Vital Signs: Vital Signs Temp Pulse Resp BP Pulse Ox O2 Del Method O2 Flow Rate 98.2 F 97 16 113/52 L 94 Room Air 2 04/21/24 08:22 04/21/24 12:15 04/21/24 08:22 04/21/24 08:22 04/21/24 08:22 04/21/24 09:19 04/20/24 14:26 Oxygen Flow Rate (L/min) 2 Oxygen Delivery Method Room Air Weight: 81.647 kg Body Mass Index (BMI) 27.3 Intake & Output: Intake and Output for Last 24 Hours 04/19/24 04/20/24 04/21/24 23:59 23:59 23:59 Intake Total 480 / 480 250 / 250 320 / 320 Output Total 950 / 1150 400 / 400 Balance -470 / -670 -150 / -150 320 / 320 Lab / Micro Data 04/21/24 07:17 04/21/24 07:17 Labs: Laboratory Results - last 24 hr 04/20/24 06:50: Diff Path Review Reviewed 04/20/24 16:32: POC Glucose 308 H 04/20/24 21:56: POC Glucose 348 H 04/21/24 06:37: POC Glucose 119 H 04/21/24 07:17: WBC 2.8 L, RBC 2.52 L, Hgb 7.3 L, Hct 21.0 L, MCV 83.3, MCH 29.0, MCHC 34.8, RDW Std Deviation 42.9, RDW Coeff of Consuelo 14.0, Plt Count 9 L*, MPV 11.3, Neut % (Auto) Not Reportable, Absolute Neuts (auto) 1.4 L, Absolute Lymphs (auto) 0.60 L, Total Counted 100, Neutrophils % (Manual) 44 L, Band Neutrophils % 4, Lymphocytes % (Manual) 21, Promyelocytes % 3 H, Blast Cells % 28 H*, Diff Path Review May foll, Platelet Estimate MKD DEC, Sodium 132 L, Potassium 4.2, Chloride 98, Carbon Dioxide 28.0, Anion Gap 6, BUN 31 H, Creatinine 0.91, Estim Creat Clear Calc 69.95, Est GFR (MDRD) Af Amer 105, Est GFR (MDRD) Non-Af 86, BUN/Creatinine Ratio 33.9 H, Glucose 135 H, Calcium 8.3 L 04/21/24 12:23: POC Glucose 219 H Physical Exam Narrative General: Alert in no apparent distress today HEENT: Atraumatic, normocephalic Eyes: Anicteric, normal conjunctiva, extraocular movements grossly intact Neck: Supple Respiratory: Clear to auscultation bilaterally, normal respiratory effort Cardiovascular: Regular rate GI: Slightly distended without rebound, guarding, rigidity, softer today Extremities: No edema Musculoskeletal: Moving all extremities Neuro: No overt focal neurological deficits Skin: No rashes appreciated Psych: Cooperative Assessment & Plan Assessment/Plan (1) Intractable low back pain: (2) MDS (myelodysplastic syndrome) with 5q deletion: (3) Hyperglycemia: (4) Thrombocytopenia: (5) Anemia: QUALIFIERS: Anemia type: unspecified type Qualified Code(s): D64.9 - Anemia, unspecified PLAN: Plan #Worsening low to mid back pain -Admitted to [facility] -CT lumbar spine with chronic degenerative changes but otherwise unremarkable, did have moderate stool burden so was felt that this was contributing to the pain -Has had bowel regimen escalated -Due to continued poor functional status MRI thoracic and lumbar spines obtained, lesions noted on thoracic spine, discussed with patient's hematology oncology doctor and it felt that this is consistent with reactivation of the bone marrow with his MDS over the other possible etiologies -Supportive care, pain control -04/19: There are multilevel normal vertebral body enhancements on thoracic spine, reviewed this with hematology oncology and it is suspected that this is reactivation of bone marrow which could contribute to back discomfort, PT/OT, attempting to spread out pain medication to help with constipation as well as alertness and mental status -04/20: Patient working with therapy, would likely be good SNF candidate, is more awake and alert, continue to space out pain medication as able, discussed with patient and family member at bedside -04/21: Patient continues to have decreased pain medication needs and is improving his mobility and working with physical therapy additionally pain is becoming more manageable. Feel he would be a good candidate for SNF and discussed with he and his . They are to discuss with social work once more family present. Would likely to be able to pursue placement given improvement # Pancytopenia?MDS -Biopsy noted MDS, awaiting the biopsy results -Discussed with oncology, transfuse patient for hemoglobin less than 7 and platelets less than 10 -Inpatient versus outpatient [place] oncology -Repeat CBC in a.m. -Blood today, had packed red blood cells yesterday as well and platelets yesterday -04/19: Did not require transfusion today, plan has been to try to send patient to [place] for hematology/oncology, insurance may not cover this, discussed with oncology and it will be evaluated if Revlimid can be started in our institution -04/20: Required platelet transfusion today, oncology consulted, evaluating if patient can begin Revlimid, repeat CBC in a.m., repeat bone marrow still pending -04/21: Required platelet transfusion again today, Revlimid prior Auth being coordinated through oncology's office. On an outpatient basis patient would just be having blood work twice a week and transfusing as needed so do not think this needs to keep patient directly in the hospital unless otherwise indicated by oncology, can discuss discharge planning and possible SNF placement #Type 2 diabetes mellitus -Glucose checks and sliding scale insulin -Patient is on a steroid, continue long-acting insulin -04/19: Further increasing long-acting insulin, continue sliding scale insulin -04/20: Patient had been on prednisone taper when he came in, reviewed taper and patient needs to be on prednisone through 04/22 and then will discontinue, suspect glucoses will improve after discontinuation's will likely need to further adjust -04/21: Glucose control seems to be improving, particularly fasting, manage needing to adjust insulin throughout the day #Constipation-resolved -Escalation of bowel regimen -04/19: Avoiding enema due to significant thrombocytopenia, have continued to escalate bowel regimen, discontinuing dicyclomine, decreasing frequency patient is taking pain medication and increasing mobilization will likely help with this as well, no vomiting, patient did eat somewhat better today -04/20: Patient did have bowel movement, is still somewhat distended so we will continue regimen at this time and likely de-escalate in next 1 to 2 days if patient continues to have bowel movements -04/21: Will DC lactulose and continue other regimen presently, suspect patient will need bowel regimen on DC as well Chronic problems: # Concern for coronary artery disease -Had hospitalization in mid March with worsening exertional dyspnea -Cath deferred given his severe anemia and thrombocytopenia and is advised at some point in the future to consider further evaluation -Continue Imdur and beta-francheska -04/19: Patient generally weak, not complaining of any chest pain however -04/20: Continue present medication management, no chest pain or related complaints # Hypertension -Imdur and metoprolol -Lisinopril currently held -04/19: Blood pressure 126/69 at this time -04/20: Well-controlled #DVT ppx: SCDs Laura Wheeler MD Time spent in the patient's overall evaluation,decision-making process, review of diagnostic data, adjustment of management, discussion with other providers, nursing nursing and ancillary staff involved in patient's care documentation, 45 Minutes Charges/Coding Visit Charges Inpatient E&M: 86877 Subs Hosp L2
--- NOTE | 2024-04-21 15:57 | CASEMGMT ---
Social Work- SW met with pt son, Mario, and pt to discuss preferences at d/c. Pt states that it is agreed upon the pt would like a referral to TCU for rehab prior to return home. SNF list declined at this time. SW completed referral to TCU. SW will continue to follow. BENNETT Plummer
[2024-04-21 17:13] LABS: Bedside Glucose 302 mg/dL (74-106)
[2024-04-21] MEDS: Insulin Glargine-YFGN 100 UNIT/ML Pen 25 UNIT SC (21:50)
[2024-04-21] MEDS: MELATONIN 3 MG TABLET 10 MG PO (21:51)
[2024-04-21 22:46] LABS: Bedside Glucose 375 mg/dL (74-106)
[2024-04-22] VITALS (7 sets, daily range): BP systolic 105–143; BP diastolic 57–71; PULSE 79–97; RESP 16–18; TEMP 36.4–37.1; O2SAT 96–98
[2024-04-22] MEDS: oxyCODONE 5 MG Tablet PO ×2 (02:33→21:20)
[2024-04-22] MEDS: HYDROmorphone 0.5 MG/0.5 ML SYRINGE IV ×3 (04:23→18:18)
[2024-04-22] MEDS: 0.9% Saline Lock 10 ML Syringe IV ×2 (04:26→16:27)
[2024-04-22 06:36] LABS: Absolute Lymphocyte Count 0.64 X10^3/uL (0.83-4.51); Basophil# 0.02 X10^3/uL; Basophil% 0.6 % (0-1); Eosinophil# 0.02 X10^3/uL; Eosinophils% 0.6 % (0-5); Hematocrit 22.7 % (40-54); Hemoglobin 7.8 g/dL (13.0-16.5); Lymphocyte # 0.64 X10^3/ul (0.83-4.51); Lymphocyte % 18.5 % (19-41); Mean Corp Hgb Conc 34.4 g/dL (32-36); Mean Corpuscular Hgb 28.8 pg (27.0-32.0); Mean Corpuscular Volume 83.8 fL (80-94); Mean Platelet Vol. 10.6 fl (6.2-12.0); Monocyte# 1.53 X10^3/uL; Monocyte% 44.2 % (0-10); NRBC Flagged by Analyzer 1.4 % (0-5); Neutrophil # 0.97 X10^3/uL (2.7-7.7); POSITIVE COUNT YES; POSITIVE DIFFERENTIAL YES; POSITIVE MORPHOLOGY YES; RBC Distribution Width SD 42.7 fl (35.1-43.9); Red Blood Count 2.71 M/mm3 (4.6-6.2); White Blood Count 3.5 K/mm3 (4.4-11.0)
[2024-04-22 06:52] LABS: Anion Gap 6 (5-15); BUN 29 mg/dL (7-18); BUN/Creat Ratio 31.2 RATIO (10-20); Calcium,Total 8.1 mg/dL (8.5-10.1); Chloride 99 mmol/L (98-107); Creatinine, Serum 0.93 mg/dL (0.70-1.30); EST Glomerular Filtration Rate 85 mL/min (>60); Est Glom Filt Rate - Afr Amer 103 mL/min (>60); Estimated Creatinine Clearance 68.44 ml/min; Glucose 140 mg/dL (74-106); Platelet Count 22 K/mm3 (150-450); Potassium 4.1 mmol/L (3.5-5.1); Sodium Level 131 mmol/L (136-145)
[2024-04-22] MEDS: Gabapentin 100 MG Capsule PO ×2 (06:57→21:20)
[2024-04-22] MEDS: Acetaminophen 500 MG Tablet 1000 MG PO ×3 (06:58→21:20)
[2024-04-22 07:12] LABS: Differential Indicated SCAN CRITERIA MET
[2024-04-22 07:27] LABS: Bedside Glucose 121 mg/dL (74-106)
[2024-04-22] MEDS: Polyethylene Glycol 3350 17 GM PACKET PO (10:25)
[2024-04-22] MEDS: Lidocaine 5% Patch 1 PATCH TOPICAL (10:25)
[2024-04-22] MEDS: predniSONE 20 MG Tablet 40 MG PO (10:26)
[2024-04-22] MEDS: Metoprolol Tartrate 25 MG Tablet PO ×2 (10:26→21:26)
[2024-04-22] MEDS: Senna/Docusate Sodium 1 Tablet 2 TABLET PO (10:26)
[2024-04-22] MEDS: Isosorbide Mononitrate 30 MG Tablet PO (10:27)
[2024-04-22] MEDS: Insulin Glargine-YFGN 100 UNIT/ML Pen 20 UNIT SC (10:28)
[2024-04-22 12:53] LABS: Pathologist Review Reviewed
[2024-04-22 13:10] LABS: Bedside Glucose 318 mg/dL (74-106)
[2024-04-22] MEDS: Insulin Lispro 100 UNIT/ML INSULN.PEN SC ×5 (13:19→21:23)
--- NOTE | 2024-04-22 16:28 | PCM.PN.HOSP ---
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 (04/16/24) Anemia, unspecified (04/16/24) Thrombocytopenia, unspecified (04/16/24) Other low back pain (04/16/24) Hyperglycemia, unspecified (04/16/24) Subjective Subjective Continues to intermittently have pain however overall is improved from previous and mental status improving Objective Data Objective Data Vital Signs: Vital Signs Temp Pulse Resp BP Pulse Ox O2 Del Method O2 Flow Rate 97.6 F L 79 18 105/60 96 Room Air 2 04/22/24 16:14 04/22/24 16:14 04/22/24 16:14 04/22/24 16:14 04/22/24 16:14 04/22/24 16:14 04/20/24 14:26 Oxygen Flow Rate (L/min) 2 Oxygen Delivery Method Room Air Weight: 81.647 kg Body Mass Index (BMI) 27.3 Intake & Output: Intake and Output for Last 24 Hours 04/20/24 04/21/24 04/22/24 23:59 23:59 23:59 Intake Total 250 / 250 1190 / 1430 580 / 580 Output Total 400 / 400 Balance -150 / -150 1190 / 1430 580 / 580 Lab / Micro Data 04/22/24 06:01 04/22/24 06:01 Labs: Laboratory Results - last 24 hr 04/21/24 07:17: Diff Path Review Reviewed 04/21/24 16:50: POC Glucose 302 H 04/21/24 21:46: POC Glucose 375 H 04/22/24 06:01: WBC 3.5 L, RBC 2.71 L, Hgb 7.8 L, Hct 22.7 L, MCV 83.8, MCH 28.8, MCHC 34.4, RDW Std Deviation 42.7, RDW Coeff of Consuelo 14.0, Plt Count 22 L*, MPV 10.6, Immature Gran % (Auto) 8.100 H, Neut % (Auto) 28.0 L, Lymph % (Auto) 18.5 L, [place] % (Auto) 44.2 H, Eos % (Auto) 0.6, Baso % (Auto) 0.6, Absolute Neuts (auto) 1.0 L, Absolute Lymphs (auto) 0.64 L, Nucleated RBC % 1.4, Sodium 131 L, Potassium 4.1, Chloride 99, Carbon Dioxide 26.0, Anion Gap 6, BUN 29 H, Creatinine 0.93, Estim Creat Clear Calc 68.44, Est GFR (MDRD) Af Amer 103, Est GFR (MDRD) Non-Af 85, BUN/Creatinine Ratio 31.2 H, Glucose 140 H, Calcium 8.1 L 04/22/24 06:46: POC Glucose 121 H 04/22/24 12:51: POC Glucose 318 H Physical Exam Narrative General: Alert in no apparent distress today HEENT: Atraumatic, normocephalic Eyes: Anicteric, normal conjunctiva, extraocular movements grossly intact Neck: Supple Respiratory: Clear to auscultation bilaterally, normal respiratory effort Cardiovascular: Regular rate GI: Slightly distended without rebound, guarding, rigidity, soft Extremities: No edema Musculoskeletal: Moving all extremities Neuro: No overt focal neurological deficits Skin: No rashes appreciated Psych: Cooperative Assessment & Plan Assessment/Plan (1) Intractable low back pain: (2) MDS (myelodysplastic syndrome) with 5q deletion: (3) Hyperglycemia: (4) Thrombocytopenia: (5) Anemia: QUALIFIERS: Anemia type: unspecified type Qualified Code(s): D64.9 - Anemia, unspecified PLAN: Plan #Worsening low to mid back pain -Admitted to [facility] -CT lumbar spine with chronic degenerative changes but otherwise unremarkable, did have moderate stool burden so was felt that this was contributing to the pain -Has had bowel regimen escalated -Due to continued poor functional status MRI thoracic and lumbar spines obtained, lesions noted on thoracic spine, discussed with patient's hematology oncology doctor and it felt that this is consistent with reactivation of the bone marrow with his MDS over the other possible etiologies -Supportive care, pain control -04/19: There are multilevel normal vertebral body enhancements on thoracic spine, reviewed this with hematology oncology and it is suspected that this is reactivation of bone marrow which could contribute to back discomfort, PT/OT, attempting to spread out pain medication to help with constipation as well as alertness and mental status -04/20: Patient working with therapy, would likely be good SNF candidate, is more awake and alert, continue to space out pain medication as able, discussed with patient and family member at bedside -04/21: Patient continues to have decreased pain medication needs and is improving his mobility and working with physical therapy additionally pain is becoming more manageable. Feel he would be a good candidate for SNF and discussed with he and his . They are to discuss with social work once more family present. Would likely to be able to pursue placement given improvement -04/22: Patient medically stable at this time and plan will be for TCU, awaiting insurance authorization, continue to minimize pain medication as able and work with physical therapy # Pancytopenia?MDS -Biopsy noted MDS, awaiting the biopsy results -Discussed with oncology, transfuse patient for hemoglobin less than 7 and platelets less than 10 -Inpatient versus outpatient [place] oncology -Repeat CBC in a.m. -Blood today, had packed red blood cells yesterday as well and platelets yesterday -04/19: Did not require transfusion today, plan has been to try to send patient to [place] for hematology/oncology, insurance may not cover this, discussed with oncology and it will be evaluated if Revlimid can be started in our institution -04/20: Required platelet transfusion today, oncology consulted, evaluating if patient can begin Revlimid, repeat CBC in a.m., repeat bone marrow still pending -04/21: Required platelet transfusion again today, Revlimid prior Auth being coordinated through oncology's office. On an outpatient basis patient would just be having blood work twice a week and transfusing as needed so do not think this needs to keep patient directly in the hospital unless otherwise indicated by oncology, can discuss discharge planning and possible SNF placement -04/22: Patient to go to TCU, will need twice weekly CBCs and transfuse for platelets less than 10 or hemoglobin less than 7, his Revlimid has been approved and will be delivered to his house, will need to start aspirin when this medication is started. DVT prophylaxis #Type 2 diabetes mellitus -Glucose checks and sliding scale insulin -Patient is on a steroid, continue long-acting insulin -04/19: Further increasing long-acting insulin, continue sliding scale insulin -04/20: Patient had been on prednisone taper when he came in, reviewed taper and patient needs to be on prednisone through 04/22 and then will discontinue, suspect glucoses will improve after discontinuation's will likely need to further adjust -04/21: Glucose control seems to be improving, particularly fasting, manage needing to adjust insulin throughout the day -04/22: Premeal insulin has begun to improve glycemic control, fasting glucose fair, patient is almost done with his prednisone taper and that should improve glucose as well #Constipation-resolved -Escalation of bowel regimen -04/19: Avoiding enema due to significant thrombocytopenia, have continued to escalate bowel regimen, discontinuing dicyclomine, decreasing frequency patient is taking pain medication and increasing mobilization will likely help with this as well, no vomiting, patient did eat somewhat better today -04/20: Patient did have bowel movement, is still somewhat distended so we will continue regimen at this time and likely de-escalate in next 1 to 2 days if patient continues to have bowel movements -04/21: Will DC lactulose and continue other regimen presently, suspect patient will need bowel regimen on DC as well Chronic problems: # Concern for coronary artery disease -Had hospitalization in mid March with worsening exertional dyspnea -Cath deferred given his severe anemia and thrombocytopenia and is advised at some point in the future to consider further evaluation -Continue Imdur and beta-francheska -04/19: Patient generally weak, not complaining of any chest pain however -04/20: Continue present medication management, no chest pain or related complaints # Hypertension -Imdur and metoprolol -Lisinopril currently held -04/19: Blood pressure 126/69 at this time -04/20: Well-controlled #DVT ppx: SCDs Laura Wheeler MD Time spent in the patient's overall evaluation,decision-making process, review of diagnostic data, adjustment of management, discussion with other providers, nursing nursing and ancillary staff involved in patient's care documentation, 35 Minutes Charges/Coding Visit Charges Inpatient E&M: 46710 [facility] Hosp L2
[2024-04-22 16:46] LABS: Bedside Glucose 354 mg/dL (74-106)
[2024-04-22] MEDS: Insulin Glargine-YFGN 100 UNIT/ML Pen 25 UNIT SC (21:22)
[2024-04-22] MEDS: MELATONIN 3 MG TABLET 10 MG PO (21:22)
[2024-04-22] MEDS: traZODone 50 MG Tablet PO (21:22)
[2024-04-22 22:14] LABS: Bedside Glucose 342 mg/dL (74-106)
[2024-04-23] MEDS: HYDROmorphone 0.5 MG/0.5 ML SYRINGE IV ×2 (01:42→12:14)
[2024-04-23] MEDS: 0.9% Saline Lock 10 ML Syringe IV ×2 (01:42→12:21)
[2024-04-23 01:50] VITALS: BP 150/74; PULSE 80; RESP 16; TEMP 37.1; O2SAT 94
[2024-04-23] MEDS: oxyCODONE 5 MG Tablet PO ×2 (03:55→08:28)
[2024-04-23] MEDS: Acetaminophen 500 MG Tablet 1000 MG PO ×3 (05:41→21:05)
[2024-04-23] MEDS: Gabapentin 100 MG Capsule PO ×3 (05:41→21:05)
[2024-04-23 07:17] VITALS: O2SAT 95
[2024-04-23 07:19] LABS: Hematocrit 22.1 % (40-54); Hemoglobin 7.4 g/dL (13.0-16.5); Mean Corp Hgb Conc 33.5 g/dL (32-36); Mean Corpuscular Hgb 28.1 pg (27.0-32.0); POSITIVE COUNT YES; POSITIVE DIFFERENTIAL YES; POSITIVE MORPHOLOGY YES; RBC Distribution Width CV 14.2 % (11.6-14.6); RBC Distribution Width SD 43.8 fl (35.1-43.9); Red Blood Count 2.63 M/mm3 (4.6-6.2); White Blood Count 3.4 K/mm3 (4.4-11.0)
[2024-04-23 07:22] LABS: Differential Indicated MANUAL DIFF
[2024-04-23 07:24] LABS: Platelet Count 12 K/mm3 (150-450)
[2024-04-23 07:49] LABS: Anion Gap 7 (5-15); BUN 28 mg/dL (7-18); BUN/Creat Ratio 28.2 RATIO (10-20); Calcium,Total 7.8 mg/dL (8.5-10.1); Chloride 98 mmol/L (98-107); Creatinine, Serum 0.99 mg/dL (0.70-1.30); EST Glomerular Filtration Rate 78 mL/min (>60); Est Glom Filt Rate - Afr Amer 95 mL/min (>60); Estimated Creatinine Clearance 64.29 ml/min; Glucose 239 mg/dL (74-106); Potassium 4.4 mmol/L (3.5-5.1); Sodium Level 130 mmol/L (136-145)
[2024-04-23] MEDS: Insulin Lispro 100 UNIT/ML INSULN.PEN SC ×6 (08:06→21:13)
[2024-04-23] MEDS: Polyethylene Glycol 3350 17 GM PACKET PO (08:10)
[2024-04-23] MEDS: Glucerna Shake 120 ML LIQUID PO ×3 (08:10→18:00)
[2024-04-23] MEDS: Isosorbide Mononitrate 30 MG Tablet PO (08:10)
[2024-04-23] MEDS: Lidocaine 5% Patch 1 PATCH TOPICAL (08:11)
[2024-04-23] MEDS: Senna/Docusate Sodium 1 Tablet 2 TABLET PO (08:12)
[2024-04-23 08:13] VITALS: PULSE 99
[2024-04-23] MEDS: Metoprolol Tartrate 25 MG Tablet PO ×2 (08:13→21:05)
[2024-04-23] MEDS: Insulin Glargine-YFGN 100 UNIT/ML Pen 20 UNIT SC (08:14)
[2024-04-23 08:27] LABS: Blast 4 % (0-0); Eosinophil 1 % (0-5); Lymphocyte 29 % (19-41); Monocyte 1 % (0-10); Myelocyte 1 % (0-0); Neutrophil-Band 1 % (0-5); Neutrophil-Segmented 53 % (47-70); Nucleated Red Bld Cells,Manual 2 % (0-5); Promyelocyte 10 % (0-0); Total Cells Counted 100 (MANUAL DIFF)
[2024-04-23 08:32] LABS: Absolute Neutrophil Count 1.8 X10^3/uL (2.0-7.7)
[2024-04-23 08:33] LABS: Absolute Lymphocyte Count 0.97 X10^3/uL (0.83-4.51)
[2024-04-23 08:34] LABS: Anisocytosis 1+; Microcytosis 1+; Ovalocyte 1+; Platelet Estimate MKD DEC (ADEQ); Schistocytes RARE
--- NOTE | 2024-04-23 11:44 | PCM.PN.HOSP ---
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 (04/16/24) Anemia, unspecified (04/16/24) Thrombocytopenia, unspecified (04/16/24) Other low back pain (04/16/24) Hyperglycemia, unspecified (04/16/24) Subjective Subjective Patient was a bit tired today as he had more pain medication overnight due to some neck pain, feeling slightly better with heating pad Objective Data Objective Data Vital Signs: Vital Signs Temp Pulse Resp BP Pulse Ox O2 Del Method O2 Flow Rate 98.7 F 99 16 150/74 H 95 Room Air 2 04/23/24 01:50 04/23/24 08:13 04/23/24 01:50 04/23/24 01:50 04/23/24 07:17 04/23/24 07:17 04/20/24 14:26 Oxygen Flow Rate (L/min) 2 Oxygen Delivery Method Room Air Weight: 81.647 kg Body Mass Index (BMI) 27.3 Intake & Output: Intake and Output for Last 24 Hours 04/21/24 04/22/24 04/23/24 23:59 23:59 23:59 Intake Total 1190 / 1430 820 / 820 Balance 1190 / 1430 820 / 820 Lab / Micro Data 04/23/24 06:51 04/23/24 06:51 Labs: Laboratory Results - last 24 hr 04/21/24 07:17: Diff Path Review Reviewed 04/22/24 12:51: POC Glucose 318 H 04/22/24 16:19: POC Glucose 354 H 04/22/24 21:19: POC Glucose 342 H 04/23/24 06:51: WBC 3.4 L, RBC 2.63 L, Hgb 7.4 L, Hct 22.1 L, MCV 84.0, MCH 28.1, MCHC 33.5, RDW Std Deviation 43.8, RDW Coeff of Consuelo 14.2, Plt Count 12 L*, MPV TNP, Neut % (Auto) Not Reportable, Absolute Neuts (auto) 1.8 L, Absolute Lymphs (auto) 0.97, Total Counted 100, Neutrophils % (Manual) 53, Band Neutrophils % 1, Lymphocytes % (Manual) 29, Monocytes % (Manual) 1, Eosinophils % (Manual) 1, Myelocytes % 1 H, Promyelocytes % 10 H, Blast Cells % 4 H*, Nucleated RBCs/100 WBC 2, Diff Path Review May , Platelet Estimate MKD DEC, Anisocytosis 1+, Microcytosis 1+, Ovalocytes 1+, Schistocytes RARE, Sodium 130 L, Potassium 4.4, Chloride 98, Carbon Dioxide 25.0, Anion Gap 7, BUN 28 H, Creatinine 0.99, Estim Creat Clear Calc 64.29, Est GFR (MDRD) Af Amer 95, Est GFR (MDRD) Non-Af 78, BUN/Creatinine Ratio 28.2 H, Glucose 239 H, Calcium 7.8 L Physical Exam Narrative General: Alert in no apparent distress today HEENT: Atraumatic, normocephalic Eyes: Anicteric, normal conjunctiva, extraocular movements grossly intact Neck: Supple Respiratory: Clear to auscultation bilaterally, normal respiratory effort Cardiovascular: Regular rate GI: Slightly distended without rebound, guarding, rigidity, soft Extremities: No edema Musculoskeletal: Moving all extremities Neuro: No overt focal neurological deficits Skin: No rashes appreciated Psych: Cooperative Assessment & Plan Assessment/Plan (1) Intractable low back pain: (2) MDS (myelodysplastic syndrome) with 5q deletion: (3) Hyperglycemia: (4) Thrombocytopenia: (5) Anemia: QUALIFIERS: Anemia type: unspecified type Qualified Code(s): D64.9 - Anemia, unspecified PLAN: Plan #Worsening low to mid back pain -Admitted to [facility] -CT lumbar spine with chronic degenerative changes but otherwise unremarkable, did have moderate stool burden so was felt that this was contributing to the pain -Has had bowel regimen escalated -Due to continued poor functional status MRI thoracic and lumbar spines obtained, lesions noted on thoracic spine, discussed with patient's hematology oncology doctor and it felt that this is consistent with reactivation of the bone marrow with his MDS over the other possible etiologies -Supportive care, pain control -04/19: There are multilevel normal vertebral body enhancements on thoracic spine, reviewed this with hematology oncology and it is suspected that this is reactivation of bone marrow which could contribute to back discomfort, PT/OT, attempting to spread out pain medication to help with constipation as well as alertness and mental status -04/20: Patient working with therapy, would likely be good SNF candidate, is more awake and alert, continue to space out pain medication as able, discussed with patient and family member at bedside -04/21: Patient continues to have decreased pain medication needs and is improving his mobility and working with physical therapy additionally pain is becoming more manageable. Feel he would be a good candidate for SNF and discussed with he and his . They are to discuss with social work once more family present. Would likely to be able to pursue placement given improvement -04/22: Patient medically stable at this time and plan will be for TCU, awaiting insurance authorization, continue to minimize pain medication as able and work with physical therapy -04/23: Having some neck pain today so patient took additional pain medication, somewhat tired today, neck is beginning to feel better with heating pad. Will add topical arthritis cream to neck to try to minimize pain medication utilization. Patient to work with physical therapy, awaiting insurance authorization # Pancytopenia?MDS -Biopsy noted MDS, awaiting the biopsy results -Discussed with oncology, transfuse patient for hemoglobin less than 7 and platelets less than 10 -Inpatient versus outpatient [place] oncology -Repeat CBC in a.m. -Blood today, had packed red blood cells yesterday as well and platelets yesterday -04/19: Did not require transfusion today, plan has been to try to send patient to [place] for hematology/oncology, insurance may not cover this, discussed with oncology and it will be evaluated if Revlimid can be started in our institution -04/20: Required platelet transfusion today, oncology consulted, evaluating if patient can begin Revlimid, repeat CBC in a.m., repeat bone marrow still pending -04/21: Required platelet transfusion again today, Revlimid prior Auth being coordinated through oncology's office. On an outpatient basis patient would just be having blood work twice a week and transfusing as needed so do not think this needs to keep patient directly in the hospital unless otherwise indicated by oncology, can discuss discharge planning and possible SNF placement -04/22: Patient to go to TCU, will need twice weekly CBCs and transfuse for platelets less than 10 or hemoglobin less than 7, his Revlimid has been approved and will be delivered to his house, will need to start aspirin when this medication is started -04/23: No transfusion today, continue to monitor CBC and transfuse based on thresholds, still awaiting Revlimid to be delivered to the house per . #Type 2 diabetes mellitus -Glucose checks and sliding scale insulin -Patient is on a steroid, continue long-acting insulin -04/19: Further increasing long-acting insulin, continue sliding scale insulin -04/20: Patient had been on prednisone taper when he came in, reviewed taper and patient needs to be on prednisone through 04/22 and then will discontinue, suspect glucoses will improve after discontinuation's will likely need to further adjust -04/21: Glucose control seems to be improving, particularly fasting, manage needing to adjust insulin throughout the day -04/22: Premeal insulin has begun to improve glycemic control, fasting glucose fair, patient is almost done with his prednisone taper and that should improve glucose as well -04/23: Will monitor glucose now but prednisone taper is discontinued and patient has Premeal insulin in addition to a sliding scale, continue long-acting insulin #Constipation-resolved Chronic problems: # Concern for coronary artery disease -Had hospitalization in mid March with worsening exertional dyspnea -Cath deferred given his severe anemia and thrombocytopenia and is advised at some point in the future to consider further evaluation -Continue Imdur and beta-francheska -04/19: Patient generally weak, not complaining of any chest pain however -04/20: Continue present medication management, no chest pain or related complaints # Hypertension -Imdur and metoprolol -Lisinopril currently held -04/19: Blood pressure 126/69 at this time -04/20: Well-controlled #DVT ppx: SCDs Laura Wheeler MD Time spent in the patient's overall evaluation,decision-making process, review of diagnostic data, adjustment of management, discussion with other providers, nursing nursing and ancillary staff involved in patient's care documentation, 36 Minutes Charges/Coding Visit Charges Inpatient E&M: 30724 Subs Hosp L2
--- NOTE | 2024-04-23 12:06 | CASEMGMT ---
Social Work Green sheet placed on chart in the event TCU would get precert on the weekend. IMAN Kearney
[2024-04-23 12:26] LABS: Bedside Glucose 218 mg/dL (74-106)
[2024-04-23] MEDS: Arthritis Pain Compound 60 CLICK TUBE TOPICAL ×2 (14:38→21:06)
[2024-04-23 14:45] VITALS: BP 151/68; PULSE 98; RESP 18; TEMP 36.6; O2SAT 92
[2024-04-23 17:33] LABS: Bedside Glucose 217 mg/dL (74-106)
[2024-04-23 20:29] VITALS: BP 166/88; PULSE 64; RESP 18; TEMP 36.8; O2SAT 94
[2024-04-23 21:05] VITALS: BP 166/88; PULSE 64
[2024-04-23] MEDS: MELATONIN 3 MG TABLET 10 MG PO (21:05)
[2024-04-23] MEDS: traZODone 50 MG Tablet PO (21:05)
[2024-04-23 21:33] LABS: Bedside Glucose 215 mg/dL (74-106)
[2024-04-23] MEDS: Insulin Glargine-YFGN 100 UNIT/ML Pen 25 UNIT SC (21:34)
[2024-04-23] MEDS: cycloBENZAPRine HCl 5 MG TABLET PO (21:34)
[2024-04-24] VITALS (13 sets, daily range): BP systolic 116–176; BP diastolic 52–83; PULSE 72–125; RESP 16–20; TEMP 36.5–37.5; O2SAT 94–100
[2024-04-24 05:24] LABS: Hematocrit 20.5 % (40-54); Hemoglobin 6.9 g/dL (13.0-16.5); Mean Corp Hgb Conc 33.7 g/dL (32-36); Mean Corpuscular Hgb 28.2 pg (27.0-32.0); Mean Corpuscular Volume 83.7 fL (80-94); Mean Platelet Vol. 9.3 fl (6.2-12.0); POSITIVE COUNT YES; POSITIVE DIFFERENTIAL YES; POSITIVE MORPHOLOGY YES; RBC Distribution Width CV 14.4 % (11.6-14.6); RBC Distribution Width SD 43.8 fl (35.1-43.9); Red Blood Count 2.45 M/mm3 (4.6-6.2); White Blood Count 3.8 K/mm3 (4.4-11.0)
[2024-04-24 05:40] LABS: Differential Indicated MANUAL DIFF; Platelet Count 5 K/mm3 (150-450)
[2024-04-24 05:47] LABS: Anion Gap 7 (5-15); BUN 28 mg/dL (7-18); BUN/Creat Ratio 31.2 RATIO (10-20); Calcium,Total 8.1 mg/dL (8.5-10.1); Chloride 97 mmol/L (98-107); EST Glomerular Filtration Rate 88 mL/min (>60); Est Glom Filt Rate - Afr Amer 107 mL/min (>60); Estimated Creatinine Clearance 70.72 ml/min; Glucose 186 mg/dL (74-106); Potassium 4.2 mmol/L (3.5-5.1); Sodium Level 129 mmol/L (136-145)
[2024-04-24] MEDS: Acetaminophen 500 MG Tablet 1000 MG PO ×3 (06:07→22:36)
[2024-04-24] MEDS: Arthritis Pain Compound 60 CLICK TUBE TOPICAL ×3 (06:08→22:37)
[2024-04-24] MEDS: Gabapentin 100 MG Capsule PO ×3 (06:08→22:29)
[2024-04-24 07:13] LABS: Neutrophil-Band 5 % (0-5); Neutrophil-Segmented 32 % (47-70); Total Cells Counted 100 (MANUAL DIFF)
[2024-04-24 07:14] LABS: Blast 38 % (0-0); Lymphocyte 19 % (19-41); Monocyte 2 % (0-10); Promyelocyte 4 % (0-0)
[2024-04-24 07:15] LABS: Differential Comment SCANNED; Platelet Estimate MKD DEC (ADEQ)
[2024-04-24 07:17] LABS: Absolute Lymphocyte Count 0.72 X10^3/uL (0.83-4.51); Absolute Neutrophil Count 1.4 X10^3/uL (2.0-7.7)
[2024-04-24 08:14] LABS: Bedside Glucose 156 mg/dL (74-106)
--- NOTE | 2024-04-24 08:14 | PN.HOSP_ITS ---
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 (04/16/24) Anemia, unspecified (04/16/24) Thrombocytopenia, unspecified (04/16/24) Other low back pain (04/16/24) Hyperglycemia, unspecified (04/16/24) Subjective Subjective Patient reports he feels like a vegetable bases just been sitting there, received a dose of muscle relaxer overnight which helped decrease his pain medication requirement and did not seem to make him overly tired, inquiring about using muscle relaxer prn Objective Data Objective Data Vital Signs: Vital Signs Temp Pulse Resp BP Pulse Ox O2 Del Method O2 Flow Rate 98 F 100 18 152/75 H 94 Room Air 2 04/24/24 04:00 04/24/24 07:45 04/24/24 04:00 04/24/24 04:00 04/24/24 04:00 04/24/24 07:45 04/20/24 14:26 Oxygen Flow Rate (L/min) 2 Oxygen Delivery Method Room Air Weight: 81.647 kg Body Mass Index (BMI) 27.3 Intake & Output: Intake and Output for Last 24 Hours 04/22/24 04/23/24 04/24/24 23:59 23:59 23:59 Intake Total 820 / 820 1180 / 1180 Balance 820 / 820 1180 / 1180 Lab / Micro Data 04/24/24 05:00 04/24/24 05:00 Labs: Laboratory Results - last 24 hr 04/23/24 06:51: Absolute Neuts (auto) 1.8 L, Absolute Lymphs (auto) 0.97, Total Counted 100, Neutrophils % (Manual) 53, Band Neutrophils % 1, Lymphocytes % (Manual) 29, Monocytes % (Manual) 1, Eosinophils % (Manual) 1, Myelocytes % 1 H, Promyelocytes % 10 H, Blast Cells % 4 H*, Nucleated RBCs/100 WBC 2, Diff Path Review May , Platelet Estimate MKD DEC, Anisocytosis 1+, Microcytosis 1+, Ovalocytes 1+, Schistocytes RARE 04/23/24 12:05: POC Glucose 218 H 04/23/24 17:14: POC Glucose 217 H 04/23/24 21:11: POC Glucose 215 H 04/24/24 05:00: WBC 3.8 L, RBC 2.45 L, Hgb 6.9 L, Hct 20.5 L, MCV 83.7, MCH 28.2, MCHC 33.7, RDW Std Deviation 43.8, RDW Coeff of Consuelo 14.4, Plt Count 5 L*, MPV 9.3, Neut % (Auto) Not Reportable, Absolute Neuts (auto) 1.4 L, Absolute Lymphs (auto) 0.72 L, Total Counted 100, Neutrophils % (Manual) 32 L, Band Neutrophils % 5, Lymphocytes % (Manual) 19, Monocytes % (Manual) 2, P romyelocytes % 4 H, Blast Cells % 38 H*, Differential Comment SCANNED, Diff Path Review February foll, Platelet Estimate MKD DEC, Sodium 129 L, Potassium 4.2, C hloride 97 L, Carbon Dioxide 25.0, Anion Gap 7, BUN 28 H, Creatinine 0.90, Estim Creat Clear Calc 70.72, Est GFR (MDRD) Af Amer 107, Est GFR (MDRD) Non-Af 88, B UN/Creatinine Ratio 31.2 H, Glucose 186 H, Calcium 8.1 L 04/24/24 07:39: Crossmatch See Detail 04/24/24 07:43: POC Glucose 156 H Physical Exam Narrative General: Alert in no apparent distress today HEENT: Atraumatic, normocephalic Eyes: Anicteric, normal conjunctiva, extraocular movements grossly intact Neck: Supple Respiratory: Clear to auscultation bilaterally, normal respiratory effort Cardiovascular: Regular rate GI: Slightly distended without rebound, guarding, rigidity, soft Extremities: No edema Musculoskeletal: Moving all extremities Neuro: No overt focal neurological deficits Skin: No rashes appreciated Psych: Cooperative Assessment & Plan Assessment/Plan (1) Intractable low back pain: (2) MDS (myelodysplastic syndrome) with 5q deletion: (3) Hyperglycemia: (4) Thrombocytopenia: (5) Anemia: QUALIFIERS: Anemia type: unspecified type Qualified Code(s): D 64.9 - Anemia, unspecified PLAN: Plan #Worsening low to mid back pain -Admitted to [facility] -CT lumbar spine with chronic degenerative changes but otherwise unremarkable, did have moderate stool burden so was felt that this was contributing to the pain -Has had bowel regimen escalated -Due to continued poor functional status MRI thoracic and lumbar spines obtained, lesions noted on thoracic spine, discussed with patient's hematology oncology doctor and it felt that this is consistent with reactivation of the bone marrow with his MDS over the other possible etiologies -Supportive care, pain control -04/19: There are multilevel normal vertebral body enhancements on thoracic spine, reviewed this with hematology oncology and it is suspected that this is reactivation of bone marrow which could contribute to back discomfort, PT/OT, attempting to spread out pain medication to help with constipation as well as alertness and mental status -04/20: Patient working with therapy, would likely be good SNF candidate, is more awake and alert, continue to space out pain medication as able, discussed with patient and family member at bedside -04/21: Patient continues to have decreased pain medication needs and is improving his mobility and working with physical therapy additionally pain is becoming more manageable. Feel he would be a good candidate for SNF and discussed with he and his . They are to discuss with social work once more family present. Would likely to be able to pursue placement given improvement -04/22: Patient medically stable at this time and plan will be for TCU, awaiting insurance authorization, continue to minimize pain medication as able and work with physical therapy -04/23: Having some neck pain today so patient took additional pain medication, somewhat tired today, neck is beginning to feel better with heating pad. Will add topical arthritis cream to neck to try to minimize pain medication utilization. Patient to work with physical therapy, awaiting insurance authorization -04/24: Continue PT/OT, pain control, supportive care, awaiting insurance Auth for TCU, discussed with and patient had a dose of muscle relaxer last night which helped neck and back pain and decreased pain medication requirement without making him overly sedated, will add cyclobenzaprine as needed, also discussed discontinuing Dilaudid as patient cannot receive IV pain medication at TCU and she verbalized her understanding # Pancytopenia?MDS -Biopsy noted MDS, awaiting the biopsy results -Discussed with oncology, transfuse patient for hemoglobin less than 7 and platelets less than 10 -Inpatient versus outpatient [place] oncology -Repeat CBC in a.m. -Blood today, had packed red blood cells yesterday as well and platelets yesterday -04/19: Did not require transfusion today, plan has been to try to send patient to [place] for hematology/oncology, insurance may not cover this, discussed with oncology and it will be evaluated if Revlimid can be started in our institution -04/20: Required platelet transfusion today, oncology consulted, evaluating if patient can begin Revlimid, repeat CBC in a.m., repeat bone marrow still pending -04/21: Required platelet transfusion again today, Revlimid prior Auth being coordinated through oncology's office. On an outpatient basis patient would just be having blood work twice a week and transfusing as needed so do not think this needs to keep patient directly in the hospital unless otherwise indicated by oncology, can discuss discharge planning and possible SNF placement -04/22: Patient to go to TCU, will need twice weekly CBCs and transfuse for platelets less than 10 or hemoglobin less than 7, his Revlimid has been approved and will be delivered to his house, will need to start aspirin when this medication is started -04/23: No transfusion today, continue to monitor CBC and transfuse based on thresholds, still awaiting Revlimid to be delivered to the house per . -04/24: Requiring back of blood cell and platelet transfusion today, patient will follow with oncology on discharge, awaiting Revlimid #Type 2 diabetes mellitus -Glucose checks and sliding scale insulin -Patient is on a steroid, continue long-acting insulin -04/19: Further increasing long-acting insulin, continue sliding scale insulin -04/20: Patient had been on prednisone taper when he came in, reviewed taper and patient needs to be on prednisone through 04/22 and then will discontinue, suspect glucoses will improve after discontinuation's will likely need to further adjust -04/21: Glucose control seems to be improving, particularly fasting, manage needing to adjust insulin throughout the day -04/22: Premeal insulin has begun to improve glycemic control, fasting glucose fair, patient is almost done with his prednisone taper and that should improve glucose as well -04/23: Will monitor glucose now but prednisone taper is discontinued and patient has Premeal insulin in addition to a sliding scale, continue long-acting insulin -04/24: A.m. fasting glucose 156 today, glucose seems to be improving now that steroids have been discontinued, discontinue Premeal, further adjust as needed #Constipation-resolved Chronic problems: # Concern for coronary artery disease -Had hospitalization in mid March with worsening exertional dyspnea -Cath deferred given his severe anemia and thrombocytopenia and is advised at some point in the future to consider further evaluation -Continue Imdur and beta-francheska -04/19: Patient generally weak, not complaining of any chest pain however -04/20: Continue present medication management, no chest pain or related complaints # Hypertension -Imdur and metoprolol -Lisinopril currently held -04/19: Blood pressure 126/69 at this time -04/20: Well-controlled #DVT ppx: SCDs Laura Wheeler MD Charges/Coding Visit Charges Inpatient E&M: 87022 Subs Hosp L1
[2024-04-24] MEDS: Glucerna Shake 120 ML LIQUID PO ×3 (09:27→16:29)
[2024-04-24] MEDS: Insulin Lispro 100 UNIT/ML INSULN.PEN SC ×4 (09:28→22:43)
[2024-04-24] MEDS: Lidocaine 5% Patch 1 PATCH TOPICAL (09:30)
[2024-04-24] MEDS: Metoprolol Tartrate 25 MG Tablet PO ×2 (09:31→22:34)
[2024-04-24] MEDS: Isosorbide Mononitrate 30 MG Tablet PO (09:32)
[2024-04-24] MEDS: 0.9% Saline Lock 10 ML Syringe IV ×3 (12:05→22:46)
[2024-04-24] MEDS: Insulin Glargine-YFGN 100 UNIT/ML Pen 20 UNIT SC (12:06)
[2024-04-24 12:31] LABS: Bedside Glucose 330 mg/dL (74-106)
--- NOTE | 2024-04-24 14:47 | RAD_ITS ---
STUDY: XR Chest 1 View 04/24/2024 2:37 PM REASON FOR EXAM: Male, 74 years old. crackles and O2 sat after blood admin COMPARISON: 04-12-24 TECHNIQUE: XR Chest 1 View FINDINGS: There is no demonstrated pleural abnormality. There is an elevated right hemidiaphragm. Normal heart size. Normal mediastinum. Normal manjit. Prominent appearing increased interstitial lung markings. Normal visualized pulmonary arteries. There is atherosclerotic calcification of the aortic arch with tortuosity. There are diffuse degenerative changes of the visualized thoracic spine. There is degenerative osteoarthritis of the bilateral shoulders. There are no acute findings of the upper abdomen. RAD/Chest 1 View (Portable) IMPRESSION: There are no acute findings. Electronically Signed: Alex Rojas MD at 16:28 EDT ,
[2024-04-24] MEDS: Furosemide 20 MG Tablet PO (18:03)
[2024-04-24 18:59] LABS: Bedside Glucose 233 mg/dL (74-106)
[2024-04-24] MEDS: cycloBENZAPRine HCl 5 MG TABLET PO (19:55)
[2024-04-24] MEDS: MELATONIN 3 MG TABLET 10 MG PO (22:32)
[2024-04-24] MEDS: Insulin Glargine-YFGN 100 UNIT/ML Pen 25 UNIT SC (22:42)
[2024-04-24 23:11] LABS: Bedside Glucose 272 mg/dL (74-106)
[2024-04-25] VITALS (7 sets, daily range): BP systolic 119–155; BP diastolic 59–64; PULSE 84–108; RESP 16–20; TEMP 36.5–37.2; O2SAT 94–100
[2024-04-25] MEDS: cycloBENZAPRine HCl 5 MG TABLET PO (03:05)
[2024-04-25] MEDS: Acetaminophen 500 MG Tablet 1000 MG PO ×3 (05:31→21:20)
[2024-04-25] MEDS: Gabapentin 100 MG Capsule PO ×3 (05:31→21:17)
[2024-04-25 05:33] LABS: Hematocrit 20.6 % (40-54); Hemoglobin 7.2 g/dL (13.0-16.5); Mean Corpuscular Hgb 28.1 pg (27.0-32.0); Mean Corpuscular Volume 80.5 fL (80-94); POSITIVE COUNT YES; POSITIVE DIFFERENTIAL YES; POSITIVE MORPHOLOGY YES; RBC Distribution Width CV 14.6 % (11.6-14.6); RBC Distribution Width SD 42.5 fl (35.1-43.9); Red Blood Count 2.56 M/mm3 (4.6-6.2); White Blood Count 3.7 K/mm3 (4.4-11.0)
[2024-04-25] MEDS: Arthritis Pain Compound 60 CLICK TUBE TOPICAL ×3 (05:34→21:23)
[2024-04-25 06:02] LABS: Platelet Count 5 K/mm3 (150-450)
[2024-04-25 06:11] LABS: Anion Gap 6 (5-15); BUN 22 mg/dL (7-18); BUN/Creat Ratio 29.7 RATIO (10-20); Chloride 101 mmol/L (98-107); Creatinine, Serum 0.74 mg/dL (0.70-1.30); EST Glomerular Filtration Rate 110 mL/min (>60); Est Glom Filt Rate - Afr Amer 133 mL/min (>60); Estimated Creatinine Clearance 79.56 ml/min; Glucose 191 mg/dL (74-106); Potassium 3.8 mmol/L (3.5-5.1); Sodium Level 132 mmol/L (136-145)
[2024-04-25] MEDS: Insulin Lispro 100 UNIT/ML INSULN.PEN SC ×4 (07:58→21:28)
[2024-04-25 08:15] LABS: Differential Indicated MANUAL DIFF; Scan Smear per Review Criteria MANUAL DIFF
[2024-04-25 08:19] LABS: Blast 9 % (0-0); Eosinophil 1 % (0-5); Lymphocyte 51 % (19-41); Myelocyte 1 % (0-0); Neutrophil-Band 1 % (0-5); Neutrophil-Segmented 37 % (47-70); Total Cells Counted 100 (MANUAL DIFF)
[2024-04-25 08:21] LABS: Atypical Lymphocyte 3+ %
[2024-04-25 08:22] LABS: Absolute Lymphocyte Count 1.89 X10^3/uL (0.83-4.51); Absolute Neutrophil Count 1.4 X10^3/uL (2.0-7.7); Anisocytosis 2+; Platelet Estimate MKD DEC (ADEQ); Red Cell Morphology N CHROM NORMAL (NORM C&C)
[2024-04-25 08:55] LABS: Bedside Glucose 192 mg/dL (74-106)
--- NOTE | 2024-04-25 09:41 | CASEMGMT ---
Social Work- SW provided update to pt and pt that no authorization from insurance has been obtained at this time. SW encouraged pt to participate in therapy to the full extent of ability and provided education on the importance of therapy participation for authorization and, if approved, while in therapy. Pt reports understanding. Pt intermittently had eyes closed, laying in bed; previously pt had been sleeping. BENNETT Plummer
[2024-04-25] MEDS: Insulin Glargine-YFGN 100 UNIT/ML Pen 20 UNIT SC (11:10)
[2024-04-25] MEDS: Isosorbide Mononitrate 30 MG Tablet PO (11:10)
[2024-04-25] MEDS: Lidocaine 5% Patch 1 PATCH TOPICAL (11:11)
[2024-04-25] MEDS: Senna/Docusate Sodium 1 Tablet 2 TABLET PO (11:14)
[2024-04-25] MEDS: Metoprolol Tartrate 25 MG Tablet PO ×2 (11:17→21:18)
[2024-04-25 12:22] LABS: Bedside Glucose 301 mg/dL (74-106)
[2024-04-25 15:21] LABS: Pathologist Review Reviewed
[2024-04-25 15:23] LABS: Pathologist Review Reviewed
--- NOTE | 2024-04-25 15:24 | PCM.PN.HOSP ---
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 (04/16/24) Anemia, unspecified (04/16/24) Thrombocytopenia, unspecified (04/16/24) Other low back pain (04/16/24) Hyperglycemia, unspecified (04/16/24) Objective Data Objective Data Vital Signs: Vital Signs Temp Pulse Resp BP Pulse Ox O2 Del Method O2 Flow Rate 98.9 F 100 16 119/59 L 98 Room Air 2 04/25/24 14:20 04/25/24 14:20 04/25/24 14:20 04/25/24 14:20 04/25/24 14:20 04/25/24 14:20 04/20/24 14:26 Oxygen Flow Rate (L/min) 2 Oxygen Delivery Method Room Air Weight: 180 lb 0.013 oz Body Mass Index (BMI) 27.3 Intake & Output: Intake and Output for Last 24 Hours 04/23/24 04/24/24 04/25/24 23:59 23:59 23:59 Intake Total 1180 / 1180 300 / 300 150 / 150 Balance 1180 / 1180 300 / 300 150 / 150 Lab / Micro Data 04/25/24 04:27 04/25/24 04:27 Labs: Laboratory Results - last 24 hr 04/24/24 05:00: Diff Path Review Reviewed 04/24/24 16:26: POC Glucose 233 H 04/24/24 22:39: POC Glucose 272 H 04/25/24 04:27: WBC 3.7 L, RBC 2.56 L, Hgb 7.2 L, Hct 20.6 L, MCV 80.5, MCH 28.1, MCHC 35.0, RDW Std Deviation 42.5, RDW Coeff of Consuelo 14.6, Plt Count 5 L*, MPV TNP, Immature Gran % (Auto) JUICE STANDARDIZER, Neut % (Auto) JUICE STANDARDIZER, Lymph % (Auto) JUICE STANDARDIZER, [place] % (Auto) JUICE STANDARDIZER, Eos % (Auto) JUICE STANDARDIZER, Baso % (Auto) JUICE STANDARDIZER, Absolute Neuts (auto) 1.4 L, Absolute Lymphs (auto) 1.89, Total Counted 100, Neutrophils % (Manual) 37 L, Band Neutrophils % 1, Lymphocytes % (Manual) 51 H, Eosinophils % (Manual) 1, Myelocytes % 1 H, Blast Cells % 9 H*, Nucleated RBC % JUICE STANDARDIZER, Diff Path Review May foll, Atypical Lymphocytes 3+, Platelet Estimate MKD DEC, RBC Morphology N CHROM, Anisocytosis 2+, Sodium 132 L, Potassium 3.8, Chloride 101, Carbon Dioxide 25.0, Anion Gap 6, BUN 22 H, Creatinine 0.74, Estim Creat Clear Calc 79.56, Est GFR (MDRD) Af Amer 133, Est GFR (MDRD) Non-Af 110, BUN/Creatinine Ratio 29.7 H, Glucose 191 H, Calcium 8.0 L 04/25/24 07:56: POC Glucose 192 H 04/25/24 11:54: POC Glucose 301 H Radiography Diagnostic Testing: Radiology Impression Chest X-Ray 04/24/24 14:47 IMPRESSION: There are no acute findings. Electronically Signed: Alex Rojas MD at 16:28 EDT Reading Location ID and State: [facility] / [place] , Service support , Physical Exam Narrative Seen and examined. Patient is very weak and fatigued. Had back surgery in the past. Labs show severe thrombocytopenia, 5000. No active bleeding. Physical exam: General: Alert, Oriented x3, Cooperative HEENT: Atraumatic, PERRLA, EOMI, Normocephalic Oral: Oral mucosa moist. No Gingival or Mucosal Lesions/ Ulcerations Neck: Supple, No JVD, Negative Carotid Bruits Chest wall/Lungs: Air entry diminished in bilateral lung bases. No crepitation/rhonchi Cardiovascular: Regular rate, Regular Rhythm, Normal S1, Normal S2, No M/G/R Abdomen: Bowel Sounds Present, Soft, Non Tender, Non-Distended : No dysuria. No renal angle tenderness. No suprapubic tenderness. Extremities: No edema, Capillary Refill Less than 3 Seconds Skin: No rashes, No breakdown Musculoskeletal: Muscle strength 4/5 at bilateral knees and hips joints. Mild muscle atrophy. No Tenderness to Palpation of Joints or Extremities Spine: Old lumbar surgical scar. No acute tenderness. Neurological: Cranial nerves II-XII grossly intact, DTR 2+/4. No acute focal neurological deficit. Psych/Mental Status: Flat affect. Assessment & Plan Assessment/Plan (1) Intractable low back pain: (2) MDS (myelodysplastic syndrome) with 5q deletion: (3) Hyperglycemia: (4) Thrombocytopenia: (5) Anemia: QUALIFIERS: Anemia type: unspecified type Qualified Code(s): D64.9 - Anemia, unspecified PLAN: Plan #Worsening low to mid back pain -Admitted to [facility] -CT lumbar spine with chronic degenerative changes but otherwise unremarkable, did have moderate stool burden so was felt that this was contributing to the pain -Has had bowel regimen escalated -Due to continued poor functional status MRI thoracic and lumbar spines obtained, lesions noted on thoracic spine, discussed with patient's hematology oncology doctor and it felt that this is consistent with reactivation of the bone marrow with his MDS over the other possible etiologies -Supportive care, pain control 04/25: Discussed with the patient's , his brother present in the room. Continue active PT and OT. Pre-CERT is pending. # Pancytopenia?MDS -Biopsy noted MDS, nondiagnostic bone marrow core, clot and aspirate, peripheral smear normocytic anemia with mild thrombocytopenia. Flow cytometry shows 5% myeloblast and phenotypic evidence of myelodysplastic process. -Discussed with oncology, transfuse patient for hemoglobin less than 7 and platelets less than 10 -Inpatient versus outpatient [facility] 04/25: Patient seen medication, Revlimid is mailed from [facility] today and patient will be getting tomorrow at home to address. Hemoglobin 7.2 g%. The last 9%. Severe thrombocytopenia 5K. 1 unit of platelets a pheresis ordered. Patient will need twice weekly CBC and transfusion for platelet less than 10,000 or hemoglobin less than 7 g% as per oncologist Dr. Lazaro's recommendation #Type 2 diabetes mellitus -Accu-Chek before meals and at bedtime with Humalog sliding scale coverage. #Constipation-resolved Chronic problems: # Concern for coronary artery disease -Had hospitalization in mid March with worsening exertional dyspnea -Cath deferred given his severe anemia and thrombocytopenia and is advised at some point in the future to consider further evaluation -Continue Imdur and beta-francheska - # Hypertension -Imdur and metoprolol -Lisinopril currently held - #DVT ppx, high risk: SCDs. Pharmacological prophylaxis is contraindicated in view of severe thrombocytopenia and anemia Charges/Coding Visit Charges Inpatient E&M: 70885 [facility] Hosp L3
--- NOTE | 2024-04-25 16:04 | CASEMGMT ---
Social Work- SW received notification that pt has precert for TCU by [facility]en/TCU. Physician updated. Pt and son notified of precert and possible transfer to TCU this evening depending on physician discharge. BENNETT Plummer
[2024-04-25 17:18] LABS: Bedside Glucose 282 mg/dL (74-106)
[2024-04-25] MEDS: traZODone 50 MG Tablet PO (21:17)
[2024-04-25] MEDS: MELATONIN 3 MG TABLET 10 MG PO (21:19)
[2024-04-25] MEDS: Insulin Glargine-YFGN 100 UNIT/ML Pen 25 UNIT SC (21:28)
[2024-04-25] MEDS: 0.9% Saline Lock 10 ML Syringe IV (21:34)
[2024-04-26] VITALS (11 sets, daily range): BP systolic 112–142; BP diastolic 51–72; PULSE 88–107; RESP 16–18; TEMP 36.5–37.7; O2SAT 94–100
[2024-04-26 00:45] LABS: Bedside Glucose 238 mg/dL (74-106)
[2024-04-26] MEDS: cycloBENZAPRine HCl 5 MG TABLET PO (01:53)
[2024-04-26] MEDS: Acetaminophen 500 MG Tablet 1000 MG PO ×2 (06:10→15:25)
[2024-04-26] MEDS: Arthritis Pain Compound 60 CLICK TUBE TOPICAL ×2 (06:11→15:25)
[2024-04-26] MEDS: Gabapentin 100 MG Capsule PO ×2 (06:11→15:25)
[2024-04-26 06:53] LABS: Bedside Glucose 123 mg/dL (74-106)
[2024-04-26 10:09] LABS: Hematocrit 18.7 % (40-54); Hemoglobin 6.4 g/dL (13.0-16.5); Mean Corp Hgb Conc 34.2 g/dL (32-36); Mean Corpuscular Hgb 28.1 pg (27.0-32.0); POSITIVE COUNT YES; POSITIVE DIFFERENTIAL YES; POSITIVE MORPHOLOGY YES; RBC Distribution Width CV 14.8 % (11.6-14.6); RBC Distribution Width SD 44.4 fl (35.1-43.9); Red Blood Count 2.28 M/mm3 (4.6-6.2); White Blood Count 2.5 K/mm3 (4.4-11.0)
[2024-04-26 10:15] LABS: Differential Indicated MANUAL DIFF; Platelet Count 11 K/mm3 (150-450)
[2024-04-26 10:34] LABS: Blast 16 % (0-0); Lymphocyte 34 % (19-41); Monocyte 2 % (0-10); Neutrophil-Band 4 % (0-5); Neutrophil-Segmented 44 % (47-70); Platelet Estimate MKD DEC (ADEQ); Total Cells Counted 100 (MANUAL DIFF)
[2024-04-26 10:35] LABS: Anisocytosis 1+; Red Cell Morphology N CHROM NORMAL (NORM C&C)
[2024-04-26 10:36] LABS: Absolute Lymphocyte Count 0.85 X10^3/uL (0.83-4.51); Absolute Neutrophil Count 1.2 X10^3/uL (2.0-7.7)
[2024-04-26 10:40] LABS: Anion Gap 5 (5-15); BUN 19 mg/dL (7-18); Calcium,Total 7.7 mg/dL (8.5-10.1); Chloride 104 mmol/L (98-107); Creatinine, Serum 0.86 mg/dL (0.70-1.30); EST Glomerular Filtration Rate 92 mL/min (>60); Est Glom Filt Rate - Afr Amer 112 mL/min (>60); Estimated Creatinine Clearance 74.01 ml/min; Glucose 117 mg/dL (74-106); Potassium 3.7 mmol/L (3.5-5.1); Sodium Level 136 mmol/L (136-145)
[2024-04-26] MEDS: Senna/Docusate Sodium 1 Tablet 2 TABLET PO (11:28)
[2024-04-26] MEDS: Lidocaine 5% Patch 1 PATCH TOPICAL (11:28)
[2024-04-26] MEDS: Metoprolol Tartrate 25 MG Tablet PO (11:29)
[2024-04-26] MEDS: Insulin Glargine-YFGN 100 UNIT/ML Pen 20 UNIT SC (11:30)
[2024-04-26] MEDS: Isosorbide Mononitrate 30 MG Tablet PO (11:30)
[2024-04-26 11:40] LABS: Bedside Glucose 120 mg/dL (74-106)
[2024-04-26 11:47] LABS: Pathologist Review Reviewed
--- NOTE | 2024-04-26 12:52 | PCM.PN.HOSP ---
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 (04/16/24) Anemia, unspecified (04/16/24) Thrombocytopenia, unspecified (04/16/24) Other low back pain (04/16/24) Hyperglycemia, unspecified (04/16/24) Objective Data Objective Data Vital Signs: Vital Signs Temp Pulse Resp BP Pulse Ox O2 Del Method O2 Flow Rate 97.7 F L 89 16 127/52 H 95 Room Air 2 04/26/24 11:14 04/26/24 11:29 04/26/24 11:14 04/26/24 11:14 04/26/24 11:14 04/26/24 11:14 04/20/24 14:26 Oxygen Flow Rate (L/min) 2 Oxygen Delivery Method Room Air Weight: 180 lb 0.013 oz Body Mass Index (BMI) 27.3 Intake & Output: Intake and Output for Last 24 Hours 04/24/24 04/25/24 04/26/24 23:59 23:59 23:59 Intake Total 300 / 300 650 / 650 300 / 300 Balance 300 / 300 650 / 650 300 / 300 Lab / Micro Data 04/26/24 09:55 04/26/24 09:55 Labs: Laboratory Results - last 24 hr 04/23/24 06:51: Diff Path Review Reviewed 04/24/24 05:00: Diff Path Review Reviewed 04/25/24 04:27: Diff Path Review Reviewed 04/25/24 16:53: POC Glucose 282 H 04/25/24 21:27: POC Glucose 238 H 04/26/24 06:14: POC Glucose 123 H 04/26/24 09:55: WBC 2.5 L, RBC 2.28 L, Hgb 6.4 L, Hct 18.7 L, MCV 82.0, MCH 28.1, MCHC 34.2, RDW Std Deviation 44.4 H, RDW Coeff of Consuelo 14.8 H, Plt Count 11 L*, MPV 9.0, Neut % (Auto) Not Reportable, Absolute Neuts (auto) 1.2 L, Absolute Lymphs (auto) 0.85, Total Counted 100, Neutrophils % (Manual) 44 L, Band Neutrophils % 4, Lymphocytes % (Manual) 34, Monocytes % (Manual) 2, Blast Cells % 16 H*, Diff Path Review February foll, Platelet Estimate MKD DEC, RBC Morphology N CHROM, Anisocytosis 1+, Sodium 136, Potassium 3.7, Chloride 104, Carbon Dioxide 27.0, Anion Gap 5, BUN 19 H, Creatinine 0.86, Estim Creat Clear Calc 74.01, Est GFR (MDRD) Af Amer 112, Est GFR (MDRD) Non-Af 92, BUN/Creatinine Ratio 22.0 H, Glucose 117 H, Calcium 7.7 L 04/26/24 11:21: POC Glucose 120 H Physical Exam Narrative Seen and examined. Patient is very weak and fatigued. Had back surgery in the past. Lab still shows pancytopenia. No active bleeding. Physical exam: General: Alert, Oriented x3, Cooperative HEENT: Atraumatic, PERRLA, EOMI, Normocephalic Oral: Oral mucosa moist. No Gingival or Mucosal Lesions/ Ulcerations Neck: Supple, No JVD, Negative Carotid Bruits Chest wall/Lungs: Air entry diminished in bilateral lung bases. No crepitation/rhonchi Cardiovascular: Regular rate, Regular Rhythm, Normal S1, Normal S2, No M/G/R Abdomen: Bowel Sounds Present, Soft, Non Tender, Non-Distended : No dysuria. No renal angle tenderness. No suprapubic tenderness. Extremities: No edema, Capillary Refill Less than 3 Seconds Skin: No rashes, No breakdown Musculoskeletal: Muscle strength 4/5 at bilateral knees and hips joints. Mild muscle atrophy. No Tenderness to Palpation of Joints or Extremities Spine: Old lumbar surgical scar. No acute tenderness. Neurological: Cranial nerves II-XII grossly intact, DTR 2+/4. No acute focal neurological deficit. Psych/Mental Status: Flat affect. Assessment & Plan Assessment/Plan (1) Intractable low back pain: (2) MDS (myelodysplastic syndrome) with 5q deletion: (3) Hyperglycemia: (4) Thrombocytopenia: (5) Anemia: QUALIFIERS: Anemia type: unspecified type Qualified Code(s): D64.9 - Anemia, unspecified PLAN: Plan #Worsening low to mid back pain -Admitted to [facility] -CT lumbar spine with chronic degenerative changes but otherwise unremarkable, did have moderate stool burden so was felt that this was contributing to the pain -Has had bowel regimen escalated -Due to continued poor functional status MRI thoracic and lumbar spines obtained, lesions noted on thoracic spine, discussed with patient's hematology oncology doctor and it felt that this is consistent with reactivation of the bone marrow with his MDS over the other possible etiologies -Supportive care, pain control 04/25: Discussed with the patient's , his brother present in the room. Continue active PT and OT. Pre-CERT is pending. 04/26: Patient got the pre-CERT but hemoglobin is very low and needs transfusion # Pancytopenia?MDS -Biopsy noted MDS, nondiagnostic bone marrow core, clot and aspirate, peripheral smear normocytic anemia with mild thrombocytopenia. Flow cytometry shows 5% myeloblast and phenotypic evidence of myelodysplastic process. -Discussed with oncology, transfuse patient for hemoglobin less than 7 and platelets less than 10 -Inpatient versus outpatient [place] [facility] 04/25: Patient seen medication, Revlimid is mailed from [facility] today and patient will be getting tomorrow at home to address. Hemoglobin 7.2 g%. The last 9%. Severe thrombocytopenia 5K. 1 unit of platelets a pheresis ordered. Patient will need twice weekly CBC and transfusion for platelet less than 10,000 or hemoglobin less than 7 g% as per oncologist Dr. Lazaro's recommendation 04/26: Hemoglobin dropped to 6.4, platelet count 11,000. 1 unit of PRBC and platelet transfusion prior to discharge. Patient's stated that his medicine is supposed to be delivered at his home around noon time. Advised to bring it here and will be continued. #Type 2 diabetes mellitus -Accu-Chek before meals and at bedtime with Humalog sliding scale coverage. #Constipation-resolved Chronic problems: # Concern for coronary artery disease -Had hospitalization in mid March with worsening exertional dyspnea -Cath deferred given his severe anemia and thrombocytopenia and is advised at some point in the future to consider further evaluation -Continue Imdur and beta-francheska - # Hypertension -Imdur and metoprolol -Lisinopril currently held - #DVT ppx, high risk: SCDs. Pharmacological prophylaxis is contraindicated in view of severe thrombocytopenia and anemia Charges/Coding Visit Charges Inpatient E&M: 47686 Subs Hosp L2
--- NOTE | 2024-04-26 15:18 | PCM.TXEXTCAR ---
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 (5) Anemia: Status: Chronic Code(s): D64.9 - Anemia, unspecified Plan #Worsening low to mid back pain -Admitted to [facility] -CT lumbar spine with chronic degenerative changes but otherwise unremarkable, did have moderate stool burden so was felt that this was contributing to the pain -Has had bowel regimen escalated -Due to continued poor functional status MRI thoracic and lumbar spines obtained, lesions noted on thoracic spine, discussed with patient's hematology oncology doctor and it felt that this is consistent with reactivation of the bone marrow with his MDS over the other possible etiologies -Supportive care, pain control 04/25: Discussed with the patient's , his brother present in the room. Continue active PT and OT. Pre-CERT is pending. 04/26: Patient got the pre-CERT but hemoglobin is very low and needs transfusion # Pancytopenia?MDS -Biopsy noted MDS, nondiagnostic bone marrow core, clot and aspirate, peripheral smear normocytic anemia with mild thrombocytopenia. Flow cytometry shows 5% myeloblast and phenotypic evidence of myelodysplastic process. -Discussed with oncology, transfuse patient for hemoglobin less than 7 and platelets less than 10 -Inpatient versus outpatient [facility] 04/25: Patient seen medication, Revlimid is mailed from [facility] today and patient will be getting tomorrow at home to address. Hemoglobin 7.2 g%. The last 9%. Severe thrombocytopenia 5K. 1 unit of platelets a pheresis ordered. Patient will need twice weekly CBC and transfusion for platelet less than 10,000 or hemoglobin less than 7 g% as per oncologist Dr. Lazaro's recommendation 04/26: Hemoglobin dropped to 6.4, platelet count 11,000. 1 unit of PRBC and platelet transfusion prior to discharge. Patient's stated that his medicine is supposed to be delivered at his home around noon time. Advised to bring it here and will be continued. #Type 2 diabetes mellitus -Accu-Chek before meals and at bedtime with Humalog sliding scale coverage. #Constipation-resolved Chronic problems: # Concern for coronary artery disease -Had hospitalization in mid March with worsening exertional dyspnea -Cath deferred given his severe anemia and thrombocytopenia and is advised at some point in the future to consider further evaluation -Continue Imdur and beta-francheska - # Hypertension -Imdur and metoprolol -Lisinopril currently held - #DVT ppx, high risk: SCDs. Pharmacological prophylaxis is contraindicated in view of severe thrombocytopenia and anemia Allergies/Procedures Done in Hospital Allergies Bflgchf-ELB-TxI Reductase Inhibitor (Ffandzx-Ejp-Cvw Reductase Inhibitor) Adverse Reaction (Intermediate, Verified 04/16/24 07:15) Pain in joints Type of Care/Length of Stay Estimated LOS: Convalescent Care Less Than 30 days Type of Care Needed: Skilled Rehab Potential: Good Prognosis: Good Additional Orders/Day of Discharge Day of Discharge: 04/26/24 Dietary and Speech Recommendations Dietitian Recommendations/Changes: Will continue 2000 calorie, consistent carbohydrate diet. Will d/c 120 mL Glucerna 4x/d with medpass due to pt refusal. ONS as pt willing if PO declines at meals. Discharge Plan Admission Admit Date/Time: 04/16/24 12:24 Primary Reason for Your Visit: Pancytopenia/MDS Attending Provider: Andrews Barrett Primary Care Provider: Mihir Johnston Consulting Providers: Marquez Rosario; Xavier Miranda; Jose Lazaro; Rafael Fitzgerald; Rico Fernandes; Farhad Aggarwal; Mo Celeste; Alvin Ellis; Francie Landeros COMPLIANCE CONSULTANT; Laura Wheeler Instructions Additional Instructions / Restrictions: - Needs twice weekly CBCs and transfuse for platelets less than 10 or hemoglobin less than 7 -Revlimid generic (LENALIDOMIDE) can be brought from home and taken daily, will need to start aspirin daily once this medication is started but now platelet is very low at around 10,000 after 1 unit of platelet a pheresis yesterday -Follow-up with Dr. Lazaro on discharge Discharge Orders/Prescriptions Prescriptions: New acetaminophen 500 mg Tablet 1,000 mg PO Q8 Qty: 0 0RF gabapentin 100 mg Capsule 100 mg PO 0600,1400,2200 3 Days Qty: 9 0RF insulin lispro [Humalog KwikPen Insulin] 100 unit/mL Insulin Pen See Protocol subcut ACHS Qty: 0 0RF Protocol: 4. Sliding Scale Insulin High-Med Dosing Condition: 150-199 mg/dl = 2 units Condition: 200-259 mg/dl = 4 units Condition: 260-324 mg/dl = 6 units Condition: 325-374 mg/dl = 8 units Condition: 375-409 mg/dl = 10 units Condition: 410-449 mg/dl = 11 units Condition: Greater than 449 call physician Protocol Text: Suggested for: - Patients on Total Daily Insulin Dose of 56-80 units - Patient who are known to be insulin resistant or septic HIGH MEDIUM DOSING ALGORITHM lenalidomide 10 mg Capsule 10 mg PO DAILY Qty: 0 0RF Rx Instructions: Last dose 05/23/2024 at 10 AM, 28th dose. sennosides-docusate sodium [Stimulant Laxative Plus] 8.6-50 mg Tablet 2 tab PO BID Qty: 0 0RF trazodone 50 mg Tablet 50 mg PO QHS PRN (Reason: Insomnia) Qty: 0 0RF Continued atorvastatin 80 mg Tablet 80 mg PO QHS Qty: 30 0RF nitroglycerin 0.4 mg Tablet, Sublingual 0.4 mg sublingual Q5M PRN (Reason: Cardiac/Chest Pain) Qty: 10 0RF metoprolol tartrate 25 mg Tablet 25 mg PO BID Qty: 60 0RF isosorbide mononitrate 30 mg tablet extended release 24 hr 30 mg PO DAILY Qty: 30 0RF (DME) pen needle, diabetic 29 gauge needle See Rx Instructions .Route Qty: 100 0RF Rx Instructions: As directed. Different sizes may be substituted. oxycodone 5 mg capsule 5 mg PO Q6H PRN (Reason: BACK PAIN ) 3 Days Qty: 12 0RF Changed lisinopril 10 mg Tablet 5 mg PO DAILY Qty: 30 0RF Rx Instructions: Hold for SBP less than 130 mmHg insulin glargine-yfgn 100 unit/mL (3 mL) Insulin Pen 20 unit subcut BID Qty: 15 1RF Rx Instructions: Hold if glucose less than 130 mg/dl Discontinued prednisone 20 mg tablet 60 mg PO DAILY Patient Comments: Pt is to take 3 more days of 60 mg (daily) then is to take 40 mg x5 days Referrals / Follow Up: Jose Lazaro MD [Med Staff - Active Staff] - Within 1 Week Mihir Johnston MD [Primary Care Provider] - Disposition Disposition (needs filled in before D/C Order can be placed): [facility] ([facility]) Anemia Qualifiers: Anemia type: unspecified type Qualified Code(s): D64.9 - Anemia, unspecified
--- NOTE | 2024-04-26 15:28 | CASEMGMT ---
Social Work- Pt was accepted by TCU, precert started, physician notified. Family advised as well. BENNETT Plummer
--- NOTE | 2024-04-26 15:45 | PCM.DC.SUM ---
Providers Date of Admission: 04/16/24 Date of Discharge: 04/26/24 Primary Care Physician: Dr. Mihir Johnston MD Consultations 04/20/24 12:19 Consult: Oncology/Hematology Routine Consulting Provider: *[facility] ([facility]) Reason for Consult: MDS, Pt known to Dr. Lazaro, pancytopenia mult transfusions EMERGENT Consult: No MD Notified: Yes Date Notified: 04/20/24 Time Notified: 13:00 Method of Notification: Answering Service Reason For Visit: INTRACTABLE LOW BACK PAIN, PANCYTOPENIA Diagnosis Discharge Diagnosis (1) Intractable low back pain: Status: Acute Code(s): M54.59 - Other low back pain (2) MDS (myelodysplastic syndrome) with 5q deletion: Status: Acute Code(s): D46.C - Myelodysplastic syndrome with isolated del(5q) chromosomal abnormality (3) Hyperglycemia: Status: Acute Code(s): R73.9 - Hyperglycemia, unspecified (4) Thrombocytopenia: Status: Chronic Code(s): D69.6 - Thrombocytopenia, unspecified (5) Anemia: Status: Chronic Code(s): D64.9 - Anemia, unspecified Qualifiers: Anemia type: unspecified type Qualified Code(s): D64.9 - Anemia, unspecified Plan 74-year-old gentleman was admitted with exacerbation of the back pain, generalized weakness, disequilibrium or passed few weeks to 1 month. Patient has severe thrombocytopenia, anemia and leukopenia and diagnosed MDS, follows Dr. Lazaro. #Worsening low to mid back pain -Admitted to [facility] -CT lumbar spine with chronic degenerative changes but otherwise unremarkable, did have moderate stool burden so was felt that this was contributing to the pain -Has had bowel regimen escalated -Due to continued poor functional status MRI thoracic and lumbar spines obtained, lesions noted on thoracic spine, discussed with patient's hematology oncology doctor and it felt that this is consistent with reactivation of the bone marrow with his MDS over the other possible etiologies -Supportive care, pain control 04/25: Discussed with the patient's , his brother present in the room. Continue active PT and OT. Pre-CERT is pending. 04/26: Patient got the pre-CERT but hemoglobin and platelets are very low and 1 unit of PRBC and platelet a pheresis ordered. Patient can be transfused in TCU as pre-CERT is going to if not discharged today. Discussed with Dr. Lazaro. Patient supposed to start Revlimid when it arrives in the mail today. Patient already on generic form of Revlimid which is lenalidomide. Discharge plan discussed with Dr. Lazaro. Follow-up in 1 week # Pancytopenia?MDS -Biopsy noted MDS, nondiagnostic bone marrow core, clot and aspirate, peripheral smear normocytic anemia with mild thrombocytopenia. Flow cytometry shows 5% myeloblast and phenotypic evidence of myelodysplastic process. -Discussed with oncology, transfuse patient for hemoglobin less than 7 and platelets less than 10 -Inpatient versus outpatient [place] [facility] 04/25: Patient seen medication, Revlimid is mailed from [facility] today and patient will be getting tomorrow at home to address. Hemoglobin 7.2 g%. The last 9%. Severe thrombocytopenia 5K. 1 unit of platelets a pheresis ordered. Patient will need twice weekly CBC and transfusion for platelet less than 10,000 or hemoglobin less than 7 g% as per oncologist Dr. Lazaro's recommendation 04/26: Hemoglobin dropped to 6.4, platelet count 11,000. 1 unit of PRBC and platelet transfusion prior to discharge. Patient's stated that his medicine is supposed to be delivered at his home around noon time. Advised to bring it here and will be continued. Patient cannot have baby aspirin as his platelet count is around 10,000. #Type 2 diabetes mellitus -Accu-Chek before meals and at bedtime with Humalog sliding scale coverage. #Constipation-resolved Chronic problems: # Concern for coronary artery disease -Had hospitalization in mid March with worsening exertional dyspnea -Cath deferred given his severe anemia and thrombocytopenia and is advised at some point in the future to consider further evaluation -Continue Imdur and beta-francheska - # Hypertension -Imdur and metoprolol -Lisinopril currently held - #DVT ppx, high risk: SCDs. Pharmacological prophylaxis is contraindicated in view of severe thrombocytopenia and anemia Discharge medication reconciliation done. Discharge follow-up instructions completed. Discharge process discussed with the patient and all questions were answered to patient's satisfaction. Follow with PCP in 1 to 2 weeks Total time spent, exact 35 minutes on discharge meds reconciliation, examination, coordination of care with nurses and ancillary staff, review of imaging and blood test and discussion with the patient on follow-up instructions. Medications at Discharge Home Medications atorvastatin 80 mg tablet 80 mg PO QHS CHOLESTEROL #30 tabs 04/03/24 isosorbide mononitrate 30 mg tablet,extended release 24 hr 30 mg PO DAILY CHEST PAIN #30 tabs 04/03/24 metoprolol tartrate 25 mg tablet 25 mg PO BID BLOOD PRESSURE #60 tabs 04/03/24 nitroglycerin 0.4 mg sublingual tablet 0.4 mg sublingual Q5M PRN Cardiac/Chest Pain #10 tabs 04/03/24 pen needle, diabetic 29 gauge #100 ea 04/03/24 acetaminophen 500 mg tablet 1,000 mg (2 x 500 mg) PO Q8 #0 tabs 04/26/24 gabapentin 100 mg capsule 100 mg PO 0600,1400,2200 3 days #9 caps 04/26/24 insulin glargine-yfgn 100 unit/mL (3 mL) subcutaneous pen 20 unit (0.2 mL) subcut BID DIABETES #15 mL 04/26/24 insulin lispro 100 unit/mL subcutaneous pen (Humalog KwikPen (U-100) Insulin) See Protocol subcut ACHS #0 mL 04/26/24 lenalidomide 10 mg capsule 10 mg PO DAILY #0 caps 04/26/24 lisinopril 10 mg tablet 5 mg (1/2 x 10 mg) PO DAILY BLOOD PRESSURE #30 tabs 04/26/24 oxycodone 5 mg capsule 5 mg PO Q6H PRN BACK PAIN 3 days #12 caps 04/26/24 sennosides 8.6 mg-docusate sodium 50 mg tablet (Stimulant Laxative Plus) 2 tab PO BID #0 tabs 04/26/24 trazodone 50 mg tablet 50 mg PO QHS PRN Insomnia #0 tabs 04/26/24 Physical Exam Narrative Please see progress note today. Weight / BMI Weight Weight: 180 lb 0.013 oz Body Mass Index (BMI) 27.3 ABG / Lab / Microbiology Data 04/26/24 09:55 04/26/24 09:55 Laboratory: Laboratory Results - last 24 hr 04/23/24 06:51: Diff Path Review Reviewed 04/24/24 07:39: Crossmatch See Detail 04/25/24 04:27: Diff Path Review Reviewed 04/25/24 16:53: POC Glucose 282 H 04/25/24 21:27: POC Glucose 238 H 04/26/24 06:14: POC Glucose 123 H 04/26/24 09:55: WBC 2.5 L, RBC 2.28 L, Hgb 6.4 L, Hct 18.7 L, MCV 82.0, MCH 28.1, MCHC 34.2, RDW Std Deviation 44.4 H, RDW Coeff of Consuelo 14.8 H, Plt Count 11 L*, MPV 9.0, Neut % (Auto) Not Reportable, Absolute Neuts (auto) 1.2 L, Absolute Lymphs (auto) 0.85, Total Counted 100, Neutrophils % (Manual) 44 L, Band Neutrophils % 4, Lymphocytes % (Manual) 34, Monocytes % (Manual) 2, Blast Cells % 16 H*, Diff Path Review May foll, Platelet Estimate MKD DEC, RBC Morphology N CHROM, Anisocytosis 1+, Sodium 136, Potassium 3.7, Chloride 104, Carbon Dioxide 27.0, Anion Gap 5, BUN 19 H, Creatinine 0.86, Estim Creat Clear Calc 74.01, Est GFR (MDRD) Af Amer 112, Est GFR (MDRD) Non-Af 92, BUN/Creatinine Ratio 22.0 H, Glucose 117 H, Calcium 7.7 L 04/26/24 11:21: POC Glucose 120 H Meaningful Use Info Meaningful Use Meaningful Use Diagnoses (Choose all that apply): None applicable Ischemic Stroke Statin Dosing Therapy Reference: STATIN DOSE THERAPY REFERENCE: * Patients > 75 years receive moderate or high dose statin therapy. * Patients 75 years or YOUNGER should receive HIGH intensity statin dose unless contraindicated. You will be required to document reason for non-treatment if statin daily dose does not meet guidelines. HIGH DOSE STATIN THERAPY DAILY Atorvastatin > than or = to 40 mg Rosuvastatin > than or = to 20 mg Amlodipine + Atorvastatin > than or = to 2.5/40 mg Ezetimibe + Simvastatin 10/80 mg Simvastatin 80mg Discharge Plan Admission Admit Date/Time: 04/16/24 12:24 Primary Reason for Your Visit: Pancytopenia/MDS Attending Provider: nAdrews Barrett Primary Care Provider: Mihir Johnston Consulting Providers: Marquez Rosario; Xavier Miranda; Jose Lazaro; Rafael Fitzgerald; Rico Fernandes; Farhad Aggarwal; Mo Celeste; Alvin Ellis; Francie Landeros NP; Laura Wheeler Instructions Additional Instructions / Restrictions: - Needs twice weekly CBCs and transfuse for platelets less than 10 or hemoglobin less than 7 -Revlimid generic (LENALIDOMIDE) can be brought from home and taken daily, will need to start aspirin daily once this medication is started but now platelet is very low at around 10,000 after 1 unit of platelet a pheresis yesterday -Follow-up with Dr. Lazaro on discharge Discharge Orders/Prescriptions Prescriptions: New acetaminophen 500 mg Tablet 1,000 mg PO Q8 Qty: 0 0RF gabapentin 100 mg Capsule 100 mg PO 0600,1400,2200 3 Days Qty: 9 0RF insulin lispro [Humalog KwikPen Insulin] 100 unit/mL Insulin Pen See Protocol subcut ACHS Qty: 0 0RF Protocol: 4. Sliding Scale Insulin High-Med Dosing Condition: 150-199 mg/dl = 2 units Condition: 200-259 mg/dl = 4 units Condition: 260-324 mg/dl = 6 units Condition: 325-374 mg/dl = 8 units Condition: 375-409 mg/dl = 10 units Condition: 410-449 mg/dl = 11 units Condition: Greater than 449 call physician Protocol Text: Suggested for: - Patients on Total Daily Insulin Dose of 56-80 units - Patient who are known to be insulin resistant or septic HIGH MEDIUM DOSING ALGORITHM lenalidomide 10 mg Capsule 10 mg PO DAILY Qty: 0 0RF Rx Instructions: Last dose 05/23/2024 at 10 AM, 28th dose. sennosides-docusate sodium [Stimulant Laxative Plus] 8.6-50 mg Tablet 2 tab PO BID Qty: 0 0RF trazodone 50 mg Tablet 50 mg PO QHS PRN (Reason: Insomnia) Qty: 0 0RF Continued atorvastatin 80 mg Tablet 80 mg PO QHS Qty: 30 0RF nitroglycerin 0.4 mg Tablet, Sublingual 0.4 mg sublingual Q5M PRN (Reason: Cardiac/Chest Pain) Qty: 10 0RF metoprolol tartrate 25 mg Tablet 25 mg PO BID Qty: 60 0RF isosorbide mononitrate 30 mg tablet extended release 24 hr 30 mg PO DAILY Qty: 30 0RF (DME) pen needle, diabetic 29 gauge needle See Rx Instructions .Route Qty: 100 0RF Rx Instructions: As directed. Different sizes may be substituted. oxycodone 5 mg capsule 5 mg PO Q6H PRN (Reason: BACK PAIN ) 3 Days Qty: 12 0RF Changed lisinopril 10 mg Tablet 5 mg PO DAILY Qty: 30 0RF Rx Instructions: Hold for SBP less than 130 mmHg insulin glargine-yfgn 100 unit/mL (3 mL) Insulin Pen 20 unit subcut BID Qty: 15 1RF Rx Instructions: Hold if glucose less than 130 mg/dl Discontinued prednisone 20 mg tablet 60 mg PO DAILY Patient Comments: Pt is to take 3 more days of 60 mg (daily) then is to take 40 mg x5 days Referrals / Follow Up: Jose Lazaro MD [Med Staff - Active Staff] - Within 1 Week Mihir Johnston MD [Primary Care Provider] - Disposition Disposition (needs filled in before D/C Order can be placed): [facility] Facility Charges/Coding Addendum Addendum: Please cancel the billing charge of progress note of the same date. Visit Charges Inpatient E&M: 72936 Disch Hosp >30min
--- NOTE | 2024-04-26 16:13 | CASEMGMT ---
Social Work Precert has been obtained.? Physician updated and pt is ready for discharge today.? Discharge sent to TCU.? SW met with pt and they are agreeable to discharge plan as stated above.?Bedside nurse notified of discharge. Disposition: TCU, skilled level of care under convalescent stay. BENNETT Plummer
[2024-04-26 16:37] LABS: Bedside Glucose 256 mg/dL (74-106)
[2024-04-26] MEDS: Insulin Lispro 100 UNIT/ML INSULN.PEN SC (18:08)
[2024-04-27 10:47] LABS: Pathologist Review Reviewed
== END 2024-04-26 20:40 | disposition skilled nursing facility (03) | DRG 392 ==
LOC: ED 12:40 → MS3 12:46
PROVIDERS: Internal Medicine; Admitting Provider Hospitalist; Emergency Provider Emergency Medicine; PCP Family Medicine; Visit Provider Internal Medicine
DX: K59.00 Constipation, unspecified (principal); C95.00 Acute leukemia of unspecified cell type not having achieved remission; D46.C Myelodysplastic syndrome with isolated del(5q) chromosomal abnormality; E11.65 Type 2 diabetes mellitus with hyperglycemia; Z79.4 Long term (current) use of insulin; I10 Essential (primary) hypertension; M54.50 Low back pain, unspecified; E78.5 Hyperlipidemia, unspecified; I25.10 Atherosclerotic heart disease of native coronary artery without angina pectoris; R26.2 Difficulty in walking, not elsewhere classified; M47.816 Spondylosis without myelopathy or radiculopathy, lumbar region; E86.0 Dehydration; M54.2 Cervicalgia; R53.81 Other malaise; Z79.899 Other long term (current) drug therapy
CPT/HCPCS: 36415; 70450; 71045; 72131; 72157; 72158; 74176; 80048; 80053; 81001; 82962; 85025; 85027; 86850; 86900; 86901; 86920; 86922; 86965; 93005; 94668; 97162; 97166; 97530; 97535; 99285; A9575; J7030; J7040; J7120; P9016; P9035; A4216; J2405

== ENCOUNTER 2024-04-26 21:35 | Inpatient (IN) | payer MEDICARE, SELFPAY ==
[2024-04-26 21:37] VITALS: BP 148/66; PULSE 82; RESP 18; TEMP 36.6; O2SAT 96
--- NOTE | 2024-04-26 21:45 | HP.PCM_ITS ---
HPI - General General Date of Admission: 04/26/24 Date of Service: 04/27/24 Chief Complaint: Here for rehabilitation. HPI Narrative 04/16/2024 JOSE KEYS, is a 74 Male who presents to [facility] ED weakness. Weakness, back pain, wobbly. 4th visit to ED in past month. Recent platelet transfusion, MDS, sees Dr. Lazaro. MDS, supposed to see [facility], diffuse back pain. Dark stool few days ago. WBC 8.1, Hemoglobin 7.1, Platelet 12, Glucose 327. Urinalysis negative. Back pain required narcotic pain medications. CT a/p left inguinal hernia, negative for obstruction. CT lumbar spine chronic changes. 04/16/2024 Admit [facility]. PT/OT, pain control, bowel regimen for low back pain. IV fluids for SHAHIDA. Bowel regimen for fecal impaction of colon. PRBC transfusion if hemoglobin < 6.5, Platelet transfusion if < 10. Lantus for Diabetes Mellitus II. 04/16/2024 Enema for constipation, Lactulose for constipation. 04/17/2024 Back pain persists. Tylenol, Lidoderm, oxycodone, Dilaudid for low back pain. Miralax, Senna, Lactulose, enema for constipation. Prednisone taper from 60mg for MDS. 04/17/2024 Not doing well, CT head STAT negative for bleed. Increase Gabapentin to 200mg tid for pain. Trazodone for sleep. 04/18/2024 Tired, abdomen full, back pain. MRI TL spine shows lesions, Oncology recommended supportive treatment. Transfuse PRBC, Platelet yesterday. 04/19/2024 Better, abdominal fullness. PT/OT for Debility. Avoid enema 2/2 low platelets, stop dicyclomine. Consider Revlimid for MDS. 04/20/2024 Sitting in chair, had BM, back pain. Cutting pain medications improved mental status. PT/OT SNF. Platelet transfusion, bone marrow pending. Start Revlimid if able. 04/21/2024 Pain, mobility improved, space out pain medications. Abdominal pain improved, hips less stiff. Platelet transfusion today. Prior auth for Revlimid. PT/OT SNF. Discontinue Lactulose. 04/22/2024 Intermittent pain, mental status improving. Revlimid for MDS, cbcd 2 times per week, Transfuse if hemoglobin < 7. 04/23/2024 Tired, neck pain better with heating pad. Arthritis cream for neck pain. Revlimid to deliver to patient's house. 04/24/2024 Feels like vegetable, Muscle relaxer helpful. PT/OT for TCU, Stop IV Dilaudid. Transfuse PRBC, Platelets. 04/25/2024 Pre-CERT pending for TCU. 04/26/2024 Transfuse PRBC, Platelet. 04/26/2024 Admit to TCU with debility, here for rehabilitation, strengthening, prior to discharge home with . [facility] Medical History (Updated 04/26/24 @ 22:[address] Ciro Nichole MD) MDS (myelodysplastic syndrome) with 5q deletion Anxiety Diabetes Pancreatitis Non-smoker Diverticulosis History of chronic hypertension History of diabetes mellitus Home Medications ?Medication ?Instructions ?Recorded ?Last Taken ?Type atorvastatin 80 mg tablet 80 mg PO QHS CHOLESTEROL #30 tabs 04/03/24 04/25/24 Rx isosorbide mononitrate 30 mg 30 mg PO DAILY CHEST PAIN #30 tabs 04/03/24 04/26/24 Rx tablet,extended release 24 hr metoprolol tartrate 25 mg tablet 25 mg PO BID BLOOD PRESSURE #60 04/03/24 04/26/24 Rx tabs nitroglycerin 0.4 mg sublingual 0.4 mg sublingual Q5M PRN 04/03/24 Unknown Rx tablet Cardiac/Chest Pain #10 tabs pen needle, diabetic 29 gauge #100 ea 04/03/24 Unknown Rx acetaminophen 500 mg tablet 1,000 mg (2 x 500 mg) PO Q8 pain 04/26/24 Unknown Rx #0 tabs gabapentin 100 mg capsule 100 mg PO 0600,1400,2200 04/26/24 Unknown Rx neuropathy 3 days #9 caps insulin glargine-yfgn 100 unit/mL 20 unit (0.2 mL) subcut BID 04/26/24 04/26/24 Rx (3 mL) subcutaneous pen DIABETES #15 mL insulin lispro 100 unit/mL See Protocol subcut ACHS 04/26/24 Unknown Rx subcutaneous pen (Humalog KwikPen hyperglycemia #0 mL (U-100) Insulin) lenalidomide 10 mg capsule 10 mg PO DAILY MDS #0 caps 04/26/24 04/26/24 Rx lisinopril 10 mg tablet 5 mg (1/2 x 10 mg) PO DAILY BLOOD 04/26/24 04/11/24 Rx PRESSURE #30 tabs oxycodone 5 mg capsule 5 mg PO Q6H PRN BACK PAIN 3 days 04/26/24 Unknown Rx #12 caps sennosides 8.6 mg-docusate sodium 2 tab PO BID constipation #0 tabs 04/26/24 04/26/24 Rx 50 mg tablet (Stimulant Laxative Plus) trazodone 50 mg tablet 50 mg PO QHS PRN Insomnia #0 tabs 04/26/24 04/25/24 Rx Allergy/AdvReac Type Severity Reaction Status Date / Time Upkjrnx-XGB-NqL Reductase AdvReac Intermediate Pain in Verified 04/16/24 07:15 Inhibitor (Ujqtrrn-Icd-Ovi joints Reductase Inhibitor) Family History Other Brain malignancy Diabetes Hypertension Surgical History Previous back surgery H/O colonoscopy Social History household members: spouse housing: house current occupational status: retired Smoking Status: Never smoker alcohol intake: former substance use type: does not use Vital Signs Vital Signs Vital Signs: 04/26/24 21:37 Temperature 97.8 F Temperature Source Temporal Pulse Rate 82 Respiratory Rate 18 Blood Pressure 148/66 H Blood Pressure Mean 93 Blood Pressure Source Monitor Blood Pressure Position Sitting Blood Pressure Location Right Arm Pulse Ox 96 Oxygen Delivery Method Room Air Results Lab / Micro Data 04/27/24 05:21 04/27/24 05:21 Assessment & Plan Assessment/Plan (1) Debility: (2) Intractable low back pain: (3) MDS (myelodysplastic syndrome) with 5q deletion: (4) Anemia: QUALIFIERS: Anemia type: unspecified type Qualified Code(s): D 64.9 - Anemia, unspecified (5) Thrombocytopenia: (6) Fecal impaction of colon: (7) Hyperlipidemia: (8) Diabetes: (9) Coronary artery disease: PLAN: Plan 74 year old male with below past medical history hospitalized for intractable back pain, complicated by fecal impaction of colon, myelodysplastic syndrome, pancytopenia requiring multiple PRBC, platelet transfusion, admitted to TCU with debility, here for rehabilitation, strengthening, prior to discharge home with . * Debility - PT/OT. * Pain - Tylenol 1000mg q8, Oxycodone 5mg q4 prn pain (1-10), Arthritis compound 2 clicks bid shoulders, neck. * Bowel - Miralax 17gm daily, Senna/colace 2 tablets bid, Magnesium citrate 300ml daily prn. * Adult immunization - Administer pneumonia vaccine, covid vaccine, flu vaccine as appropriate. * DVT prophylaxis - Hold, pancytopenia. * Hyperlipidemia - Stop Atorvastatin, statins intolerable. * Neuropathic pain - Gabapentin 100mg tid prn back pain. * Diabetes Mellitus II - Glargine 20 units bid, monitor blood glucose. * Coronary artery disease - Metoprolol 25mg bid, Lisinopril 10mg daily, Isosorbide [place] 30mg daily, NTG 0.4mg sl q5m prn. * MDS - Revlimid 10mg daily, sees Dr. Lazaro, transfuse PRBC if hemoglobin < 7. Transfuse platelets if < 10. * Insomnia - Trazodone 50mg qhs prn.
--- NOTE | 2024-04-26 22:00 | NURSING ---
Spoke w/ resident and spouse st bedside. Resident drowsy during conversation. Cautioned on risk of bleeding due to thrombocytopenia. Instructed to exercise caution w/ the urge to blow his nose d/t dryness and lg clot noted at the end of the left nare that bleeding may start. Also instructed to be cautious when brushing teeth. Falls will result in increased bleeding. Monitor for increased bruising, blood in urine, and blood in stool. Will continue to monitor.
[2024-04-26 22:30] LABS: Bedside Glucose 276 mg/dL (74-106)
[2024-04-26 22:59] VITALS: BP 148/66; PULSE 82
[2024-04-26] MEDS: Senna/Docusate Sodium 1 Tablet 2 TABLET PO (22:59)
[2024-04-26] MEDS: Metoprolol Tartrate 25 MG Tablet PO (22:59)
[2024-04-26] MEDS: traZODone 50 MG Tablet PO (23:00)
[2024-04-26] MEDS: Gabapentin 100 MG Capsule PO (23:00)
[2024-04-26] MEDS: Acetaminophen 500 MG Tablet 1000 MG PO (23:00)
[2024-04-26] MEDS: Insulin Glargine-YFGN 100 UNIT/ML Pen 20 UNIT SC (23:01)
[2024-04-27 06:12] LABS: Hematocrit 21.4 % (40-54); Hemoglobin 7.4 g/dL (13.0-16.5); Mean Corp Hgb Conc 34.6 g/dL (32-36); Mean Corpuscular Hgb 28.8 pg (27.0-32.0); Mean Corpuscular Volume 83.3 fL (80-94); Mean Platelet Vol. 10.6 fl (6.2-12.0); POSITIVE COUNT YES; POSITIVE DIFFERENTIAL YES; POSITIVE MORPHOLOGY YES; RBC Distribution Width CV 14.9 % (11.6-14.6); RBC Distribution Width SD 45.9 fl (35.1-43.9); Red Blood Count 2.57 M/mm3 (4.6-6.2); White Blood Count 2.5 K/mm3 (4.4-11.0)
[2024-04-27 06:29] LABS: Anion Gap 4 (5-15); BUN 19 mg/dL (7-18); BUN/Creat Ratio 22.2 RATIO (10-20); Chloride 102 mmol/L (98-107); Creatinine, Serum 0.86 mg/dL (0.70-1.30); EST Glomerular Filtration Rate 93 mL/min (>60); Est Glom Filt Rate - Afr Amer 113 mL/min (>60); Glucose 136 mg/dL (74-106); Potassium 3.6 mmol/L (3.5-5.1); Sodium Level 134 mmol/L (136-145)
[2024-04-27 06:32] LABS: Differential Indicated MANUAL DIFF
[2024-04-27 06:32] LABS: Bedside Glucose 116 mg/dL (74-106)
[2024-04-27 06:33] LABS: Platelet Count 7 K/mm3 (150-450)
[2024-04-27] MEDS: Acetaminophen 500 MG Tablet 1000 MG PO ×3 (06:33→21:43)
--- NOTE | 2024-04-27 06:45 | NURSING ---
Lab notified this nurse of critical platelet level. Dr. Nichole notified.
--- NOTE | 2024-04-27 06:46 | NURSING ---
Resident and spouse refused Gabapentin this am. He thinks this may be causing his drowsiness during the day.
--- NOTE | 2024-04-27 07:37 | NURSING ---
Resident has had epistaxis throughout the shift. Noted several tissues w/ several small spots of blood in the trash can beside his bed and one by the head of his bed. Will continue to monitor.
[2024-04-27 09:30] VITALS: BP 131/59; PULSE 107
[2024-04-27] MEDS: Metoprolol Tartrate 25 MG Tablet PO ×2 (09:30→21:46)
[2024-04-27] MEDS: Isosorbide Mononitrate 30 MG Tablet PO (09:30)
[2024-04-27] MEDS: Lisinopril 5 MG Tablet PO (09:30)
[2024-04-27] MEDS: Arthritis Pain Compound 60 CLICK TUBE TOPICAL ×2 (09:32→21:43)
[2024-04-27 09:34] LABS: Blast 14 % (0-0); Lymphocyte 35 % (19-41); Metamyelocyte 2 % (0-1); Monocyte 1 % (0-10); Neutrophil-Segmented 47 % (47-70); Platelet Estimate MKD DEC (ADEQ); Promyelocyte 1 % (0-0); Red Cell Morphology NORM C+C NORMAL (NORM C&C); Total Cells Counted 100 (MANUAL DIFF)
[2024-04-27 09:35] LABS: Absolute Neutrophil Count 1.2 X10^3/uL (2.0-7.7)
[2024-04-27] MEDS: Tuberculin,Purif.prot.deriv. 50 TU/ML Vial 0.1 ML ID (09:35)
--- NOTE | 2024-04-27 09:52 | NURSING ---
Order entered for 1 unit of Platelets. Blood bank called to see when Platelets should arrive. Per blood bank will be in about 4-5hrs depending on their supplier. Infusion center called and updated on time Platelets should arrive per infusion they will mateusz him down for around that time. Updated Nursing [employer] Interleafer if unable to transfuse at infusion center we will transfuse him on another floor.
[2024-04-27 10:49] LABS: Pathologist Review Reviewed
[2024-04-27 11:30] LABS: Bedside Glucose 272 mg/dL (74-106)
--- NOTE | 2024-04-27 11:33 | PHA.CONS_ITS ---
Documented by User: Sharon Marks 04/27/24 11:51 TCU RX Drug Regimen Review Subjective/Objective Subjective/Objective: Subjective: TCU Admission. 74 YOM presented to the ER with weakness. Hospitalized for intractable back pain, complicated by fecal impaction of colon, myelodysplastic syndrome, pancytopenia requiring multiple PRBC, platelet transfusion. Admitted to TCU with debility for strengthening and rehabilitation. Objective: Allergies Klhmgmo-HRJ-LeW Reductase Inhibitor (Qhutzqy-Sho-Wje Reductase Inhibitor) Adverse Reaction (Intermediate, Verified 04/16/24 07:15) Pain in joints Current Medications Generic Name Dose Route Start Last Admin Trade Name Freq PRN Reason Stop Dose Admin Acetaminophen 1,000 mg 04/26/24 22:00 04/27/24 06:33 Acetaminophen 500 Mg Tablet PO 1,000 mg Q8 [facility] Administration Compound Med 2 click 04/27/24 10:00 04/27/24 09:32 Arthritis Pain Compound 60 Click Tube TOPICAL 2 click BID [facility] Administration Protocol Gabapentin 100 mg 04/27/24 07:38 Gabapentin 100 Mg Capsule PO 0600,1400,2200 PRN back pain Insulin Glargine 20 unit 04/26/24 22:00 04/27/24 07:19 Insulin Glargine-Yfgn 100 Unit/Ml Pen SC Not Given BID [facility] Isosorbide Mononitrate 30 mg 04/27/24 10:00 04/27/24 09:30 Isosorbide Mononitrate 30 Mg Tablet PO 30 mg DAILY [facility] Administration Protocol Lenalidomide 10 mg 04/27/24 10:00 04/27/24 09:31 Lenalidomide 10 Mg Capsule PO 05/23/24 10:01 10 mg DAILY [facility] Administration Lisinopril 5 mg 04/27/24 10:00 04/27/24 09:30 Lisinopril 5 Mg Tablet PO 5 mg DAILY [facility] Administration Protocol Magnesium Citrate 300 ml 04/26/24 22:15 Magnesium Citrate 300 Ml PO DAILY PRN Constipation Metoprolol Tartrate 25 mg 04/26/24 22:00 04/27/24 09:30 Metoprolol Tartrate 25 Mg Tablet PO 25 mg BID [facility] Administration Protocol Nitroglycerin 0.4 mg 04/26/24 22:00 Nitroglycerin (Inpatient Use) 0.4 Mg Tab.Subl SL Q5M PRN Cardiac/Chest Pain Oxycodone HCl 5 mg 04/26/24 22:16 Oxycodone 5 Mg Tablet PO Q4H PRN PRN Pain Score 1-10 or Pre PT/OT Polyethylene Glycol 17 gm 04/27/24 10:00 04/27/24 09:32 Polyethylene Glycol 3350 17 Gm Packet PO Not Given DAILY ABDIEL Senna/Docusate Sodium 2 tablet 04/26/24 22:00 04/27/24 09:32 Senna/Docusate Sodium 1 Tablet PO Not Given BID ABDIEL Sodium Chloride 10 - 40 ml 04/26/24 23:54 0.9% Saline Lock 10 Ml Syringe IV UD PRN SALINE FLUSH Trazodone HCl 50 mg 04/26/24 22:00 04/26/24 23:00 Trazodone 50 Mg Tablet PO 50 mg QHS PRN Administration Insomnia Tuberculin PPD 0.1 ml 05/04/24 10:00 Tuberculin,Purif.Prot.Deriv. 50 Tu/Ml Vial ID 05/04/24 10:01 X1 ONE Problem List Coronary artery disease (Acute) Diabetes (Acute) Hyperlipidemia (Acute) Fecal impaction of colon (Acute) Debility (Acute) Intractable low back pain (Acute) MDS (myelodysplastic syndrome) with 5q deletion (Acute) Thrombocytopenia (Chronic) Anemia (Chronic) Vital Signs Temp Pulse Resp BP Pulse Ox O2 Del Method 97.8 F 107 H 18 131/59 H 96 Room Air 04/26/24 21:37 04/27/24 09:30 04/26/24 21:37 04/27/24 09:30 04/26/24 21:37 04/26/24 21:37 Oxygen Delivery Method Room Air Sodium 134 mmol/L (136-145) L 04/27/24 05:21 Potassium 3.6 mmol/L (3.5-5.1) 04/27/24 05:21 Chloride 102 mmol/L (98-107) 04/27/24 05:21 Carbon Dioxide 28.0 mmol/L (21.0-32.0) 04/27/24 05:21 Anion Gap 4 (5-15) L 04/27/24 05:21 BUN 19 mg/dL (7-18) H 04/27/24 05:21 Creatinine 0.86 mg/dL (0.70-1.30) 04/27/24 05:21 Est GFR (MDRD) Af Amer 113 mL/min (>60) 04/27/24 05:21 Est GFR (MDRD) Non-Af 93 mL/min (>60) 04/27/24 05:21 BUN/Creatinine Ratio 22.2 RATIO (10-20) H 04/27/24 05:21 Glucose 136 mg/dL (74-106) H 04/27/24 05:21 Assessment/Plan: 1. Pain: acetaminophen 1,000 mg PO Q8, Arthritis pain compound (Diclofenac 3%, Lidocaine 3%, Baclofen 2%) 0.5 g topical BID, Oxycodone 5 mg PO Q4H PRN pain 1- 10 or Pre PT/OT applied to the shoulders and neck. Continue to monitor for increased pain, any redness or skin irritation, and PRN usage. Resident has had 0 PRN doses of Oxycodone given. Lower back pain appears managed at this time with current therapy options. 2. Bowel: senna/docusate 8.6-50 mg 2 tabs PO BID, Miralax 17 g PO DAILY and Magnesium citrate 300 mL PO DAILY PRN constipation. Continue to monitor for constipation, diarrhea, and PRN usage. Last documented bowel movement was 04/25/24. Resident has had 0 PRN doses of Magnesium citrate given. Bowel appears to be managed at this time with current therapy options 3. Myelodysplastic syndrome (MDS) with 5q deletion: lenalidomide 10 mg PO DAILY. Continue to monitor for agitation/insomnia, decreased appetite, upset stomach, and dizziness. 4. Diabetes mellitus II: insulin glargine 20 units SC BID. Continue to monitor for weight gain, hemoglobin A1c (last 11.2% 03/27/24), hypo/hyperglycemia, and?blood sugars (last 272mg/dL H, on 04/27). Please consider increasing insulin glargine dose or adding a sliding scale insulin lispro to help control blood sugars. Thanks. 5. CAD: lisinopril 5 mg PO DAILY, metoprolol tartrate 25 mg PO BID, isosorbide mononitrate 30 mg PO DAILY and nitroglycerin 0.4 mg SL Q5M PRN chest pain. Continue to monitor for dizziness, headaches, nausea, renal function (SCr 0.86mg/dL), syncope,?HR (last 107 BPM),?BP (last 131/59 mmHg), and potassium (last K 3.6 mmol/L, on 04/27). Resident has had 0 PRN doses of Nitroglycerin given. CAD appears managed at this time with current therapy options. 6. HLD: Atorvastatin stopped per pt intolerability (pain in joints). Please consider starting pravastatin 10 mg PO QHS if clinically appropriate as there are fewer reported myalgias than with atorvastatin. Please monitoring of muscle pains and lipid panel (last panel 03/27/24). Thanks. Assessment/Plan for indications treated with psychotropic medications: 1. Neuropathic pain: gabapentin 100 mg PO TID PRN back pain. GDR not appropriate as this medication is being used for neuropathic pain. Continue to monitor for increased pain blurry vision, dizziness, lack of energy, renal function (no weight entered this admission, unable to calculate CrCl) and PRN usage. Resident has had 0 PRN doses of Gabapentin given. Neuropathic pain appears managed at this time with current therapy options. 2. Insomnia: trazodone 50 mg PO QHS PRN insomnia. Please consider GDR by 10/2025 if clinically appropriate. Continue to monitor for constipation, dizziness, drowsiness, headaches, muscle pain, changes in weight, and PRN usage. Resident has had 1 PRN dose of Trazodone given 04/26 for insomnia. Medical chart and medication regimen reviewed. The following medication irregularities or issues were identified: 1. insulin glargine 20 units SC BID.?Blood sugars (last 272mg/dL H, on 04/27). Please consider increasing insulin glargine dose or adding a sliding scale insulin lispro to help control blood sugars. Thanks. 2. Atorvastatin stopped per pt intolerability (pain in joints). Please consider starting pravastatin 10 mg PO QHS if clinically appropriate as there are fewer reported myalgias than with atorvastatin. Please monitoring of muscle pains and lipid panel (last panel 03/27/24). Thanks. Date Date of Note:: 04/27/24 Documented by User: Dr. Ciro Nichole MD 04/27/24 12:18 TCU RX Drug Regimen Review Provider Comments Provider responsibility Provider Comments to Recommendations by Pharmacy: Agree
[2024-04-27] MEDS: Gabapentin 100 MG Capsule PO ×2 (12:18→20:21)
--- NOTE | 2024-04-27 12:22 | NURSING ---
Systems Program Manager Note; Activity Asset: Complete
--- NOTE | 2024-04-27 13:30 | NURSING ---
Pt's Temp 100.[address] Nichole notified and N.O. received for Urinalysis, Covid test, Respiratory panel, Enteric Stool panel, Blood cultures x2, and Chest X-ray. Orders read back. and pt updated.
[2024-04-27 14:07] VITALS: BP 118/53; PULSE 94; RESP 21; TEMP 37.8; O2SAT 92
--- NOTE | 2024-04-27 14:11 | RAD_ITS ---
HISTORY: Febrile. TECHNIQUE: XR Chest 2 Views. COMPARISON: 04/24/2024. FINDINGS: LINES/TUBES: None. CARDIOMEDIASTINAL BORDERS: Stable. LUNGS: Low lung volumes with mild bibasilar atelectasis again seen. PLEURA: Trace right pleural effusion. RAD/Chest PA and Lateral IMPRESSION: No significant interval change. Electronically Signed: Jalyn Kate MD at 14:59 EDT ,
[2024-04-27 14:21] VITALS: BMI 28.0
--- NOTE | 2024-04-27 14:55 | NURSING ---
Pt off unit at infusion center getting Platelets.
[2024-04-27 15:59] LABS: Bacteria 0 SEEN /hpf (None Seen); Mucous, Urine 0 SEEN /hpf (<or=2+); White Blood Cells 0 SEEN /hpf (0-5)
[2024-04-27 16:02] LABS: Color, Urine Yellow (Yellow); Glucose, Dipstick 1000 mg/dl (Normal); Ketone-Dipstick 5 mg/dl (Negative); Leukocyte Esterase-Dipstick Negative /ul (Negative); Nitrite-Dipstick Negative (Negative); Occult Blood-Urine 10 /ul (Negative); Protein-Dipstick 30 mg/dl (Negative); Specific Gravity, Urine 1.015 (1.002-1.030); Urine Bilirubin Dipstick Negative (Negative); Urine Clarity Clear (Clear); Urine Urobilinogen 1 mg/dl (Normal); Urine pH 6.5 (5.0 - 8.0)
[2024-04-27 16:08] LABS: Red Blood Cells-Urine 0-5 SEEN /hpf (0-5); Squamous Epithelial Cells - UA 0-5 SEEN /hpf (0-5)
[2024-04-27 16:41] VITALS: BMI 28.2
[2024-04-27 17:01] LABS: Bedside Glucose 269 mg/dL (74-106)
[2024-04-27] MEDS: Glucerna Shake 120 ML LIQUID PO (17:55)
[2024-04-27] MEDS: Insulin Glargine-YFGN 100 UNIT/ML Pen 20 UNIT SC (21:45)
[2024-04-27 21:46] VITALS: BP 149/77; PULSE 120
[2024-04-27] MEDS: traZODone 50 MG Tablet PO (21:47)
[2024-04-27 22:00] VITALS: BP 144/77; PULSE 120; RESP 20; TEMP 38.3; O2SAT 92
[2024-04-27 22:01] LABS: Bedside Glucose 305 mg/dL (74-106)
--- NOTE | 2024-04-27 22:20 | NURSING ---
Dr. Nichole contacted via telephone regarding patient oral temp 101.0F, tachycardia, HR 120bpm/regular, generalized weakness, confusion, elevated blood glucose 305, at bedside and states elevated temp new for patient. Per Dr. Nichole send patient to ED for sepsis workup due to compromised immune system related to myelodysplastic syndrome
--- NOTE | 2024-04-28 00:06 | NURSING ---
Addendum entered by Kathi Shin 04/28/24 00:49: LANDSCAPE NURSERYMAN received phone call from ED, patient to be admitted to PCU Addendum entered by Kathi Shin 04/28/24 00:08: correction: @[id number] patient send to ED via bed with at bedside 04/27/24 Original Note: Report called to EDWARD Cole in ED, patient transported via bed to ED room 2 with spouse at bedside
--- NOTE | 2024-04-28 07:29 | PCM.DC.SUM ---
Providers Date of Admission: 04/26/24 Primary Care Physician: Dr. Mihir Johnston MD Reason For Visit: INTRACTABLE BACK PAIN, PANCYTOPENIA Diagnosis Discharge Diagnosis (1) Debility: Status: Acute Code(s): R53.81 - Other malaise (2) Intractable low back pain: Status: Acute Code(s): M54.59 - Other low back pain (3) MDS (myelodysplastic syndrome) with 5q deletion: Status: Acute Code(s): D46.C - Myelodysplastic syndrome with isolated del(5q) chromosomal abnormality (4) Anemia: Status: Chronic Code(s): D64.9 - Anemia, unspecified Qualifiers: Anemia type: unspecified type Qualified Code(s): D64.9 - Anemia, unspecified (5) Thrombocytopenia: Status: Chronic Code(s): D69.6 - Thrombocytopenia, unspecified (6) Fecal impaction of colon: Status: Acute Code(s): K56.41 - Fecal impaction (7) Hyperlipidemia: Status: Acute Code(s): E78.5 - Hyperlipidemia, unspecified (8) Diabetes: Status: Acute Code(s): E11.9 - Type 2 diabetes mellitus without complications (9) Coronary artery disease: Status: Acute Code(s): I25.10 - Atherosclerotic heart disease of [place] coronary artery without angina pectoris Plan 74 year old male with below past medical history hospitalized for intractable back pain, complicated by fecal impaction of colon, myelodysplastic syndrome, pancytopenia requiring multiple PRBC, platelet transfusion, admitted to TCU with debility, here for rehabilitation, strengthening, prior to discharge home with . Debility - PT/OT. Pain - Tylenol 1000mg q8, Oxycodone 5mg q4 prn pain (1-10), Arthritis compound 2 clicks bid shoulders, neck. Bowel - Miralax 17gm daily, Senna/colace 2 tablets bid, Magnesium citrate 300ml daily prn. Adult immunization - Administer pneumonia vaccine, covid vaccine, flu vaccine as appropriate. DVT prophylaxis - Hold, pancytopenia. Hyperlipidemia - Stop Atorvastatin, statins intolerable. Neuropathic pain - Gabapentin 100mg tid prn back pain. Diabetes Mellitus II - Glargine 20 units bid, monitor blood glucose. Coronary artery disease - Metoprolol 25mg bid, Lisinopril 10mg daily, Isosorbide [place] 30mg daily, NTG 0.4mg sl q5m prn. MDS - Revlimid 10mg daily, sees Dr. Lazaro, transfuse PRBC if hemoglobin < 7. Transfuse platelets if < 10. Insomnia - Trazodone 50mg qhs prn. Medications at Discharge Home Medications atorvastatin 80 mg tablet 80 mg PO QHS CHOLESTEROL #30 tabs 04/03/24 isosorbide mononitrate 30 mg tablet,extended release 24 hr 30 mg PO DAILY CHEST PAIN #30 tabs 04/03/24 metoprolol tartrate 25 mg tablet 25 mg PO BID BLOOD PRESSURE #60 tabs 04/03/24 nitroglycerin 0.4 mg sublingual tablet 0.4 mg sublingual Q5M PRN Cardiac/Chest Pain #10 tabs 04/03/24 pen needle, diabetic 29 gauge #100 ea 04/03/24 acetaminophen 500 mg tablet 1,000 mg (2 x 500 mg) PO Q8 pain #0 tabs 04/26/24 gabapentin 100 mg capsule 100 mg PO 0600,1400,2200 neuropathy 3 days #9 caps 04/26/24 insulin glargine-yfgn 100 unit/mL (3 mL) subcutaneous pen 20 unit (0.2 mL) subcut BID DIABETES #15 mL 04/26/24 insulin lispro 100 unit/mL subcutaneous pen (Humalog KwikPen (U-100) Insulin) See Protocol subcut ACHS hyperglycemia #0 mL 04/26/24 lenalidomide 10 mg capsule 10 mg PO DAILY MDS #0 caps 04/26/24 lisinopril 10 mg tablet 5 mg (1/2 x 10 mg) PO DAILY BLOOD PRESSURE #30 tabs 04/26/24 oxycodone 5 mg capsule 5 mg PO Q6H PRN BACK PAIN 3 days #12 caps 04/26/24 sennosides 8.6 mg-docusate sodium 50 mg tablet (Stimulant Laxative Plus) 2 tab PO BID constipation #0 tabs 04/26/24 trazodone 50 mg tablet 50 mg PO QHS PRN Insomnia #0 tabs 04/26/24 Hospital Course Operations None Procedures None Summary of Care Provided Minutes Spent on Discharge: 15 Hospital Course: 74 year old male with below past medical history hospitalized for intractable back pain, complicated by fecal impaction of colon, myelodysplastic syndrome, pancytopenia requiring multiple PRBC, platelet transfusion, admitted to TCU with debility, here for rehabilitation, strengthening, prior to discharge home with . 04/27/2024 Resident had fever, covid negative, respiratory panel negative, Chest X-ray negative, Urinalysis negative, urine culture pending, blood cultures pending. 04/27/2024 Fever, tachycardia, low wbc 2/2 myelodysplastic syndrome, recently diagnosed, on Revlimid. 04/27/2024 Discharge to [facility] ED for evaluation, possible admission to hospital. Weight / BMI Weight Weight: 84.141 kg Body Mass Index (BMI) 28.2 ABG / Lab / Microbiology Data 04/27/24 05:21 04/27/24 05:21 Laboratory: Laboratory Results - last 24 hr 04/27/24 05:21: Absolute Neuts (auto) 1.2 L, Absolute Lymphs (auto) 0.90, Total Counted 100, Neutrophils % (Manual) 47, Lymphocytes % (Manual) 35, Monocytes % (Manual) 1, Metamyelocytes % 2 H, Promyelocytes % 1 H, Blast Cells % 14 H*, Diff Path Review Reviewed, Platelet Estimate MKD DEC, RBC Morphology NORM C+C 04/27/24 10:02: Blood Type Cancelled 04/27/24 11:12: POC Glucose 272 H 04/27/24 14:45: Urine Color Yellow, Urine Clarity Clear, Urine pH 6.5, Ur Specific [place] 1.015, Urine Protein 30 H, Urine Glucose (UA) 1000 H, Urine Ketones 5 H, Urine Occult Blood 10 H, Urine Nitrite Negative, Urine Bilirubin Negative, Urine Urobilinogen 1 H, Ur Leukocyte Esterase Negative, Urine RBC 0-5 SEEN, Urine WBC 0 SEEN, Ur Squamous Epith Cells 0-5 SEEN, Urine Bacteria 0 SEEN, Urine Mucus 0 SEEN 04/27/24 16:23: POC Glucose 269 H 04/27/24 21:43: POC Glucose 305 H Microbiology: Microbiology 04/27/24 14:00 Mucosa - Nose Respiratory Panel (PCR) - Final 04/27/24 14:00 Nasal Secretion SARS-CoV-2 Antigen (Rapid) - Final Radiography Diagnostic Testing: Radiology Impression Chest X-Ray 04/27/24 14:11 IMPRESSION: No significant interval change. Electronically Signed: Jalyn Kate MD at 14:59 EDT , D/C Instructions Discharge Diet: No restrictions Discharge Activity: Return to Normal Activity, May Shower and Use Walker Weight Bearing Status: Weight bearing as tolerated Call your doctor if you observe: Fever of 101 or Higher, Inability to urinate, Inability to have a bowel movement, Shortness of breath, Dizziness, Fainting spells, Swelling in the ankles, Chest pain and Uncontrolled pain Additional Instructions: 04/27/2024 Discharge to [facility] ED for evaluation, possible admission to hospital. Please Follow Up With: Jose Lazaro MD When: As scheduled. Meaningful Use Info Meaningful Use Meaningful Use Diagnoses (Choose all that apply): None applicable Ischemic Stroke Statin Dosing Therapy Reference: STATIN DOSE THERAPY REFERENCE: * Patients > 75 years receive moderate or high dose statin therapy. * Patients 75 years or YOUNGER should receive HIGH intensity statin dose unless contraindicated. You will be required to document reason for non-treatment if statin daily dose does not meet guidelines. HIGH DOSE STATIN THERAPY DAILY Atorvastatin > than or = to 40 mg Rosuvastatin > than or = to 20 mg Amlodipine + Atorvastatin > than or = to 2.5/40 mg Ezetimibe + Simvastatin 10/80 mg Simvastatin 80mg Discharge Plan Admission Admit Date/Time: 04/26/24 21:35 Primary Reason for Your Visit: Debility. Attending Provider: Ciro Nichole Chi Primary Care Provider: Mihir Johnston Instructions Additional Instructions / Restrictions: 04/27/2024 Discharge to [facility] ED for evaluation, possible admission to hospital. Discharge Orders/Prescriptions Prescriptions: No Action atorvastatin 80 mg Tablet 80 mg PO QHS Qty: 30 0RF nitroglycerin 0.4 mg Tablet, Sublingual 0.4 mg sublingual Q5M PRN (Reason: Cardiac/Chest Pain) Qty: 10 0RF metoprolol tartrate 25 mg Tablet 25 mg PO BID Qty: 60 0RF isosorbide mononitrate 30 mg tablet extended release 24 hr 30 mg PO DAILY Qty: 30 0RF (DME) pen needle, diabetic 29 gauge needle See Rx Instructions .Route Qty: 100 0RF Rx Instructions: As directed. Different sizes may be substituted. acetaminophen 500 mg Tablet 1,000 mg PO Q8 Qty: 0 0RF gabapentin 100 mg Capsule 100 mg PO 0600,1400,2200 3 Days Qty: 9 0RF insulin lispro [Humalog KwikPen Insulin] 100 unit/mL Insulin Pen See Protocol subcut ACHS Qty: 0 0RF Protocol: 4. Sliding Scale Insulin High-Med Dosing Condition: 150-199 mg/dl = 2 units Condition: 200-259 mg/dl = 4 units Condition: 260-324 mg/dl = 6 units Condition: 325-374 mg/dl = 8 units Condition: 375-409 mg/dl = 10 units Condition: 410-449 mg/dl = 11 units Condition: Greater than 449 call physician Protocol Text: Suggested for: - Patients on Total Daily Insulin Dose of 56-80 units - Patient who are known to be insulin resistant or septic HIGH MEDIUM DOSING ALGORITHM lenalidomide 10 mg Capsule 10 mg PO DAILY Qty: 0 0RF Rx Instructions: Last dose 05/23/2024 at 10 AM, 28th dose. sennosides-docusate sodium [Stimulant Laxative Plus] 8.6-50 mg Tablet 2 tab PO BID Qty: 0 0RF trazodone 50 mg Tablet 50 mg PO QHS PRN (Reason: Insomnia) Qty: 0 0RF lisinopril 10 mg Tablet 5 mg PO DAILY Qty: 30 0RF Rx Instructions: Hold for SBP less than 130 mmHg oxycodone 5 mg capsule 5 mg PO Q6H PRN (Reason: BACK PAIN ) 3 Days Qty: 12 0RF insulin glargine-yfgn 100 unit/mL (3 mL) Insulin Pen 20 unit subcut BID Qty: 15 1RF Rx Instructions: Hold if glucose less than 130 mg/dl Referrals / Follow Up: Mihir Johnston MD [Primary Care Provider] - Disposition Disposition (needs filled in before D/C Order can be placed): Acute Care Hospital [facility]
--- NOTE | 2024-05-09 08:54 | MDS.RN ---
Information for the MDS was obtained from review of the clinical record, interview of resident, staff, and direct observation of resident?s care.
== END 2024-04-27 22:40 | disposition short-term general hospital (02) | DRG 552 ==
PROVIDERS: Admitting Provider Family Medicine Geriatric Medicine; PCP Family Medicine; Visit Provider Family Medicine Geriatric Medicine
DX: M54.50 Low back pain, unspecified (principal); D46.C Myelodysplastic syndrome with isolated del(5q) chromosomal abnormality; E11.40 Type 2 diabetes mellitus with diabetic neuropathy, unspecified; I10 Essential (primary) hypertension; K56.41 Fecal impaction; Z79.4 Long term (current) use of insulin; E78.5 Hyperlipidemia, unspecified; I25.10 Atherosclerotic heart disease of native coronary artery without angina pectoris; Z79.899 Other long term (current) drug therapy; G47.00 Insomnia, unspecified
CPT/HCPCS: 36415; 71046; 80048; 81001; 82962; 85025; 86900; 86901; 87040; 87086; 87426; 87506; 87633; 97162; 97166; 97535

== ENCOUNTER 2024-04-27 15:01 | Outpatient (CLI) | payer MEDICARE, SELFPAY ==
[2024-04-27 15:09] VITALS: BP 116/57; PULSE 96; RESP 16; TEMP 37.2; O2SAT 99; BMI 27.3
[2024-04-27 15:38] VITALS: BP 108/58; PULSE 93; RESP 16; TEMP 36.6; O2SAT 95
[2024-04-27 15:53] VITALS: BP 101/55; PULSE 94; RESP 16; TEMP 36.8; O2SAT 96
== END 2024-04-27 23:59 | disposition home or self-care (01) ==
LOC: MEDOUTP 15:01
PROVIDERS: PCP Family Medicine; Referring Provider Family Medicine Geriatric Medicine; Visit Provider Family Medicine Geriatric Medicine
DX: D46.9 Myelodysplastic syndrome, unspecified (principal); D61.818 Other pancytopenia
CPT/HCPCS: 36430; 86900; 86901; 86965; J7040; P9035; A4216

== ENCOUNTER 2024-04-27 22:37 | Inpatient (IN) | payer MEDICARE, SELFPAY ==
[2024-04-27 22:43] VITALS: BP 121/62; PULSE 101; RESP 24; TEMP 38.1; O2SAT 94; BMI 28.2
[2024-04-27 22:48] VITALS: BP 121/62; PULSE 101; RESP 25; TEMP 38.1; O2SAT 94
[2024-04-27 23:00] VITALS: TEMP 39.1
--- NOTE | 2024-04-27 23:10 | RAD_ITS ---
EXAM: XR CHEST, 1 VIEW CLINICAL INDICATION: fever TECHNIQUE: Frontal view of the chest. COMPARISON: April 27, 2004 FINDINGS: LUNGS AND PLEURAL SPACES: Low lung volumes with elevated right hemidiaphragm and subsegmental atelectasis at the right lung base. No pneumothorax. No effusion. HEART: Unremarkable. Cardiac silhouette not enlarged. MEDIASTINUM: Central airways and mediastinal contour are unremarkable. BONES/JOINTS: Degenerative changes of the spine and acromioclavicular joints. No acute fracture. SOFT TISSUES: Unremarkable. VASCULATURE: Atherosclerotic calcifications of the nonenlarged thoracic aortic arch. RAD/Chest 1 View (Portable) IMPRESSION: No acute disease. Electronically Signed: Zeus Reeves MD at 0:09 EDT ,
--- NOTE | 2024-04-27 23:10 | EKG12_ITS ---
Test Reason : GEN ILL Blood Pressure : / mmHG Vent. Rate : 095 BPM Atrial Rate : 095 BPM P-R Int : 156 ms QRS Dur : 088 ms QT Int : 334 ms P-R-T Axes : 045 006 045 degrees QTc Int : 419 ms Normal sinus rhythm Normal ECG Confirmed by QUINTON ZAMARRIPA, LEEANN ([id number]), newspaper managing editor JARRED DOTSON ([id number]) on 05/03/2024 1:48:20 PM Referred By: Marquez Rosario Confirmed By:DELIA ALCANTARA MD
--- NOTE | 2024-04-27 23:23 | EDS_ITS ---
HPI History of Present Illness Chief Complaint: General Illness Informant: patient and spouse/S.O. Narrative Narrative: Patient sent down from TCU secondary to fever and tachycardia. Patient was admitted to the hospital April 16 through the with intractable back pain and pancytopenia. He has myelodysplastic syndrome and follows with Dr. Lazaro. Patient was transferred to the TCU yesterday. They document that he has been spiking fevers and has associated tachycardia. They started workup at the TCU and do have blood, urine, and stool cultures pending. He had a urinalysis done at 3 PM this afternoon that was negative for infection. He had a COVID test and a respiratory panel today that were negative. Patient denies significant cough or congestion. He denies abdominal pain, vomiting, or diarrhea. stated the patient did start Revlimid yesterday as a new medication and she is not sure if this may be related [facility] Medical History MDS (myelodysplastic syndrome) with 5q deletion Anxiety Diabetes Pancreatitis Non-smoker Diverticulosis History of chronic hypertension History of diabetes mellitus Home Medications ?Medication ?Instructions ?Recorded ?Last Taken ?Type atorvastatin 80 mg tablet 80 mg PO QHS CHOLESTEROL #30 tabs 04/03/24 04/25/24 Rx isosorbide mononitrate 30 mg 30 mg PO DAILY CHEST PAIN #30 tabs 04/03/24 04/26/24 Rx tablet,extended release 24 hr metoprolol tartrate 25 mg tablet 25 mg PO BID BLOOD PRESSURE #60 04/03/24 0 04/26/24 Rx tabs nitroglycerin 0.4 mg sublingual 0.4 mg sublingual Q5M PRN 04/03/24 Unknown Rx tablet Cardiac/Chest Pain #10 tabs pen needle, diabetic 29 gauge #100 ea 04/03/24 Unknown Rx acetaminophen 500 mg tablet 1,000 mg (2 x 500 mg) PO Q8 pain 04/26/24 Unknown Rx #0 tabs gabapentin 100 mg capsule 100 mg PO 0600,1400,2200 04/26/24 Unknown Rx neuropathy 3 days #9 caps insulin glargine-yfgn 100 unit/mL 20 unit (0.2 mL) subcut BID 04/26/24 04/26/24 Rx (3 mL) subcutaneous pen DIABETES #15 mL insulin lispro 100 unit/mL See Protocol subcut ACHS 04/26/24 Unknown Rx subcutaneous pen (Humalog KwikPen hyperglycemia #0 mL (U-100) Insulin) lenalidomide 10 mg capsule 10 mg PO DAILY MDS #0 caps 04/26/24 04/26/24 Rx lisinopril 10 mg tablet 5 mg (1/2 x 10 mg) PO DAILY BLOOD 04/26/24 04/11/24 Rx PRESSURE #30 tabs oxycodone 5 mg capsule 5 mg PO Q6H PRN BACK PAIN 3 days 04/26/24 Unknown Rx #12 caps sennosides 8.6 mg-docusate sodium 2 tab PO BID constipation #0 tabs 04/26/24 04/26/24 Rx 50 mg tablet (Stimulant Laxative Plus) trazodone 50 mg tablet 50 mg PO QHS PRN Insomnia #0 tabs 04/26/24 04/25/24 Rx Allergy/AdvReac Type Severity Reaction Status Date / Time Ttizqft-PIO-HmJ Reductase AdvReac Intermediate Pain in Verified 04/27/24 22:57 Inhibitor (Faskghd-Wrm-Vtu joints Reductase Inhibitor) Family History Other Brain malignancy Diabetes Hypertension Surgical History Previous back surgery H/O colonoscopy Social History household members: spouse housing: house current occupational status: retired Smoking Status: Never smoker alcohol intake: former substance use type: does not use ROS ROS ED Constitutional Constitutional ED: Reports fever(s) Eyes Eyes: Denies change in vision or discharge from eye(s) ENT ENT ED: Reports other Details: Intermittent epistaxis ; Denies discharge from eye(s), rhinorrhea or sore throat Cardiovascular Cardiovascular: Denies chest pain or palpitations Respiratory/Chest Respiratory/Chest: Denies cough or dyspnea Gastrointestinal Gastrointestinal: Denies abdominal pain, diarrhea, nausea or vomiting Genitourinary Genitourinary ED: Denies dysuria Musculoskeletal Musculoskeletal: Reports myalgias; Denies back pain or extremity pain Integumentary Denies Abrasions or rash Neurologic Neurologic: Reports weakness; Denies headache(s) Psychiatric Psychiatric: Denies anxiety or depression Allergic/Immunologic Allergic/Immunologic ED: Denies lip swelling or urticaria EXAM Physical Exam Narrative Exam Narrative: Patient lying in bed no acute distress. Alert and interactive. Const Vital Signs: 04/27/24 22:43 04/27/24 22:48 04/27/24 22:53 Temperature 100.5 F H 100.5 F H Temperature Source Oral Oral Pulse Rate 101 H 101 H Respiratory Rate 24 H 25 H Respiratory Effort Normal Non-Labored Respiratory Pattern Normal Blood Pressure 121/62 H 121/62 H Blood Pressure Mean 81 81 Pulse Ox 94 94 Oxygen Delivery Method Room Air Room Air 04/27/24 23:00 04/27/24 23:35 04/27/24 23:48 Temperature 102.3 F H 98.9 F Temperature Source Oral Oral Pulse Rate 102 H Respiratory Rate 20 H Respiratory Effort Respiratory Pattern Blood Pressure 113/53 L Blood Pressure Mean 73 Pulse Ox 98 97 Oxygen Delivery Method Room Air Room Air 04/28/24 00:00 Temperature 99.1 F Temperature Source Oral Pulse Rate 92 Respiratory Rate 20 H Respiratory Effort Respiratory Pattern Blood Pressure 106/51 L Blood Pressure Mean 69 Pulse Ox 98 Oxygen Delivery Method Room Air Positive well nourished and well developed General Appearance ED: well developed HEENT Reports moist mucous membranes Eyes EOMs intact bilaterally Chest Wall inspection of chest normal and palpation of chest normal Resp normal respiratory effort and clear to auscultation bilaterally Cardio regular rate and regular rhythm GI non-tender Auscultation: normoactive bowel sounds Palpation: soft Extremity Extremity Narrative: 2+ bilateral lower extremity edema, symmetric. Neuro oriented x3 Neuro Narrative: No focal neurologic deficits. Psych mental status grossly normal MDM MDM MDM Narrative Medical decision making narrative: IV line is initiated. I did repeat blood work including CBC, chemistry studies, lactic acid. Because cultures are already pending these would not be repeated. Will repeat a chest x-ray to ensure no evidence of infiltrate. EKG obtained to evaluate for cardiac arrhythmia/ischemia. Patient did receive 1000 mg of Tylenol just prior to transfer to the emergency room. History & Record Review Discussion w/independent historian: Patient and Significant other Additional record(s) reviewed:: Prior inpatient record, Prior ED visit and Prior labs Lab Data Attestation: I reviewed the patient's lab results. Labs: Laboratory Results - last 24 hr 04/27/24 23:28 WBC 1.5 L* RBC 2.21 L Hgb 6.3 L Hct 18.9 L MCV 85.5 MCH 28.5 MCHC 33.3 RDW Std Deviation 48.4 H RDW Coeff of Consuelo 15.5 H Plt Count 5 L* MPV 10.5 Neut % (Auto) Not Reportable PT 17.4 H INR 1.4 APTT 44.2 H Sodium 133 L Potassium 3.8 Chloride 102 Carbon Dioxide 25.0 Anion Gap 6 BUN 21 H Creatinine 1.13 Estim Creat Clear Calc 61.53 Est GFR (MDRD) Af Amer 82 Est GFR (MDRD) Non-Af 68 BUN/Creatinine Ratio 18.6 Glucose 272 H Lactic Acid 1.9 Calcium 7.7 L Total Bilirubin 0.80 AST 64 H ALT 85 H Alkaline Phosphatase 353 H Total Protein 5.5 L Albumin 1.8 L Globulin 3.7 Albumin/Globulin Ratio 0.5 L Radiography Chest X-Ray - ED: 1 View, Read by ED Physician, Unchanged and Chronic Changes Diagnostic Testing: Clinical Impression(s) from Imaging Studies Chest X-Ray 04/27/24 23:10 IMPRESSION: No acute disease. Electronically Signed: Zeus Reeves MD at 0:09 EDT , EKG Initial EKG: Attestation: I personally reviewed and interpreted this EKG as follows: Interpretation: Sinus Rhythm (Sinus at 95 with no acute ischemia.) Treatment and Re-Evaluation :: CBC reveals a white count of 1.5 with a hemoglobin of 6.3. Platelet count is low at 5000. INR is 1.4. Chemistry studies reveal a sodium of 133. BUN is 21 and creatinine is 1.13. Glucose is 272. AST is 64 and ALT is 85. Alk phos is 353. Total bilirubin is normal at 0.80. I will back and reexamined the patient. He has no tenderness in the right upper quadrant. His LFTs have not been checked since April 16 and his previously admitted. His ALT and AST were normal at that time. Lactic acid is normal at 1.9 EKG is sinus rhythm with no evidence of acute ischemia. Portable chest x-ray per my interpretation was chronic changes with no evidence of focal infiltrate. No significant change from study obtained approximately 9 hours prior. Radiology interpretation is reviewed and agrees. Patient was started on Revlimid yesterday. One of the common side effects of this medication is fever. However, because the patient has myelodysplastic syndrome with poor bone marrow response, I do feel he should be covered with antibiotics until cultures return. In light of this he is given a dose of cef epime, choice for neutropenic fever. Discharge Plan Dx/Rx/DC Orders Clinical Impression: Fever, Myelodysplastic syndrome, Pancytopenia Disposition Disposition: Acute Care Hospital [facility]
[2024-04-27] MEDS: 0.9% Normal Saline (1000mL) 1,000 ML 150 ML IV (23:33)
[2024-04-27 23:35] VITALS: O2SAT 98
[2024-04-27 23:44] LABS: Hematocrit 18.9 % (40-54); Hemoglobin 6.3 g/dL (13.0-16.5); Mean Corp Hgb Conc 33.3 g/dL (32-36); Mean Corpuscular Hgb 28.5 pg (27.0-32.0); Mean Corpuscular Volume 85.5 fL (80-94); Mean Platelet Vol. 10.5 fl (6.2-12.0); POSITIVE COUNT YES; POSITIVE DIFFERENTIAL YES; POSITIVE MORPHOLOGY YES; Platelet Count 5 K/mm3 (150-450); RBC Distribution Width CV 15.5 % (11.6-14.6); RBC Distribution Width SD 48.4 fl (35.1-43.9); Red Blood Count 2.21 M/mm3 (4.6-6.2)
[2024-04-27 23:48] VITALS: BP 113/53; PULSE 102; RESP 20; TEMP 37.2; O2SAT 97
[2024-04-27 23:49] LABS: White Blood Count 1.5 K/mm3 (4.4-11.0)
[2024-04-27 23:50] LABS: Differential Indicated MANUAL DIFF; International Normalized Ratio 1.4; Prothrombin Time (Protime)PT. 17.4 SECONDS (11.7-14.9)
[2024-04-27 23:51] LABS: Partial Thromboplast Time 44.2 Seconds (24.1-36.2)
[2024-04-28] VITALS (21 sets, daily range): BP systolic 106–163; BP diastolic 51–92; PULSE 89–134; RESP 12–22; TEMP 36.4–37.9; O2SAT 93–100; BMI 27.0
[2024-04-28 00:11] LABS: ALB/GLOB Ratio 0.5 RATIO (0.9-2.4); AST(SGOT) 64 U/L (15-37); Alanine Aminotransfer ALT/SGPT 85 U/L (16-61); Albumin, Serum 1.8 g/dL (3.2-5.0); Alkaline Phosphatase 353 U/L (45-117); Anion Gap 6 (5-15); BUN 21 mg/dL (7-18); BUN/Creat Ratio 18.6 RATIO (10-20); Calcium,Total 7.7 mg/dL (8.5-10.1); Chloride 102 mmol/L (98-107); Creatinine, Serum 1.13 mg/dL (0.70-1.30); EST Glomerular Filtration Rate 68 mL/min (>60); Est Glom Filt Rate - Afr Amer 82 mL/min (>60); Estimated Creatinine Clearance 61.53 ml/min; Globulin 3.7 g/dL (2.2-4.2); Glucose 272 mg/dL (74-106); Lactic Acid 1.9 mmol/L (0.4-1.9); Potassium 3.8 mmol/L (3.5-5.1); Protein, Total 5.5 g/dL (6.4-8.2); Sodium Level 133 mmol/L (136-145)
[2024-04-28 00:23] LABS: Blast 18 % (0-0); Lymphocyte 40 % (19-41); Myelocyte 1 % (0-0); Neutrophil-Band 5 % (0-5); Neutrophil-Segmented 24 % (47-70); Promyelocyte 4 % (0-0); Total Cells Counted 100 (MANUAL DIFF)
[2024-04-28 00:24] LABS: Monocyte 4 % (0-10)
[2024-04-28 00:25] LABS: Differential Comment SCANNED; Platelet Estimate MKD DEC (ADEQ)
[2024-04-28 00:26] LABS: Absolute Neutrophil Count 0.4 X10^3/uL (2.0-7.7)
[2024-04-28] MEDS: Cefepime HCl 2 GM in 0.9% Normal Saline (100mL MB+) 100 ML IV ×3 (00:31→21:18)
--- NOTE | 2024-04-28 00:35 | PCM.HP.STD ---
HPI - General General Date of Admission: 04/28/24 Date of Service: 04/28/24 Chief Complaint: Neutropenic fever HPI Narrative JOSE KEYS, is a 74 M who presented to [facility] ED on 04/28/2024 from TCU for neutropenic fever. Saw patient at bedside in the ED, present. Patient was recently hospitalized here from 04/16-04/26. Was also hospitalized here in late March and early April. Was recently diagnosed with myelodysplastic syndrome with elevated blast count along with anemia and thrombocytopenia, has been following with Dr. Lazaro with Oncology. Presented for most recent hospitalization with worsening back pain and debility. Was found on thoracic MRI to have spine lesions that oncology felt were most consistent with bone marrow reactivation, recommendation was for supportive care. Patient was ultimately discharged to TCU on 04/26. He notably was started on Revlimid by oncology on 04/26. Unfortunately was found to have new onset fever and tachycardia in the TCU on the evening of 04/27 and was taken down to the ED for further evaluation. Had temp up to 102.3F and sinus tachycardia to low 100s, was otherwise hemodynamically stable. Patient notably was asymptomatic and was upset that he had to come down to the ED to be evaluated. Chest x-ray was unremarkable. Labs notable for slightly worsened values without WBC count 1.5, ANC 400, hemoglobin 6.3, platelets 5, INR 1.4, sodium 133, bicarb 25, creatinine 1.13 (baseline around 0.8), glucose 272, AST 64, ALT 85, alk phos 353. Had CT abdomen pelvis with IV contrast done prior to moving to the floor that showed low-density areas involving the enlarged spleen that may represent developing infarcts, was otherwise unremarkable. Patient was started on IV cefepime for neutropenic fever and admitted for further management. [facility] Medical History MDS (myelodysplastic syndrome) with 5q deletion Anxiety Diabetes Pancreatitis Non-smoker Diverticulosis History of chronic hypertension History of diabetes mellitus Home Medications ?Medication ?Instructions ?Recorded ?Last Taken ?Type atorvastatin 80 mg tablet 80 mg PO QHS CHOLESTEROL #30 tabs 04/03/24 04/25/24 Rx isosorbide mononitrate 30 mg 30 mg PO DAILY CHEST PAIN #30 tabs 04/03/24 04/26/24 Rx tablet,extended release 24 hr metoprolol tartrate 25 mg tablet 25 mg PO BID BLOOD PRESSURE #60 04/03/24 04/26/24 Rx tabs nitroglycerin 0.4 mg sublingual 0.4 mg sublingual Q5M PRN 04/03/24 Unknown Rx tablet Cardiac/Chest Pain #10 tabs pen needle, diabetic 29 gauge #100 ea 04/03/24 Unknown Rx acetaminophen 500 mg tablet 1,000 mg (2 x 500 mg) PO Q8 pain 04/26/24 Unknown Rx #0 tabs gabapentin 100 mg capsule 100 mg PO 0600,1400,2200 04/26/24 Unknown Rx neuropathy 3 days #9 caps insulin glargine-yfgn 100 unit/mL 20 unit (0.2 mL) subcut BID 04/26/24 04/26/24 Rx (3 mL) subcutaneous pen DIABETES #15 mL insulin lispro 100 unit/mL See Protocol subcut ACHS 04/26/24 Unknown Rx subcutaneous pen (Humalog KwikPen hyperglycemia #0 mL (U-100) Insulin) lenalidomide 10 mg capsule 10 mg PO DAILY MDS #0 caps 04/26/24 04/26/24 Rx lisinopril 10 mg tablet 5 mg (1/2 x 10 mg) PO DAILY BLOOD 04/26/24 04/11/24 Rx PRESSURE #30 tabs oxycodone 5 mg capsule 5 mg PO Q6H PRN BACK PAIN 3 days 04/26/24 Unknown Rx #12 caps sennosides 8.6 mg-docusate sodium 2 tab PO BID constipation #0 tabs 04/26/24 04/26/24 Rx 50 mg tablet (Stimulant Laxative Plus) trazodone 50 mg tablet 50 mg PO QHS PRN Insomnia #0 tabs 04/26/24 04/25/24 Rx Allergy/AdvReac Type Severity Reaction Status Date / Time [id number]-[id number] Reductase AdvReac Intermediate Pain in Verified 04/27/24 22:57 Inhibitor (Olrwglp-Iun-Dvk joints Reductase Inhibitor) Family History Other Brain malignancy Diabetes Hypertension Surgical History Previous back surgery H/O colonoscopy Social History household members: spouse housing: house current occupational status: retired Smoking Status: Never smoker alcohol intake: former substance use type: does not use ROS Constitutional Constitutional: Reports fatigue and weakness; Denies chills, fever(s) or malaise Eyes Eyes: Denies change in vision Cardiovascular Cardiovascular: Denies chest pain Respiratory/Chest Respiratory/Chest: Denies cough or shortness of breath at rest Gastrointestinal Gastrointestinal: Denies abdominal pain, constipation, diarrhea, nausea or vomiting Genitourinary Genitourinary: Denies dysuria Musculoskeletal Musculoskeletal: Denies arthralgias or myalgias Neurologic Neurologic: Denies dizziness, focal weakness or headache(s) Vital Signs Vital Signs Vital Signs: 04/27/24 22:43 04/27/24 22:48 04/27/24 22:53 Temperature 100.5 F H 100.5 F H Temperature Source Oral Oral Pulse Rate 101 H 101 H Respiratory Rate 24 H 25 H Respiratory Effort Normal Non-Labored Respiratory Pattern Normal Blood Pressure 121/62 H 121/62 H Blood Pressure Mean 81 81 Pulse Ox 94 94 Oxygen Delivery Method Room Air Room Air 04/27/24 23:00 04/27/24 23:35 04/27/24 23:48 Temperature 102.3 F H 98.9 F Temperature Source Oral Oral Pulse Rate 102 H Respiratory Rate 20 H Respiratory Effort Respiratory Pattern Blood Pressure 113/53 L Blood Pressure Mean 73 Pulse Ox 98 97 Oxygen Delivery Method Room Air Room Air 04/28/24 00:00 04/28/24 00:23 Temperature 99.1 F 99.1 F Temperature Source Oral Pulse Rate 92 91 Respiratory Rate 20 H 22 H Respiratory Effort Respiratory Pattern Blood Pressure 106/51 L 106/51 L Blood Pressure Mean 69 69 Pulse Ox 98 98 Oxygen Delivery Method Room Air Weight Weight: 84.2 kg Body Mass Index (BMI) 28.2 Physical Exam Const alert, oriented x3 and no apparent distress Constitutional Narrative: Elderly male, chronically ill-appearing, fatigued, otherwise sitting up comfortably in bedside chair, conversing normally, in no acute distress. General Appearance: cooperative and comfortable HEENT normocephalic, head/scalp atraumatic, hearing grossly normal bilaterally and nasal mucous membranes and turbinates normal Eyes PERRL, EOMs intact bilaterally and conjunctivae normal Neck full ROM Chest inspection of chest normal Resp normal respiratory effort, normal air movement, no use of accessory muscles and clear to auscultation bilaterally Cardio no murmurs and peripheral pulses 2+ throughout Cardio Narrative: Tachycardic, regular rhythm. GI normal to inspection, nondistended, normoactive bowel sounds, soft to palpation, non-tender and non-distended Back/Spine normal ROM Extremity normal to inspection, full ROM and no pedal edema Skin no rashes or lesions noted Neuro moves all extremities and no focal motor deficits Speech: speech normal Psych mental status grossly normal Results Lab / Micro Data 04/27/24 23:28 04/27/24 23:28 Labs: Laboratory Results - last 24 hr 04/27/24 23:28: WBC 1.5 L*, RBC 2.21 L, Hgb 6.3 L, Hct 18.9 L, MCV 85.5, MCH 28.5, MCHC 33.3, RDW Std Deviation 48.4 H, RDW Coeff of [place]uelo 15.5 H, Plt Count 5 L*, MPV 10.5, Neut % (Auto) Not Reportable, Absolute Neuts (auto) 0.4 L, Absolute Lymphs (auto) 0.60 L, Total Counted 100, Neutrophils % (Manual) 24 L, Band Neutrophils % 5, Lymphocytes % (Manual) 40, Monocytes % (Manual) 4, Myelocytes % 1 H, Promyelocytes % 4 H, Blast Cells % 18 H*, Differential Comment SCANNED, Diff Path Review February, Platelet Estimate MKD DEC, PT 17.4 H, INR 1.4, APTT 44.2 H, Sodium 133 L, Potassium 3.8, Chloride 102, Carbon Dioxide 25.0, Anion Gap 6, BUN 21 H, Creatinine 1.13, Estim Creat Clear Calc 61.53, Est GFR (MDRD) Af Amer 82, Est GFR (MDRD) Non-Af 68, BUN/Creatinine Ratio 18.6, Glucose 272 H, Lactic Acid 1.9, Calcium 7.7 L, Total Bilirubin 0.80, AST 64 H, ALT 85 H, Alkaline Phosphatase 353 H, Total Protein 5.5 L, Albumin 1.8 L, Globulin 3.7, Albumin/Globulin Ratio 0.5 L Imaging Radiology Impression Chest X-Ray 04/27/24 23:10 IMPRESSION: No acute disease. Electronically Signed: Zeus Reeves MD at 0:09 EDT , Assessment & Plan Assessment/Plan (1) Neutropenic fever: (2) Splenic infarct: (3) Elevated LFTs: (4) Myelodysplastic syndrome: (5) Pancytopenia: (6) Debility: PLAN: Plan Patient is a 74-year-old male who presented to [facility] ED on 04/28/2024 from TCU for neutropenic fever. 1. Neutropenic fever, concern for developing splenic infarcts, elevated LFTs ? Admit under inpatient status to PCU. Oncology consulted. Suspect new onset fever may be secondary to developing splenic infarcts noted on CT abdomen pelvis. Unclear etiology for splenic infarcts; hypercoagulability from active cancer seems most likely. Cannot rule out embolic but recent echo in March showed no concerning findings and no vascular abnormalities noted on CTA abdomen pelvis on admit. Etiology for elevated LFTs also unclear; notably no right upper quadrant abnormalities on imaging and no abdominal pain. Revlimid that patient started on 04/26 can cause hepatotoxicity, but patient has only had 2 doses thus far so would seem less likely due to this. Cannot rule out infectious etiology for fever at this point, though no source identified. Chest x-ray normal, UA unremarkable, no intra-abdominal infection noted. Will treat with IV cefepime for now. Can consider ID consultation and/or general surgery consultation as needed. Trend daily labs. 2. Myelodysplastic syndrome with severe pancytopenia ? Oncology consulted as above. Hemoglobin 6.3, down from 7.4 on morning of 04/27. Platelet count 5, slightly down from 7. Suspect decreases may be due to recently started Revlimid. Per previous oncology notes, goal hemoglobin 7-8. Will transfuse 1 unit of packed red blood cells and 1 unit of platelets now, follow-up a.m. CBC. 3. Mild creatinine elevation ? Creatinine 1.13 on admit, BUN 21. Baseline creatinine appears to be around 0.8-0.9. Suspect due to mild dehydration. Given gentle IV fluids on admit. Follow-up a.m. BMP and monitor urine output. 4. Type 2 diabetes mellitus with hyperglycemia ? Blood glucose 272 on admit. Regimen on recent discharge of insulin glargine 20 units twice daily and sliding scale insulin with meals, will continue this regimen for now with serial Accu-Cheks, adjust as needed. 5. Low back pain with neuropathy, acute debility ? PT/OT/case management consulted. Recently discharged to TCU on 04/26, suspect patient will return there on this discharge. Continue low-dose gabapentin and as needed low-dose oxycodone that was started on previous admission. 6. Hypertension/hyperlipidemia/concern for CAD ? Continue home Lopressor and isosorbide mononitrate. Holding lisinopril for now given mild creatinine elevation as noted above. Continue atorvastatin. 7. Recent history of constipation ? No evidence of constipation on CT abdomen pelvis on admit. Continue home senna. DVT prophylaxis: Contraindicated due to severe thrombocytopenia CODE STATUS: Full code, verified Expected disposition: Back to TCU, TBD Total clinical time spent by myself addressing the patient's medical issues, reviewing all the data, and collaborating with patient's care team: 75 minutes. Charges/Coding Visit Charges Inpatient E&M: 11221 Init Hosp L3
--- NOTE | 2024-04-28 00:40 | CT_ITS ---
EXAM: CT ABDOMEN AND PELVIS WITH INTRAVENOUS CONTRAST CLINICAL INDICATION: neutropenic fever, elevated LFTs/INR TECHNIQUE: Helically acquired images were obtained of the abdomen and pelvis with intravenous contrast. CTDIvol = ( 13.88 ) mGy, DLP = ( 990.00 ) mGycm This CT exam was performed using one or more of the following dose reduction techniques: automated exposure control, adjustment of the mA and/or kV according to patient size, and/or use of iterative reconstruction technique. CONTRAST: IV 100mL Isovue-370 COMPARISON: No relevant prior studies available. FINDINGS: LOWER THORAX: Unremarkable. Lung bases are clear. No cardiomegaly. No significant pericardial effusion. ABDOMEN: LIVER: Unremarkable. Homogeneous. No focal mass. GALLBLADDER AND BILE DUCTS: Distended gallbladder but no gallstones or acute cholecystitis. No intra- or extrahepatic biliary ductal dilation. PANCREAS: Unremarkable. No focal cystic or solid mass. SPLEEN: Low-density areas involving the enlarged spleen may represent developing infarcts. ADRENALS: Unremarkable. No nodules. KIDNEYS AND URETERS: Small cyst at the left interpolar level and also at the lower pole right kidney. Normal renal size and position. No hydronephrosis. STOMACH AND BOWEL: Unremarkable. No focal inflammatory change. No inflammatory or obstructive changes of bowel. PELVIS: APPENDIX: No evidence of acute appendicitis. BLADDER: Bladder is decompressed. REPRODUCTIVE: Unremarkable as visualized. No mass. ABDOMEN and PELVIS: INTRAPERITONEAL SPACE: Unremarkable. No free air or free fluid. BONES/JOINTS: Posterior decompression of the lumbar spine noted. Degenerative changes of the spine and pelvis. No no other suspicious lytic or blastic abnormality. SOFT TISSUES: Small fat-containing bilateral inguinal hernias containing fat. VASCULATURE: Multivessel calcific coronary arteriosclerosis, incompletely imaged. Abdominal aorta is non-dilated. LYMPH NODES: Unremarkable. No enlarged lymph nodes. CT/Abdomen/Pelvis W IV Cont ONLY IMPRESSION: Low-density areas involving the enlarged spleen may represent developing infarcts. Electronically Signed: Zeus Reeves MD at 1:22 EDT ,
[2024-04-28] MEDS: traZODone 50 MG Tablet PO (04:50)
[2024-04-28] MEDS: Gabapentin 100 MG Capsule PO ×3 (04:50→21:16)
[2024-04-28] MEDS: Insulin Glargine-YFGN 100 UNIT/ML Pen 20 UNIT SC ×2 (08:15→21:18)
[2024-04-28] MEDS: Metoprolol Tartrate 25 MG Tablet PO ×2 (08:16→21:15)
[2024-04-28] MEDS: Acetaminophen 325 MG Tablet 650 MG PO ×2 (08:22→19:54)
[2024-04-28] MEDS: Isosorbide Mononitrate 30 MG Tablet PO (08:22)
[2024-04-28 09:50] LABS: Bedside Glucose 132 mg/dL (74-106)
[2024-04-28 10:05] LABS: Pathologist Review Reviewed
--- NOTE | 2024-04-28 11:11 | NURSING ---
Patient is complaining of chest pain 05/14, described as tightness. States that it comes and goes but has been painful for a couple hours now. Patient Significant Other at the bedside stated that he has been very anxious and would probably benefit from a medication to help reduce it. Dr Geller arrived at bedside for her rounds and was informed. She assessed the patient, answered questions from patient and S.O. and said she would enter some orders.
[2024-04-28] MEDS: oxyCODONE 5 MG Tablet PO (11:22)
[2024-04-28] MEDS: LORazepam 1 MG Tablet PO (12:03)
[2024-04-28] MEDS: Furosemide 20 MG/2 ML VIAL IV (12:03)
[2024-04-28] MEDS: 0.9% Saline Lock 10 ML Syringe IV (12:05)
[2024-04-28 12:06] LABS: Hematocrit 22.1 % (40-54); Hemoglobin 7.5 g/dL (13.0-16.5); Mean Corp Hgb Conc 33.9 g/dL (32-36); Mean Corpuscular Hgb 28.3 pg (27.0-32.0); Mean Corpuscular Volume 83.4 fL (80-94); Mean Platelet Vol. 9.9 fl (6.2-12.0); POSITIVE COUNT YES; RBC Distribution Width CV 14.9 % (11.6-14.6); RBC Distribution Width SD 45.1 fl (35.1-43.9); Red Blood Count 2.65 M/mm3 (4.6-6.2); White Blood Count 1.7 K/mm3 (4.4-11.0)
[2024-04-28 12:17] LABS: Platelet Count 12 K/mm3 (150-450); Scan Indicated on CBC? Y/N YES- FLAGS NOTED
[2024-04-28] MEDS: Insulin Lispro 100 UNIT/ML INSULN.PEN SC ×3 (12:18→21:16)
[2024-04-28 12:30] LABS: Bedside Glucose 212 mg/dL (74-106)
--- NOTE | 2024-04-28 12:39 | PN_ITS ---
Subjective Subjective Patient seen and examined. He was admitted with a complaint of fever iin [facility] setting of pancytopenia due to MDS. He was transfused one unit of platelets yesterday and one unit of PRBC today. He complains of chest tightness and anxiety. He denies any fever, chills, cough, chest pain, palpitations, dizziness, nausea, vomiting or any other symptoms. Review of systems is otherwise negative. Oncology has been consulted. Objective Data Objective Data Vital Signs: Vital Signs Temp Pulse Resp BP Pulse Ox O2 Del Method 98.6 F 94 12 110/62 94 Room Air 04/28/24 10:39 04/28/24 11:19 04/28/24 11:19 04/28/24 11:19 04/28/24 11:19 04/28/24 11:19 Oxygen Delivery Method Room Air Weight: 177 lb 14.609 oz Body Mass Index (BMI) 27.0 Intake & Output: Intake and Output for Last 24 Hours 04/26/24 04/27/24 04/28/24 23:59 23:59 23:59 Intake Total 587.5 / 587.5 Output Total 350 / 350 Balance 237.5 / 237.5 Lab / Micro Data 04/28/24 11:54 04/27/24 23:28 Labs: Laboratory Results - last 24 hr 04/27/24 10:02: Blood Type O POSITIVE, Antibody Screen NEGATIVE, Crossmatch See Detail 04/27/24 23:28: WBC 1.5 L*, RBC 2.21 L, Hgb 6.3 L, Hct 18.9 L, MCV 85.5, MCH 28.5, MCHC 33.3, RDW Std Deviation 48.4 H, RDW Coeff of Consuelo 15.5 H, Plt Count 5 L*, MPV 10.5, Neut % (Auto) Not Reportable, Absolute Neuts (auto) 0.4 L, A bsolute Lymphs (auto) 0.60 L, Total Counted 100, Neutrophils % (Manual) 24 L, Band Neutrophils % 5, Lymphocytes % (Manual) 40, Monocytes % (Manual) 4, M yelocytes % 1 H, Promyelocytes % 4 H, Blast Cells % 18 H*, Differential Comment SCANNED, Diff Path Review Reviewed, Platelet Estimate MKD DEC, PT 17.4 H, INR 1.4, APTT 44.2 H, Sodium 133 L, Potassium 3.8, Chloride 102, Carbon Dioxide 25.0, Anion Gap 6, BUN 21 H, Creatinine 1.13, Estim Creat Clear Calc 61.53, Est GFR (MDRD) Af Amer 82, Est GFR (MDRD) Non-Af 68, BUN/Creatinine Ratio 18.6, G lucose 272 H, Lactic Acid 1.9, Calcium 7.7 L, Total Bilirubin 0.80, AST 64 H, A LT 85 H, Alkaline Phosphatase 353 H, Total Protein 5.5 L, Albumin 1.8 L, Globulin 3.7, Albumin/Globulin Ratio 0.5 L 04/28/24 08:14: POC Glucose 132 H 04/28/24 11:54: WBC 1.7 L, RBC 2.65 L, Hgb 7.5 L, Hct 22.1 L, MCV 83.4, MCH 28.3, MCHC 33.9, RDW Std Deviation 45.1 H, RDW Coeff of Consuelo 14.9 H, MPV 9.9 04/28/24 12:02: POC Glucose 212 H Radiography Diagnostic Testing: Radiology Impression Chest X-Ray 04/27/24 23:10 IMPRESSION: No acute disease. Electronically Signed: Zeus Reeves MD at 0:09 EDT , Abdomen/Pelvis CT 04/28/24 00:40 IMPRESSION: Low-density areas involving the enlarged spleen may represent developing infarcts. Electronically Signed: Zeus Reeves MD at 1:22 EDT , Physical Exam Const alert and oriented x3 Constitutional Narrative: frail, weak General Appearance: cooperative HEENT normocephalic and head/scalp atraumatic Mouth: dry mucous membranes Eyes PERRL and EOMs intact bilaterally Neck no lymphadenopathy, supple and no JVD Lymph Lymphatic: no lymphadenopathy noted and no lymphedema noted Resp normal respiratory effort, normal air movement and clear to auscultation bilaterally Cardio regular rate, regular rhythm, S1 normal heart sound, S2 normal heart sound and no murmurs GI normal to inspection, nondistended, normoactive bowel sounds, soft to palpation, non-tender and non-distended Extremity normal capillary refill, no clubbing, cyanosis or edema and no calf tenderness General Extremity: no tenderness to palpation of joints or extremities Skin General Skin Exam: no breakdown Neuro CN's II-XII intact bilaterally, no focal motor deficits, no sensory deficits noted and deep tendon reflexes 2+ bilaterally Motor Exam: strength 5/5 throughout and general weakness Psych thought process normal and cooperative Mood & Affect: flat affect Assessment & Plan Assessment/Plan (1) Neutropenic fever: (2) Pancytopenia: (3) Myelodysplastic syndrome: (4) Splenic infarct: PLAN: Plan #Pancytopenia in the setting of myelodysplastic syndrome * wbc was 1.5 with Hb of 6.3 and platelets of 5 on admission * Is s/p transfusion of platelets and packed RBCs. Hemoglobin now is 7.5 with WBC of 1.7 and platelets are up to 12. * hematology consulted * pateint currently on revlimid for MDS * goal is Hb >7 and platelets .10 * #Neutropenic fever * fever has resolved * absolute neutrophil count is 0.6 with blast cells of 18% * on IV vancomycin and zosyn. * blood and urine cultures ordered. * CT abdomen and pelvis showed low density areas involving the enlarged spleen which may represent developing infarcts. * CXR showed no acute cardiopulmonary pathology * #Elevated liver enzymes * ALP is elevated at 353. ALT is also slightly above 85 and AST is also slightly up at 64. * patient on revlimid for MDS, which has a known side effect of hepatotoxicity * will trend liver enzymes for now and monitor closely * #Hypertension * on lopressor and imdur. Lisiinopril held on admission due to mildly elevated Cr * #Hyperlipidemia: on statin DVT prophylaxis: SCDs Charges/Coding Visit Charges Inpatient E&M: 18143 Subs Hosp L3
[2024-04-28 12:51] LABS: Anion Gap 6 (5-15); BUN 19 mg/dL (7-18); BUN/Creat Ratio 21.1 RATIO (10-20); Calcium,Total 8.1 mg/dL (8.5-10.1); Chloride 101 mmol/L (98-107); EST Glomerular Filtration Rate 88 mL/min (>60); Est Glom Filt Rate - Afr Amer 107 mL/min (>60); Estimated Creatinine Clearance 70.72 ml/min; Glucose 240 mg/dL (74-106); Potassium 3.9 mmol/L (3.5-5.1); Sodium Level 131 mmol/L (136-145)
[2024-04-28 16:41] LABS: Bedside Glucose 225 mg/dL (74-106)
[2024-04-28] MEDS: LORazepam 0.5 MG Tablet PO ×2 (17:15→21:15)
--- NOTE | 2024-04-28 17:33 | CON.PCM.ON_ITS ---
Assessment & Plan Assessment/Plan (1) Neutropenic fever: Status: Acute Code(s): D70.9 - Neutropenia, unspecified; R50.81 - Fever presenting with conditions classified elsewhere Plan: Suggest continue broad spectrum antibiotics. (2) Myelodysplastic syndrome: Status: Acute Code(s): D46.9 - Myelodysplastic syndrome, unspecified Plan: MDS-5qminus with Pancytopenia. Suggest continuing broad spectrum antibiotic. Resume Revlimid 10mg daily. Transfuse PRBC as needed to keep hemoglobin above 7, transfuse platelets as needed to keep platelets above 10K. (3) Splenic infarct: Status: Acute Code(s): D73.5 - Infarction of spleen Plan: Suggest supportive care. Since Pt has severe thrombocytopenia, anticoagulation cannot be done. HPI Consult Data Date of Service:: 04/28/24 PCP / Referring Provider: Dr. Mihir Johnston MD Attending: Dr. Marine Geller MD Chief Complaint Chief Complaint: Asked to see Pt with MDS. History of Present Illness History of Present Illness: 74-year-old man was seen in the hospital 03/26/24-04/03/24 with anemia (hgb 7- 7.8), thrombocytopenia associated with chest pain. Bone marrow aspiration and evaluation on 03/28/2024 showed Nondiagnostic bone marrow core clot and aspiration smears, flow cytometry showed 5% myeloblasts with phenotype suggestive of possible myelodysplastic process. Results from FISH and cytogenetics on initial BMBX 03/28/24 showed 5Q deletion, PML/MANUELITO:abnormal- A ML/MDS clone detected. Repeat BMBX was done on 04/12/2024. Results are pending. He was started on Revlimid, got 1 dose and transferred to TCU. He developed neutropenic fever and transferred back to the hospital, started on broad- spectrum antibiotics. CT scan on 04/28/2024 showed low-density wedge-shaped areas in the spleen which may be developing infarcts. Advanced Directives Power of Administrative Medical Director: Yes Living Will: Yes [facility] Medical History MDS (myelodysplastic syndrome) with 5q deletion Anxiety Diabetes Pancreatitis Non-smoker Diverticulosis History of chronic hypertension History of diabetes mellitus Home Medications ?Medication ?Instructions ?Recorded ?Last Taken ?Type atorvastatin 80 mg tablet 80 mg PO QHS CHOLESTEROL #30 tabs 04/03/24 04/25/24 Rx isosorbide mononitrate 30 mg 30 mg PO DAILY CHEST PAIN #30 tabs 04/03/24 04/26/24 Rx tablet,extended release 24 hr metoprolol tartrate 25 mg tablet 25 mg PO BID BLOOD PRESSURE #60 04/03/2404/26 Rx tabs nitroglycerin 0.4 mg sublingual 0.4 mg sublingual Q5M PRN 04/03/24 Unknown Rx tablet Cardiac/Chest Pain #10 tabs pen needle, diabetic 29 gauge #100 ea 04/03/24 Unknown Rx acetaminophen 500 mg tablet 1,000 mg (2 x 500 mg) PO Q8 pain 04/26/24 Unknown Rx #0 tabs gabapentin 100 mg capsule 100 mg PO 0600,1400,2200 04/26/24 Unknown Rx neuropathy 3 days #9 caps insulin glargine-yfgn 100 unit/mL 20 unit (0.2 mL) subcut BID 04/26/24 04/26/24 Rx (3 mL) subcutaneous pen DIABETES #15 mL insulin lispro 100 unit/mL See Protocol subcut ACHS 04/26/24 Unknown Rx subcutaneous pen (Humalog KwikPen hyperglycemia #0 mL (U-100) Insulin) lenalidomide 10 mg capsule 10 mg PO DAILY MDS #0 caps 04/26/24 04/26/24 Rx lisinopril 10 mg tablet 5 mg (1/2 x 10 mg) PO DAILY BLOOD 04/26/24 04/11/24 Rx PRESSURE #30 tabs oxycodone 5 mg capsule 5 mg PO Q6H PRN BACK PAIN 3 days 04/26/24 Unknown Rx #12 caps sennosides 8.6 mg-docusate sodium 2 tab PO BID constipation #0 tabs 04/26/24 04/26/24 Rx 50 mg tablet (Stimulant Laxative Plus) trazodone 50 mg tablet 50 mg PO QHS PRN Insomnia #0 tabs 04/26/24 04/25/24 Rx Allergy/AdvReac Type Severity Reaction Status Date / Time Ljcwrbh-JRF-XiY Reductase AdvReac Intermediate Pain in Verified 04/27/24 22:57 Inhibitor (Rwylxwa-Jvf-Vgu joints Reductase Inhibitor) Family History Other Brain malignancy Diabetes Hypertension Surgical History Previous back surgery H/O colonoscopy Social History household members: spouse housing: house current occupational status: retired Smoking Status: Never smoker alcohol intake: former substance use type: does not use Physical Exam Narrative Delirious HEENT normocephalic Eyes conjunctivae normal Neck supple Resp clear to auscultation bilaterally Cardio regular rhythm, S1 normal heart sound and S2 normal heart sound Vital Signs Temperature 98.1 F 04/28/24 15:00 Temperature Source Oral 04/28/24 15:00 Pulse Rate 105 H 04/28/24 15:00 Respiratory Rate 16 04/28/24 15:00 Respiratory Effort Normal, Non-Labored 04/28/24 14:00 Respiratory Depth Normal 04/28/24 14:00 Respiratory Pattern Normal 04/28/24 14:00 Blood Pressure 122/68 H 04/28/24 15:00 Blood Pressure Mean 86 04/28/24 15:00 Blood Pressure Source Monitor 04/28/24 15:00 Blood Pressure Position Semi-Fowlers 04/28/24 15:00 Blood Pressure Location Right Arm 04/28/24 15:00 Pulse Ox 97 04/28/24 15:00 Oxygen Delivery Method Room Air 04/28/24 15:00 Laboratory Results - last 24 hr 04/27/24 10:02: Blood Type O POSITIVE, Antibody Screen NEGATIVE, Crossmatch See Detail 04/27/24 23:28: WBC 1.5 L*, RBC 2.21 L, Hgb 6.3 L, Hct 18.9 L, MCV 85.5, MCH 28.5, MCHC 33.3, RDW Std Deviation 48.4 H, RDW Coeff of Consuelo 15.5 H, Plt Count 5 L*, MPV 10.5, Neut % (Auto) Not Reportable, Absolute Neuts (auto) 0.4 L, Absolute Lymphs (auto) 0.60 L, Total Counted 100, Neutrophils % (Manual) 24 L, Band Neutrophils % 5, Lymphocytes % (Manual) 40, Monocytes % (Manual) 4, Myelocytes % 1 H, Promyelocytes % 4 H, Blast Cells % 18 H*, Differential Comment SCANNED, Diff Path Review Reviewed, Platelet Estimate MKD DEC, PT 17.4 H, INR 1.4, APTT 44.2 H, Sodium 133 L, Potassium 3.8, Chloride 102, Carbon Dioxide 25.0, Anion Gap 6, BUN 21 H, Creatinine 1.13, Estim Creat Clear Calc 61.53, Est GFR (MDRD) Af Amer 82, Est GFR (MDRD) Non-Af 68, BUN/Creatinine Ratio 18.6, Glucose 272 H, Lactic Acid 1.9, Calcium 7.7 L, Total Bilirubin 0.80, AST 64 H, ALT 85 H, Alkaline Phosphatase 353 H, Total Protein 5.5 L, Albumin 1.8 L, Globulin 3.7, Albumin/Globulin Ratio 0.5 L 04/28/24 08:14: POC Glucose 132 H 04/28/24 11:54: WBC 1.7 L, RBC 2.65 L, Hgb 7.5 L, Hct 22.1 L, MCV 83.4, MCH 28.3, MCHC 33.9, RDW Std Deviation 45.1 H, RDW Coeff of Consuelo 14.9 H, Plt Count 12 L*, MPV 9.9, Differential Comment COMMENT, Diff Path Review May foll, Sodium 131 L, Potassium 3.9, Chloride 101, Carbon Dioxide 24.0, Anion Gap 6, BUN 19 H, Creatinine 0.90, Estim Creat Clear Calc 70.72, Est GFR (MDRD) Af Amer 107, Est GFR (MDRD) Non-Af 88, BUN/Creatinine Ratio 21.1 H, Glucose 240 H, Calcium 8.1 L 04/28/24 12:02: POC Glucose 212 H 04/28/24 16:17: POC Glucose 225 H Diagnostic Data Chest X-Ray 04/27/24 23:10 IMPRESSION: No acute disease. Electronically Signed: Zeus Reeves MD at 0:09 EDT , Abdomen/Pelvis CT 04/28/24 00:40 IMPRESSION: Low-density areas involving the enlarged spleen may represent developing infarcts. Electronically Signed: Zeus Reeves MD at 1:22 EDT , Charges/Coding Visit Charges Office Visits / Consults: 77205 IP Consult L3
[2024-04-28] MEDS: Senna/Docusate Sodium 1 Tablet 2 TABLET PO (21:16)
[2024-04-28] MEDS: Glucerna Shake 120 ML LIQUID PO (21:33)
[2024-04-28 23:37] LABS: Bedside Glucose 179 mg/dL (74-106)
[2024-04-29] VITALS (11 sets, daily range): BP systolic 120–168; BP diastolic 63–82; PULSE 106–138; RESP 18–20; TEMP 36.6–38.6; O2SAT 95–97
[2024-04-29] MEDS: Acetaminophen 325 MG Tablet 650 MG PO ×2 (02:31→22:59)
[2024-04-29] MEDS: LORazepam 0.5 MG Tablet PO (02:32)
[2024-04-29] MEDS: Cefepime HCl 2 GM in 0.9% Normal Saline (100mL MB+) 100 ML IV ×3 (06:09→23:17)
[2024-04-29] MEDS: Gabapentin 100 MG Capsule PO ×2 (06:09→22:59)
[2024-04-29 06:10] LABS: Hematocrit 22.8 % (40-54); Mean Corp Hgb Conc 35.1 g/dL (32-36); Mean Corpuscular Hgb 28.7 pg (27.0-32.0); Mean Corpuscular Volume 81.7 fL (80-94); Mean Platelet Vol. 8.6 fl (6.2-12.0); POSITIVE COUNT YES; POSITIVE DIFFERENTIAL YES; POSITIVE MORPHOLOGY YES; RBC Distribution Width CV 14.7 % (11.6-14.6); RBC Distribution Width SD 43.9 fl (35.1-43.9); Red Blood Count 2.79 M/mm3 (4.6-6.2); White Blood Count 2.5 K/mm3 (4.4-11.0)
[2024-04-29 06:45] LABS: ALB/GLOB Ratio 0.5 RATIO (0.9-2.4); AST(SGOT) 79 U/L (15-37); Alanine Aminotransfer ALT/SGPT 76 U/L (16-61); Albumin, Serum 1.9 g/dL (3.2-5.0); Alkaline Phosphatase 334 U/L (45-117); Anion Gap 6 (5-15); BUN 19 mg/dL (7-18); BUN/Creat Ratio 21.6 RATIO (10-20); Calcium,Total 8.2 mg/dL (8.5-10.1); Chloride 101 mmol/L (98-107); Creatinine, Serum 0.88 mg/dL (0.70-1.30); EST Glomerular Filtration Rate 90 mL/min (>60); Est Glom Filt Rate - Afr Amer 109 mL/min (>60); Estimated Creatinine Clearance 72.33 ml/min; Globulin 3.8 g/dL (2.2-4.2); Glucose 96 mg/dL (74-106); Potassium 3.7 mmol/L (3.5-5.1); Protein, Total 5.7 g/dL (6.4-8.2); Sodium Level 133 mmol/L (136-145)
[2024-04-29 06:47] LABS: Differential Indicated MANUAL DIFF; Platelet Count 6 K/mm3 (150-450)
[2024-04-29 07:10] LABS: Bedside Glucose 86 mg/dL (74-106)
[2024-04-29 08:45] LABS: Blast 21 % (0-0); Lymphocyte 42 % (19-41); Neutrophil-Band 5 % (0-5); Neutrophil-Segmented 32 % (47-70); Total Cells Counted 100 (MANUAL DIFF)
[2024-04-29 08:46] LABS: Platelet Estimate MKD DEC (ADEQ); Red Cell Morphology NORM C+C NORMAL (NORM C&C)
[2024-04-29 08:47] LABS: Absolute Lymphocyte Count 1.05 X10^3/uL (0.83-4.51); Absolute Neutrophil Count 0.9 X10^3/uL (2.0-7.7); Platelet Morphology MKD DEC
--- NOTE | 2024-04-29 09:02 | CASEMGMT ---
Social Work SW met w/ in room, pt is sleeping. Should SNF placement continue to be needed, does want pt to return to TCU, SNF list not needed at this time. As per physician, pt will be here through the . SW explained will follow up Thursday w/pt and . SW explained will see Thursday how pt is doing and check w/TCU if they can take pt back. states understanding. SW updated Carmen in TCU that pt is here through the and SW will follow up Thursday. SW will continue to follow. IMAN [place]
--- NOTE | 2024-04-29 10:28 | PN_ITS ---
Subjective Subjective Patient seen and examined. His girlfriend was by his bedside. Patient feels weak and tired and was confused this morning. Unable to do review of systems due to confusion. He was having chills also. He had a fever overnight but was down to 97.9F. He has also been tachycardic.He is on room air. Hb is 7.5, and platelets are 5 today. Objective Data Objective Data Vital Signs: Vital Signs Temp Pulse Resp BP Pulse Ox O2 Del Method 97.9 F 106 H 18 120/63 95 Room Air 04/29/24 06:00 04/29/24 06:00 04/29/24 06:00 04/29/24 06:00 04/29/24 07:31 04/29/24 07:31 Oxygen Delivery Method Room Air Weight: 177 lb 14.609 oz Body Mass Index (BMI) 27.0 Intake & Output: Intake and Output for Last 24 Hours 04/27/24 04/28/24 04/29/24 23:59 23:59 23:59 Intake Total 688.5 / 888.5 550 / 550 Output Total 575 / 575 Balance 113.5 / 313.5 550 / 550 Medical Nutrition Assessment Dietitian: Malnutrition Criteria Met Start: 04/28/24 14:05 Freq: Status: Active Protocol: Document 04/28/24 14:05 SB (Rec: 04/28/24 14:06 SB [id number]) Nutrition Malnutrition Evidence of Malnutrition Exists Yes Malnutrition (severe): Chronic Evidenced By Suboptimal Energy Intake ( Severe),Weight Loss (Severe) Intake Problem Inadequate Oral Intake Etiology related to increase pain and illness Signs/Symptoms as evidence by decreased appetite x 1.5 months and eating <50% of meals. Status Active Problem Clinical Problem Chronic Disease or Condition Related Malnutrition Etiology severe protein-calorie malnutrition in the context of chronic disease related to suboptimal appetite Signs/Symptoms as evidence by PO intake meeting <50% of estimated nutrition needs x 1.5 month and 5.4% unintentional weight loss x 1 month. Status Active Problem Recommendation Dietitian Recommendations/Changes Continue consistent carbohydrate diet: 2000 calories. Will add 120ml strawberry glucerna QID with medpass to increase calorie and protein intake. Reviewed and approved by Alycia Lares RDN, JOSE Lab / Micro Data 04/29/24 05:24 04/29/24 05:24 Labs: Laboratory Results - last 24 hr 04/27/24 10:02: Crossmatch See Detail 04/28/24 11:54: WBC 1.7 L, RBC 2.65 L, Hgb 7.5 L, Hct 22.1 L, MCV 83.4, MCH 28.3, MCHC 33.9, RDW Std Deviation 45.1 H, RDW Coeff of Consuelo 14.9 H, Plt Count 12 L*, MPV 9.9, Differential Comment COMMENT, Diff Path Review May hao, Sodium 131 L, Potassium 3.9, Chloride 101, Carbon Dioxide 24.0, Anion Gap 6, BUN 19 H, Creatinine 0.90, Estim Creat Clear Calc 70.72, Est GFR (MDRD) Af Amer 107, Est GFR (MDRD) Non-Af 88, BUN/Creatinine Ratio 21.1 H, Glucose 240 H, Calcium 8.1 L 04/28/24 12:02: POC Glucose 212 H 04/28/24 16:17: POC Glucose 225 H 04/28/24 21:15: POC Glucose 179 H 04/29/24 05:24: WBC 2.5 L, RBC 2.79 L, Hgb 8.0 L, Hct 22.8 L, MCV 81.7, MCH 28.7, MCHC 35.1, RDW Std Deviation 43.9, RDW Coeff of Consuelo 14.7 H, Plt Count 6 L* , MPV 8.6, Neut % (Auto) Not Reportable, Absolute Neuts (auto) 0.9 L, Absolute Lymphs (auto) 1.05, Total Counted 100, Neutrophils % (Manual) 32 L, Band Neutrophils % 5, Lymphocytes % (Manual) 42 H, Blast Cells % 21 H*, Diff Path Review February hao, Platelet Estimate MKD DEC, Plt Morphology Comment MKD DEC, RBC Morphology NORM C+C, Sodium 133 L, Potassium 3.7, Chloride 101, Carbon Dioxide 26.0, Anion Gap 6, BUN 19 H, Creatinine 0.88, Estim Creat Clear Calc 72.33, Est GFR (MDRD) Af Amer 109, Est GFR (MDRD) Non-Af 90, BUN/Creatinine Ratio 21.6 H, Glucose 96, Calcium 8.2 L, Total Bilirubin 1.00, AST 79 H, ALT 76 H, Alkaline Phosphatase 334 H, Total Protein 5.7 L, Albumin 1.9 L, Globulin 3.8, A lbumin/Globulin Ratio 0.5 L 04/29/24 06:14: POC Glucose 86 Physical Exam Const alert Constitutional Narrative: frail, weak, confused Orientation / Consciousness: confused HEENT normocephalic, head/scalp atraumatic, hearing grossly normal bilaterally and nasal mucous membranes and turbinates normal Eyes PERRL, EOMs intact bilaterally and conjunctivae normal Neck full ROM, no lymphadenopathy, supple and no JVD Lymph Lymphatic: no lymphadenopathy noted and no lymphedema noted Chest inspection of chest normal Resp normal respiratory effort, normal air movement, no use of accessory muscles and clear to auscultation bilaterally Cardio regular rhythm, S1 normal heart sound, S2 normal heart sound, no murmurs and peripheral pulses 2+ throughout Cardio Narrative: Tachycardic GI normal to inspection, nondistended, normoactive bowel sounds, soft to palpation, non-tender and non-distended Back/Spine normal ROM Extremity normal to inspection, full ROM, normal capillary refill, no clubbing, cyanosis or edema, no calf tenderness and no pedal edema General Extremity: no tenderness to palpation of joints or extremities Skin no rashes or lesions noted General Skin Exam: no breakdown Neuro CN's II-XII intact bilaterally, moves all extremities, no focal motor deficits, no sensory deficits noted and deep tendon reflexes 2+ bilaterally Motor Exam: general weakness Psych Psych Narrative: confused Mood & Affect: flat affect Assessment & Plan Assessment/Plan (1) Neutropenic fever: (2) Pancytopenia: (3) Myelodysplastic syndrome: (4) Splenic infarct: PLAN: Plan #Pancytopenia in the setting of myelodysplastic syndrome * wbc is 2.5, hb is 8 and platelets are 6 today. * hematology on board * will transfuse another unit of platelets today. goal is for Hb>7 and platelets >10 * dicussed with Dr Lazaro; will give a dose of retacrit 20,000 units x 1 and start on granix, aiming for absolute neutrophil count >1000. * #Neutropenic fever * patient was febrile overnight. * absolute neutrophil count is up to 0.9 today. * on IV vancomycin and zosyn. * blood and urine cultures ordered. * CT abdomen and pelvis showed low density areas involving the enlarged spleen which may represent developing infarcts. * CXR showed no acute cardiopulmonary pathology * #Elevated liver enzymes * liver enzymes remain elevated but has not trended upwards any further * patient on revlimid for MDS, which has a known side effect of hepatotoxicity. * will trend liver enzymes for now and monitor closely * #Hypertension * on lopressor and imdur. resume lisinopril as Cr has trended downwards. * #Hyperlipidemia: on statin DVT prophylaxis: SCDs Charges/Coding Visit Charges Inpatient E&M: 90008 Subs Hosp L3
[2024-04-29] MEDS: Isosorbide Mononitrate 30 MG Tablet PO (11:07)
[2024-04-29] MEDS: Metoprolol Tartrate 25 MG Tablet PO ×2 (11:08→22:58)
[2024-04-29] MEDS: Insulin Glargine-YFGN 100 UNIT/ML Pen 20 UNIT SC ×2 (11:09→23:07)
[2024-04-29] MEDS: 0.9% Saline Lock 10 ML Syringe IV (11:09)
[2024-04-29] MEDS: Glucerna Shake 120 ML LIQUID PO ×4 (11:15→22:58)
[2024-04-29 11:48] LABS: Pathologist Review Reviewed
[2024-04-29 11:52] LABS: Pathologist Review Reviewed
[2024-04-29 12:01] LABS: Bedside Glucose 138 mg/dL (74-106)
[2024-04-29] MEDS: TBO-FILGRASTIM 300 MCG/0.5 ML ML SC (14:32)
[2024-04-29] MEDS: Epoetin Alfa epbx 10,000 UNIT/ML 20000 UNIT SC (14:32)
[2024-04-29] MEDS: Insulin Lispro 100 UNIT/ML INSULN.PEN SC ×2 (17:42→23:06)
[2024-04-29 18:00] LABS: Bedside Glucose 181 mg/dL (74-106)
[2024-04-29] MEDS: MELATONIN 10 MG TABLET 5 MG PO (23:01)
[2024-04-29] MEDS: Senna/Docusate Sodium 1 Tablet 2 TABLET PO (23:17)
[2024-04-30] VITALS (12 sets, daily range): BP systolic 91–134; BP diastolic 47–79; PULSE 85–149; RESP 15–20; TEMP 36.4–37.1; O2SAT 91–100
[2024-04-30 01:09] LABS: Bedside Glucose 174 mg/dL (74-106)
[2024-04-30] MEDS: Cefepime HCl 2 GM in 0.9% Normal Saline (100mL MB+) 100 ML IV ×3 (05:43→21:33)
[2024-04-30] MEDS: Acetaminophen 325 MG Tablet 650 MG PO ×3 (05:43→18:58)
[2024-04-30 07:12] LABS: Bedside Glucose 145 mg/dL (74-106)
[2024-04-30 07:51] LABS: Hematocrit 19.8 % (40-54); Hemoglobin 6.9 g/dL (13.0-16.5); Mean Corp Hgb Conc 34.8 g/dL (32-36); Mean Corpuscular Hgb 28.4 pg (27.0-32.0); Mean Corpuscular Volume 81.5 fL (80-94); POSITIVE COUNT YES; POSITIVE DIFFERENTIAL YES; POSITIVE MORPHOLOGY YES; Platelet Count 10 K/mm3 (150-450); RBC Distribution Width SD 44.9 fl (35.1-43.9); Red Blood Count 2.43 M/mm3 (4.6-6.2)
[2024-04-30 08:00] LABS: Differential Indicated MANUAL DIFF
[2024-04-30 08:20] LABS: ALB/GLOB Ratio 0.5 RATIO (0.9-2.4); AST(SGOT) 101 U/L (15-37); Alanine Aminotransfer ALT/SGPT 84 U/L (16-61); Albumin, Serum 1.7 g/dL (3.2-5.0); Alkaline Phosphatase 320 U/L (45-117); Anion Gap 7 (5-15); BUN 22 mg/dL (7-18); BUN/Creat Ratio 27.5 RATIO (10-20); Calcium,Total 7.8 mg/dL (8.5-10.1); Chloride 101 mmol/L (98-107); EST Glomerular Filtration Rate 101 mL/min (>60); Est Glom Filt Rate - Afr Amer 122 mL/min (>60); Estimated Creatinine Clearance 79.56 ml/min; Globulin 3.6 g/dL (2.2-4.2); Glucose 152 mg/dL (74-106); Potassium 3.6 mmol/L (3.5-5.1); Protein, Total 5.3 g/dL (6.4-8.2); Sodium Level 132 mmol/L (136-145)
[2024-04-30 08:37] LABS: Blast 8 % (0-0); Lymphocyte 47 % (19-41); Metamyelocyte 1 % (0-1); Neutrophil-Band 8 % (0-5); Neutrophil-Segmented 36 % (47-70); Total Cells Counted 75 (MANUAL DIFF)
[2024-04-30 08:38] LABS: Hypochromasia 1+; Platelet Estimate MKD DEC (ADEQ); Red Cell Morphology N CYTIC NORMAL (NORM C&C)
[2024-04-30 08:39] LABS: Absolute Lymphocyte Count 0.92 X10^3/uL (0.83-4.51); Absolute Neutrophil Count 0.9 X10^3/uL (2.0-7.7)
--- NOTE | 2024-04-30 10:19 | PN_ITS ---
Subjective Subjective Patient seen and examined. He is much more alert today. His significant other was by his bedside. She wanted to know if his ativan could be switched to xanax, and whether his gabapentin could be discontinued as she said it was making him confused. His hb today is down to 6.9. [facility]ie wof systems is otherwise negative. Objective Data Objective Data Vital Signs: Vital Signs Temp Pulse Resp BP Pulse Ox O2 Del Method 98.1 F 99 18 126/79 H 99 Room Air 04/30/24 08:10 04/30/24 08:10 04/30/24 08:10 04/30/24 08:10 04/30/24 08:10 04/30/24 08:10 Oxygen Delivery Method Room Air Weight: 177 lb 14.609 oz Body Mass Index (BMI) 27.0 Intake & Output: Intake and Output for Last 24 Hours 04/28/24 04/29/24 04/30/24 23:59 23:59 23:59 Intake Total 688.5 / 888.5 2290 / 2440 450 / 450 Output Total 575 / 575 1000 / 1400 750 / 750 Balance 113.5 / 313.5 1290 / 1040 -300 / -300 Medical Nutrition Assessment Dietitian: Malnutrition Criteria Met Start: 04/28/24 14:05 Freq: Status: Active Protocol: Document 04/28/24 14:05 SB (Rec: 04/28/24 14:06 SB [id number]) Nutrition Malnutrition Evidence of Malnutrition Exists Yes Malnutrition (severe): Chronic Evidenced By Suboptimal Energy Intake ( Severe),Weight Loss (Severe) Intake Problem Inadequate Oral Intake Etiology related to increase pain and illness Signs/Symptoms as evidence by decreased appetite x 1.5 months and eating <50% of meals. Status Active Problem Clinical Problem Chronic Disease or Condition Related Malnutrition Etiology severe protein-calorie malnutrition in the context of chronic disease related to suboptimal appetite Signs/Symptoms as evidence by PO intake meeting <50% of estimated nutrition needs x 1.5 month and 5.4% unintentional weight loss x 1 month. Status Active Problem Recommendation Dietitian Recommendations/Changes Continue consistent carbohydrate diet: 2000 calories. Will add 120ml strawberry glucerna QID with medpass to increase calorie and protein intake. Reviewed and approved by Alycia Lares RDN, JOSE Lab / Micro Data 04/30/24 06:20 04/30/24 06:20 Labs: Laboratory Results - last 24 hr 04/28/24 11:54: Diff Path Review Reviewed 04/29/24 05:24: Diff Path Review Reviewed 04/29/24 10:47: POC Glucose 138 H 04/29/24 17:38: POC Glucose 181 H 04/29/24 23:06: POC Glucose 174 H 04/30/24 06:20: WBC 2.0 L, RBC 2.43 L, Hgb 6.9 L, Hct 19.8 L, MCV 81.5, MCH 28.4, MCHC 34.8, RDW Std Deviation 44.9 H, RDW Coeff of Consuelo 15.0 H, Plt Count 10 L*, MPV 10.0, Neut % (Auto) Not Reportable, Absolute Neuts (auto) 0.9 L, Absolute Lymphs (auto) 0.92, Total Counted 75, Neutrophils % (Manual) 36 L, Band Neutrophils % 8 H, Lymphocytes % (Manual) 47 H, Metamyelocytes % 1, Blast Cells % 8 H*, Diff Path Review May foll, Platelet Estimate MKD DEC, RBC Morphology N CYTIC, Hypochromasia 1+, Sodium 132 L, Potassium 3.6, Chloride 101, Carbon Dioxide 24.0, Anion Gap 7, BUN 22 H, Creatinine 0.80, Estim Creat Clear Calc 79.56, Est GFR (MDRD) Af Amer 122, Est GFR (MDRD) Non-Af 101, BUN/Creatinine Ratio 27.5 H, Glucose 152 H, Calcium 7.8 L, Total Bilirubin 1.40 H, AST 101 H, A LT 84 H, Alkaline Phosphatase 320 H, Total Protein 5.3 L, Albumin 1.7 L, Globulin 3.6, Albumin/Globulin Ratio 0.5 L 04/30/24 06:55: POC Glucose 145 H Physical Exam Const alert and no apparent distress Constitutional Narrative: weak, but much more alert today General Appearance: cooperative and comfortable HEENT normocephalic, head/scalp atraumatic, hearing grossly normal bilaterally and nasal mucous membranes and turbinates normal Eyes PERRL, EOMs intact bilaterally and conjunctivae normal Neck full ROM, no lymphadenopathy, supple and no JVD Lymph Lymphatic: no lymphadenopathy noted and no lymphedema noted Chest inspection of chest normal Resp normal respiratory effort, normal air movement, no use of accessory muscles and clear to auscultation bilaterally Cardio regular rate, regular rhythm, S1 normal heart sound, S2 normal heart sound, no murmurs and peripheral pulses 2+ throughout Cardio Narrative: Tachycardic GI normal to inspection, nondistended, normoactive bowel sounds, soft to palpation, non-tender and non-distended Back/Spine normal ROM Extremity normal to inspection, full ROM, normal capillary refill, no clubbing, cyanosis or edema, no calf tenderness and no pedal edema General Extremity: no tenderness to palpation of joints or extremities Skin no rashes or lesions noted General Skin Exam: no breakdown Neuro CN's II-XII intact bilaterally, moves all extremities, no focal motor deficits, no sensory deficits noted and deep tendon reflexes 2+ bilaterally Speech: speech normal Motor Exam: general weakness Psych mental status grossly normal Psych Narrative: weak but much more alert today Mood & Affect: flat affect Assessment & Plan Assessment/Plan (1) Neutropenic fever: (2) Pancytopenia: (3) Myelodysplastic syndrome: (4) Splenic infarct: PLAN: Plan #Pancytopenia in the setting of myelodysplastic syndrome * wbc is 2.0, hb is down to 6.9 and platelets are 10 today. * hematology on board * goal is for Hb>7 and platelets >10 * will transfuse with one unit of PRBC * discussed with Dr Lazaro; gave a dose of retacrit 20,000 units x 1; on granix, aiming for absolute neutrophil count >1000. * absolute neutrophil count is 0.9 today. * #Neutropenic fever * absolute neutrophil count is up to 0.9 today. * on IV cefepime * blood and urine cultures are negative. * CT abdomen and pelvis showed low density areas involving the enlarged spleen which may represent developing infarcts. * CXR showed no acute cardiopulmonary pathology * #Elevated liver enzymes * liver enzymes remain elevated and have trended upwards slightly * patient on revlimid for MDS, which has a known side effect of hepatotoxicity. * will trend liver enzymes for now and monitor closely * #Hypertension * on lopressor and imdur. resume lisinopril as Cr has trended downwards. * #Hyperlipidemia: on statin. Statin on hold due to patient having generalised joint pain. DVT prophylaxis: SCDs Charges/Coding Visit Charges Inpatient E&M: 33584 Subs Hosp L2
[2024-04-30] MEDS: Isosorbide Mononitrate 30 MG Tablet PO (10:32)
[2024-04-30] MEDS: Metoprolol Tartrate 25 MG Tablet PO ×2 (10:32→21:03)
[2024-04-30] MEDS: Glucerna Shake 120 ML LIQUID PO ×4 (10:40→21:40)
[2024-04-30] MEDS: TBO-FILGRASTIM 300 MCG/0.5 ML ML SC (11:08)
[2024-04-30] MEDS: Insulin Glargine-YFGN 100 UNIT/ML Pen 20 UNIT SC ×2 (11:08→21:11)
[2024-04-30] MEDS: Insulin Lispro 100 UNIT/ML INSULN.PEN SC ×3 (11:09→21:11)
[2024-04-30 11:34] LABS: Bedside Glucose 200 mg/dL (74-106)
[2024-04-30 16:23] LABS: Bedside Glucose 206 mg/dL (74-106)
[2024-04-30] MEDS: 0.9% Saline Lock 10 ML Syringe IV (21:14)
--- NOTE | 2024-04-30 21:22 | EKG12_ITS ---
Test Reason : RYTHM CHANGE Blood Pressure : / mmHG Vent. Rate : 109 BPM Atrial Rate : 109 BPM P-R Int : 144 ms QRS Dur : 082 ms QT Int : 328 ms P-R-T Axes : 036 -02 044 degrees QTc Int : 441 ms Sinus tachycardia Otherwise normal ECG When compared with ECG of 27-APR-2024 23:13, MANUAL COMPARISON REQUIRED, DATA IS UNCONFIRMED Confirmed by QUINTON ZAMARRIPA, LEEANN ([id number]), proposal editor JARRED DOTSON ([id number]) on 05/06/2024 9:47:27 AM Referred By: Marquez Rosario Confirmed By:DELIA ALCANTARA MD
[2024-04-30] MEDS: traZODone 50 MG Tablet PO (21:44)
[2024-05-01] VITALS (17 sets, daily range): BP systolic 108–147; BP diastolic 51–100; PULSE 94–207; RESP 16–19; TEMP 36.4–39; O2SAT 93–100
[2024-05-01 02:38] LABS: Bedside Glucose 155 mg/dL (74-106)
[2024-05-01 05:35] LABS: Hematocrit 23.9 % (40-54); Hemoglobin 8.4 g/dL (13.0-16.5); Mean Corp Hgb Conc 35.1 g/dL (32-36); Mean Corpuscular Volume 82.4 fL (80-94); Mean Platelet Vol. 9.8 fl (6.2-12.0); POSITIVE COUNT YES; POSITIVE DIFFERENTIAL YES; POSITIVE MORPHOLOGY YES; RBC Distribution Width CV 15.1 % (11.6-14.6); RBC Distribution Width SD 44.9 fl (35.1-43.9); White Blood Count 2.1 K/mm3 (4.4-11.0)
[2024-05-01] MEDS: Metoprolol Tartrate 5 MG/5 ML Vial IV ×2 (05:38→10:16)
[2024-05-01 05:57] LABS: ALB/GLOB Ratio 0.4 RATIO (0.9-2.4); AST(SGOT) 193 U/L (15-37); Alanine Aminotransfer ALT/SGPT 166 U/L (16-61); Albumin, Serum 1.8 g/dL (3.2-5.0); Alkaline Phosphatase 374 U/L (45-117); Anion Gap 5 (5-15); BUN 28 mg/dL (7-18); BUN/Creat Ratio 30.3 RATIO (10-20); Calcium,Total 8.6 mg/dL (8.5-10.1); Chloride 101 mmol/L (98-107); Creatinine, Serum 0.92 mg/dL (0.70-1.30); EST Glomerular Filtration Rate 85 mL/min (>60); Est Glom Filt Rate - Afr Amer 103 mL/min (>60); Estimated Creatinine Clearance 69.18 ml/min; Globulin 4.1 g/dL (2.2-4.2); Glucose 111 mg/dL (74-106); Potassium 3.6 mmol/L (3.5-5.1); Protein, Total 5.9 g/dL (6.4-8.2); Sodium Level 132 mmol/L (136-145)
[2024-05-01] MEDS: Cefepime HCl 2 GM in 0.9% Normal Saline (100mL MB+) 100 ML IV ×3 (06:08→21:42)
[2024-05-01 06:37] LABS: Differential Indicated MANUAL DIFF; Platelet Count 4 K/mm3 (150-450)
[2024-05-01 06:51] LABS: Metamyelocyte 1 % (0-1); Neutrophil-Segmented 16 % (47-70); Total Cells Counted 100 (MANUAL DIFF)
[2024-05-01 06:52] LABS: Basophil 1 % (0-1); Blast 11 % (0-0); Lymphocyte 21 % (19-41); Monocyte 47 % (0-10); Myelocyte 3 % (0-0); Platelet Estimate MKD DEC (ADEQ)
[2024-05-01 07:07] LABS: Absolute Lymphocyte Count 0.44 X10^3/uL (0.83-4.51); Absolute Neutrophil Count 0.3 X10^3/uL (2.0-7.7)
--- NOTE | 2024-05-01 10:07 | EKG12_ITS ---
Test Reason : Blood Pressure : / mmHG Vent. Rate : 191 BPM Atrial Rate : 111 BPM P-R Int : 000 ms QRS Dur : 078 ms QT Int : 266 ms P-R-T Axes : 000 -09 094 degrees QTc Int : 474 ms Critical Test Result: High HR AFIB WITH RVR Inferior infarct , age undetermined Abnormal ECG When compared with ECG of 30-APR-2024 21:25, MANUAL COMPARISON REQUIRED, DATA IS UNCONFIRMED Confirmed by QUINTON ZAMARRIPA, LEEANN ([id number]), science editor JARRED DOTSON ([id number]) on 05/06/2024 9:47:42 AM Referred By: Marquez Rosario Confirmed By:DELIA ALCANTARA MD
--- NOTE | 2024-05-01 11:14 | PN_ITS ---
Subjective Subjective Patient seen and examined. His significant other was by his bedside. He had no active complaints. Review of systems is otherwise negative. His HR went up during the day to ~ 200. He had not gotten his metoprolol. Review of systems is otherwise negative. Objective Data Objective Data Vital Signs: Vital Signs Temp Pulse Resp BP Pulse Ox O2 Del Method 101.3 F H 207 H 19 H 126/100 H 95 Room Air 05/01/24 06:00 05/01/24 10:16 05/01/24 06:00 05/01/24 10:16 05/01/24 06:00 05/01/24 06:00 Oxygen Delivery Method Room Air Weight: 177 lb 14.609 oz Body Mass Index (BMI) 27.0 Intake & Output: Intake and Output for Last 24 Hours 04/29/24 04/30/24 05/01/24 23:59 23:59 23:59 Intake Total 2290 / 2440 891 / 1291 500 / 500 Output Total 1000 / 1400 1175 / 1525 350 / 350 Balance 1290 / 1040 -284 / -234 150 / 150 Medical Nutrition Assessment Dietitian: Malnutrition Criteria Met Start: 04/28/24 14:05 Freq: Status: Active Protocol: Document 04/28/24 14:05 SB (Rec: 04/28/24 14:06 SB [id number]) Nutrition Malnutrition Evidence of Malnutrition Exists Yes Malnutrition (severe): Chronic Evidenced By Suboptimal Energy Intake ( Severe),Weight Loss (Severe) Intake Problem Inadequate Oral Intake Etiology related to increase pain and illness Signs/Symptoms as evidence by decreased appetite x 1.5 months and eating <50% of meals. Status Active Problem Clinical Problem Chronic Disease or Condition Related Malnutrition Etiology severe protein-calorie malnutrition in the context of chronic disease related to suboptimal appetite Signs/Symptoms as evidence by PO intake meeting <50% of estimated nutrition needs x 1.5 month and 5.4% unintentional weight loss x 1 month. Status Active Problem Recommendation Dietitian Recommendations/Changes Continue consistent carbohydrate diet: 2000 calories. Will add 120ml strawberry glucerna QID with medpass to increase calorie and protein intake. Reviewed and approved by Alycia Lares RDN, LD Lab / Micro Data 05/01/24 04:55 05/01/24 04:55 Labs: Laboratory Results - last 24 hr 04/30/24 10:35: Blood Type O POSITIVE, Antibody Screen NEGATIVE, Crossmatch See Detail 04/30/24 10:53: POC Glucose 200 H 04/30/24 16:01: POC Glucose 206 H 04/30/24 21:00: POC Glucose 155 H 05/01/24 04:55: WBC 2.1 L, RBC 2.90 L, Hgb 8.4 L, Hct 23.9 L, MCV 82.4, MCH 29.0, MCHC 35.1, RDW Std Deviation 44.9 H, RDW Coeff of Consuelo 15.1 H, Plt Count 4 L*, MPV 9.8, Neut % (Auto) Not Reportable, Absolute Neuts (auto) 0.3 L, Absolute Lymphs (auto) 0.44 L, Total Counted 100, Neutrophils % (Manual) 16 L, Lymphocytes % (Manual) 21, Monocytes % (Manual) 47 H, Basophils % (Manual) 1, Metamyelocytes % 1, Myelocytes % 3 H, Blast Cells % 11 H*, Platelet Estimate MKD DEC, Sodium 132 L, Potassium 3.6, Chloride 101, Carbon Dioxide 26.0, Anion Gap 5, BUN 28 H, Creatinine 0.92, Estim Creat Clear Calc 69.18, Est GFR (MDRD) Af Amer 103, Est GFR (MDRD) Non-Af 85, BUN/Creatinine Ratio 30.3 H, Glucose 111 H, Calcium 8.6, Total Bilirubin 1.30 H, AST 193 H, ALT 166 H, Alkaline Phosphatase 374 H, Total Protein 5.9 L, Albumin 1.8 L, Globulin 4.1, Albumin/Globulin Ratio 0.4 L Physical Exam Const alert, oriented x3 and no apparent distress Constitutional Narrative: still weak and frail General Appearance: cooperative HEENT normocephalic, head/scalp atraumatic and hearing grossly normal bilaterally Mouth: dry mucous membranes Eyes PERRL, EOMs intact bilaterally and conjunctivae normal Neck full ROM, no lymphadenopathy, supple and no JVD Lymph Lymphatic: no lymphadenopathy noted and no lymphedema noted Chest inspection of chest normal Resp normal respiratory effort, normal air movement, no use of accessory muscles and clear to auscultation bilaterally Cardio regular rate, regular rhythm, S1 normal heart sound, S2 normal heart sound, no murmurs and peripheral pulses 2+ throughout Cardio Narrative: Tachycardic GI normal to inspection, nondistended, normoactive bowel sounds, soft to palpation, non-tender and non-distended Back/Spine normal ROM Extremity normal to inspection, full ROM, normal capillary refill, no clubbing, cyanosis or edema, no calf tenderness and no pedal edema General Extremity: no tenderness to palpation of joints or extremities Skin no rashes or lesions noted General Skin Exam: no breakdown Neuro CN's II-XII intact bilaterally, moves all extremities, no focal motor deficits, no sensory deficits noted and deep tendon reflexes 2+ bilaterally Speech: speech normal Motor Exam: strength 5/5 throughout and general weakness Psych mental status grossly normal and thought process normal Psych Narrative: weak Mood & Affect: flat affect Assessment & Plan Assessment/Plan (1) Neutropenic fever: (2) Pancytopenia: (3) Myelodysplastic syndrome: (4) Splenic infarct: PLAN: Plan #Pancytopenia in the setting of myelodysplastic syndrome * wbc is 2.1, hb is down to 8.4 and platelets are down to 6 today. * hematology on board * goal is for Hb>7 and platelets >10 * will transfuse with one unit of PRBC * discussed with Dr Lazaro; gave a dose of retacrit 20,000 units x 1; on granix, aiming for absolute neutrophil count >1000. * continue granix * * #Neutropenic fever * absolute neutrophil count is down to 0.3 today. * on IV cefepime * blood and urine cultures are negative. * CT abdomen and pelvis showed low density areas involving the enlarged spleen which may represent developing infarcts. * CXR showed no acute cardiopulmonary pathology * he is still having episodes of fever. * will consult ID as he is still febrile. * #Tachycardia * patient became tachcyardic this morning, with HR up to 207. * EKG showed sinus tachycardia. * patient given a dose of IV lopressor and HR came down to the low 100s * patient given his home dose of metoprolol * will get 2D echo and CT chest to rule out PE * #Elevated liver enzymes * liver enzymes remain elevated and have trended upwards slightly * patient on revlimid for MDS, which has a known side effect of hepatotoxicity. * will trend liver enzymes for now and monitor closely * #Hypertension * on lopressor and imdur. resume lisinopril as Cr has trended downwards. * #Hyperlipidemia: on statin. Statin on hold due to patient having generalised joint pain. DVT prophylaxis: SCDs Charges/Coding Visit Charges Inpatient E&M: 82445 Subs Hosp L3
[2024-05-01] MEDS: TBO-FILGRASTIM 300 MCG/0.5 ML ML SC (11:19)
[2024-05-01] MEDS: Metoprolol Tartrate 25 MG Tablet PO ×2 (11:22→21:27)
--- NOTE | 2024-05-01 11:32 | CT_ITS ---
STUDY: CTA CHEST WITH CONTRAST REASON FOR EXAM: Male, 74 years old. Tachycardia RADIATION DOSAGE (If Supplied By Facility): CTDIvol = ( 15 ) mGy, DLP = ( 416 ) mGycm TECHNIQUE: Transaxial imaging was performed following intravenous administration of 100 ml of Isovue-370 contrast material. Coronal and sagittal reformatted images were created. 3D post processed images were created. Individualized dose optimization techniques were used for this CT. COMPARISON: No relevant prior comparison study available FINDINGS: The study is limited by patient motion and by streak artifact due to the patient''s arms being at his sides. LUNGS: There are no pulmonary infiltrates. There is atelectasis at the lung bases. PLEURAL SPACE: There are trace bilateral pleural effusions. There is no pneumothorax. MEDIASTINUM: The heart and pericardium are within normal limits. There are coronary artery calcifications. There is no pneumomediastinum. There is no thoracic lymphadenopathy. VESSELS There is no pulmonary embolus. The pulmonary artery is normal in caliber. There is no thoracic aortic aneurysm or dissection. UPPER ABDOMEN: There is hepatosplenomegaly with fatty infiltration of the liver. BONES: There are degenerative changes noted in the spine. There are no destructive osseous lesions. SOFT TISSUES: The visualized soft tissues are unremarkable. CT/CTA Chest W/WO Contrast IMPRESSION: No pulmonary embolus. No thoracic aortic aneurysm or dissection. Trace bilateral pleural effusions with overlying atelectasis. No pulmonary infiltrates. Coronary artery disease. Hepatosplenomegaly with fatty infiltration of the liver. Electronically Signed: Godwin Mcgregor MD at 14:27 EDT ,
[2024-05-01 11:57] LABS: Bedside Glucose 105 mg/dL (74-106)
[2024-05-01] MEDS: 0.9% Saline Lock 10 ML Syringe IV ×2 (13:51→21:42)
[2024-05-01] MEDS: Insulin Glargine-YFGN 100 UNIT/ML Pen 20 UNIT SC ×2 (13:52→21:34)
[2024-05-01] MEDS: Isosorbide Mononitrate 30 MG Tablet PO (13:52)
[2024-05-01] MEDS: Insulin Lispro 100 UNIT/ML INSULN.PEN SC ×3 (13:53→21:33)
[2024-05-01] MEDS: Acetaminophen 325 MG Tablet 650 MG PO ×2 (13:57→21:28)
[2024-05-01 19:15] LABS: Bedside Glucose 221 mg/dL (74-106)
[2024-05-01 19:15] LABS: Bedside Glucose 206 mg/dL (74-106)
[2024-05-01 22:32] LABS: Bedside Glucose 192 mg/dL (74-106)
[2024-05-02] VITALS (12 sets, daily range): BP systolic 112–154; BP diastolic 52–82; PULSE 108–128; RESP 17–35; TEMP 36.7–38.1; O2SAT 92–97
[2024-05-02] MEDS: Cefepime HCl 2 GM in 0.9% Normal Saline (100mL MB+) 100 ML IV ×3 (06:01→23:36)
[2024-05-02 07:02] LABS: Hematocrit 22.4 % (40-54); Hemoglobin 7.9 g/dL (13.0-16.5); Mean Corp Hgb Conc 35.3 g/dL (32-36); Mean Corpuscular Hgb 28.6 pg (27.0-32.0); Mean Corpuscular Volume 81.2 fL (80-94); POSITIVE COUNT YES; POSITIVE DIFFERENTIAL YES; POSITIVE MORPHOLOGY YES; Platelet Count 3 K/mm3 (150-450); RBC Distribution Width CV 15.4 % (11.6-14.6); RBC Distribution Width SD 45.1 fl (35.1-43.9); Red Blood Count 2.76 M/mm3 (4.6-6.2); White Blood Count 2.5 K/mm3 (4.4-11.0)
[2024-05-02 07:03] LABS: Bedside Glucose 91 mg/dL (74-106)
[2024-05-02 07:14] LABS: Differential Indicated MANUAL DIFF
[2024-05-02 07:32] LABS: ALB/GLOB Ratio 0.4 RATIO (0.9-2.4); AST(SGOT) 176 U/L (15-37); Alanine Aminotransfer ALT/SGPT 211 U/L (16-61); Albumin, Serum 1.8 g/dL (3.2-5.0); Alkaline Phosphatase 386 U/L (45-117); Anion Gap 7 (5-15); BUN 33 mg/dL (7-18); BUN/Creat Ratio 34.1 RATIO (10-20); Calcium,Total 8.5 mg/dL (8.5-10.1); Chloride 104 mmol/L (98-107); Creatinine, Serum 0.97 mg/dL (0.70-1.30); EST Glomerular Filtration Rate 81 mL/min (>60); Est Glom Filt Rate - Afr Amer 98 mL/min (>60); Estimated Creatinine Clearance 65.62 ml/min; Glucose 100 mg/dL (74-106); Potassium 3.6 mmol/L (3.5-5.1); Protein, Total 5.8 g/dL (6.4-8.2); Sodium Level 136 mmol/L (136-145)
[2024-05-02] MEDS: Metoprolol Tartrate 5 MG/5 ML Vial IV (07:51)
[2024-05-02] MEDS: 0.9% Saline Lock 10 ML Syringe IV (07:51)
[2024-05-02] MEDS: Acetaminophen 325 MG Tablet 650 MG PO ×2 (08:05→17:32)
[2024-05-02] MEDS: Isosorbide Mononitrate 30 MG Tablet PO (08:05)
[2024-05-02 08:18] LABS: Neutrophil-Segmented 17 % (47-70); Total Cells Counted 100 (MANUAL DIFF)
[2024-05-02 08:19] LABS: Blast 6 % (0-0); Lymphocyte 75 % (19-41); Metamyelocyte 1 % (0-1); Myelocyte 1 % (0-0)
[2024-05-02 08:20] LABS: Absolute Lymphocyte Count 1.89 X10^3/uL (0.83-4.51); Absolute Neutrophil Count 0.4 X10^3/uL (2.0-7.7)
[2024-05-02 08:23] LABS: Platelet Estimate MKD DEC (ADEQ); Red Cell Morphology NORM C+C NORMAL (NORM C&C)
--- NOTE | 2024-05-02 09:41 | CASEMGMT ---
Social Work SW spoke w/physician in regard to pt during rounds. Pt is not ready for discharge. SW will continue to follow, will refer back to TCU if/when appropriate. IMAN [place]
--- NOTE | 2024-05-02 10:02 | PN_ITS ---
Subjective Subjective Patient seen and examined. His significant other and daughter in law were by his bedside. Patient feels very weak and lethargic still. He remains tachycrdic and still has a fever, with temperautre being 100.1F today. He is also tachypneic. He denies any focus of bleeding. Review of systems is otherwise negative. Objective Data Objective Data Vital Signs: Vital Signs Temp Pulse Resp BP Pulse Ox O2 Del Method 99.1 F 128 H 35 H 154/66 H 95 Room Air 05/02/24 07:48 05/02/24 07:51 05/02/24 07:48 05/02/24 07:51 05/02/24 07:48 05/02/24 07:48 Oxygen Delivery Method Room Air Weight: 177 lb 14.609 oz Body Mass Index (BMI) 27.0 Intake & Output: Intake and Output for Last 24 Hours 04/30/24 05/01/24 05/02/24 23:59 23:59 23:59 Intake Total 891 / 1291 1300 / 1300 100 / 100 Output Total 1175 / 1525 1550 / 1550 300 / 300 Balance -284 / -234 -250 / -250 -200 / -200 Medical Nutrition Assessment Dietitian: Malnutrition Criteria Met Start: 04/28/24 14:05 Freq: Status: Active Protocol: Document 04/28/24 14:05 SB (Rec: 04/28/24 14:06 SB [id number]) Nutrition Malnutrition Evidence of Malnutrition Exists Yes Malnutrition (severe): Chronic Evidenced By Suboptimal Energy Intake ( Severe),Weight Loss (Severe) Intake Problem Inadequate Oral Intake Etiology related to increase pain and illness Signs/Symptoms as evidence by decreased appetite x 1.5 months and eating <50% of meals. Status Active Problem Clinical Problem Chronic Disease or Condition Related Malnutrition Etiology severe protein-calorie malnutrition in the context of chronic disease related to suboptimal appetite Signs/Symptoms as evidence by PO intake meeting <50% of estimated nutrition needs x 1.5 month and 5.4% unintentional weight loss x 1 month. Status Active Problem Recommendation Dietitian Recommendations/Changes Continue consistent carbohydrate diet: 2000 calories. Will add 120ml strawberry glucerna QID with medpass to increase calorie and protein intake. Reviewed and approved by Alycia Lares RDN, JOSE Lab / Micro Data 05/02/24 06:05 05/02/24 06:05 Labs: Laboratory Results - last 24 hr 05/01/24 06:15: POC Glucose 105 05/01/24 13:50: POC Glucose 221 H 05/01/24 17:15: POC Glucose 206 H 05/01/24 21:26: POC Glucose 192 H 05/02/24 06:05: WBC 2.5 L, RBC 2.76 L, Hgb 7.9 L, Hct 22.4 L, MCV 81.2, MCH 28.6, MCHC 35.3, RDW Std Deviation 45.1 H, RDW Coeff of Consuelo 15.4 H, Plt Count 3 L*, Neut % (Auto) Not Reportable, Absolute Neuts (auto) 0.4 L, Absolute Lymphs (auto) 1.89, Total Counted 100, Neutrophils % (Manual) 17 L, Lymphocytes % (Manual) 75 H*, Metamyelocytes % 1, Myelocytes % 1 H, Blast Cells % 6 H*, Diff Path Review February, Platelet Estimate MKD DEC, RBC Morphology NORM C+C, Sodium 136, Potassium 3.6, Chloride 104, Carbon Dioxide 25.0, Anion Gap 7, BUN 33 H, Creatinine 0.97, Estim Creat Clear Calc 65.62, Est GFR (MDRD) Af Amer 98, Est GFR (MDRD) Non-Af 81, BUN/Creatinine Ratio 34.1 H, Glucose 100, Calcium 8.5, T otal Bilirubin 1.40 H, AST 176 H, ALT 211 H, Alkaline Phosphatase 386 H, Total Protein 5.8 L, Albumin 1.8 L, Globulin 4.0, Albumin/Globulin Ratio 0.4 L 05/02/24 06:40: POC Glucose 91 05/02/24 08:30: Blood Type O POSITIVE Radiography Diagnostic Testing: Radiology Impression Chest CTA 05/01/24 11:32 IMPRESSION: No pulmonary embolus. No thoracic aortic aneurysm or dissection. Trace bilateral pleural effusions with overlying atelectasis. No pulmonary infiltrates. Coronary artery disease. Hepatosplenomegaly with fatty infiltration of the liver. Electronically Signed: Godwin Mcgregor MD at 14:27 EDT , Physical Exam Const alert and oriented x3 Constitutional Narrative: still weak and frail General Appearance: cooperative Orientation / Consciousness: lethargic HEENT normocephalic, head/scalp atraumatic, hearing grossly normal bilaterally and nasal mucous membranes and turbinates normal Eyes PERRL, EOMs intact bilaterally and conjunctivae normal Neck full ROM, no lymphadenopathy, supple and no JVD Lymph Lymphatic: no lymphadenopathy noted and no lymphedema noted Chest inspection of chest normal Resp normal respiratory effort, normal air movement, no use of accessory muscles and clear to auscultation bilaterally Resp Narrative: tachypneic Cardio regular rhythm, S1 normal heart sound, S2 normal heart sound, no murmurs and peripheral pulses 2+ throughout Cardio Narrative: Tachycardic GI normal to inspection, nondistended, normoactive bowel sounds, soft to palpation, non-tender and non-distended Back/Spine normal ROM Extremity normal to inspection, full ROM, normal capillary refill, no clubbing, cyanosis or edema, no calf tenderness and no pedal edema General Extremity: no tenderness to palpation of joints or extremities Skin no rashes or lesions noted General Skin Exam: no breakdown Neuro CN's II-XII intact bilaterally, moves all extremities, no focal motor deficits, no sensory deficits noted and deep tendon reflexes 2+ bilaterally Speech: speech normal Motor Exam: general weakness Psych thought process normal Psych Narrative: weak, very frail Mood & Affect: flat affect Assessment & Plan Assessment/Plan (1) Neutropenic fever: (2) Pancytopenia: (3) Myelodysplastic syndrome: (4) Splenic infarct: PLAN: Plan #Pancytopenia in the setting of myelodysplastic syndrome * wbc is 2.5 today, hb is down to 7.9 and platelets are down to 3 today. * hematology on board * goal is for Hb>7 and platelets >10\ * was trasfused with platelets yesterday, but platelets have dropped further down from 6 yesterday to 3 today. * transfuse with 2 units of platelets. * discussed with Dr Lazaro; gave a dose of retacrit 20,000 units x 1; on granix, aiming for absolute neutrophil count >1000. * continue granix * absolute neutrophil count today is down ot 0.4. * oncology on board. Spoke to Dr Espinal today, he will come and talk to family today. * #Neutropenic fever * absolute neutrophil count is 0.4 today. * on IV cefepime * blood and urine cultures are negative. * CT abdomen and pelvis showed low density areas involving the enlarged spleen which may represent developing infarcts. * CXR showed no acute cardiopulmonary pathology * he is still having episodes of fever. * ID consulted. Await recs. Will add on IV vancomycin and repeat blood cultures. * #Tachycardia * still having intermittent tachycardia * EKG showed sinus tachycardia * will increase metoprolol from 25mg bid to 50mg bid. * CTA chest was negative for PE * 2D echo done last month showed EF of 60% with normal diastole, and mild aortic valve stenosis as well as trivial aortic valve regurgitation * IV lopressor prn * * #Elevated liver enzymes * liver enzymes remain elevated and have trended upwards slightly * patient on revlimid for MDS, which has a known side effect of hepatotoxicity. * will trend liver enzymes for now and monitor closely * #Hypertension * on lopressor and imdur as well as lisinopril * #Hyperlipidemia: on statin. Statin on hold due to patient having generalised joint pain. Statin discontinued as patient refuses to take it DVT prophylaxis: SCDs Charges/Coding Visit Charges Inpatient E&M: 84277 Subs Hosp L3
[2024-05-02] MEDS: TBO-FILGRASTIM 300 MCG/0.5 ML ML SC (10:59)
[2024-05-02] MEDS: Metoprolol Tartrate 50 MG Tablet PO ×2 (10:59→21:55)
[2024-05-02] MEDS: Senna/Docusate Sodium 1 Tablet 2 TABLET PO ×2 (11:01→21:23)
[2024-05-02] MEDS: Glucerna Shake 120 ML LIQUID PO ×2 (11:03→21:29)
[2024-05-02] MEDS: Vancomycin HCl 2,000 MG in 0.9% Normal Saline (500mL Bag) 500 ML 250 MG IV (11:25)
--- NOTE | 2024-05-02 11:34 | PCM.RX.CS ---
Consult Antibiotic Management Pharmacy has been consulted to manage selected antibiotic: Vancomycin Type of Intervention Type of Consult: New start Suspected Infection Suspected Infection: Other (Neutropenic fever) Labs Labs: Sodium 136 mmol/L (136-145) 05/02/24 06:05 Potassium 3.6 mmol/L (3.5-5.1) 05/02/24 06:05 Chloride 104 mmol/L (98-107) 05/02/24 06:05 Carbon Dioxide 25.0 mmol/L (21.0-32.0) 05/02/24 06:05 Anion Gap 7 (5-15) 05/02/24 06:05 BUN 33 mg/dL (7-18) H 05/02/24 06:05 Creatinine 0.97 mg/dL (0.70-1.30) 05/02/24 06:05 Est GFR (MDRD) Af Amer 98 mL/min (>60) 05/02/24 06:05 Est GFR (MDRD) Non-Af 81 mL/min (>60) 05/02/24 06:05 BUN/Creatinine Ratio 34.1 RATIO (10-20) H 05/02/24 06:05 Glucose 100 mg/dL (74-106) 05/02/24 06:05 Pharmacy Plan for Drug Dosing Pharmacy Plan for Drug Dosing: NEW START IV VANCOMYCIN Consulting Physician: CIPRIANO Indication: NEUTROPENIC FEVER Goal Trough: 15-20 MG/DL SrCr: 0.97 MG/DL CrCl: 65 ML/MIN Comments: Loading dose of 2000mg given 05/02 @ 1125 Vancomycin Dose: Will start 1000mg Q12 @ 2330 and get a level prior to the 4th total dose per policy. Pending Level: 05/03/24 @ 2300 Pharmacy Service will continue to monitor and adjust dosing as required.
[2024-05-02 11:40] LABS: Bedside Glucose 122 mg/dL (74-106)
--- NOTE | 2024-05-02 14:28 | PCM.CONS.GEN ---
Assessment & Plan Assessment/Plan (1) Neutropenic fever: PLAN: On cefepime, vanc added. Infectious workup neg so far. If has fever again, would repeat bcx, UA/ucx, and cxr PA/lateral. Heme is following. Will follow, thank you (2) Myelodysplastic syndrome: (3) Splenic infarct: HPI Consult Data Date of Consult: 05/02/24 HPI Narrative Reason for Consultation: neutropenic fever HPI Narrative: JOSE KEYS, is a 74 M with recent dx suspected MDS after presenting with anemia and thrombocytopenia. Started on Revlimid, but developed fever, sent to ED from TCU on 04/28. Now on vanc/cefepime, cont to have fever. Feeling ok, no focal complaints other than some intermittent LUQ pain. CT had shown suspected splenic infarcts. No recent travel, no sick contacts, no picc/port in place. Family at bedside provided additional history. Full ROS performed and neg except as noted above. [facility] Medical History MDS (myelodysplastic syndrome) with 5q deletion Anxiety Diabetes Pancreatitis Non-smoker Diverticulosis History of chronic hypertension History of diabetes mellitus Home Medications ?Medication ?Instructions ?Recorded ?Last Taken ?Type atorvastatin 80 mg tablet 80 mg PO QHS CHOLESTEROL #30 tabs 04/03/24 04/25/24 Rx isosorbide mononitrate 30 mg 30 mg PO DAILY CHEST PAIN #30 tabs 04/03/24 04/26/24 Rx tablet,extended release 24 hr metoprolol tartrate 25 mg tablet 25 mg PO BID BLOOD PRESSURE #60 04/03/24 04/26/24 Rx tabs nitroglycerin 0.4 mg sublingual 0.4 mg sublingual Q5M PRN 04/03/24 Unknown Rx tablet Cardiac/Chest Pain #10 tabs pen needle, diabetic 29 gauge #100 ea 04/03/24 Unknown Rx acetaminophen 500 mg tablet 1,000 mg (2 x 500 mg) PO Q8 pain 04/26/24 Unknown Rx #0 tabs gabapentin 100 mg capsule 100 mg PO 0600,1400,2200 04/26/24 Unknown Rx neuropathy 3 days #9 caps insulin glargine-yfgn 100 unit/mL 20 unit (0.2 mL) subcut BID 04/26/24 04/26/24 Rx (3 mL) subcutaneous pen DIABETES #15 mL insulin lispro 100 unit/mL See Protocol subcut ACHS 04/26/24 Unknown Rx subcutaneous pen (Humalog KwikPen hyperglycemia #0 mL (U-100) Insulin) lenalidomide 10 mg capsule 10 mg PO DAILY MDS #0 caps 04/26/24 04/26/24 Rx lisinopril 10 mg tablet 5 mg (1/2 x 10 mg) PO DAILY BLOOD 04/26/24 04/11/24 Rx PRESSURE #30 tabs oxycodone 5 mg capsule 5 mg PO Q6H PRN BACK PAIN 3 days 04/26/24 Unknown Rx #12 caps sennosides 8.6 mg-docusate sodium 2 tab PO BID constipation #0 tabs 04/26/24 04/26/24 Rx 50 mg tablet (Stimulant Laxative Plus) trazodone 50 mg tablet 50 mg PO QHS PRN Insomnia #0 tabs 04/26/24 04/25/24 Rx Allergy/AdvReac Type Severity Reaction Status Date / Time Nuakwrm-PSA-SoY Reductase AdvReac Intermediate Pain in Verified 04/27/24 22:57 Inhibitor (Pybunrv-Mtg-Gxu joints Reductase Inhibitor) Family History Other Brain malignancy Diabetes Hypertension Surgical History Previous back surgery H/O colonoscopy Social History household members: spouse housing: house current occupational status: retired Smoking Status: Never smoker alcohol intake: former substance use type: does not use Physical Exam Const alert and no apparent distress Constitutional Narrative: ill appearing General Appearance: cooperative HEENT normocephalic and head/scalp atraumatic HEENT Narrative: No thrush Eyes PERRL and EOMs intact bilaterally Neck supple and No nodes Resp normal air movement and clear to auscultation bilaterally Cardio regular rate and regular rhythm GI soft to palpation, non-tender and non-distended Extremity General Extremity: Negative for edema Skin no rashes or lesions noted Neuro CN's II-XII intact bilaterally Medical Records Data Medical Nutrition Assessment Dietitian: Malnutrition Criteria Met Start: 04/28/24 14:05 Freq: Status: Active Protocol: Document 04/28/24 14:05 SB (Rec: 04/28/24 14:06 SB [id number]) Nutrition Malnutrition Evidence of Malnutrition Exists Yes Malnutrition (severe): Chronic Evidenced By Suboptimal Energy Intake ( Severe),Weight Loss (Severe) Intake Problem Inadequate Oral Intake Etiology related to increase pain and illness Signs/Symptoms as evidence by decreased appetite x 1.5 months and eating <50% of meals. Status Active Problem Clinical Problem Chronic Disease or Condition Related Malnutrition Etiology severe protein-calorie malnutrition in the context of chronic disease related to suboptimal appetite Signs/Symptoms as evidence by PO intake meeting <50% of estimated nutrition needs x 1.5 month and 5.4% unintentional weight loss x 1 month. Status Active Problem Recommendation Dietitian Recommendations/Changes Continue consistent carbohydrate diet: 2000 calories. Will add 120ml strawberry glucerna QID with medpass to increase calorie and protein intake. Reviewed and approved by Alycia Lares RDN, JOSE Lab / Micro Data Attestation: I reviewed the patient's lab results. 05/02/24 06:05 05/02/24 06:05 Labs: Laboratory Results - last 24 hr 05/01/24 13:50: POC Glucose 221 H 05/01/24 17:15: POC Glucose 206 H 05/01/24 21:26: POC Glucose 192 H 05/02/24 06:05: WBC 2.5 L, RBC 2.76 L, Hgb 7.9 L, Hct 22.4 L, MCV 81.2, MCH 28.6, MCHC 35.3, RDW Std Deviation 45.1 H, RDW Coeff of Consuelo 15.4 H, Plt Count 3 L*, Neut % (Auto) Not Reportable, Absolute Neuts (auto) 0.4 L, Absolute Lymphs (auto) 1.89, Total Counted 100, Neutrophils % (Manual) 17 L, Lymphocytes % (Manual) 75 H*, Metamyelocytes % 1, Myelocytes % 1 H, Blast Cells % 6 H*, Diff Path Review May foll, Platelet Estimate MKD DEC, RBC Morphology NORM C+C, Sodium 136, Potassium 3.6, Chloride 104, Carbon Dioxide 25.0, Anion Gap 7, BUN 33 H, Creatinine 0.97, Estim Creat Clear Calc 65.62, Est GFR (MDRD) Af Amer 98, Est GFR (MDRD) Non-Af 81, BUN/Creatinine Ratio 34.1 H, Glucose 100, Calcium 8.5, Total Bilirubin 1.40 H, AST 176 H, ALT 211 H, Alkaline Phosphatase 386 H, Total Protein 5.8 L, Albumin 1.8 L, Globulin 4.0, Albumin/Globulin Ratio 0.4 L 05/02/24 06:40: POC Glucose 91 05/02/24 08:30: Blood Type O POSITIVE 05/02/24 10:57: POC Glucose 122 H Imaging Radiology Impression Chest CTA 05/01/24 11:32 IMPRESSION: No pulmonary embolus. No thoracic aortic aneurysm or dissection. Trace bilateral pleural effusions with overlying atelectasis. No pulmonary infiltrates. Coronary artery disease. Hepatosplenomegaly with fatty infiltration of the liver. Electronically Signed: Godwin Mcgregor MD at 14:27 EDT ,
[2024-05-02 14:32] LABS: Pathologist Review Reviewed
[2024-05-02 14:41] LABS: Pathologist Review Reviewed
--- NOTE | 2024-05-02 15:02 | ONC.PN.INPT ---
Vital Signs Temperature 98.7 F 05/02/24 10:53 Temperature Source Oral 05/02/24 10:53 Pulse Rate 108 H 05/02/24 10:59 Pulse Strength Weak (1+) 05/01/24 10:00 Respiratory Rate 19 H 05/02/24 10:53 Respiratory Effort Non-Labored 05/02/24 07:35 Respiratory Depth Shallow 05/02/24 07:35 Respiratory Pattern Tachypnea 05/02/24 07:35 Blood Pressure 119/58 L 05/02/24 10:59 Blood Pressure Mean 78 05/02/24 10:53 Blood Pressure Source Monitor 05/02/24 10:53 Blood Pressure Position Semi-Fowlers 05/02/24 10:53 Blood Pressure Location Left Arm 05/02/24 10:53 Pulse Ox 94 05/02/24 10:53 Oxygen Delivery Method Room Air 05/02/24 10:53 Laboratory Results - last 24 hr 04/30/24 06:20: Diff Path Review Reviewed 05/01/24 04:55: Diff Path Review Reviewed 05/01/24 13:50: POC Glucose 221 H 05/01/24 17:15: POC Glucose 206 H 05/01/24 21:26: POC Glucose 192 H 05/02/24 06:05: WBC 2.5 L, RBC 2.76 L, Hgb 7.9 L, Hct 22.4 L, MCV 81.2, MCH 28.6, MCHC 35.3, RDW Std Deviation 45.1 H, RDW Coeff of Consuelo 15.4 H, Plt Count 3 L*, Neut % (Auto) Not Reportable, Absolute Neuts (auto) 0.4 L, Absolute Lymphs (auto) 1.89, Total Counted 100, Neutrophils % (Manual) 17 L, Lymphocytes % (Manual) 75 H*, Metamyelocytes % 1, Myelocytes % 1 H, Blast Cells % 6 H*, Diff Path Review May foll, Platelet Estimate MKD DEC, RBC Morphology NORM C+C, Sodium 136, Potassium 3.6, Chloride 104, Carbon Dioxide 25.0, Anion Gap 7, BUN 33 H, Creatinine 0.97, Estim Creat Clear Calc 65.62, Est GFR (MDRD) Af Amer 98, Est GFR (MDRD) Non-Af 81, BUN/Creatinine Ratio 34.1 H, Glucose 100, Calcium 8.5, Total Bilirubin 1.40 H, AST 176 H, ALT 211 H, Alkaline Phosphatase 386 H, Total Protein 5.8 L, Albumin 1.8 L, Globulin 4.0, Albumin/Globulin Ratio 0.4 L 05/02/24 06:40: POC Glucose 91 05/02/24 08:30: Blood Type O POSITIVE 05/02/24 10:57: POC Glucose 122 H Diagnostic Data Chest X-Ray 04/27/24 23:10 IMPRESSION: No acute disease. Electronically Signed: Zeus Reeves MD at 0:09 EDT , Abdomen/Pelvis CT 04/28/24 00:40 IMPRESSION: Low-density areas involving the enlarged spleen may represent developing infarcts. Electronically Signed: Zeus Reeves MD at 1:22 EDT , Chest CTA 05/01/24 11:32 IMPRESSION: No pulmonary embolus. No thoracic aortic aneurysm or dissection. Trace bilateral pleural effusions with overlying atelectasis. No pulmonary infiltrates. Coronary artery disease. Hepatosplenomegaly with fatty infiltration of the liver. Electronically Signed: Godwin Mcgregor MD at 14:27 EDT ,
--- NOTE | 2024-05-02 15:04 | PCM.PROGNOTE ---
Objective Data Objective Data Vital Signs: Vital Signs Temp Pulse Resp BP Pulse Ox O2 Del Method 98.7 F 108 H 19 H 119/58 L 94 Room Air 05/02/24 10:53 05/02/24 10:59 05/02/24 10:53 05/02/24 10:59 05/02/24 10:53 05/02/24 10:53 Oxygen Delivery Method Room Air Weight: 80.7 kg Body Mass Index (BMI) 27.0 Intake & Output: Intake and Output for Last 24 Hours 04/30/24 05/01/24 05/02/24 23:59 23:59 23:59 Intake Total 891 / 1291 1300 / 1300 880 / 880 Output Total 1175 / 1525 1550 / 1550 300 / 300 Balance -284 / -234 -250 / -250 580 / 580 Medical Nutrition Assessment Dietitian: Malnutrition Criteria Met Start: 04/28/24 14:05 Freq: Status: Active Protocol: Document 05/02/24 15:02 SB (Rec: 05/02/24 15:02 SB [id number]) Nutrition Malnutrition Evidence of Malnutrition Exists Yes Malnutrition (severe): Chronic Evidenced By Suboptimal Energy Intake ( Severe),Weight Loss (Severe) Intake Problem Inadequate Oral Intake Etiology related to increase pain and illness Signs/Symptoms as evidence by decreased appetite x 1.5 months and eating <50% of meals. 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 Status Active Problem Recommendation Dietitian Recommendations/Changes Continue consistent carbohydrate diet: 2000 calories and 120ml strawberry glucerna QID with medpass. Reviewed and approved by Brenna Conklin RD, LD Lab / Micro Data 05/02/24 06:05 05/02/24 06:05 Labs: Laboratory Results - last 24 hr 04/30/24 06:20: Diff Path Review Reviewed 05/01/24 04:55: Diff Path Review Reviewed 05/01/24 13:50: POC Glucose 221 H 05/01/24 17:15: POC Glucose 206 H 05/01/24 21:26: POC Glucose 192 H 05/02/24 06:05: WBC 2.5 L, RBC 2.76 L, Hgb 7.9 L, Hct 22.4 L, MCV 81.2, MCH 28.6, MCHC 35.3, RDW Std Deviation 45.1 H, RDW Coeff of Consuelo 15.4 H, Plt Count 3 L*, Neut % (Auto) Not Reportable, Absolute Neuts (auto) 0.4 L, Absolute Lymphs (auto) 1.89, Total Counted 100, Neutrophils % (Manual) 17 L, Lymphocytes % (Manual) 75 H*, Metamyelocytes % 1, Myelocytes % 1 H, Blast Cells % 6 H*, Diff Path Review February, Platelet Estimate MKD DEC, RBC Morphology NORM C+C, Sodium 136, Potassium 3.6, Chloride 104, Carbon Dioxide 25.0, Anion Gap 7, BUN 33 H, Creatinine 0.97, Estim Creat Clear Calc 65.62, Est GFR (MDRD) Af Amer 98, Est GFR (MDRD) Non-Af 81, BUN/Creatinine Ratio 34.1 H, Glucose 100, Calcium 8.5, Total Bilirubin 1.40 H, AST 176 H, ALT 211 H, Alkaline Phosphatase 386 H, Total Protein 5.8 L, Albumin 1.8 L, Globulin 4.0, Albumin/Globulin Ratio 0.4 L 05/02/24 06:40: POC Glucose 91 05/02/24 08:30: Blood Type O POSITIVE 05/02/24 10:57: POC Glucose 122 H
--- NOTE | 2024-05-02 15:05 | ONC.PN.INPT ---
Subjective Subjective Patient was delirious and unable to provide any credible symptoms or review of systems. According to nursing staff and family at the bedside he is confused/delirious, does not appear to be in pain, bruises easily, minimal occasional bloodstained from, but no other bleeding. Physical Exam Narrative ECOG 4 Resp normal respiratory effort and clear to auscultation bilaterally Cardio regular rate and regular rhythm GI soft to palpation and non-tender Extremity General Extremity: edema bilateral lower extremity Details: mild Skin General Skin Exam: ecchymosis Vital Signs Temperature 98.7 F 05/02/24 10:53 Temperature Source Oral 05/02/24 10:53 Pulse Rate 108 H 05/02/24 10:59 Pulse Strength Weak (1+) 05/01/24 10:00 Respiratory Rate 19 H 05/02/24 10:53 Respiratory Effort Non-Labored 05/02/24 07:35 Respiratory Depth Shallow 05/02/24 07:35 Respiratory Pattern Tachypnea 05/02/24 07:35 Blood Pressure 119/58 L 05/02/24 10:59 Blood Pressure Mean 78 05/02/24 10:53 Blood Pressure Source Monitor 05/02/24 10:53 Blood Pressure Position Semi-Fowlers 05/02/24 10:53 Blood Pressure Location Left Arm 05/02/24 10:53 Pulse Ox 94 05/02/24 10:53 Oxygen Delivery Method Room Air 05/02/24 10:53 Laboratory Results - last 24 hr Laboratory Results 05/02/24 05/01/24 04/30/24 06:05 04:55 06:20 Hgb 7.9 L 8.4 L 6.9 L Plt Count 3 L* 4 L* 10 L* Absolute Neuts (auto) 0.4 L 0.3 L 0.9 L 04/29/24 04/28/24 04/27/24 05:24 11:54 23:28 Hgb 8.0 L 7.5 L 6.3 L Plt Count 6 L* 12 L* 5 L* Absolute Neuts (auto) 0.9 L 0.4 L 04/27/24 04/26/24 04/25/24 05:21 09:55 04:27 Hgb 7.4 L 6.4 L 7.2 L Plt Count 7 L* 11 L* 5 L* Absolute Neuts (auto) 1.2 L 1.2 L 1.4 L 04/24/24 04/23/24 04/22/24 05:00 06:51 06:01 Hgb 6.9 L 7.4 L 7.8 L Plt Count 5 L* 12 L* 22 L* Absolute Neuts (auto) 1.4 L 1.8 L 1.0 L 04/21/24 04/20/24 04/19/24 07:17 06:50 07:05 Hgb 7.3 L 8.2 L 8.0 L Plt Count 9 L* 6 L* 12 L* Absolute Neuts (auto) 1.4 L 1.2 L 1.6 L 04/18/24 04/17/24 04/16/24 07:23 07:36 07:54 Hgb 6.6 L 6.8 L 7.1 L Plt Count 26 L* 8 L* 12 L* Absolute Neuts (auto) 5.5 04/13/24 04/13/24 04/12/24 12:11 05:33 09:43 Hgb 7.0 L 7.6 L 7.8 L Plt Count 24 L* 10 L* 9 L* Absolute Neuts (auto) 4.6 3.9 5.2 04/04/24 04/03/24 04/02/24 04:52 03:50 05:50 Hgb 8.1 L 8.1 L 9.2 L Plt Count 11 L* Absolute Neuts (auto) 4.6 7.4 6.4 04/01/24 03/31/24 03/30/24 04:30 04:23 06:12 Hgb Plt Count Absolute Neuts (auto) 2.5 2.5 2.8 03/28/24 03/26/24 04:33 15:45 Hgb Plt Count Absolute Neuts (auto) 2.6 2.4 04/30/24 06:20: Diff Path Review Reviewed 05/01/24 04:55: Diff Path Review Reviewed 05/01/24 13:50: POC Glucose 221 H 05/01/24 17:15: POC Glucose 206 H 05/01/24 21:26: POC Glucose 192 H 05/02/24 06:05: WBC 2.5 L, RBC 2.76 L, Hgb 7.9 L, Hct 22.4 L, MCV 81.2, MCH 28.6, MCHC 35.3, RDW Std Deviation 45.1 H, RDW Coeff of Consuelo 15.4 H, Plt Count 3 L*, Neut % (Auto) Not Reportable, Absolute Neuts (auto) 0.4 L, Absolute Lymphs (auto) 1.89, Total Counted 100, Neutrophils % (Manual) 17 L, Lymphocytes % (Manual) 75 H*, Metamyelocytes % 1, Myelocytes % 1 H, Blast Cells % 6 H*, Diff Path Review May foll, Platelet Estimate MKD DEC, RBC Morphology NORM C+C, Sodium 136, Potassium 3.6, Chloride 104, Carbon Dioxide 25.0, Anion Gap 7, BUN 33 H, Creatinine 0.97, Estim Creat Clear Calc 65.62, Est GFR (MDRD) Af Amer 98, Est GFR (MDRD) Non-Af 81, BUN/Creatinine Ratio 34.1 H, Glucose 100, Calcium 8.5, Total Bilirubin 1.40 H, AST 176 H, ALT 211 H, Alkaline Phosphatase 386 H, Total Protein 5.8 L, Albumin 1.8 L, Globulin 4.0, Albumin/Globulin Ratio 0.4 L 05/02/24 06:40: POC Glucose 91 05/02/24 08:30: Blood Type O POSITIVE 05/02/24 10:57: POC Glucose 122 H Diagnostic Data Chest X-Ray 04/27/24 23:10 IMPRESSION: No acute disease. Electronically Signed: Zeus Reeves MD at 0:09 EDT , Abdomen/Pelvis CT 04/28/24 00:40 IMPRESSION: Low-density areas involving the enlarged spleen may represent developing infarcts. Electronically Signed: Zeus Reeves MD at 1:22 EDT , Chest CTA 05/01/24 11:32 IMPRESSION: No pulmonary embolus. No thoracic aortic aneurysm or dissection. Trace bilateral pleural effusions with overlying atelectasis. No pulmonary infiltrates. Coronary artery disease. Hepatosplenomegaly with fatty infiltration of the liver. Electronically Signed: Godwin Mcgregor MD at 14:27 EDT , Patient had 2 bone marrow biopsies, March 2024 was nondiagnostic pathologically with flow cytometry estimate 5% myeloblasts at 5 q. minus chromosomal abnormality on FISH. The repeat bone marrow biopsy of April 2024 showed a similar blast percentage of 5%, similar FISH panel, the pathologic examination still pending. Assessment & Plan Assessment/Plan (1) MDS (myelodysplastic syndrome) with 5q deletion: PLAN: 74-year-old male presenting with pancytopenia and bone marrow findings consistent with MDS with 5 q. minus chromosomal abnormality. Patient was started on Revlimid (2) Pancytopenia: PLAN: Probably due to multiple factors includin. 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 2. Expected side effect of Revlimid systemic therapy before a response is noted. 3. Suspected febrile neutropenia sepsis. Plan: 1- Supportive transfusions with packed red blood cells to maintain hemoglobin at or above 7 to 8 g per DL. 2-prophylactic platelet transfusion for platelet count less than 10K. 3-continue growth factor support daily as earlier advised by hematology consult because of neutropenic sepsis. (3) Neutropenic fever: PLAN: Patient is immune compromised, will defer to ID consultation to guide antimicrobial therapy (4) Splenic infarct: PLAN: Patient does not appear to be in pain. PLAN: Plan This impression and plan was discussed with multiple family members: 2 brothers and . Rafael Fitzgerald MD Assistant Professor Of Economics, [facility] Divisions of Medical Oncology & Hematology Department of Internal Medicine [place] [id number] This note was generated using a voice recognition system software. Although it was reviewed by the author prior to finalization, it may still contain incorrect words, spelling, and punctuation that were not noted when reviewing prior to saving. If a clinically significant typo or inaccurately typed phrase is noted, please notify the author.
[2024-05-02] MEDS: Insulin Lispro 100 UNIT/ML INSULN.PEN SC ×2 (17:26→22:04)
[2024-05-02 17:46] LABS: Bedside Glucose 227 mg/dL (74-106)
[2024-05-02] MEDS: LORazepam 0.5 MG Tablet PO (21:22)
[2024-05-02] MEDS: Menthol/Lanolin/Calamine/Znox 113 GM Tube 1 APPLIC TOPICAL (21:23)
[2024-05-02 23:00] LABS: Bedside Glucose 202 mg/dL (74-106)
[2024-05-03] VITALS (30 sets, daily range): BP systolic 48–163; BP diastolic 19–96; PULSE 32–188; RESP 0–44; TEMP 36.1–38.2; O2SAT 81–100
[2024-05-03] MEDS: Vancomycin IV 1,000 MG/200 ML BAG 200 MG IV (00:22)
--- NOTE | 2024-05-03 04:16 | RAD_ITS ---
INDICATION: hypoxia EXAMINATION/TECHNIQUE: X-RAY - XR Chest 1 View COMPARISON: 04/27/2024. FINDINGS: LINES/DEVICES: None. LUNGS: Mild diffuse interstitial thickening. No consolidation or effusion. No pneumothorax. MEDIASTINUM AND CARDIOVASCULAR STRUCTURES: Cardiac silhouette not enlarged. BONES AND SOFT TISSUES: Unremarkable. RAD/Chest 1 View (Portable) IMPRESSION: Increased bilateral interstitial thickening suggestive of edema Electronically Signed: Chris Charles MD at 5:40 EDT ,
[2024-05-03] MEDS: Acetaminophen 650 MG Suppository RC (04:51)
[2024-05-03] MEDS: Menthol/Lanolin/Calamine/Znox 113 GM Tube 1 APPLIC TOPICAL (04:51)
[2024-05-03] MEDS: Cefepime HCl 2 GM in 0.9% Normal Saline (100mL MB+) 100 ML IV (05:00)
[2024-05-03 05:16] LABS: ALB/GLOB Ratio 0.6 RATIO (0.9-2.4); AST(SGOT) 301 U/L (15-37); Alanine Aminotransfer ALT/SGPT 367 U/L (16-61); Albumin, Serum 1.9 g/dL (3.2-5.0); Alkaline Phosphatase 500 U/L (45-117); Anion Gap 12 (5-15); BUN 50 mg/dL (7-18); BUN/Creat Ratio 32.7 RATIO (10-20); Calcium,Total 8.5 mg/dL (8.5-10.1); Chloride 105 mmol/L (98-107); Creatinine, Serum 1.53 mg/dL (0.70-1.30); EST Glomerular Filtration Rate 48 mL/min (>60); Est Glom Filt Rate - Afr Amer 58 mL/min (>60); Globulin 3.4 g/dL (2.2-4.2); Glucose 206 mg/dL (74-106); Potassium 4.5 mmol/L (3.5-5.1); Protein, Total 5.3 g/dL (6.4-8.2); Sodium Level 135 mmol/L (136-145)
[2024-05-03 05:21] LABS: Hematocrit 20.2 % (40-54); Hemoglobin 6.9 g/dL (13.0-16.5); Mean Corp Hgb Conc 34.2 g/dL (32-36); Mean Corpuscular Hgb 28.8 pg (27.0-32.0); Mean Corpuscular Volume 84.2 fL (80-94); Mean Platelet Vol. 8.9 fl (6.2-12.0); POSITIVE COUNT YES; POSITIVE DIFFERENTIAL YES; POSITIVE MORPHOLOGY YES; RBC Distribution Width SD 48.7 fl (35.1-43.9); White Blood Count 3.9 K/mm3 (4.4-11.0)
[2024-05-03 05:22] LABS: Platelet Count 7 K/mm3 (150-450)
[2024-05-03 05:23] LABS: Differential Indicated MANUAL DIFF
--- NOTE | 2024-05-03 05:32 | PCM.HOSP.N ---
Hospitalist Note Increased oxygen requirements earlier this morning. Patient had been on room air now up to 5 L. Order chest x-ray which shows pulmonary vascular congestion throughout. Patient already on antibiotics with cefepime and vancomycin. Will give patient a dose of IV furosemide x 1 for now. Will hold off on scheduled furosemide as patient's creatinine had jumped up from 0.97-1.59
[2024-05-03] MEDS: Furosemide 40 MG/4 ML Vial IV (06:09)
[2024-05-03] MEDS: Insulin Lispro 100 UNIT/ML INSULN.PEN SC ×3 (06:17→17:09)
[2024-05-03 06:50] LABS: Bedside Glucose 207 mg/dL (74-106)
[2024-05-03] MEDS: Insulin Glargine-YFGN 100 UNIT/ML Pen 20 UNIT SC (07:56)
[2024-05-03 07:57] LABS: Blast 13 % (0-0); Eosinophil 1 % (0-5); Lymphocyte 63 % (19-41); Metamyelocyte 2 % (0-1); Monocyte 3 % (0-10); Myelocyte 1 % (0-0); Neutrophil-Band 2 % (0-5); Neutrophil-Segmented 15 % (47-70); Platelet Estimate MKD DEC (ADEQ); Red Cell Morphology NORM C+C NORMAL (NORM C&C); Total Cells Counted 100 (MANUAL DIFF)
[2024-05-03 07:59] LABS: Absolute Neutrophil Count 0.7 X10^3/uL (2.0-7.7)
[2024-05-03] MEDS: Glucerna Shake 120 ML LIQUID PO (07:59)
[2024-05-03 08:00] LABS: Absolute Lymphocyte Count 2.46 X10^3/uL (0.83-4.51)
[2024-05-03] MEDS: Metoprolol Tartrate 5 MG/5 ML Vial IV (08:04)
[2024-05-03] MEDS: 0.9% Saline Lock 10 ML Syringe IV (08:06)
--- NOTE | 2024-05-03 08:18 | NURSING ---
Report called to ICU for transfer
--- NOTE | 2024-05-03 09:15 | PCM.PROGNOTE ---
Subjective Subjective Patient seen and examined this morning. He was quite lethargic and confused. His heart rate went up to the 170s during my review. He had been noted to be becoming more short of breath overnight and chest x-ray done showed evidence of fluid overload. He is in cumulative positive balance by about 1.2 L. Patient was given a dose of IV Lasix in the early hours of this morning. I am unable to do comprehensive review of systems due to patient's confusion and lethargy. His significant other was by his bedside. Patient also remained febrile overnight with temperature early this morning going up to 100.7 Fahrenheit. He is also tachypneic and was breathing in the 40s per the monitor during my review. WBC is 3.9 today and hemoglobin is down to 6.9. Platelets are only 7 today. He did receive 2 units of platelets yesterday. Objective Data Objective Data Vital Signs: Vital Signs Temp Pulse Resp BP Pulse Ox O2 Del Method O2 Flow Rate 99.0 F 177 H 34 H 119/49 L 92 Nasal Cannula 3 05/03/24 07:49 05/03/24 08:04 05/03/24 07:49 05/03/24 08:04 05/03/24 09:09 05/03/24 09:09 05/03/24 09:09 Oxygen Flow Rate (L/min) 3 Oxygen Delivery Method Nasal Cannula Weight: 177 lb 14.609 oz Body Mass Index (BMI) 27.0 Intake & Output: Intake and Output for Last 24 Hours 05/01/24 05/02/24 05/03/24 23:59 23:59 23:59 Intake Total 1300 / 1300 1280 / 1280 400 / 400 Output Total 1550 / 1550 1000 / 1000 750 / 750 Balance -250 / -250 280 / 280 -350 / -350 Medical Nutrition Assessment Dietitian: Malnutrition Criteria Met Start: 04/28/24 14:05 Freq: Status: Active Protocol: Document 05/02/24 15:02 SB (Rec: 05/02/24 15:02 SB [id number]) Nutrition Malnutrition Evidence of Malnutrition Exists Yes Malnutrition (severe): Chronic Evidenced By Suboptimal Energy Intake ( Severe),Weight Loss (Severe) Intake Problem Inadequate Oral Intake Etiology related to increase pain and illness Signs/Symptoms as evidence by decreased appetite x 1.5 months and eating <50% of meals. 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 Reviewed and approved by Brenna Conklin RD, LD Lab / Micro Data 05/03/24 05:14 05/03/24 04:32 Labs: Laboratory Results - last 24 hr 04/30/24 06:20: Diff Path Review Reviewed 05/01/24 04:55: Diff Path Review Reviewed 05/02/24 08:30: Blood Type O POSITIVE 05/02/24 10:57: POC Glucose 122 H 05/02/24 17:23: POC Glucose 227 H 05/02/24 21:59: POC Glucose 202 H 05/03/24 04:32: WBC Cancelled, Corrected WBC Cancelled, RBC Cancelled, Hgb Cancelled, Hct Cancelled, MCV Cancelled, MCH Cancelled, MCHC Cancelled, RDW Std Deviation Cancelled, RDW Coeff of Consuelo Cancelled, Plt Count Cancelled, MPV Cancelled, Immature Gran % (Auto) Cancelled, Neut % (Auto) Cancelled, Lymph % (Auto) Cancelled, [place] % (Auto) Cancelled, Eos % (Auto) Cancelled, Baso % (Auto) Cancelled, Absolute Neuts (auto) Cancelled, Absolute Lymphs (auto) Cancelled, Total Counted Cancelled, Neutrophils % (Manual) Cancelled, Band Neutrophils % Cancelled, Lymphocytes % (Manual) Cancelled, Monocytes % (Manual) Cancelled, Eosinophils % (Manual) Cancelled, Basophils % (Manual) Cancelled, Metamyelocytes % Cancelled, Myelocytes % Cancelled, Promyelocytes % Cancelled, Blast Cells % Cancelled, Plasma Cell % (Manual) Cancelled, Other Cells % Cancelled, Nucleated RBC % Cancelled, Nucleated RBCs/100 WBC Cancelled, Differential Comment Cancelled, Diff Path Review Cancelled, Hypersegmented Neuts Cancelled, Atypical Lymphocytes Cancelled, Reactive Lymphocytes Cancelled, Smudge Cells Cancelled, Toxic Granulation Cancelled, Toxic Vacuolation Cancelled, Dohle Bodies Cancelled, Austen Rods Cancelled, Platelet Estimate Cancelled, Plt Morphology Comment Cancelled, RBC Morphology Cancelled 05/03/24 04:32: RBC Morphology Cancelled, Polychromasia Cancelled, Hypochromasia Cancelled, Basophilic Stippling Cancelled, Anisocytosis Cancelled, Microcytosis Cancelled, Macrocytosis Cancelled, Spherocytes Cancelled, Sickle Cells Cancelled, Target Cells Cancelled, Tear Drop Cells Cancelled, Ovalocytes Cancelled, Stomatocytes Cancelled, [place] Bodies Cancelled, [place] Cells Cancelled, Bite Cells Cancelled, Crenated Cell Cancelled, Acanthocytes (Spur) Cancelled, Rouleaux Cancelled, Schistocytes Cancelled, Sodium 135 L, Potassium 4.5, Chloride 105, Carbon Dioxide 18.0 L, Anion Gap 12, BUN 50 H, Creatinine 1.53 H, Estim Creat Clear Calc 41.60, Est GFR (MDRD) Af Amer 58 L, Est GFR (MDRD) Non-Af 48 L, BUN/Creatinine Ratio 32.7 H, Glucose 206 H, Calcium 8.5, Total Bilirubin 1.50 H, AST 301 H, ALT 367 H, Alkaline Phosphatase 500 H, Total Protein 5.3 L, Albumin 1.9 L, Globulin 3.4, Albumin/Globulin Ratio 0.6 L 05/03/24 05:14: WBC 3.9 L, RBC 2.40 L, Hgb 6.9 L, Hct 20.2 L, MCV 84.2, MCH 28.8, MCHC 34.2, RDW Std Deviation 48.7 H, RDW Coeff of Consuelo 16.0 H, Plt Count 7 L*, MPV 8.9, Neut % (Auto) Not Reportable, Absolute Neuts (auto) 0.7 L, Absolute Lymphs (auto) 2.46, Total Counted 100, Neutrophils % (Manual) 15 L, Band Neutrophils % 2, Lymphocytes % (Manual) 63 H, Monocytes % (Manual) 3, Eosinophils % (Manual) 1, Metamyelocytes % 2 H, Myelocytes % 1 H, Blast Cells % 13 H*, Diff Path Review May foll, Platelet Estimate MKD DEC, RBC Morphology NORM C+C 05/03/24 06:16: POC Glucose 207 H Radiography Diagnostic Testing: Radiology Impression Chest X-Ray 05/03/24 04:16 IMPRESSION: Increased bilateral interstitial thickening suggestive of edema Electronically Signed: Chris Charles MD at 5:40 EDT , Physical Exam Const alert Constitutional Narrative: still weak and frail Orientation / Consciousness: confused and lethargic HEENT normocephalic, head/scalp atraumatic, hearing grossly normal bilaterally and nasal mucous membranes and turbinates normal Mouth: dry mucous membranes Eyes PERRL, EOMs intact bilaterally and conjunctivae normal Neck full ROM, no lymphadenopathy, supple and no JVD Lymph Lymphatic: no lymphadenopathy noted and no lymphedema noted Chest inspection of chest normal Resp Resp Narrative: tachypneic, moderately diminished breath sounds bilaterally, no wheezes, few crackles. On 3L of oxygen by nasal canula Cardio regular rhythm, S1 normal heart sound, S2 normal heart sound, no murmurs and peripheral pulses 2+ throughout Cardio Narrative: Tachycardic GI normal to inspection, nondistended, normoactive bowel sounds, soft to palpation, non-tender and non-distended Back/Spine normal ROM Extremity normal to inspection, full ROM, normal capillary refill, no clubbing, cyanosis or edema, no calf tenderness and no pedal edema General Extremity: no tenderness to palpation of joints or extremities Skin no rashes or lesions noted General Skin Exam: no breakdown Neuro CN's II-XII intact bilaterally, moves all extremities, no focal motor deficits, no sensory deficits noted and deep tendon reflexes 2+ bilaterally Speech: speech normal Motor Exam: strength 5/5 throughout and general weakness Psych Psych Narrative: weak, very frail, confused Mood & Affect: flat affect Assessment & Plan Assessment/Plan (1) Neutropenic fever: (2) Pancytopenia: (3) Myelodysplastic syndrome: (4) Splenic infarct: PLAN: Plan #Pancytopenia in the setting of myelodysplastic syndrome wbc is 2.9 today, hb is down to 6.9 and platelets are 7 today hematology on board goal is for Hb>7 and platelets >10 was transfused with platelets yesterday, but platelets are 7 today. transfuse with 2 more units of platelets yesterday discussed with Dr Prah; gave a dose of retacrit 20,000 units x 1; on granix, aiming for absolute neutrophil count >1000. continue granix absolute neutrophil count today is 0.7. oncology on board. Dr Sánchez spoke to family extensively yesterday; he thinks his symptoms are all due to sepsis. The pancytopenia is due to the bone marrow disease and expected side effect of Revlimid systemic therapy before a response is noted. will transfuse with 3 units of platelets today per oncology, has had 2 bone marrow biopsies in March 2024 which was nondiagnostic pathologically with flow cytometry estimate 5% myeloblasts at 5q minus chromosomal abnormality on FISH. Repeat bone marrow biopsy of April 2024 showed a smilar blast percentage of 5%, similar FISH panel. #Acute encephalopathy in the setting of sepsis due to Neutropenic fever absolute neutrophil count is 0.7 today. antibiotics broadened to IV vancomycin; IV meropenem added on today patient remains febrile, tachypneic and tachycardic. He had CXR early this morning which showed evidence of fluid overload. initial blood and urine cultures were negative; repeat blood and urine cultures pending. CT abdomen and pelvis showed low density areas involving the enlarged spleen which may represent developing infarcts. ID on board. Patient being transferred to ICU today out of an abundance of precaution as he is requiring oxygen, gets tachycardic up to the 180s-190s and tachypneic. critical care consulted #Tachycardia still having intermittent tachycardia EKG showed sinus tachycardia metoprolol increased to 50mg bid. CTA chest was negative for PE 2D echo done last month showed EF of 60% with normal diastole, and mild aortic valve stenosis as well as trivial aortic valve regurgitation IV lopressor prn #Elevated liver enzymes liver enzymes remain elevated and have trended up some more today. Total bilirubin is 1.5, AST/ALT are up to 301/367 and ALP is uup to 500. patient on revlimid for MDS, which has a known side effect of hepatotoxicity. discuss with oncology about whether to hold revlimid. #Hypertension on lopressor and imdur as well as lisinopril #Hyperlipidemia: on statin. Statin on hold due to patient having generalised joint pain. Statin discontinued as patient refuses to take it DVT prophylaxis: SCDs DIsposition: patient transferred to ICU today. Patient remains very ill. Prognosis is poor. Code status: I did confim patient's code status today per discussion with his significant other. She still wants him to be full code, and have CPR and intubation if needed. Total face to face time: 17 mins Charges/Coding Visit Charges Inpatient E&M: 82033 Subs Hosp L3 Procedures Hospitalists Procedures: 72458 Advncd Care Plan 30 Min
--- NOTE | 2024-05-03 09:32 | CASEMGMT ---
Insurance review for hospitals in-network with [facility], if transfer is recommended, is as follows: [facility], [facility], [facility], [facility], [facility]), [facility], and .
[2024-05-03] MEDS: Meropenem 2 GM in 0.9% Normal Saline (100mL Bag) 100 ML IV (10:05)
[2024-05-03] MEDS: TBO-FILGRASTIM 480 MCG/0.8 ML ML SC (10:11)
[2024-05-03 11:16] LABS: Pathologist Review Reviewed
[2024-05-03 12:01] LABS: Bedside Glucose 174 mg/dL (74-106)
--- NOTE | 2024-05-03 12:10 | EX.PCM.CONCC ---
Assessment & Plan Assessment/Plan (1) Neutropenic fever: PLAN: Plan RECOMMENDATIONS: 1. Continue antimicrobials per ID recommendations. 2. Transfuse blood products as ordered. 3. Supplemental IV fluid hydration. 4. Discontinue diuretics. 5. Hold antihypertensives. 6. Continue Granix per oncology recommendations. 7. Discontinue Ativan. IMPRESSIONS: 1. Sepsis/neutropenic fever Unclear source of infection at this time. Infectious diseases currently following to assist with antimicrobial management. The patient was otherwise hemodynamically stable to present time. Continue ongoing supportive measures for now. 2. Pancytopenia with newly diagnosed myelodysplastic syndrome Continue supportive measures with transfusion of blood products to maintain a hemoglobin at or above 7 g/dL along with a platelet count at or above 10,000. Continue Granix as ordered. 3. Delirium Likely related to #1. I would avoid utilizing benzodiazepines for now. If needed, low-dose Seroquel or Haldol can be initiated. 4. Acute kidney injury Most likely prerenal in etiology. I have discontinued the patient's Lasix. I am going to provide gentle IV fluid hydration for now. 5. History of hypertension/hyperlipidemia/advanced age Complicates care, management, recovery and prognosis. Continue to hold home antihypertensives for now. Recommend n.p.o. status. This note was generated with [employer] dictation software. It may contain incorrect words, spelling, and punctuation that were not noted in checking the note before signing. HPI Consult Data Date of Consult: 05/03/24 HPI Narrative Reason for Consultation: Neutropenic fever HPI Narrative: The patient is a 74-year-old male, with a history as outlined below, who presented to the emergency department from the transitional care unit on April 28 with neutropenic fever. The patient has been in and out of the hospital since March following a recent diagnosis of myelodysplastic syndrome with associated anemia and thrombocytopenia, being followed by Dr. Lazaro of oncology. The patient had been initiated on Revlimid on April 26. His hospital course has been complicated by persistent febrile neutropenia, pancytopenia requiring transfusion of blood products and delirium. The patient was seen by infectious diseases on May 02 and is currently being maintained on cefepime and vancomycin. Repeat cultures are pending. The patient is being followed by Dr. Fitzgerald of oncology, who has recommended ongoing supportive care with a transfusion goal to maintain a hemoglobin at or above 7 g/dL along with a platelet count of 10,000. The patient continues to have intermittent episodes of atrial fibrillation, which responds to beta-blockade. He was apparently transferred to the medical intensive care unit this morning for close monitoring over concerns that he could potentially decompensate further from a clinical perspective. At the present time, the patient is afebrile and mildly tachycardic but is otherwise hemodynamically stable. He remains pancytopenic with a hemoglobin this morning of 6.9 g/dL and platelet count of 7000. Creatinine has increased to 1.53. CTA chest completed on May 01 was unremarkable. [facility] Medical History MDS (myelodysplastic syndrome) with 5q deletion Anxiety Diabetes Pancreatitis Non-smoker Diverticulosis History of chronic hypertension History of diabetes mellitus Home Medications ?Medication ?Instructions ?Recorded ?Last Taken ?Type atorvastatin 80 mg tablet 80 mg PO QHS CHOLESTEROL #30 tabs 04/03/24 04/25/24 Rx isosorbide mononitrate 30 mg 30 mg PO DAILY CHEST PAIN #30 tabs 04/03/24 04/26/24 Rx tablet,extended release 24 hr metoprolol tartrate 25 mg tablet 25 mg PO BID BLOOD PRESSURE #60 04/03/24 04/26/24 Rx tabs nitroglycerin 0.4 mg sublingual 0.4 mg sublingual Q5M PRN 04/03/24 Unknown Rx tablet Cardiac/Chest Pain #10 tabs pen needle, diabetic 29 gauge #100 ea 04/03/24 Unknown Rx acetaminophen 500 mg tablet 1,000 mg (2 x 500 mg) PO Q8 pain 04/26/24 Unknown Rx #0 tabs gabapentin 100 mg capsule 100 mg PO 0600,1400,2200 04/26/24 Unknown Rx neuropathy 3 days #9 caps insulin glargine-yfgn 100 unit/mL 20 unit (0.2 mL) subcut BID 04/26/24 04/26/24 Rx (3 mL) subcutaneous pen DIABETES #15 mL insulin lispro 100 unit/mL See Protocol subcut ACHS 04/26/24 Unknown Rx subcutaneous pen (Humalog KwikPen hyperglycemia #0 mL (U-100) Insulin) lenalidomide 10 mg capsule 10 mg PO DAILY MDS #0 caps 04/26/24 04/26/24 Rx lisinopril 10 mg tablet 5 mg (1/2 x 10 mg) PO DAILY BLOOD 04/26/24 04/11/24 Rx PRESSURE #30 tabs oxycodone 5 mg capsule 5 mg PO Q6H PRN BACK PAIN 3 days 04/26/24 Unknown Rx #12 caps sennosides 8.6 mg-docusate sodium 2 tab PO BID constipation #0 tabs 04/26/24 04/26/24 Rx 50 mg tablet (Stimulant Laxative Plus) trazodone 50 mg tablet 50 mg PO QHS PRN Insomnia #0 tabs 04/26/24 04/25/24 Rx Allergy/AdvReac Type Severity Reaction Status Date / Time [id number]-[id number] Reductase AdvReac Intermediate Pain in Verified 04/27/24 22:57 Inhibitor (Pjrqavp-Inz-Fpc joints Reductase Inhibitor) Family History Other Brain malignancy Diabetes Hypertension Surgical History Previous back surgery H/O colonoscopy Social History household members: spouse housing: house current occupational status: retired Smoking Status: Never smoker alcohol intake: former substance use type: does not use ROS Review of Systems ROS Unobtainable: due to mental status Physical Exam Const alert Constitutional Narrative: The patient appears disoriented but is currently nonverbal and will not answer any questions. General Appearance: ill appearing HEENT normocephalic and head/scalp atraumatic Eyes PERRL and EOMs intact bilaterally Neck supple General: trachea midline Chest inspection of chest normal Resp Effort and Inspection: tachypneic Auscultation: diminished lung sounds; Negative for rales, rhonchi or wheezes Cardio S1 normal heart sound and S2 normal heart sound Rate: tachycardic GI normal to inspection, nondistended, normoactive bowel sounds Extremity no clubbing, cyanosis or edema Skin no rashes or lesions noted Neuro CN's II-XII intact bilaterally, moves all extremities and no focal motor deficits Psych Activity / Motor Behavior: restless Mood & Affect: flat affect Medical Records Data Medical Nutrition Assessment Dietitian: Malnutrition Criteria Met Start: 04/28/24 14:05 Freq: Status: Active Protocol: Document 05/02/24 15:02 SB (Rec: 05/02/24 15:02 SB [id number]) Nutrition Malnutrition Evidence of Malnutrition Exists Yes Malnutrition (severe): Chronic Evidenced By Suboptimal Energy Intake ( Severe),Weight Loss (Severe) Intake Problem Inadequate Oral Intake Etiology related to increase pain and illness Signs/Symptoms as evidence by decreased appetite x 1.5 months and eating <50% of meals. 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 Reviewed and approved by Brenna Conklin RD, JOSE Lab / Micro Data 05/03/24 05:14 05/03/24 04:32 Labs: Laboratory Results - last 24 hr 04/30/24 06:20: Diff Path Review Reviewed 05/01/24 04:55: Diff Path Review Reviewed 05/02/24 06:05: Diff Path Review Reviewed 05/02/24 08:30: Blood Type O POSITIVE, Antibody Screen NEGATIVE, Crossmatch See Detail 05/02/24 17:23: POC Glucose 227 H 05/02/24 21:59: POC Glucose 202 H 05/03/24 04:32: WBC Cancelled, Corrected WBC Cancelled, RBC Cancelled, Hgb Cancelled, Hct Cancelled, MCV Cancelled, MCH Cancelled, MCHC Cancelled, RDW Std Deviation Cancelled, RDW Coeff of Consuelo Cancelled, Plt Count Cancelled, MPV Cancelled, Immature Gran % (Auto) Cancelled, Neut % (Auto) Cancelled, Lymph % (Auto) Cancelled, [place] % (Auto) Cancelled, Eos % (Auto) Cancelled, Baso % (Auto) Cancelled, Absolute Neuts (auto) Cancelled, Absolute Lymphs (auto) Cancelled, Total Counted Cancelled, Neutrophils % (Manual) Cancelled, Band Neutrophils % Cancelled, Lymphocytes % (Manual) Cancelled, Monocytes % (Manual) Cancelled, Eosinophils % (Manual) Cancelled, Basophils % (Manual) Cancelled, Metamyelocytes % Cancelled, Myelocytes % Cancelled, Promyelocytes % Cancelled, Blast Cells % Cancelled, Plasma Cell % (Manual) Cancelled, Other Cells % Cancelled, Nucleated RBC % Cancelled, Nucleated RBCs/100 WBC Cancelled, Differential Comment Cancelled, Diff Path Review Cancelled, Hypersegmented Neuts Cancelled, Atypical Lymphocytes Cancelled, Reactive Lymphocytes Cancelled, Smudge Cells Cancelled, Toxic Granulation Cancelled, Toxic Vacuolation Cancelled, Dohle Bodies Cancelled, [place] Rods Cancelled, Platelet Estimate Cancelled, Plt Morphology Comment Cancelled, RBC Morphology Cancelled 05/03/24 04:32: RBC Morphology Cancelled, Polychromasia Cancelled, Hypochromasia Cancelled, Basophilic Stippling Cancelled, Anisocytosis Cancelled, Microcytosis Cancelled, Macrocytosis Cancelled, Spherocytes Cancelled, Sickle Cells Cancelled, Target Cells Cancelled, Tear Drop Cells Cancelled, Ovalocytes Cancelled, Stomatocytes Cancelled, [place] Bodies Cancelled, [place] Cells Cancelled, Bite Cells Cancelled, Crenated Cell Cancelled, Acanthocytes (Spur) Cancelled, Rouleaux Cancelled, Schistocytes Cancelled, Sodium 135 L, Potassium 4.5, Chloride 105, Carbon Dioxide 18.0 L, Anion Gap 12, BUN 50 H, Creatinine 1.53 H, Estim Creat Clear Calc 41.60, Est GFR (MDRD) Af Amer 58 L, Est GFR (MDRD) Non-Af 48 L, BUN/Creatinine Ratio 32.7 H, Glucose 206 H, Calcium 8.5, Total Bilirubin 1.50 H, AST 301 H, ALT 367 H, Alkaline Phosphatase 500 H, Total Protein 5.3 L, Albumin 1.9 L, Globulin 3.4, Albumin/Globulin Ratio 0.6 L 05/03/24 05:14: WBC 3.9 L, RBC 2.40 L, Hgb 6.9 L, Hct 20.2 L, MCV 84.2, MCH 28.8, MCHC 34.2, RDW Std Deviation 48.7 H, RDW Coeff of Consuelo 16.0 H, Plt Count 7 L*, MPV 8.9, Neut % (Auto) Not Reportable, Absolute Neuts (auto) 0.7 L, Absolute Lymphs (auto) 2.46, Total Counted 100, Neutrophils % (Manual) 15 L, Band Neutrophils % 2, Lymphocytes % (Manual) 63 H, Monocytes % (Manual) 3, Eosinophils % (Manual) 1, Metamyelocytes % 2 H, Myelocytes % 1 H, Blast Cells % 13 H*, Diff Path Review May foll, Platelet Estimate MKD DEC, RBC Morphology NORM C+C 05/03/24 06:16: POC Glucose 207 H 05/03/24 11:31: POC Glucose 174 H Imaging Radiology Impression Chest X-Ray 05/03/24 04:16 IMPRESSION: Increased bilateral interstitial thickening suggestive of edema Electronically Signed: Chris Charles MD at 5:40 EDT , Charges/Coding Visit Charges Inpatient E&M: 82194 Init Hosp L3
[2024-05-03] MEDS: Lactated Ringers 1,000 ML 100 ML IV (12:29)
[2024-05-03] MEDS: Vancomycin IV 500 MG/100 ML BAG 100 MG IV (12:29)
--- NOTE | 2024-05-03 13:35 | PCM.PN.ID ---
Physical Exam Narrative In icu, remains confused, low grade fever overnight Const no apparent distress Orientation / Consciousness: confused Resp normal air movement and clear to auscultation bilaterally Cardio regular rate and regular rhythm GI soft to palpation, non-tender and non-distended Skin no rashes or lesions noted ID ID: Route of nutrition/ use of supplements: [] Nutritional Intake: [] IV Site: [] Rea Catheter: [] Assessment & Plan Assessment/Plan (1) Neutropenic fever: PLAN: On vanc/lamberto. Infectious workup neg so far. ANC and fever are slightly better. Heme is following. Will follow (2) Myelodysplastic syndrome: (3) Splenic infarct:
[2024-05-03 15:18] LABS: BNP,B-Type NATRIURETIC PEPTIDE 321.5 pg/mL (0-100)
[2024-05-03] MEDS: Amiodarone 150 MG in Dextrose 5%-Water (100mL Bag) 100 ML 600 MG IV BOLUS (15:19)
[2024-05-03 15:26] LABS: Procalcitonin 12.32 ng/mL (0.00-0.09)
[2024-05-03] MEDS: Amiodarone 360 MG in Dextrose 5% Viaflo Bag 192.8 ML 33.3 MG CONT INF (15:29)
--- NOTE | 2024-05-03 15:37 | CASEMGMT ---
Social Work- SW met with pt sons to offer support and empathetic listening. SW listened to son's goals of care and provided education as requested. Pt was with pt, focused on his care at the time of meeting. SW remains available to follow. BENNETT Plummer
--- NOTE | 2024-05-03 15:46 | NURSING ---
amio bolus infused converted to st on monitor hr 121
[2024-05-03 17:30] LABS: Bedside Glucose 203 mg/dL (74-106)
[2024-05-03] MEDS: Norepinephrine 8 MG in 0.9% Normal Saline (250mL Bag) 242 ML 9.4 MG CONT INF (18:30)
--- NOTE | 2024-05-03 19:26 | RAD_ITS ---
EXAM: XR CHEST, 1 VIEW CLINICAL INDICATION: ET TUBE, OG TUBE PLACEMENT TECHNIQUE: Frontal view of the chest. COMPARISON: 05/03/2024 at 0433 hours FINDINGS: LUNGS AND PLEURAL SPACES: There is left-sided haziness which may represent developing pneumonia. No pneumothorax. No effusion. HEART: Unremarkable. Cardiac silhouette not enlarged. MEDIASTINUM: Central airways and mediastinal contour are unremarkable. BONES/JOINTS: Unremarkable. No acute fracture. SOFT TISSUES: Unremarkable. TUBES, LINES AND DEVICES: Endotracheal tube is in place with the distal tip 6 cm above the cynthia. Nasogastric tube is in place with the distal tip overlying the distal stomach. RAD/Chest 1 View (Portable) IMPRESSION: Left-sided airspace disease which may represent developing pneumonia. Support structures in good position. Electronically Signed: Shelton Kay MD at 20:24 EDT ,
--- NOTE | 2024-05-03 19:35 | NURSING ---
1830 pt not breathing code called see code charting
--- NOTE | 2024-05-03 19:45 | CB_ITS ---
Code Blue Report Code Kirit Summary Code Blue Summary: NAOMY DEJESUS called at 1830 for respiratory arrest, patient had bradycardia to the 40s but never lost pulse, patient was intubated (see intubation note) and x-ray obtained. Discussed with family that they still wanted patient to be full code but were open to further discussion pending patient progress. Repeat NAOMY DEJESUS called with PEA arrest with 1 round of epinephrine and chest compressions and ROSC was achieved. Discussed with family regarding updates and prognosis and they wanted all family to be here prior to making any further code decisions. All family arrived at bedside and it 1944 family opted to make patient comfort care with palliative extubation. CODE STATUS changed in computer and extubation order placed and discussed with respiratory. Discussed with patient's nurse, patient family, and updated patient's attending physician on decision. Patient DNR comfort care Intubation Indication: Respiratory arrest The patient was placed in the appropriate sniffing position. Patient emergently intubated after respiratory arrest and NAOMY DEJESUS called. The patient had continuous cardiac as well as pulse oximetry monitoring during the procedure. Direct laryngoscopy was then performed using a number 4 MAC blade. A 7.5 mm endotracheal tube was visualized advancing between the cords to the level of 24 cm at the lip. The stylette was then removed and discarded. Tube placement was confirmed by fogging in the tube along with equal and bilateral breath sounds. Colorimetric change was visualized on the CO2 meter. The cuff was then inflated and the tube secured using a commercially available device. A portable chest x- ray has been ordered to confirm appropriate placement [facility] [employer] Hospitalists' Procedures Procedures: 29441 Insert Emergency Airway
--- NOTE | 2024-05-03 21:12 | CPS ---
Terminal extubation performed at this time per verbal order from Dr. Wheeler
--- NOTE | 2024-05-03 21:51 | NURSING ---
Patient time of 1999. Confirmed with 2 RNs, Maame Stroud and Trish Mullins.
--- NOTE | 2024-05-03 22:12 | NURSING ---
Amiodarione gtt was not scanned, but I did witness that it was hung in patient room. Previous RN said it was running and stopped when patient began to have bradycardia and hypotension.
--- NOTE | 2024-05-04 07:06 | PCM.DEATH ---
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 Patient had recently been admitted from 713 04/26/2024 at [facility] and also in late March and early April 2024. He was recently diagnosed with myelodysplastic syndrome with elevated blast cell count as well as anemia and thrombocytopenia and had been following with Dr. Almeida of oncology. His most recent admission had been for worsening back pain and debility and was found to have spine lesions on thoracic MRI which oncology thought were more consistent with bone marrow activation and recommendation was for supportive care. He had been started on Revlimid on 04/26/2024 by oncology. He was discharged to TCU on 04/26/2024 and on the evening of 04/27/2024 he developed fever and tachycardia and so was taken to the ED. His temperature was up to 102.3 Fahrenheit and he also had tachycardia. Labs were significant for WBC of 1.5, absolute neutrophil count of 400 and hemoglobin of 6.3. Platelets were 5. INR was 1.4 and creatinine was 1.13. Liver enzymes were also slightly elevated. CT of the abdomen and pelvis done in the ED with IV contrast showed low-density areas involving the enlarged spleen which may represent developing infarct but was otherwise unremarkable. He was admitted and managed for febrile neutropenia and started on IV cefepime. Patient had a protracted and complicated hospital course. He required multiple transfusions of platelets as his platelets were refractory to transfusions. He also required packed red blood cell transfusion due to persistent anemia. His WBC and absolute neutrophil count also remained low. He was started on Retacrit weekly injection per discussion with oncology and was also started on Granix shots. Oncology reviewed patient and thought his symptoms were likely due to sepsis from febrile neutropenia. Ultimately, patient became more tachypneic and his fever persisted. Antibiotics were broadened to IV vancomycin and meropenem. Infectious disease was consulted and repeat blood cultures were ordered. Of note initial blood cultures and urine cultures were negative. He was transferred to the ICU as he remained very ill and there was concern for deterioration. Patient and family were counseled extensively about the very poor prognosis and oncology also spoke extensively with family about how sick he was in the setting of the myelodysplastic syndrome which oncology was concerned could progress to acute leukemia. However at that point they still wanted him to remain full code when amenable to changing their mind depending on how he did in the hospital. He was transferred to the ICU on 05/03/2020 4 in the morning. In the evening of 05/03/2024, patient went into respiratory arrest. He did not lose his pulse initially and he was emergently intubated. Subsequently a CODE BLUE was called. Patient was emergently intubated and resuscitated per ACLS protocol. Family however decided to change CODE STATUS to DNR CC and patient was terminally extubated. Patient at 20:00 on 05/03/2024. Cause of is acute cardiopulmonary arrest due to sepsis from febrile neutropenia with the underlying cause being myelodysplastic syndrome. Visit Charges Inpatient E&M: [id number] [facility]
[2024-05-04 13:43] LABS: Pathologist Review Reviewed
== END 2024-05-03 22:00 | DRG 808 ==
LOC: ED 04-28 00:19 → PCU 04-28 00:56 → ICU 05-03 09:02
PROVIDERS: Internal Medicine Critical Care Medicine; Admitting Provider Hospitalist; Emergency Provider Emergency Medicine; PCP Family Medicine; Referring Provider Hospitalist; Visit Provider Student in an Organized Health Care Education/Training Program
DX: D70.3 Neutropenia due to infection (principal); E43 Unspecified severe protein-calorie malnutrition; A41.9 Sepsis, unspecified organism; D46.C Myelodysplastic syndrome with isolated del(5q) chromosomal abnormality; E11.40 Type 2 diabetes mellitus with diabetic neuropathy, unspecified; I10 Essential (primary) hypertension; I46.8 Cardiac arrest due to other underlying condition; D73.5 Infarction of spleen; Z79.4 Long term (current) use of insulin; E78.5 Hyperlipidemia, unspecified; I25.10 Atherosclerotic heart disease of native coronary artery without angina pectoris; E11.65 Type 2 diabetes mellitus with hyperglycemia; R50.81 Fever presenting with conditions classified elsewhere; R94.5 Abnormal results of liver function studies; T45.1X5A Adverse effect of antineoplastic and immunosuppressive drugs, initial encounter; Z66 Do not resuscitate; Z68.27 Body mass index [BMI] 27.0-27.9, adult; Z79.899 Other long term (current) drug therapy
CPT/HCPCS: 31500; 31720; 36415; 36430; 71045; 71275; 74177; 80048; 80053; 82962; 83605; 83880; 84145; 85025; 85027; 85610; 85730; 86850; 86900; 86901; 86920; 86922; 86965; 87040; 87086; 92950; 93005; 93306; 94002; 94668; 94762; 97162; 97166; 97530; 97535; 97802; 97803; 99284; J2185; J7030; J7040; J7050; J7120; P9016; P9035; P9040; Q9967; A4216; J1447; J1940; Q5106